=== PATIENT | female | born 1955 | race Caucasian/White ===

== ENCOUNTER 2024-04-17 12:47 | Inpatient (IN) | payer OTHER, SELFPAY ==
[2024-04-17] VITALS (59 sets, daily range): BP systolic 62–169; BP diastolic 29–151; PULSE 47–106; BMI 28.4
--- NOTE | 2024-04-17 08:57 | ED.GENMED ---
History of Present Illness
General
Chief Complaint: Heart Rate Problem
Source: patient
Exam Limitations: none
Time Seen by Provider: 04/17/24 08:56
History of Present Illness
History of Present Illness:
See MDM
Past History
Past History
ED Past Medical History: CVA and HTN
ED Past Surgical History: None
Social History
Tobacco: Non-smoker
Alcohol: None
Phy Exam
Physical Exam
Physical Exam:
See MDM
Course
Orders/Labs/Results
Orders:
Orders
04/17/24 08:52
EKG [Electrocardiogram (*1)] Urgent
Reason for Study: Bradycardia / Tachycardia
EKG- Treatment ONCE
04/17/24 09:09
Cardiovascular Evaluation Urgent
Comment: ADD ON
Complete Blood Count/With Diff Urgent
Comprehensive Metabolic Panel Urgent
Free T4 Urgent
Glycohemoglobin (HgbA1c) Urgent
PTT Urgent
Prothrombin Time Urgent
TSH Reflex To Free T4 Urgent
Comment: ADD ON
Troponin I Urgent
04/17/24 11:02
Add On- LAB Urgent
Tests Added?: TSH reflex to T4
04/17/24 11:22
Echo 2D MMode Color/Doppler Routine
Reason for Study: bradycardia
04/17/24 11:25
Troponin I Urgent
04/17/24 11:30
EKG [Electrocardiogram (*1)] Routine
Reason for Study: Bradycardia / Tachycardia
04/17/24 12:05
Consult Cardiology [CARDIOLOGY CONSULT] Routine
Consulting Provider: Hadley Dunlap
Was physician already notified: Yes
04/17/24 12:23
Admit/Transfer Patient As Directed
Co-Sign Provider:
Level of Care: Inpatient admission
Assign to:: Telemetry
Physician / Group: Matty Peterson
Diagnosis: Symptomatic Bradycardia
Patient Condition: Fair
Reason for Telemetry: Arrhythmia
Date to Stop Telemetry: 04/20/24
Time to Stop Telemetry: 11:00
Reason for Hospitalization: Symptoms of diaphoresis and shortness of breath at facility, heart rate found to
be in 30s to 40s per minute range. Hospitalization for cardiac workup,
telemetry, consideration of pacemaker.
Expected length of stay greater than two midnights?: Yes
ELOS- Estimated Length of Stay in days: 3
I certify the patient meets the requirements for IP care: Yes
PRN Pain Medication Management As Directed
May give lesser potent ordered pain med per pt: Yes
preference::
Protocol:: Medication orders for pain may be administered in a
manner that supports deferring to patient preference
when the pt is:
-Requesting an ordered lesser potent pain medication.
Least to most potent pain medications are defined as:
acetaminophen < NSAID < tramadol < opioids (morphine,
oxycodone, hydromorphone).
- Requesting a lesser dose of the same medication IF
ORDERED.
- Requesting a less intrusive route of administration
if both routes are prescribed by the provider (PO <
IV).
04/17/24 12:32
Code Status As Directed
Resuscitation Status: Full Code
Acetaminophen [Tylenol] 650 mg PO Q4HPRN PRN
Intake/ Output As Directed
Frequency: Per unit guidelines
Weight As Directed
Frequency: Daily
04/17/24 12:33
Activity As Directed
Activity Level: Out of Bed-Early Mobility
With Assistance
Vital Signs As Directed
Frequency: Per unit guidelines
DX Deep Vein Thrombosis Video Routine
04/17/24 12:38
Chest X-ray Portable [CR Chest Portable - 1 View] Routine
Comment:
Reason For Exam: crackles on exam
Reason Study Needs to be Portable: Other
04/17/24 14:12
Bisacodyl [Dulcolax] 10 mg RECTAL DAILYPRN PRN
Bismuth Subsalicylate [Wardell Bismuth] 524 mg PO Q4HPRN PRN
Magnesium Hydroxide [Milk of Magnesia] 30 ml PO DAILYPRN PRN
Phosphate Enema [Fleet Phosphate Enema-Adult] 118 ml RECTAL DAILYPRN PRN
04/17/24 14:12
DX Deep Vein Thrombosis Video Routine
04/17/24 14:44
Benzocaine/Menthol [Anesthetic Lozenge] 1 lozenge PO Q4HPRN PRN
04/17/24 Dinner
Regular
At Your Request: Full Participation
04/17/24 19:23
Troponin I Q6H
04/17/24 20:55
Troponin I Q6H
04/17/24 22:00
Melatonin 5 mg PO HS
04/18/24 04:29
Basic Metabolic Panel IN AM
Complete Blood Count/No Diff IN AM
Magnesium IN AM
04/18/24 08:00
Aspirin Chewable [Low Strength Aspirin] 81 mg PO DAILY
Clopidogrel Bisulfate [Plavix] 75 mg PO DAILY
Tramadol HCl [Ultram] 100 mg PO DAILY
Abnormal Lab Results
04/17/24 04/17/24
09:09 11:25
WBC 10.9 H 10^3/uL
(4.8-10.8)
RBC 3.68 L 10^6/uL
(4.20-5.40)
Hgb 10.9 L g/dL
(12.0-16.0)
Hct 32.5 L %
(37.0-47.0)
Abs Immat Gran (auto) 0.1 H 10^3/uL
(0-0.05)
Absolute Neuts (auto) 8.5 H 10^3/uL
(1.4-6.5)
Immature Gran % 0.6 H %
(0-0.5)
Neutrophils % 77.9 H %
(42.2-75.2)
Lymphocytes % 15.4 L %
(20.5-51.1)
APTT 23.2 L Sec
(23.4-35.0)
Chloride 108 H mmol/L
(98-107)
BUN 21 H mg/dl
(7-17)
Glucose 121 H mg/dl
(70-99)
Troponin I 0.484 H* D ng/ml
Triglycerides 189 H mg/dl
(10-149)
Total Cholesterol 218 H mg/dl
(50-199)
VLDL Cholesterol, Calc 37 H mg/dl
(0-30)
TSH (Reflex) 23.30 H uIU/ml
(0.47-4.68)
04/17/24 09:09
04/17/24 09:09
Vital Signs
Initial and Last Documented VS:
Initial Vital Signs
Temp Pulse Resp BP Pulse Ox
97.6 F 50 15 80/47 98
04/17/24 08:56 04/17/24 08:56 04/17/24 08:56 04/17/24 08:56 04/17/24 08:56
Last Documented Vital Signs
Temp Pulse Resp BP Pulse Ox
99.3 F 70 20 92/54 100
04/18/24 12:00 04/18/24 12:11 04/18/24 12:11 04/18/24 12:11 04/18/24 12:11
MDM/Problems Addressed
Differential Diagnosis Includes:
HPI and MDM Narrative:
68-year-old female presenting as a possible prearrival STEMI alert. Patient got out of the shower and felt weak and dizzy. EMS were called because she had a low heart rate. When they performed an EKG, there was concern for ST elevation with
reciprocal depressions. However, patient denying any sort of chest pain or shortness of breath. They gave 324 mg of aspirin. She is currently in rehab recovering from a recent stroke several weeks ago.
On arrival, patient denies chest pain or shortness of breath. She is very well-appearing and nontoxic. EKG was performed immediately showing no evidence of ST elevation or depression. STEMI alert was not called
Physical exam
General: Well appearing and non-toxic
HEENT: protecting airway
Neck: appears supple
CV: No evidence of cyanosis. Bradycardic
Resp: No accessory muscle use. Lungs clear
Abd: Non-distended
Extremities: No deformities
Neuro: alert
Psych: Normal affect
Skin: Intact
Problems Addressed including Acute and Chronic Conditions affecting care:
1. Bradycardia
Acuity: acute
Prognosis: stable
Details: Patient currently symptom-free in regards to shortness of breath. There is no ST elevation or depression to suggest STEMI. Regardless, will obtain troponin
Patient is not on beta-blockers but is on amlodipine. She did not take her medicine this morning
Updates
Blood work without significant abnormality. Given the intermittent episodes where the heart rate goes to the 30s and 40s, will admit for telemetry monitoring
12:10 PM repeat troponin elevated. At this point, both the hospitalist and the conveyor attendant at bedside and I updated both. Patient remained symptom-free
Differential Diagnosis (but not limited to): Symptomatic bradycardia, ACS
Testing considered: CT head but she denies headache
Drug therapy (if applicable): OTC meds, please see d/c instruction regarding Rx drugs
Amount and/or Complexity of Data Reviewed
Clinical info obtained from: Patient
External data reviewed: N/A
Labs I independently reviewed (but not limited to): Mild anemia
Radiology: N/A
Pulse Ox: not hypoxic
EKG independently reviewed: Sinus bradycardia, normal axis, no STEMI
Store Lead: Sinus rhythm
Critical Care: N/A
Risk of Complication:
Social Determinants of health: Good social support
Discussed with other providers: Hospitalist, cardiology
Escalation of Care includes Admit/Obs: Given the intermittent bradycardia, will admit for further evaluation
Occasional wrong word or 'sound a like' substitutions may have occurred due to the inherent limitations of voice recognition software. Read the chart carefully and recognize, using context, where substitutions have occurred.
*Critical Care Note
Total Time (30-74mins, 75-104mins- exclusive of procedures): Not Applicable
ED Attending Note
-
Portions of this chart may have been created with voice recognition software.� Occasional wrong word or��sound alike� substitutions may have occurred due to the inherent limitations of voice recognition software.
Discharge Plan
Departure
Patient Disposition: Admit
Date of Disposition: 04/17/24
Time of Disposition: 11:27
Admit to: Telemetry
Presentation/result/management discussed w/ accepting MD/DO: Hospitalist
Discharge Problem:
Symptomatic bradycardia
Interventions
Interventions:
*Risk Screen - Suicide Last Done: 04/17/24 08:56
*General Assessment Last Done: 04/17/24 08:56
*Neglect/Abuse Screening Last Done: 04/17/24 08:56
ED- Fall Risk Assessment Last Done: 04/17/24 13:37
*ED COVID-19 Vaccine History Last Done: 04/17/24 13:37
*Nursing Disposition Last Done: 04/17/24 13:37
ED- Cardiac Assessment Last Done: 04/17/24 09:06
ED- Pulmonary Assessment Last Done: 04/17/24 09:06
Discharge Date and Time
Discharge Date/Time: 04/17/24 13:37
[2024-04-17 09:17] LABS: % Basophils 0.6 % (0-2); % Eosinophils 1.4 % (0-6); % Immature Granulocytes 0.6 % (0-0.5); % Lymphocytes 15.4 % (20.5-51.1); % Monocytes 4.1 % (1.7-9.3); % Neutrophils 77.9 % (42.2-75.2); Absolute Basophils 0.1 10^3/uL (0-0.2); Absolute Eosinophils 0.2 10^3/uL (0-0.7); Absolute Immature Granulocytes 0.1 10^3/uL (0-0.05); Absolute Lymphocytes 1.7 10^3/uL (1.2-3.4); Absolute Monocytes 0.5 10^3/uL (0.1-0.6); Absolute Neutrophils 8.5 10^3/uL (1.4-6.5); Hematocrit 32.5 % (37.0-47.0); Hemoglobin 10.9 g/dL (12.0-16.0); Mean Corp Hgb Conc. 33.5 g/dL (33.0-37.0); Mean Corpuscular Hgb 29.6 pg (27.0-31.0); Mean Corpuscular Volume 88.3 fL (81.0-99.0); Mean Platelet Volume 9.7 fL (7.4-10.4); Nucleated Red Blood Cells % 0 %; Platelet Count 390 10^3/uL (130-400); Red Blood Cell Count 3.68 10^6/uL (4.20-5.40); Red Cell Dist. Width 14.2 % (11.5-14.5); White Blood Cell Count 10.9 10^3/uL (4.8-10.8)
[2024-04-17 09:28] LABS: ALT (SGPT) 15 U/L (0-35); AST (SGOT) 21 U/L (14-36); Albumin 4.1 g/dl (3.5-5.0); Alkaline Phosphatase 68 U/L (38-126); Blood Urea Nitrogen 21 mg/dl (7-17); Calcium 9.1 mg/dl (8.4-10.2); Carbon Dioxide 22 mmol/L (22-30); Chloride 108 mmol/L (98-107); Estimated Creatinine Clearance 47 ml/min; Glucose 121 mg/dl (70-99); Potassium 4.2 mmol/L (3.5-5.1); Sodium 139 mmol/L (135-145); Total Bilirubin 0.4 mg/dl (0.2-1.3); Total Protein 6.5 g/dl (6.3-8.2); eGFR > 60.00
[2024-04-17 09:33] LABS: INR 1.03; PT 13.5 Sec (11.4-14.6)
[2024-04-17 09:34] LABS: APTT 23.2 Sec (23.4-35.0)
[2024-04-17 09:40] LABS: Troponin I < 0.012 ng/ml
--- NOTE | 2024-04-17 10:54 | CON.CAR ---
Addendum entered and electronically signed by Hadley Dunlap MD 04/17/24 13:50:
I saw and examined the patient.
The ROASTER SUPERVISOR's note was reviewed and I agree with the note.
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 Patient reports that the night before last she had an episode of just sweating and
feeling short of breath episode lasted about 30 minutes. Today she had walked over to the dining room and after she was seated just felt diaphoretic and symptoms persisted. She was evaluated and was noted to be bradycardic heart rate in the 40s.
No hypotension reported. No chest pain or shortness of breath today. No prior history of coronary artery disease. EMS ECG raise question of ST elevation which was less on the initial ECG in the ER and when I evaluated her had resolved. Currently
without symptoms and has had no symptoms while in the emergency department. Initial troponin 0.012. Follow-up troponin 2 hours later is 0.4.
Presentation raises concern the diaphoresis may be anginal equivalent and transient inferior ST elevation may represent threatened CA. Based on the above cardiac catheterizations being recommended. Echocardiogram in the emergency department shows
normal left ventricular function. Heart rates currently in the 60s no evidence of additional bradycardia arrhythmias in the ER. No history of bleeding issues and no allergies to IV contrast. Patient is currently maintained on aspirin and Plavix
as an outpatient. Issues reviewed with patient's daughter by phone at the bedside while we had a discussion including the patient. Discussed findings above and discussed cardiac catheterization including procedure and risks. Both patient and
daughter have agreed and consent signed. Issues were reviewed with ER physician and hospitalist as well as interventional cardiology.
-Continue aspirin and Plavix
-No beta-ira due to recent bradycardia
-IV heparin 4000 unit bolus
-Statint
-Plan for cardiac catheterization additional recommendations based on results.
Critical care time 60 min
Original Note:
Consultation
Consultation Request
Date/Time Consultation Requested: 04/17/2024 1000
Date/Time Consultation Performed: 04/17/2024 10:50
Requesting Provider: Dr. Rosa
Performing Provider: MANPREET Colin for Dr. Dunlap
Reason for Consultation: Bradycardia
Medical History
-
History of Present Illness:
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 On 04/14/2024 the patient also had an episode of diaphoresis. She was sitting
watching television when she had the sudden onset of becoming profusely sweaty. She was given a fan. The episode lasted approximately 30 minutes and resolved. Then this morning after taking a shower she was walking down to breakfast when she
again was profusely diaphoretic. She endorsed some lightheadedness. She denies associated symptoms of chest pain, shortness of breath, and nausea. She was found to be bradycardic and was referred for evaluation.
Past Medical History
Past Medical History: CVA and HTN
Social History
Tobacco: Smoker
Alcohol: None
Drug: None
Personal: Single
Living: Shelter
Employment: Disabled
Family History
Family History: Reviewed & Not Pertinent
Allergies / Home Medications
Allergy/AdvReac Type Severity Reaction Status Date / Time
No Known Allergies Allergy Unverified 04/17/24 08:55
Review of Systems
-
History Source: Patient
All other systems: Negative unless noted
Constitutional: No Symptoms
EENT: No Symptoms
Respiratory: No Symptoms
Cardiac: No Symptoms
Abdomen/GI: No Symptoms
: No Symptoms
Musculoskeletal: No Symptoms
Skin: No Symptoms
Neurological: No Symptoms
Endocrine: No Symptoms
Hematologic/Lymphatic: No Symptoms
Physical Exam
Vital Signs
Temp Pulse Resp BP Pulse Ox
97.6 F 48 12 102/52 99
04/17/24 09:05 04/17/24 10:45 04/17/24 10:45 04/17/24 10:40 04/17/24 10:45
Lab Results
04/17/24 09:09
04/17/24 09:09
Troponin I < 0.012 ng/ml 04/17/24 09:09
Physical Exam
General: Well Developed, Well Nourished, No Apparent Distress and Comfortable
HEENT: Normocephalic, Anicteric and Moist Mucous Membranes
Respiratory: Clear and Non Labored Respirations
Cardiac: S1/S2, Regular Rhythm and Murmur (II/ systolic)
Breast: Deferred by me
GI: Soft, Non Tender, Non Distended and Normal Bowel Sounds
Rectal: Deferred by Provider
Genito-urinary: No Costovertebral Tender
Musculoskeletal: No Clubbing, No Cyanosis and No Edema
Skin: Warm and Dry
Neuro: AO x 3
Hematologic/Lymphatic: No Lymphadenopathy
Psych: Calm
Impression / Plan
-
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 She endorses diaphoresis episodes.
Diaphoresis
-1 episode at rest 1 episode with exertion
-Trend troponin and EKG, this could be anginal
-ASA given by EMS
Bradycardia
-TSH pending
-Not on any AV wiliam agents
Hypertension, hold amlodipine
Anemia likely chronic, per primary
Prior CVA, on DAPT
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
Current smoker, cessation recommended
Data Reviewed
-
EKG: Report Reviewed by me (Sinus bradycardia, rate 42)
Labs: Labs Reviewed by me
--- NOTE | 2024-04-17 11:54 | HPS.HSE ---
Family Physician
-
Family Physician: Chris Sigala
Chief Complaint
-
From inpatient rehab following stroke, heart rate in 30s to 40s at facility
History of Present Illness
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 She was in the rehab following a CVA 2 months ago. Was found to have low heart
rate with an ECG at that time showing potential ST elevations, patient without symptoms of chest pain or shortness of breath. She was emergently transferred to [facility] ED where repeat ECG did not show any acute ST deviation, T wave abnormality,
STEMI equivalents. Heart rate on ECG was 42/min with PACs and bigeminy pattern, however she was otherwise hemodynamically stable and on room air comfortably. Labs from the ED showed hemoglobin 10.9 with MCV 88.3, however the remainder of the BMP
and CBC were unremarkable. Initial troponin was negative. While in the ED was noted to have improved heart rate when ambulating. No indication for atropine in ED.
Upon speaking with the patient she states that this past Tuesday evening she had a similar event occur where she became diaphoretic and anxious. She says she is unclear if her heart rate was checked by the facility at that time. Symptoms started
when she was at rest. She mentions today she finished taking a shower and then walked to the kitchen when she developed recurrent symptoms. Was found to have low heart rate at that time when she was standing. She denies any history of coronary
artery disease or family history of CAD. She does smoke cigarettes, [id number] history. Denies alcohol and recreational drug use.
Medical History
Past Medical History
Past Medical History: Reports CVA (2 months ago) and HTN
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
Social History
Tobacco: Non-smoker
Alcohol: None
Drug: None
Family History
Family History: Not pertinent
Allergies / Home Medications
Allergies reflects when Allergies were last updated in [facility].
Home Medications with original date entered in [facility]
Allergy/Medication List:
NKDA
Review of Systems
-
History Source: Patient
A 12 point ROS was completed and negative except as noted: Yes
Constitutional: Reports No Symptoms
Respiratory: Reports No Symptoms
Cardiac: Reports No Symptoms
Abdomen/GI: Reports No Symptoms
Musculoskeletal: Reports No Symptoms
Skin: Reports No Symptoms
Neurological: Reports No Symptoms
Hematologic/Lymphatic: Reports No Symptoms
Physical Exam
Vital Signs
Vital Signs
Temp Pulse Resp BP Pulse Ox
97.6 F 59 16 110/93 99
04/17/24 09:05 04/17/24 11:00 04/17/24 11:00 04/17/24 11:00 04/17/24 10:45
Physical Exam
General: Well Nourished, No Apparent Distress and Comfortable
HEENT: NormoCephalic, Anicteric, Moist mucous membranes and Atraumatic
Respiratory: Crackles (bibasilar)
Cardiac: S1/S2 and Regular Rhythm; No Murmur, Rub, Gallop, Peripheral Edema or JVD
GI: Soft, Non Tender, Non Distended and Normal Bowel Sounds
Musculoskeletal: No Clubbing, No Cyanosis and No Edema
Neuro: Awake, Alert, Oriented and Nonfocal/grossly intact
Laboratory Results
-
04/17/24 09:09
04/17/24 09:09
Laboratory Results
PT 13.5 Sec (11.4-14.6) 04/17/24 09:09
INR 1.03 04/17/24 09:09
APTT 23.2 Sec (23.4-35.0) L 04/17/24 09:09
Total Bilirubin 0.4 mg/dl (0.2-1.3) 07/23/24 09:09
AST 21 U/L (14-36) 04/17/24 09:09
ALT 15 U/L (0-35) 04/17/24 09:09
Alkaline Phosphatase 68 U/L (38-126) 04/17/24 09:09
Troponin I < 0.012 ng/ml 04/17/24 09:09
Data Reviewed
-
Medical Tests (Nuc Med, Echo, EKG etc): Image Personally Visualized and interpreted and Report Reviewed by me
Lab Data: Labs Reviewed by me and Discussed with Physician
Old Records: Reviewed
Impression/Plan
-
# Symptomatic sinus bradycardia
-Differentials include vagal v. Sick sinus syndrome v. Ischemia
-Heart rate was in the range of 30 to 40/min prior to arrival, currently near 60/min
-She is on amlodipine though would not suspect DHP CCB to cause bradycardia
-Initial ECG at facility was concerning for ST elevation, repeat here with out ST deviation
-Initial troponin was <0.012, repeat 0.484; no active chest pain or anginal equivalents
-Cardiology consulted, echo ordered
Plan
-Hold amlodipine for now, low suspicion as etiology is low
-Order TSH to rule out thyroid disease
-Monitor BMP, electrolyte goal K>4, Mg>2
-Follow-up TTE
-Monitor on telemetry
# Elevated serum troponin
-Initial troponin negative, second troponin 0.484; no active chest pain, ECG with no ischemic findings
-She did have symptoms that could indicate underlying ischemia, possible ST elevation on facility ECG
-She does have a intermediate pretest probability due to age and risk factors
Plan
-Follow-up TTE to assess for WMA or reduced LVEF
-Trend serum troponin with serial ECG
-Continue DAPT for recent CVA
-Monitor on telemetry
# Bibasilar crackles
-Suspect that this is related to emphysema from smoking history, cannot rule out cardiac cause though
-Remains on room air currently, SpO2 in the high 90s no signs of respiratory distress
-Ordered chest x-ray to assess further
# Hypertension
-No known history of hypertensive systemic disease, meds include amlodipine 5 mg
-Held amlodipine as above, though again suspicion low for causing bradycardia
-BP well-controlled, will monitor while inpatient
# Normocytic anemia
-No previous records that would suspect this is chronic
-Hemoglobin near 11 on ED labs
-No obvious signs of bleeding
# H/O CVA
-Home medications include DAPT with aspirin and Plavix
-Unclear etiology, suspect cerebrovascular or related to [employer] SCIENCE TEACHER shunt
-No evidence of new focal deficits today
# Tobacco use
-Roughly half pack per day for close to 50 years
-Increased risk for underlying CAD, would not be surprised for emphysematous findings on lung
-Encourage cessation
DVT prophylaxis: Lovenox
Diet: House, moderate sodium restricted
CODE STATUS: Full code
Disposition: Telemetry, anticipate 24-48 hours of hospitalization
[2024-04-17 12:07] LABS: Troponin I 0.484 ng/ml
[2024-04-17 12:57] LABS: Free T4 1.08 ng/dl (0.78-2.19)
[2024-04-17] MEDS: HEPARIN 4000 UNITS IV (13:16)
[2024-04-17 14:17] LABS: ACT-LR - POC 250 Seconds (116-155)
[2024-04-17 14:29] LABS: ACT-LR - POC 329 Seconds (116-155)
--- NOTE | 2024-04-17 14:44 | ITS.CL.CATH ---
Photo Checker - Catheterization
Cardiac Catheterization
Procedure Report:
CARDIAC CATHETERIZATION REPORT
Date of Procedure: 04/17/2024
Referring: Hadley Dunlap MD
Indication: ACS/non-STEMI
HEMODYNAMIC DATA
AO:
LV:
LEFT VENTRICULOGRAPHY: Not performed
CORONARY ANGIOGRAPHY
Dominance: Right
Left Main: Mild distal tapering
LAD: Heavily calcified vessel with 50-60% mid stenosis
Circumflex: Dominant vessel with 90% mid circumflex stenosis immediately distal to the takeoff of a huge OM 2. OM1 is tiny. OM 2 is large with 60% ostial stenosis. OM 3 is small. The circumflex gives rise to several medium sized posterolateral
branches and a medium sized left PDA all of which have mild diffuse disease.
RCA: Nondominant vessel with 80% proximal stenosis
Angioplasty: We decided to proceed with intervention following the diagnostic study. Heparin total 6000 units was administered. Of note, the patient was quite restless and having difficulty cooperating with keeping her limbs on the cath table
during the diagnostic procedure. There was significant challenge from the right radial artery approach as we required a Glidewire to access the ascending aorta and a mother and daughter 125 cm diagnostic JR4 in 6 Filipino EBU 3.5 guide to get down to
the aortic root. Even with the guide catheter safely in the left coronary artery she had difficulty remaining still. BMW wire was advanced into the left circumflex and successfully passed into the distal circumflex. We attempted unsuccessfully to
pass another BMW wire into the large OM 2 to protect it. A 2.5 x 12 trek balloon was advanced across the lesion and inflated to 12 aliyah. We then passed a 4.0 x 18 Xience ANALI across the lesion and deployed at at 14 aliyah. Postdilatation was
accomplished with a 4.0 NC trek to 17 aliyah. The final angiographic result was outstanding. There remained PORTILLO grade III flow into the distal circumflex. There was some plaque shift into the already mildly stenosed ostium of the large OM 2 but
flow remained PORTILLO grade III. Because of the normal flow and because of the normal flow and her difficulty remaining still on the table, we opted to terminate the procedure at this point.
Closure Device: None-the procedure was performed via the right radial artery.
Radiation (mGy): 379
DAP (cm2.Gy): 25.6
Fluoroscopy time: 12.8 minutes
CONCLUSIONS
1: ACS/non-STEMI presentation
2: Systemic hypertension
3. Elevated LVEDP
4. Severe calcific multivessel CAD as described above
5. Successful stenting of culprit 90% mid circumflex (dominant vessel) stenosis with placement of 4.0 x 18 Xience ANALI
6. Remainder of CAD to be treated medically
7. Check echocardiogram for LV function
8. 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
Copy to: Chris Sigala DO, Hadley Dunlap MD
Noah Coto MD, [facility], [facility]
--- NOTE | 2024-04-17 16:28 | CM ---
Chart reviewed. I spoke with the patient's brother, Jose, who told me the patient lives at [facility] and has been living there for 2 years. The patient told me she ambulates with a rolling walker. I left a message with [facility].
Waiting on callback. CM to follow
[2024-04-17 16:57] LABS: Glucose - Point of Care 170 mg/dl (70-99)
--- NOTE | 2024-04-17 17:04 | W.PN.UPDATE ---
Update Note
Progress Note Update
Called to evaluate patient for bradycardia. Started ~16:45. Patient was immediately evaluated.
Heart rate in the 30s. She endorsed diaphoresis and stated 'I don't feel good.' She began vomiting. Oral suction by nursing. She became jett. She was visibly diaphoretic. No pulse was lost. She did not require CPR. Supplemental O2 given. QRS on
telemetry widened with ST changes. Dr. Coto notified. Heparin 5000 units IV given and she was transferred to the veterinary laboratory diagnostician urgently wearing R2 pads.
See code sheet for full medication administration.
--- NOTE | 2024-04-17 17:15 | PTCARENOTE ---
Pt restless post cath, She wanted to go to BR. Pt on bedrest, bedpan given. EKG done. HR 50-60's SB. 1635, Pt c/o SOB, HOB elevated. Pt felt a little better. Pt assisted to chair. Then Pt said she didn't feel well. HR now in 30's, Pt quickly
assisted back to bed, rapid response called. BP 82/45. Pt became briefly unresponsive, pale, vomited small amt douglas emesis. See rapid response record.
[2024-04-17 17:30] LABS: HDL Cholesterol 55 mg/dl; LDL Cholesterol, Calculated 126 mg/dl; Total Cholesterol 218 mg/dl (50-199); Triglyceride 189 mg/dl (10-149); Very Low Density Lipoprotein 37 mg/dl (0-30)
--- NOTE | 2024-04-17 18:52 | ITS.CL.CATH ---
Rating Specialist - Catheterization
Cardiac Catheterization
Procedure Report:
CARDIAC CATHETERIZATION REPORT
Date of Procedure: 04/17/2024
Referring: Noah Coto MD
Indication: Hypotension with severe bradycardia 1-2 hours post left circumflex stenting
HEMODYNAMIC DATA
AO: 108/77
LV: 108/25
ACCESS: On arrival in the Rating Specialist we obtained access via the right femoral artery and right femoral vein using a micropuncture technique. 6 [place] Citizen sheaths were placed in the RFA and RFV. By the time she was in the Rating Specialist her bradycardia had
resolved and she was actually tachycardic. Therefore no transvenous pacemaker was placed. We were unable to pass a J-wire through the right common iliac artery and angiography was then performed demonstrating total occlusion of the right common
iliac artery. We then attempted access via the left femoral artery. There were no palpable pulses on either side. We accessed the left femoral artery with a micropuncture technique and were able to place a 6 [place] Citizen sheath. We were unable to pass
a J-wire through the left common iliac artery and angiography was performed via the left femoral artery sheath and showed severe calcific stenosis of the left common iliac artery. There was severe stenosis/near occlusion of the distal aorta at the
level of the bifurcation. However there was a channel and we attempted to pass a Glidewire through a 5 [place] Citizen JR4 diagnostic catheter. We were unable to get the wire cleanly in the aorta and it was clear that there was dissection on a very gentle
puff. We then abandoned further attempts to access the aorta. The left radial artery was prepped and accessed with a micropuncture needle. We were able to perform the procedure via this approach.
CORONARY ANGIOGRAPHY
Left Main: Mild distal tapering
LAD: Severely calcified with angiographic description unchanged from prior study earlier today
Circumflex: Mild proximal circumflex disease. The stent placed in the mid circumflex is patent. However, the circumflex is severely stenosed 15-20 mm distal to the stent likely reflecting edge dissection propagating distally. There is PORTILLO grade
III flow into the posterolaterals and LPDA. The large second obtuse marginal branch is proximally occluded and this is new since the completion angiogram from the PCI done 2 hours earlier. Of note, we were unable to wire this vessel prior to
stenting the original circumflex lesion.
Angioplasty: Double bolus Integrilin was administered an additional heparin as needed to keep the ACT therapeutic. Using the EBU 3.5 guide catheter, a BMW wire was easily passed into the distal circumflex. Balloon angioplasty was accomplished with
a 3.0 x 15 trek balloon. We were unable to pass a 3.25 x 38 Xience ANALI. Further balloon angioplasty was performed and there appeared to be a tight lesion just distal to the edge of the original stent. A guide liner was used to enhance backup
support. Ultimately we were able to get the 3.25 x 38 stent to the target location where was deployed at 14 aliyah. The proximal portion of the stent was postdilated with a 3.5 x 15 NC trek to 18 aliyah. We made multiple unsuccessful attempts to wire
through the side struts of the stent into the occluded second obtuse marginal branch including use of a whisper wire and a Fielder XT. Ultimately we opted to cease attempts and she was transferred to the CVICU.
Closure Device: R band left radial artery. The indwelling sheath in the RFA and ACTUARY MANAGER were left in place. Of note systolic blood pressure transduced from the left femoral artery sheath at the procedure conclusion is 100 mmHg compared with right arm
cuff pressure of 130.
Radiation (mGy): 645
DAP (cm2.Gy): 57.44
Fluoroscopy time: 23.7 minutes
CONCLUSIONS
1: Emergent angiography demonstrating nonocclusive dissection distal to the originally placed stent which is patent. There is now total occlusion of the large OM 2 which originates from within the stented segment.
2: Successful angioplasty and stenting in a distal overlapping fashion using a 3.25 x 38 Xience ANALI postdilated proximally with a 3.5 mm noncompliant balloon.
3. Unsuccessful attempt to rescue the occluded OM 2 due to failure to get a coronary guidewire past the site of occlusion
4. Demonstration of chronically occluded right common iliac artery and severe calcific left iliac disease. The distal aorta is nearly occluded
5. Prognosis is guarded and she is critically ill
Copy to: Chris Sigala DO, Hadley Dunlap MD
Noah Coto MD, [facility], [facility]
[2024-04-17 19:28] LABS: ACT-LR - POC 236 Seconds (116-155)
[2024-04-17 19:29] LABS: Glucose - Point of Care 126 mg/dl (70-99)
[2024-04-17 19:33] LABS: HCO3 18.6 mmol/L (21-28); Ionized Calcium 1.15 mMOL/L (1.15-1.33); O2 Saturation % 99.4 % (94-98); PCO2 33 mmHg (32-35); PO2 151 mmHg (83-108); pH 7.36 (7.35-7.45)
[2024-04-17 19:34] LABS: Hematocrit 29.7 % (37.0-47.0); Hemoglobin 10.4 g/dL (12.0-16.0); Mean Corpuscular Hgb 30.1 pg (27.0-31.0); Mean Corpuscular Volume 85.8 fL (81.0-99.0); Platelet Count 404 10^3/uL (130-400); Red Blood Cell Count 3.46 10^6/uL (4.20-5.40); Red Cell Dist. Width 14.3 % (11.5-14.5); White Blood Cell Count 21.9 10^3/uL (4.8-10.8)
[2024-04-17] MEDS: SODIUM BICARBONATE 25 MEQ IV (19:44)
[2024-04-17 19:45] LABS: INR 1.23; PT 15.6 Sec (11.4-14.6)
[2024-04-17] MEDS: DOPamine 400 MG 250 IV (19:47)
[2024-04-17] MEDS: PRECEDEX 100 IV (19:48)
--- NOTE | 2024-04-17 19:53 | W.PN.UPDATE ---
Update Note
Progress Note Update
At the conclusion of the study we were not able to obtain Doppler signals in either foot. She was transferred to the CVICU and the feet were warmed with blankets. There is still no Doppler signal and I am concerned that the LFA sheath in
particular may be occlusive due to left LIEUTENANT SHIFT SUPERVISOR disease. ACT in the CVICU was 236. We will recheck in 30 minutes and plan to pull the femoral artery sheaths as soon as possible. I discussed the situation with Dr. Garcia who is insurance consultant for vascular
surgery. I told her I would update her following sheath removal.
I have updated the patient's daughter on the entire series of events.
[2024-04-17] MEDS: CALCIUM GLUCONATE 130 MG IV (19:55)
[2024-04-17 20:07] LABS: ACT-LR - POC 219 Seconds (116-155)
[2024-04-17] MEDS: LOVENOX SC (20:12)
[2024-04-17] MEDS: OFIRMEV 100 IV (20:13)
[2024-04-17 20:14] LABS: APTT > 200 Sec (23.4-35.0)
[2024-04-17 20:28] LABS: ALT (SGPT) 17 U/L (0-35); AST (SGOT) 44 U/L (14-36); Albumin 3.9 g/dl (3.5-5.0); Alkaline Phosphatase 79 U/L (38-126); Blood Urea Nitrogen 17 mg/dl (7-17); Calcium 8.6 mg/dl (8.4-10.2); Carbon Dioxide 18 mmol/L (22-30); Chloride 110 mmol/L (98-107); Estimated Creatinine Clearance 59 ml/min; Glucose 118 mg/dl (70-99); Magnesium 1.9 mg/dl (1.6-2.3); Potassium 3.9 mmol/L (3.5-5.1); Sodium 136 mmol/L (135-145); Total Bilirubin 0.3 mg/dl (0.2-1.3); Total Protein 6.4 g/dl (6.3-8.2); eGFR > 60.00
[2024-04-17 20:34] LABS: B.E. -4.2 mmol/L; O2 Saturation % 99.5 % (94-98); PCO2 38 mmHg (32-35); PO2 126 mmHg (83-108); pH 7.35 (7.35-7.45)
[2024-04-17] MEDS: NSS 250 IV (20:50)
[2024-04-17] MEDS: CALCIUM CHLORIDE 10% SYRINGE 500 MG IV (20:50)
[2024-04-17] MEDS: ATROPINE 0.1 MG/ML SYRINGE 1 MG IV (20:50)
[2024-04-17] MEDS: MAGNESIUM SULFATE 102 GRAMS IV (20:58)
--- NOTE | 2024-04-17 21:01 | W.PN.UPDATE ---
Update Note
Progress Note Update
BP trended down over past hour and she is now on dopa and levo.
LFA sheath removed. Manual compression x 25 min by me. Groin is soft without hematoma. Good doppler signal LFA. Very weak doppler signal L PT and it goes away when SBP <85.
We have given IVF, Ca++, Mg++ and pressor trying to keep BP acceptable.
Will need to remove RFA sheath as this is likely occulsive.
I have reviewed angiograms of both procedures with pt brother and sister and explained that her situation is increasingly dire.
[2024-04-17] MEDS: KCL 50 IV (21:02)
[2024-04-17] MEDS: SODIUM BICARBONATE 50 MEQ IV (21:03)
[2024-04-17 21:04] LABS: Hematocrit 26.7 % (37.0-47.0); Hemoglobin 9.2 g/dL (12.0-16.0)
[2024-04-17] MEDS: ATROPINE 0.1 MG/ML SYRINGE 0.5 MG IV (21:05)
[2024-04-17] MEDS: LEVOPHED 250 IV (21:10)
[2024-04-17] MEDS: MELATONIN PO (21:11)
[2024-04-17 21:30] LABS: B.E. -3.8 mmol/L; HCO3 20.4 mmol/L (21-28); O2 Saturation % 96.8 % (94-98); PCO2 33 mmHg (32-35); PO2 72 mmHg (83-108); Potassium 4.2 mMOL/L (3.5-5.1)
[2024-04-17 21:32] LABS: Ionized Calcium 1.55 mMOL/L (1.15-1.33)
--- NOTE | 2024-04-17 22:00 | PTCARENOTE ---
Received report from entry level lab technician nurse. Pt out to CVICU ~1915 and admitted to room 2265. Pt restless and agitated. SOLIMAN. No c/o pain. Pt was SR w/ a suspected heart block on the tele monitor w/ HR 80s. EKG obtained. BP 123/92. Upon arrival to CVIVU,
bilateral radial pulses present via Doppler and bilateral DP/PT pulses absent via doppler. Bilateral feet cool to touch and pale. CTPA and Dr. Coto aware. Pt on 100% nonrebreather mask at 8 L. POX 91%. Abdomen soft/nontender. Pt anuric. Right
radial cath site TR band intact. 3 mL air removed. Left radial cath site TR band intact. Right femoral venous sheath and right femoral arterial line site soft/intact. Left femoral arterial line soft/intact. Both arterial lines transduced to the
monitor, zeroed, and flushed. Labs drawn and sent. ACT obtained. Pt required several nurses to help remain flat on bed and keep limbs straight. Pt began bradying down w/ HR in the 40s/50s. Dopamine initiated as ordered. Pt remained restless -
Precedex initiated as ordered. Dr. Coto pulled left femoral arterial line @2014 and held manual pressure for >30 mins. Pt progressively became more unstable. SBP sustained in the 60-70s. Pt having episodes of bradycardia in the 30s and going into
complete heart block. On/off dopamine. Levo initiated. Calcium chloride, atropine, bicarb, and electrolyte replacements given as ordered - see MAR. Per Dr. Coto, pt to go back to entry level lab technician for a temp pacing wire.
--- NOTE | 2024-04-17 22:05 | PTCARENOTE ---
Pt transported to track repair laborer for temporary pacing wires @2590.
--- NOTE | 2024-04-17 22:16 | ITS.CL.PN ---
Top Coater - Procedure Note
Procedure
Procedure Note:
TRANSVENOUS PACEMAKER REPORT
Date of Procedure: 04/17/2024
Referring: Noah Coto MD
PROCEDURE SUMMARY:
Successful placement of 6 [place] transvenous pacemaker via left femoral vein
DESCRIPTION OF PROCEDURE: Access was obtained using a micropuncture technique in the left femoral vein. A 6 [place] sheath was placed. A 6 [place] transvenous pacemaker was advanced to the right ventricle. In a septal position she developed rapid
ventricular flutter which required a 300 J shock. This restored sinus rhythm. Pacemaker was then reoriented to a more apical position. There was a second episode of ventricular flutter requiring a shock. She then remained electrically quiet
albeit in atrial fibrillation. Adequate thresholds (2.5 mA) were obtained. We then secured the pacemaker in position with suture and Tegaderm as well as tape.
Radiation (mGy): 11.9
DAP (cm2.Gy): 2.0
Fluoroscopy time: 1.6 minutes
CONCLUSIONS: Successful placement of 6 [place] transvenous pacemaker via left femoral vein.
Copy to: Hadley Dunlap MD
Noah Coto MD, [facility], [facility]
--- NOTE | 2024-04-17 22:21 | W.PN.UPDATE ---
Update Note
Progress Note Update
I spoke with Dr. Cornell again after the LFA sheath was removed. We did have a weak left PT signal. Whenever her blood pressure fell the Doppler signal would not be audible. There is no option to improve lower extremity flow by either endovascular
or open surgical treatment given how critically ill she is at this time. I spoke with vascular surgery who feels same.
She had several episodes of high-grade AV block with ventricular rate in the 30s. This was accompanied by hypotension. Atropine successfully treated the bradycardia. A decision was made to place a temporary pacemaker and I obtained phone consent
from her daughter Darvin. I explained to her brother and sister that her condition continues to deteriorate and we will need to discuss whether she would want to be intubated once her daughter Davrin arrives.
Rhythm on transfer to CVICU AF 100-120 with BP 100-110/60.
[2024-04-17] MEDS: CORDARONE 103 MG IV (23:06)
[2024-04-17] MEDS: CORDARONE 518 MG IV (23:23)
[2024-04-17 23:27] LABS: Glucose - Point of Care 221 mg/dl (70-99)
[2024-04-17 23:42] LABS: ACT-LR - POC 136 Seconds (116-155)
[2024-04-17 23:46] LABS: B.E. -4.8 mmol/L; Ionized Calcium 1.35 mMOL/L (1.15-1.33); O2 Saturation % 97.5 % (94-98); PCO2 30 mmHg (32-35); PO2 76 mmHg (83-108); Potassium 3.8 mMOL/L (3.5-5.1); pH 7.41 (7.35-7.45)
[2024-04-18] VITALS (186 sets, daily range): BP systolic 46–142; BP diastolic 10–98; PULSE 70; BMI 28.0
[2024-04-18 00:01] LABS: Lactic Acid 3.3 mmol/L (0.7-2.0)
[2024-04-18] MEDS: KCL 50 IV (00:13)
--- NOTE | 2024-04-18 00:15 | PTCARENOTE ---
Pt returned to CVICU from pathology laboratory aide ~2235. Temporary pacing wire placed via left femoral vein. Upon arrival to CVICU, pt a-fib on the tele monitor w/ HR 100s. SBP 90s-100s. Levo/Precedex infusing. Bilateral radial pulses present via Doppler. Left PT
pulse present via Doppler, right LE pulse absent via Doppler. Bilateral feet remain cool to touch and pale. Pt on 100% non-rebreather mask at 15 L. POX 90s. Slight wheezing heard. Pt remained anuric - Escobar catheter placed as ordered and pt voiding
clear/yellow urine. Bilateral radial cath sites w/ TR bands intact. Air removed from bilateral TR bands when appropriate. Right femoral venous sheath and arterial line site soft/intact. Right fem arterial line transduced to the monitor, zeroed, and
flushed. Restraints placed on pt as ordered. All ordered labs drawn and sent. Amiodarone drip and bolus administered as ordered. Family updated and in to see pt.
[2024-04-18 00:50] LABS: B.E. -9.6 mmol/L; O2 Saturation % 99.6 % (94-98); PCO2 23 mmHg (32-35); PO2 146 mmHg (83-108); pH 7.39 (7.35-7.45)
[2024-04-18 00:51] LABS: HCO3 13.9 mmol/L (21-28)
[2024-04-18] MEDS: SODIUM BICARBONATE 50 MEQ IV ×2 (00:58→02:07)
[2024-04-18] MEDS: LASIX 40 MG IV (01:11)
[2024-04-18] MEDS: VERSED 0.5 MG IV ×6 (01:46→10:24)
--- NOTE | 2024-04-18 01:48 | W.PN.ANESINT ---
Anesthesia Intubation Note
- Intubation Note
Intubation Note:
Diagnosis: Respiratory Distress
Blade: Mac4
Tube Size: 8.0
Depth: 23cm@lip
Side Taped: right
Drugs Used: propofol-50mg, succs-100mg
Grade View: 1
EtCO2 Present: yes
Atraumatic: yes
Attempts: 1
Insertion Start and Stop Time:
SaO2 Pre: 90
SaO2 Post: 99
Glidescope Used: yes
Other Airway Adjustments: suctioned
Pre-Oxygenated: yes
Portable Chest X-Ray: yes
RSI: no
Suctioned: yes
Bilateral Breath Sounds Confirmed: yes
Vent Settings:
Settings per ___Attending Physician
[2024-04-18 01:50] LABS: B.E. -8.1 mmol/L; HCO3 16.9 mmol/L (21-28); Ionized Calcium 1.26 mMOL/L (1.15-1.33); O2 Saturation % 99.8 % (94-98); PCO2 32 mmHg (32-35); PO2 183 mmHg (83-108); Potassium 4.4 mMOL/L (3.5-5.1); pH 7.33 (7.35-7.45)
--- NOTE | 2024-04-18 02:00 | PTCARENOTE ---
Pt becoming increasing tachypneic and pale w/ respiratory rate in the 30s. HR 50s. SBP dropping to 70-80s. ABG drawn and sent. Chest xray obtained. Respiratory and CTPA at the bedside. Albuterol treatment administered and IV lasix administered - see
NOV. CTPA on phone w/ Dr. Coto - order to intubate. Anesthesia at the bedside. Pt intubated w/ #8 ETT, 21 cm at the right lip @0105. See worklist for full vent settings. ETT placement confirmed w/ chest xray. Pt POX 98-100%. Lung sounds audible
throughout. Mouth care completed. Pt turned, washed w/ CHG wipes, and repositioned.
[2024-04-18] MEDS: LEVOPHED 250 IV ×5 (02:16→20:36)
[2024-04-18 02:34] LABS: B.E. -3.1 mmol/L; HCO3 20.8 mmol/L (21-28); O2 Saturation % 99.8 % (94-98); PCO2 32 mmHg (32-35); PO2 182 mmHg (83-108); pH 7.42 (7.35-7.45)
--- NOTE | 2024-04-18 03:28 | W.PN.CARD.SR ---
Sheath/IABP Sheath Removal
Sheath Removal
Right Arterial Femoral:
Site appearance prior to sheath removal: Intact
Size of hematoma in cm: 0
Sheath removed by:: Physician construction assistant
Name of associate removing sheath: Mouna Braden
Time of sheath removal: 02:50
Time hemostasis achieved: 03:15
Site appearance post sheath removal: Intact
Size of hematoma in cm: 0
Method of Hemostasis Post Sheath Removal: Manual Pressure
Dressing dry and intact?: Yes
Comments: CFV sheath remains in place. R PT is now dopplerable. No hematoma
[2024-04-18] MEDS: PRECEDEX 100 IV ×2 (03:59→08:20)
[2024-04-18 04:38] LABS: Venous Blood Gas B.E. -2.3 mmol/L (-4 to +4); Venous Blood Gas HCO3 24.5 mmol/L (22-27); Venous Blood Gas pCO2 51 mmHg (35-48); Venous Blood Gas pH 7.29 (7.32-7.43); Venous Blood Gas pO2 46 mmHg (30-50)
--- NOTE | 2024-04-18 04:40 | PTCARENOTE ---
Right femoral arterial line pulled by CTPA @0250. Manual pressure held by CPTA until hemostasis achieved, Right femoral venous sheath remains in place. Right fem site intact/soft. Bilateral PT pulses present via doppler. All ordered labs drawn and
sent. Pt remains restless and attempting to sit up in bed - versed administered as ordered, see NOV. VSS. Levo, dobutamine, amiodarone, and Precedex infusing per protocol/as ordered.
[2024-04-18 04:46] LABS: Hematocrit 26.8 % (37.0-47.0); Hemoglobin 9.1 g/dL (12.0-16.0); Mean Corpuscular Hgb 29.7 pg (27.0-31.0); Mean Corpuscular Volume 87.6 fL (81.0-99.0); Mean Platelet Volume 10.4 fL (7.4-10.4); Platelet Count 362 10^3/uL (130-400); Red Blood Cell Count 3.06 10^6/uL (4.20-5.40); Red Cell Dist. Width 14.3 % (11.5-14.5); White Blood Cell Count 34.6 10^3/uL (4.8-10.8)
[2024-04-18 05:11] LABS: Blood Urea Nitrogen 18 mg/dl (7-17); Calcium 9.4 mg/dl (8.4-10.2); Carbon Dioxide 25 mmol/L (22-30); Chloride 104 mmol/L (98-107); Estimated Creatinine Clearance 47 ml/min; Glucose 234 mg/dl (70-99); Magnesium 1.9 mg/dl (1.6-2.3); Sodium 140 mmol/L (135-145); eGFR > 60.00
--- NOTE | 2024-04-18 05:13 | PTCARENOTE ---
[facility] PRU urgent cancelled by lab. Per lab - unable to collect specimen due to interfering medications that the pt has received in the past 48 hours.
--- NOTE | 2024-04-18 07:35 | W.PN.CD ---
Today's Communication / Plan
-
ECHO
Check lactate
NaHCO3 if needed
BC x 2
Vascular consult called
Impression / Plan
-
BACKGROUND: 68F with hypertension, current smoker, prior CVA, and 'brain shunt' (WELL PULLER?) Who presents from [facility] with bradycardia. She endorses diaphoresis episodes.
CAD:
- Taken urgently following admission to laborer driver with NonSTEMI
-Complex CAD with severe bifurcation stenosis in midportion of dominant cx involving large OM2 origin
- Able to stent 90% mid cx across origin of OM2 (but unable to wire OM2 before stenting cx) with good final result
- 90 min post cath she developed hypotension/bradycardia/heart block. Taken back emergently and angio showed stent patent but near occlusion of circumflex downstream of stent undoubtedly due to distal dissection not visible on completion angiogram
from first procedure. Also the large OM2 now occluded at ostium. Distally overlapping stent placed in cx.
- Pt remained critically ill with evolving inferolateral [place] requiring dopa/levophed
-Developed intermittent heart block and taken back to laborer driver for TPM
- Around 1 AM intubated for impending respiratory failure
- Metabolic acidosis treated with increased respiratory rate and NaHCO3
- Has improved on ventilator over past 6 hours with lower pressor requirements (Dopa 5/Levo8)
-Received lasix 40 IV and has excellent UO with Cr 1.0
- Trop up to 195 and not yet peaked
- ECHO precath normal LV without valve disease. Will repeat ECHO in setting of [place]
Hypothyroid
-TSH 23
- Would be helpful if synthroid could start- will discuss with IM
Vascular
- Had no doppler signals post case until sheaths removed. Spoke with vascular last night and this am
-Now with doppler signals bilaterally
- No role for urgent vascular intervention
-Horrible PAD with occluded R CI and near occlusion of terminal aorta
WELL PULLER shunt
-WBC 34k . Need to check blood cxs in case there is some infection here
Metabolic acidosis
- Etiology multifactorial : [place], LE ischemia
- Need to rule out infection
Prior CVA
- On DAPT
Will update family. Remains critically ill
CCT 65 min
Physical Exam
Vital Signs/Labs
Vital Signs
Temp Pulse Resp BP Pulse Ox
99.6 F 62 21 110/66 100
04/18/24 07:00 04/18/24 07:20 04/18/24 07:20 04/18/24 07:20 04/18/24 07:20
04/17/24 04/18/24 04/19/24
06:59 06:59 06:59
Actual Weight 143 lb 4.807 oz
04/18/24 04:29
04/18/24 04:29
PT 15.6 Sec (11.4-14.6) H 04/17/24 19:23
INR 1.23 04/17/24 19:23
APTT > 200 Sec (23.4-35.0) H* 04/17/24 19:23
Magnesium 1.9 mg/dl (1.6-2.3) 04/18/24 04:29
Triglycerides 189 mg/dl (10-149) H 04/17/24 09:09
LDL Cholesterol, Calc 126 mg/dl 04/17/24 09:09
VLDL Cholesterol, Calc 37 mg/dl (0-30) H 04/17/24 09:09
HDL Cholesterol 55 mg/dl 04/17/24 09:09
Free T4 1.08 ng/dl (0.78-2.19) 04/17/24 09:09
LAB Results
04/17/24 04/17/24 04/17/24
09:09 11:25 19:23
Troponin I < 0.012 0.484 H* D 4.310 H* D
04/17/24 04/18/24
20:55 04:29
Troponin I 4.840 H* 195.000 H* D
Physical Exam
Cardiovascular: Rhythm & rate is regular, S1S2 is normal and Murmur/rub/gallop absent
Respiratory: Rhonchi Present
GI: Soft
Neuro/Psych: Other (Intubated and sedated)
Data Reviewed
-
Date of Service: April 18, 2024
--- NOTE | 2024-04-18 07:38 | W.PN.ANS.POP ---
Anesthesia Post Operative
- Anesthesia Post Op Note
Vital Signs Stable-See Nursing Note: Yes
Airway Patent: Yes
Adequate Pain Control: Yes
Change in Mental Status: No
Current Postoperative Nausea & Vomiting: No
Anesthesia Complications: No
General Anesthetic Recall: No
Unplanned Admission: No
Post Op Hydration Adequate: Yes
[2024-04-18] MEDS: ULTRAM PO (08:00)
--- NOTE | 2024-04-18 08:24 | CON.VAS ---
Consultation
Consultation Request
Date/Time Consultation Performed: 04/18/24 0800
Requesting Provider: Noah Coto MD
Performing Provider: Amina Gupta NP-C for Lowell Arce MD
Reason for Consultation: Diminished bilateral lower extremity pulse exam following cardiac cath
Medical History
-
Chief Complaint: NSTEMI
History of Present Illness:
This is a 68-year-old female with significant past medical history for recent stroke (2 months ago) and hypertension who presented on 04/17/2024 from her rehab center with diaphoresis, bradycardia, and shortness of breath; concern for NSTEMI brought
to the cardiac catheterization lab which demonstrated severe multivessel CAD and underwent PCI to mid circumflex via right radial access. Later evening on 04/17/2024 patient noted to bradycardic again and was brought back to cardiac catheterization
lab emergently which demonstrated distal dissection to earlier placed mid circumflex stent, she underwent successful angioplasty and stenting to dissected area via left radial access. During cardiac catheterization both right and left femoral
artery were attempted for access, however angiography demonstrated chronically occluded right common iliac artery and severe calcified disease at left iliac artery thus attempt at procedure via common femoral artery access was aborted. Additionally,
per report patient did not have Doppler signals in the right foot even prior to the initial catheterization via the right radial approach. Therefore suspected chronic disease. Vascular surgery is consulted because initially with arterial sheaths in
place at bilateral femoral artery patient had diminished/absent distal pulses. However, following removal of arterial sheaths patient regained Doppler signals at bilateral feet and feet remained warm. HPI is contributed by chart review and
discussion with cardiology team, as patient is currently intubated and sedated.
Past Medical History
Past Medical History: CVA, HTN and Other (Anemia)
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
Social History
Tobacco: Smoker (Per chart review)
Allergies / Home Medications
Allergy/AdvReac Type Severity Reaction Status Date / Time
No Known Allergies Allergy Unverified 04/17/24 08:55
�Medication �Instructions �Recorded �Confirmed �Type
amlodipine 5 mg tablet 5 mg PO DAILY Blood Pressure 04/17/24 04/17/24 History
aspirin 81 mg chewable tablet 81 mg PO DAILY Blood Clot 04/17/24 04/17/24 History
Prevention/Tx
bisacodyl 10 mg rectal suppository 10 mg MA DAILYPRN PRN 04/17/24 04/17/24 History
(Dulcolax (bisacodyl)) constipation, mom ineffective
bismuth subsalicylate 262 mg/15 mL 524 mg PO Q4HPRN PRN indigestion 04/17/24 04/17/24 History
oral suspension (Pepto-Bismol)
clopidogrel 75 mg tablet (Plavix) 75 mg PO DAILY Blood Clot 04/17/24 04/17/24 History
Prevention/Tx
eucalyptus-menthol oral mucosal 1 milana mucous membrane Q4HPRN PRN 04/17/24 04/17/24 History
lozenge dry cough
ibuprofen 600 mg tablet 600 mg PO DAILY Pain 04/17/24 04/17/24 History
ibuprofen 600 mg tablet 600 mg PO Q8HPRN PRN mild pain 04/17/24 04/17/24 History
magnesium hydroxide 400 mg/5 mL 30 ml PO DAILYPRN PRN constipation 04/17/24 04/17/24 History
oral suspension (Milk of Magnesia)
melatonin 5 mg tablet 5 mg PO HS Sleep 04/17/24 04/17/24 History
sodium phosphates 19 gram-7 118 ml MA DAILYPRN PRN 04/17/24 04/17/24 History
gram/118 mL enema (Fleet Enema) constipaiton, if dulcolax
ineffective
tramadol 50 mg tablet 100 mg PO DAILY Pain 04/17/24 04/17/24 History
Review of Systems
-
Unable to obtain full review of systems at this time due to: Patient Intubation
Physical Exam
Vital Signs
Temp Pulse Resp BP Pulse Ox
99.1 F 62 22 110/66 100
04/18/24 08:00 04/18/24 07:20 04/18/24 08:00 04/18/24 07:20 04/18/24 08:00
Lab Results
04/18/24 04:29
04/18/24 04:29
Troponin I 195.000 ng/ml H* D 04/18/24 04:29
Physical Exam
General: No Apparent Distress and Intubated
HEENT: Normocephalic, Anicteric and Atraumatic
Respiratory: Other (Tolerating ventilator)
Cardiac: Negative JVD
GI: Soft, Non Tender and Non Distended
Musculoskeletal: No Edema
Skin: Warm, Dry and Other ( She appears to be moving all extremities well. Feet are pink currently. Relatively warm, minimally cool.)
Neuro: Sedated
Pulses: Left Dorsalis Pedis: Doppler (eft side she has got reasonable dopplerable DP and PT signals), Left Posterior Tibial: Doppler and Right Posterior Tibial: Doppler (right side monophasic PT Doppler signal noted.)
Assessment / Plan
-
Assessment: 68-year-old female status post cardiac catheterization for NSTEMI, with chronic peripheral arterial disease likely exacerbated by somewhat occlusive sheath placement due to inflow disease but now improved.
Plan:
No acute need for intervention from a vascular perspective. No acute limb ischemia. Likely all chronic disease.
Will obtain baseline DAYDAY/TBI's
Will follow closely even in the outpatient setting assuming no intervention is needed on the admission currently
I performed this shared service with the attending. I evaluated the patient tuvi-de-peey and have entered clinical documentation as shown in the encounter note. I performed the following component(s): history and physical exam. Note that medical
decision making is not final until attested by vascular attending.
--- NOTE | 2024-04-18 08:27 | W.PN.UPDATE ---
Update Note
Progress Note Update
Seen and examined with LANDY Gupta. Full consultation to follow. 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 Presented with
bradycardia/lightheadedness. Underwent coronary catheterization via right radial approach ([place]). Successful left circumflex stenting. Right radial sheath withdrawn and radial band applied. Subsequently had hypotension with severe
bradycardia. Repeat angiography performed via initial right femoral approach, but unable to advance wire due to occlusion of the common iliac. Subsequent attempt at left femoral access and sheath placement, however due to bulky distal aortic
bifurcation plaque/stenosis, unable to advance wires/catheters. Therefore left radial approach undertaken underwent successful distal angioplasty/stenting. Following this taken to ICU. Noted to have cool feet with absence of Doppler signals. Per
report did not have Doppler signals in the right foot even prior to the initial catheterization via the right radial approach. Therefore suspected chronic disease. However, post procedurally not noted Dopplers in bilateral feet. Sheath withdrawn
and manual pressure applied. Noted improvement in coloration and Doppler signals. Asked to evaluate. I reviewed all cath films with Dr. Coto myself.
On exam/she is intubated/sedated. She appears to be moving all extremities well. Feet are pink currently. Relatively warm, minimally cool. On the left side she has got reasonable dopplerable DP and PT signals. On the right side monophasic PT
Doppler signal noted.
Plan/ No acute need for intervention from a vascular perspective. No acute limb ischemia. Likely all chronic disease, and exacerbated by somewhat occlusive sheath placement due to inflow disease. Improved now. Will obtain baseline DAYDAY/TBI's.
Will follow closely even in the outpatient setting assuming no intervention is needed on the admission currently.
--- NOTE | 2024-04-18 08:30 | PTCARENOTE ---
pt received from previous RN, sedated on Precedex gtt, RASS 0 to -2. pupils equal and reactive, SOLIMAN. versed given as ordered for agitation. SR/junctional w/ NSVT on the monitor, HR 50-70s. Amiodarone gtt running as ordered. Dopamine gtt running as
ordered. LFV Transvenous wire in place, VVI 30/. Doppler pedal pulses as documented, weakly palpable radial pulses. SBP 100-120s. Levophed gtt running as ordered. pt mechanically ventilated, ETT #8.0, 21cm@lip. AC 16, TV 400, PEEP 5, FIO2 40%. POX
100%. lungs clear anteriorly. suctioned for blood tinged sputum. pt abdomen s/n, hypoactive BS. NPO. Escobar in place, clear yellow urine. L radial puncture c/d/i. R radial puncture c/d/i. LFV sheath in place w/ TV wire., old drainage. RFV sheath in
place. PIV x2. VBG drawn, Dr. Coto aware of results. ECHO completed. see worklist for VS, I&O, and assessment.
[2024-04-18 08:54] LABS: Venous Blood Gas B.E. -1.6 mmol/L (-4 to +4); Venous Blood Gas HCO3 22.9 mmol/L (22-27); Venous Blood Gas O2 Sat % 99.5 %; Venous Blood Gas pCO2 37 mmHg (35-48); Venous Blood Gas pO2 129 mmHg (30-50)
[2024-04-18 10:19] LABS: Lactic Acid 6.3 mmol/L (0.7-2.0)
--- NOTE | 2024-04-18 10:35 | CON.INTV ---
Consultation
Consultation Request
Date/Time Consultation Requested: 04/18/2024-11:30 AM
Date/Time Consultation Performed: 04/18/2024-11:30 AM
Requesting Provider: Hospitalist
Performing Provider: Dr. Alvarado
Reason for Consultation: Ventilator/critical care management
Medical History
-
Chief Complaint: Repetitive cardiac arrest/respiratory failure
History of Present Illness:
68-year-old female with a history of CVA, DIGITAL MARKETING PROGRAM MANAGER shunt, hypertension admitted with symptomatic bradycardia was hospitalized and had recurrent in-hospital cardiac arrhythmias and arrests with multiple transfers to cardiac catheterization lab on 3
separate occasions-with successful stenting of culprit 90% mid circumflex lesion, subsequent successful angioplasty and stenting of distal overlapping fashion occlusion of the large OM 2, and subsequent successful placement of transvenous pacer via
left femoral vein-microsoft exchange architect consulted for ventilator/critical care management 04/18/2024. The patient was seen in CVICU sedated on a ventilator and review of systems was unobtainable. She does not have significant secretions she is oxygenating
well, ventilating well.
Past Medical History
Past Medical History: None (CVA. 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 Hypertension. Current smoker.)
Social History
Tobacco: Smoker
Alcohol: None
Drug: None
Personal: Single
Living: [facility]
Employment: Disabled
Occupational Exposures: Unknown tuberculosis exposure
Environmental Exposures: Unknown asbestos exposure
Family History
Family History: Reviewed & Not Pertinent
Allergies / Home Medications
Allergies
Allergy/AdvReac Type Severity Reaction Status Date / Time
No Known Allergies Allergy Unverified 04/17/24 08:55
Home Medications
�Medication �Instructions �Recorded �Confirmed �Last Taken �Type
amlodipine 5 mg tablet 5 mg PO DAILY Blood Pressure 04/17/24 04/17/24 Unknown History
aspirin 81 mg chewable tablet 81 mg PO DAILY Blood Clot 04/17/24 04/17/24 Unknown History
Prevention/Tx
bisacodyl 10 mg rectal suppository 10 mg NM DAILYPRN PRN 04/17/24 04/17/24 Unknown History
(Dulcolax (bisacodyl)) constipation, mom ineffective
bismuth subsalicylate 262 mg/15 mL 524 mg PO Q4HPRN PRN indigestion 04/17/24 04/17/24 Unknown History
oral suspension (Pepto-Bismol)
clopidogrel 75 mg tablet (Plavix) 75 mg PO DAILY Blood Clot 04/17/24 04/17/24 Unknown History
Prevention/Tx
eucalyptus-menthol oral mucosal 1 milana mucous membrane Q4HPRN PRN 04/17/24 04/17/24 Unknown History
lozenge dry cough
ibuprofen 600 mg tablet 600 mg PO DAILY Pain 04/17/24 04/17/24 Unknown History
ibuprofen 600 mg tablet 600 mg PO Q8HPRN PRN mild pain 04/17/24 04/17/24 Unknown History
magnesium hydroxide 400 mg/5 mL 30 ml PO DAILYPRN PRN constipation 04/17/24 04/17/24 Unknown History
oral suspension (Milk of Magnesia)
melatonin 5 mg tablet 5 mg PO HS Sleep 04/17/24 04/17/24 Unknown History
sodium phosphates 19 gram-7 118 ml NM DAILYPRN PRN 04/17/24 04/17/24 Unknown History
gram/118 mL enema (Fleet Enema) constipaiton, if dulcolax
ineffective
tramadol 50 mg tablet 100 mg PO DAILY Pain 04/17/24 04/17/24 Unknown History
Review of Systems
-
Unable to Obtain full review of systems at this time due to: Other (Per HPI)
Vitals / Labs / Diagnostic Testing
Vital Signs
Temp Pulse Resp BP Pulse Ox
98 F 62 24 111/80 100
04/18/24 10:00 04/18/24 10:30 04/18/24 10:30 04/18/24 10:25 04/18/24 10:30
Lab Data
04/18/24 04:29
04/18/24 04:29
Laboratory Results
04/17/24 04/17/24 04/17/24
19:23 20:30 21:23
PT 15.6 H
INR 1.23
APTT > 200 H*
pH 7.36 7.35 7.40
pCO2 33 38 H 33
pO2 151 H 126 H 72 L
HCO3 18.6 L 21.0 20.4 L
O2 Delivery Level
04/17/24 04/18/24 04/18/24
23:38 00:44 01:44
PT
INR
APTT
pH 7.41 7.39 7.33 L
pCO2 30 L 23 L 32
pO2 76 L 146 H 183 H
HCO3 19.0 L 13.9 L* 16.9 L
O2 Delivery Level
04/18/24
02:30
PT
INR
APTT
pH 7.42
pCO2 32
pO2 182 H
HCO3 20.8 L
O2 Delivery Level
Diagnostic Testing:
Physical Exam
-
Exam:
Well-nourished and well-developed in no apparent distress
HEENT-atraumatic, normocephalic, oral tracheal intubation
Neck-supple, no JVD, no bruit
Heart-regular rate and rhythm-no murmurs, rubs or gallops
Chest-clear to auscultation, no wheezes, crackles
Back-no tenderness
Abdomen-soft, nontender, nondistended, no hepatosplenomegaly
Extremities-no cyanosis, clubbing, edema and good peripheral pulses
Integument-intact, no rashes, lesions or ecchymosis
Neurologically not alert, not oriented not moving extremities sedated on the ventilator
Assessment
-
68-year-old female with a history of CVA, DIGITAL MARKETING PROGRAM MANAGER shunt, hypertension admitted with symptomatic bradycardia was hospitalized and had recurrent in-hospital cardiac arrhythmias and arrests with multiple transfers to cardiac catheterization lab on 3
separate occasions-with successful stenting of culprit 90% mid circumflex lesion, subsequent successful angioplasty and stenting of distal overlapping fashion occlusion of the large OM 2, and subsequent successful placement of transvenous pacer via
left femoral vein-[employer] exchange architect consulted for ventilator/critical care management 04/18/2024.
Ventilator dependent respiratory failure
Intubated 04/17/2024
Extubated
Symptomatic bradycardia
CAD/non-STEMI
Status postcardiac catheterization 04/17/2024--successful stenting 90% mid circumflex lesion
Recurrent multiple and hospital cardiac arrhythmias/codes
Status postcardiac catheterization 04/17/2024-successful angioplasty and stenting of distal overlapping fashion of large OM 2 lesion
Subsequent recurrent severe symptomatic bradycardia-status post third catheterization 04/17/2024-successful placement via left femoral vein transvenous pacer
Leukocytosis-WBC 34.6
Ndsctn-yfsvguqpbf-gvnnsepgsm 9.1
Metabolic acidosis
Lactic acidosis
Hyperglycemia
Conditions present prior to admission:
CVA-01/2024
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
Hypertension.
Anemia
Current smoker.
PAD
Plan
Patient admitted to cardiovascular intensive care unit
Ventilator settings reviewed
Pulmonary pressures and other parameters reviewed
Wean FiO2
VBG noted-adequate oxygenation and ventilation with pH normalized
Sedated for an additional 24 hours
Consider spontaneous breathing trial 04/19/2024 with cardiology approval
Nebulizers if needed-currently not bronchospastic
Aspiration precautions
VAP prevention protocol
Cardiology following-correspondence reviewed
Echocardiogram reviewed and summarized below
Cardiac catheterization x 3 reviewed and summarized
Anticoagulation and antiplatelet therapy per cardiology
Antiarrhythmics including amiodarone per cardiology
Gentle diuresis
Transvenous pacer per cardiology
Pressors as needed-currently on dopamine and norepinephrine
Monitor leukocytosis, temperature curve
Follow chest x-ray
Antibiotics if infection suspected
Monitor lactic acidosis-suspect due to hypotension and tissue hypoperfusion
Follow hemoglobin
Transfuse if needed
Vascular surgery evaluation-right femoral approach unable to advance wire due to occlusion of common iliac, subsequent attempt at left femoral access and sheath placement due to bulky distal aortic bifurcation plaque/stenosis unable to advance wires
and catheters therefore left radial approach was undertaken-no acute need for intervention, no acute limb ischemia, eventual DAYDAY/TBI's and outpatient vascular follow-up
Smoking cessation counseling
DVT prophylaxis-on Lovenox
GI prophylaxis-on pantoprazole-latest Society of critical care medicine does not support PPI while on ventilator, however, when shock present, coagulopathy present, etc. then PPI/or H2 ira is indicated
Early nutrition
Early mobilization
Eventual outpatient rehab and then would recommend outpatient pulmonary evaluation-smoking cessation, PFTs, yearly low-dose lung cancer screening CT, etc.
Critical care statement: A total of 55 minutes of critical care time was provided for this patient today. This includes management of unstable vital signs, evaluation of the patient at bedside, reviewing the patient's pertinent medical records
including radiographs, ventilator management, pressor management, microbiology, laboratory evaluations, and discussion with primary team, consultants, pharmacy, nutrition, physical therapy, case management, charge nurse, critical care nursing, and
respiratory therapy.
Diagnostic data:
Chest x-ray 04/17/2024-NAD
Chest x-ray 04/18/2024-endotracheal tube tip terminates at the bj-should be retracted
Chest x-ray 04/18/2024-satisfactory position of endotracheal tube, interval decrease in bilateral airspace disease representing improved pulmonary edema
Chest x-ray 04/18/2024-right PICC terminates at the expected location, stable mild pulmonary edema
Echocardiogram 04/14/2024-moderately reduced LV function-EF 40%, normal right ventricular size with RV hypokinesis and distal RV hypokinesis, mild mitral regurgitation
Data Reviewed
-
EKG: Report reviewed by me
Radiology: Image personally visualized and interpreted and Report reviewed by me
CT Scan: Report reviewed by me
Medical Tests (Nuc Med, Echo etc): Report reviewed by me
Labs: Labs reviewed by me
Old Records: Reviewed
Critical Care Time (in minutes): 55
[2024-04-18] MEDS: PLAVIX 75 MG PO (11:08)
[2024-04-18] MEDS: LOW STRENGTH ASPIRIN 81 MG PO (11:08)
[2024-04-18] MEDS: NSS (PRESERVATIVE FREE) 10 ML IV ×2 (11:15→20:17)
[2024-04-18] MEDS: PROTONIX IV 40 MG IV ×2 (11:15→20:17)
[2024-04-18] MEDS: SUBLIMAZE 50 MCG IV (11:27)
[2024-04-18] MEDS: SUBLIMAZE 100 IV (11:34)
[2024-04-18] MEDS: DIPRIVAN 100 IV (11:34)
--- NOTE | 2024-04-18 11:56 | ECGCV ---
<Dr. Dunlap> notified of ECG critical value identified by electronic interpretation on ECG completed on <04/18/24>, at <1156>.
[2024-04-18 11:58] LABS: Glycohemoglobin (HgbA1c) 5.3 % (4.0-5.6)
[2024-04-18 12:12] LABS: Glucose - Point of Care 150 mg/dl (70-99)
--- NOTE | 2024-04-18 12:15 | PTCARENOTE ---
phlebotomy called for labs, Dr Peterson aware of lactic acid result. Dr Dunlap aware of troponin result. US LE completed. R Nare NGT placed, confirmed by XR and audible air injection. Dr. Dunlap aware of SR/Junctional rhythm, EKG completed,
Germán aware of result. VAT at bedside to place RUE PICC as ordered. XR completed. Precedex gtt dc'd, pt started on Propofol and Fentanyl gtts as ordered.
[2024-04-18] MEDS: NOVOLOG FLEXPEN-LOW RESISTANCE SC ×2 (12:40→18:16)
--- NOTE | 2024-04-18 13:53 | VATNOTE ---
Post PICC repositioning CXR shows PICC in the CAJ. PCN notified PICC OK to use.
[2024-04-18] MEDS: DOPamine 400 MG 250 IV (14:25)
[2024-04-18 14:42] LABS: Triglycerides 115 mg/dl (10-149)
--- NOTE | 2024-04-18 14:43 | PTCARENOTE ---
per VAT RN, RUE PICC okay to use after repositioning. Dr. Dunlap aware of UO throughout day and current gtt status, per physician hold Lasix dose.
--- NOTE | 2024-04-18 15:08 | CM ---
Chart reviewed. 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 Radha to gather prior level of function from the charge nurse at [facility] and keep us updated. Plan is for the patient to return to [facility] when
medically stable
[2024-04-18 15:16] LABS: ACT-LR - POC 302 Seconds (116-155)
--- NOTE | 2024-04-18 15:33 | W.PN.UPDATE ---
Update Note
Progress Note Update
Radial arterial line placement
Consent obtained from patient's daughter, Darvin.
A time-out was completed verifying correct patient, procedure, site, patient positioning, and special equipment. Patient was monitored with continuous bedside EKG, blood pressure, pulse ox readings.
Chico's test was performed to ensure adequate perfusion. The patient's left wrist was prepped and draped in sterile fashion.
The radial artery was palpated and the catheter was threaded over the guide wire and the needle was removed with appropriate pulsatile blood return. The catheter was then secured in place to the skin and a biopatch and sterile dressing applied.
Perfusion to the extremity distal to the point of catheter insertion was checked and found to be unchanged.
Estimated Blood Loss: 0 mL
The patient tolerated the procedure well and there were no complications.
Remains in critical condition.
CPT code 75248
Sherin CASE
Cardiac Surgery
--- NOTE | 2024-04-18 15:47 | W.PN.HOSP.TC ---
Today's Communication/Plan
-
Attempt to wean pressors
SAT/SBT in the morning
Continue transvenous pacing
Amiodarone drip for NSVT
Assessment / Plan
Assessment / Plan
Assessment/Plan:
68-year-old female with hypertension, s/p OVERLOCK SEWING MACHINE OPERATOR shunt, H/O CVA 2 months ago that presented to the hospital yesterday with symptomatic bradycardia. Possible ST elevations at facility, troponin bumped to 0.4 while here. Was taken to [facility] where LCx
PCI was performed. Subsequently developed recurrent bradycardia, repeat catheterization showed nonocclusive dissection distal to ANALI and newly occluded OM 2 branch. Was started on transvenous pacing, developed respiratory compromise that
necessitated intubation. Became dependent on vasopressor and inotropic support.
1. Ventilator dependent respiratory failure
2. Circulatory shock
3. Symptomatic bradycardia/heart block
4. NSTEMI
5. NSVT
6. Lactic acidosis/metabolic acidosis
7. Leukocytosis
8. Hyperglycemia
9. Chronic HTN
10. S/P OVERLOCK SEWING MACHINE OPERATOR shunt
11. H/O CVA
Neurologic: Currently sedated with propofol and fentanyl. Current RASS -3, adequate level of sedation. Low suspicion for active processes. Does have history of OVERLOCK SEWING MACHINE OPERATOR shunt for presumed hydrocephalus. No signs or symptoms of any acute neurological
processes. Remains on home DAPT regimen for recent stroke
Cardiovascular: HD adequate with dopamine and Levophed. Remains on DAPT which is also beneficial due to degree of coronary artery disease. Not currently on statin or beta-ira, heart rate in low 60s today. Also began to develop NSVT overnight
for which an amiodarone drip was ordered. Repeat TTE was ordered for today. Started on transvenous pacing for symptomatic bradycardia/heart block. Does seem to have signs of normal perfusion per exam today. Seems euvolemic.
-Start high intensity statin, C/W DAPT, trend troponin with serial ECG for coronary artery disease
-No indication for beta-ira now due to circulatory shock and bradycardia requiring TVP
-Hold home BP meds, continue vasopressor and inotropic support with MAP goal 65 to 90 mmHg
-Continue with amiodarone drip for NSVT
-DAYDAY per vascular team for workup of peripheral arterial disease
-Monitor labs with K goal >4, mag >2, telemetry
Respiratory: Currently on mechanical vent with settings VC AC/C 16/400/40/5 with peak peak 28 mmHg. Low suspicion for any active pulmonary processes. Most recent blood gas did not show any abnormalities, pH was normal, no evidence of CO2
retention. Not on any inhalers or standing respiratory meds.
-Daily SAT/SBT
-Daily chest x-ray
Renal/urinary: No acute issues, creatinine is stable and within normal range. I/O's from last 24 hours show net +949 mL. Has put out 280 mL of urine today per Escobar monitoring. Has received Lasix as needed with good response initially. Receiving
potassium supplementation with diuretics. Remainder of electrolytes WNL. Metabolic acidosis in the context of lactate and systemic perfusion, unlikely renal component
-Monitor strict I's/O's
-Lasix IV as needed, with potassium supplements
-Trend daily BMP and correct electrolytes as needed
-Trend lactic acid levels, maintain hemodynamics
Gastroenterological: No active processes. LFTs here are all within normal range. Small hemoglobin drop likely dilutional, low suspicion for ongoing GI bleeding. Was started on IV PPI for stress ulcer prophylaxis. Currently n.p.o. status though
hope for short period of intubation. Will hold off on starting tube feeds for now
-Continue IV PPI twice daily for stress ulcer prophylaxis
-Plan for tube feeding if still intubated tomorrow
-Monitor for signs of GI bleeding
Infectious: Low suspicion for active infection. Does have an uptrending WBC count though I suspect this is a reactive process related to instrumentation, as well as immune response to her NSTEMI/coronary dissection. She does not have any fevers
nor has spiked any recent fevers. Blood cultures were drawn, not currently receiving any antibiotics.
-Trend daily CBC
-Follow-up blood cultures
-No indication for antibiotics now
Endocrinology: No chronic issues, is not a diabetic. Glucose has been elevated here, suspect that this is a stress response to to the events of this hospitalization. Labs on admission did show TSH near 23. T4 level was within normal range however
this degree of TSH elevation does necessitate treatment. Low suspicion for any active adrenal issues, BP and electrolytes stable
-Start levothyroxine via NGT, will need repeat TSH in 6 to 8 weeks after thyroid ultrasound
-ISS with Accu-Cheks every 6 hours with glucose goal 180-220
Hematology: Presented with normocytic anemia, hemoglobin near 10.9. Hemoglobin has down trended to 9.1 on most recent labs though suspected a delusional component to this. No obvious signs or symptoms of active bleeding though may have had minor
blood loss through cardiovascular procedures. No known underlying coagulopathies. Platelet count is stable and within normal range.
-Trend daily CBC
-Consider iron studies/B12/folate levels, Hemoccult if worsening anemia
DVT prophylaxis: Lovenox
GI prophylaxis: IV PPI twice daily
Diet: N.p.o.
CODE STATUS: Full code
Anticipated Discharge: > 48 hours
Subjective/Interval History
-
Date of Service: April 18, 2024
Seen and examined in CCU. Following her LCx PCI yesterday she developed worsening bradycardia and intermittent heart block. Was taken back to [facility] which showed full OM 2 occlusion as well as nonocclusive dissection distal to ANALI placed in the
LCx. Transvenous pacing was performed.
Upon my evaluation in the CCU she was hemodynamically adequate on dopamine and Levophed with MAP in 70s. Was placed on mechanical ventilation VC A/C 16/400/40/5 with P peak 48.
Currently sedated on propofol and fentanyl. Neurologically adequate for sedation
Objective Data
-
Labs:
Laboratory Results
04/18/24
04:29
WBC 34.6 H
Hgb 9.1 L
Hct 26.8 L
Plt Count 362
Sodium 140
Potassium 4.0
Chloride 104
Carbon Dioxide 25
BUN 18 H
Creatinine 1.0
Glucose 234 H
Calcium 9.4
Vital Signs:
Vital Signs
Temp Pulse Resp BP Pulse Ox
98.6 F 67 18 116/68 100
04/18/24 15:00 04/18/24 15:10 04/18/24 15:10 04/18/24 15:10 04/18/24 15:10
I&O
04/17/24 04/18/24 04/19/24
06:59 06:59 06:59
Intake Total 1246.5 / 1363.7 932.8 / 932.8
Output Total 950 / 1025 280 / 280
Balance 296.5 / 338.7 652.8 / 652.8
Review of Systems
-
Unable to obtain full review of systems at this time due to: Patient Intubation
Physical Exam
-
General: No Apparent Distress and Intubated
HEENT: Normocephalic, Atraumatic, Moist Mucous Membranes and Anicteric
Respiratory: Clear to Auscultation and Other (Mechanical breath sounds)
Cardiac: Regular Rhythm and S1/S2; Negative Murmur, Rub, JVD or Gallop
GI: Soft, Nontender, Nondistended and Normal Bowel Sounds
Musculoskeletal: No Clubbing, No Cyanosis and No Edema
Skin: Warm and Dry; Negative Rash
Neuro: Sedated and Other (Responsive to pain, PERRL)
Data Reviewed
-
Diagnostic Radiology: Image personally visualized and interpreted
Labs: Labs Reviewed by me
[2024-04-18 16:18] LABS: B.E. -1.5 mmol/L; HCO3 22.7 mmol/L (21-28); Ionized Calcium 1.18 mMOL/L (1.15-1.33); O2 Saturation % 98.8 % (94-98); PCO2 35 mmHg (32-35); PO2 99 mmHg (83-108); Potassium 3.6 mMOL/L (3.5-5.1); Sodium 137 mMOL/L (136-145); pH 7.42 (7.35-7.45)
--- NOTE | 2024-04-18 16:25 | PTCARENOTE ---
pt washed w/ CHG wipes, gown changed, face washed. oral hygiene performed. Phuong Marquez placed by LANDY Meier, transduced and zeroed. lab work drawn as ordered. daughter Darvin at bedside and updated.
[2024-04-18 16:31] LABS: Lactic Acid 3.3 mmol/L (0.7-2.0)
[2024-04-18] MEDS: SYNTHROID 50 MCG TUBE (17:06)
[2024-04-18] MEDS: KCL 100 IV (17:06)
[2024-04-18] MEDS: LIPITOR 40 MG TUBE (17:06)
[2024-04-18] MEDS: LOVENOX 40 MG SC (17:07)
[2024-04-18 17:35] LABS: % Basophils 0.3 % (0-2); % Immature Granulocytes 0.5 % (0-0.5); % Monocytes 8.2 % (1.7-9.3); Absolute Basophils 0.1 10^3/uL (0-0.2); Absolute Immature Granulocytes 0.1 10^3/uL (0-0.05); Absolute Lymphocytes 2.8 10^3/uL (1.2-3.4); Absolute Monocytes 1.6 10^3/uL (0.1-0.6); Absolute Neutrophils 15.2 10^3/uL (1.4-6.5); Hematocrit 24.9 % (37.0-47.0); Hemoglobin 8.7 g/dL (12.0-16.0); Mean Corp Hgb Conc. 34.9 g/dL (33.0-37.0); Mean Corpuscular Hgb 29.7 pg (27.0-31.0); Mean Platelet Volume 10.3 fL (7.4-10.4); Nucleated Red Blood Cells % 0 %; Platelet Count 282 10^3/uL (130-400); Red Blood Cell Count 2.93 10^6/uL (4.20-5.40); Red Cell Dist. Width 14.3 % (11.5-14.5); White Blood Cell Count 19.7 10^3/uL (4.8-10.8)
[2024-04-18 18:04] LABS: Albumin 3.1 g/dl (3.5-5.0); Blood Urea Nitrogen 22 mg/dl (7-17); Calcium 8.6 mg/dl (8.4-10.2); Carbon Dioxide 22 mmol/L (22-30); Chloride 104 mmol/L (98-107); Estimated Creatinine Clearance 42 ml/min; Glucose 141 mg/dl (70-99); Potassium 3.7 mmol/L (3.5-5.1); Sodium 135 mmol/L (135-145); eGFR 55.42
[2024-04-18 18:14] LABS: Phosphorus 4.6 mg/dl (2.5-4.5)
[2024-04-18 18:17] LABS: Glucose - Point of Care 133 mg/dl (70-99)
--- NOTE | 2024-04-18 19:00 | PTCARENOTE ---
report received from previous RN, walking rounds done. pt in bed, intubated via ETT and sedated. propofol gtt infusing @ 15mcg, fentanyl gtt infusing @ 25mcg. pt wakes to tactile stimuli, SOLIMAN, does not follow commands. pupils equal and reactive.
SR/SB on monitor, HR 50's-60's. B/L radial pulses weakly palpable. B/L distal pulses faint w doppler. SBP 100's via LT radial art line. Levo gtt infusing @ 16mcg. Amio gtt infusing @ 0.5mg. Dopamine infusing @ 5mcg. TVP intact via LFV w KVO
infusing, pacer set to back up VVI 30, mA 13. no pacing spikes noted. heart tones clear. B/L breath sounds present. vent set to A/C 16/400/5/40%. POX 100%. etCO2 ~27. RR ~20. hernandes catheter intact, draining CYU. hypoactive bowel sounds present. NGT
intact via RT nare. DL RUE PICC intact and patent. RFV sheath intact and patent. B/L UE and B/L LE restraints in place. turning pt Q2H and as needed. see worklist for full assessment, VS, and interventions. see worklist for full assessment, VS, and
interventions.
[2024-04-18 22:31] LABS: Lactic Acid 2.3 mmol/L (0.7-2.0)
--- NOTE | 2024-04-18 23:00 | PTCARENOTE ---
no acute changes. 2200 labs drawn and sent. neuro unchanged, fentanyl gtt and propofol gtt maintained. SR/SB. Dopamine gtt maintained. SBP 110's. weaning Levo gtt as tolerated. Amio gtt maintained. vent settings unchanged, POX 100%. pt resting
between care.
[2024-04-18] MEDS: MELATONIN PO (23:06)
[2024-04-19] VITALS (16 sets, daily range): BP systolic 87–112; BP diastolic 52–66; PULSE 79–95; BMI 28.7
[2024-04-19] MEDS: DIPRIVAN 100 IV ×2 (00:05→11:56)
[2024-04-19 00:18] LABS: Glucose - Point of Care 144 mg/dl (70-99)
[2024-04-19] MEDS: NOVOLOG FLEXPEN-LOW RESISTANCE SC ×5 (00:18→23:54)
[2024-04-19] MEDS: CORDARONE 518 MG IV (00:42)
[2024-04-19] MEDS: LEVOPHED 250 IV ×2 (01:22→08:25)
--- NOTE | 2024-04-19 03:00 | PTCARENOTE ---
no changes in assessment. propofol, fentanyl, dopamine, and amio gtts maintained. weaning levo as tolerated--currently infusing @ 12mcg. SR/SB 50's-60's. SBP 110's-120's. POX 98-100%. vent settings unchanged. pt sleeping between care.
[2024-04-19] MEDS: VERSED 0.5 MG IV (04:20)
[2024-04-19] MEDS: SUBLIMAZE 50 MCG IV (04:25)
[2024-04-19 06:19] LABS: Glucose - Point of Care 129 mg/dl (70-99)
[2024-04-19] MEDS: SYNTHROID 50 MCG TUBE (06:21)
[2024-04-19 06:38] LABS: % Basophils 0.1 % (0-2); % Immature Granulocytes 0.8 % (0-0.5); % Monocytes 7.6 % (1.7-9.3); % Neutrophils 84.5 % (42.2-75.2); Absolute Immature Granulocytes 0.2 10^3/uL (0-0.05); Absolute Lymphocytes 1.4 10^3/uL (1.2-3.4); Absolute Monocytes 1.6 10^3/uL (0.1-0.6); Absolute Neutrophils 17.4 10^3/uL (1.4-6.5); Hematocrit 23.4 % (37.0-47.0); Hemoglobin 8.3 g/dL (12.0-16.0); Mean Corp Hgb Conc. 35.5 g/dL (33.0-37.0); Mean Corpuscular Hgb 30.2 pg (27.0-31.0); Mean Corpuscular Volume 85.1 fL (81.0-99.0); Nucleated Red Blood Cells % 0 %; Platelet Count 232 10^3/uL (130-400); Red Blood Cell Count 2.75 10^6/uL (4.20-5.40); Red Cell Dist. Width 14.5 % (11.5-14.5); White Blood Cell Count 20.5 10^3/uL (4.8-10.8)
[2024-04-19 06:45] LABS: Lactic Acid 1.9 mmol/L (0.7-2.0)
[2024-04-19 06:52] LABS: Blood Urea Nitrogen 22 mg/dl (7-17); Calcium 8.2 mg/dl (8.4-10.2); Carbon Dioxide 25 mmol/L (22-30); Chloride 104 mmol/L (98-107); Estimated Creatinine Clearance 43 ml/min; Glucose 122 mg/dl (70-99); Magnesium 1.7 mg/dl (1.6-2.3); Potassium 4.4 mmol/L (3.5-5.1); Sodium 132 mmol/L (135-145); eGFR 55.42
--- NOTE | 2024-04-19 07:18 | W.PN.VS ---
Addendum entered and electronically signed by Lowell Arce MD 04/19/24 07:38:
Discussed with Dr. Coto. Based on stability of her peripheral arterial exam, and rising creatinine, significant concern for worsening renal function, would favor holding off on CTA for today. I agree with this assessment. Therefore unless
there is clinical deterioration in terms of her peripheral exam, we will hold off and potentially CTA tomorrow. She remains guarded/critical.
Addendum entered and electronically signed by Lowell Arce MD 04/19/24 07:33:
Note while feet appear stable on exam, I rereviewed ultrasounds. Bilateral common femoral arteries not well-visualized. Would favor CT angiogram imaging when patient is stable (CTA aorta runoff) to better assess to make sure no thrombotic issues.
Addendum entered and electronically signed by Lowell Arce MD 04/19/24 07:31:
Seen and examined with LANDY Gupta. Agree with findings as noted below. No further acute events noted. Remains intubated/sedated. Per nursing neurologically moving all extremities including feet bilaterally. Feet are pink with reasonable cap refill
in the toes. Doppler signals unchanged, weak right PT signal, moderate/weak left DP and PT. Plan/as discussed and noted below. No acute intervention required. Duplex reviewed. No acute thrombotic issues. Likely all chronic disease. Will
follow-up in the office.
Original Note:
Today's Communication / Plan
-
patient seen and examined at bedside with Dr. Lowell Arce, below plan reviewed with attending.
Assessment/Plan
-
Assessment: 68-year-old female status post cardiac catheterization for NSTEMI, with chronic peripheral arterial disease likely exacerbated by somewhat occlusive sheath placement due to inflow disease but now improved
Plan:
No acute need for intervention from a vascular perspective. No acute limb ischemia. Likely all chronic disease.
Outpatient follow up placed in discharge instructions
Subjective Data
-
Date of Service: April 19, 2024
Patient seen and examined at bedside, remains intubated and sedated.
Objective Data
-
Vital Signs
Temp Pulse Resp BP Pulse Ox
98.7 F 67 8 102/59 97
04/19/24 03:00 04/19/24 06:00 04/19/24 06:00 04/19/24 04:01 04/19/24 06:00
Intake and Output
04/18/24 04/19/24 04/20/24
06:59 06:59 06:59
Intake Total 1246.5 / 1363.7 2582.3 / 2582.3
Output Total 950 / 1025 615 / 615
Balance 296.5 / 338.7 1967.3 / 1967.3
Intake:
IV fluids (Total) 996.5 / 1113.7 2557.3 / 2557.3
Amiodarone 216.5 / 233.2 384.1 / 384.1
Dopamine 93.0 / 105.4 285.2 / 285.2
Fentanyl 46.0 / 46.0
KVO 100 / 110 230 / 230
Levo 375.0 / 420.0 1158.5 / 1158.5
Pacing wire KVO 80 / 90 230 / 230
Precedex 132.0 / 155.1 115.5 / 115.5
Propofol 108.0 / 108.0
IV piggybacks 250 / 250
Output:
Urine, Escobar 950 / 1025 615 / 615
Lab Results
04/19/24 06:05
04/19/24 06:05
Calcium 8.2 mg/dl (8.4-10.2) L 04/19/24 06:05
Phosphorus 4.6 mg/dl (2.5-4.5) H 04/18/24 17:20
Magnesium 1.7 mg/dl (1.6-2.3) 04/19/24 06:05
Total Bilirubin 0.3 mg/dl (0.2-1.3) 04/17/24 19:23
AST 44 U/L (14-36) H 04/17/24 19:23
ALT 17 U/L (0-35) 04/17/24 19:23
Alkaline Phosphatase 79 U/L (38-126) 04/17/24 19:23
Total Protein 6.4 g/dl (6.3-8.2) 04/17/24 19:
Albumin 3.1 g/dl (3.5-5.0) L 04/18/24 17:20
Physical Exam
-
Intubated and sedated
Tolerating ventilator
ABD rotund and non-distended
BL LE without edema
Right PT by doppler, left DP and PT by doppler, feet warm
--- NOTE | 2024-04-19 07:20 | PTCARENOTE ---
Received pt from cook night RN; Pt Sedated and intubated; Awakes to tactile stimulation but does not follow commands; Pupils round, reactive, equal; Transvenous pacer wires in L femoral vein set at VVI 30/13/0.8 no pacing noted; NSR on monitor and
VSS; Ventilator settings A/C 16/400/5/40%; ETT size 8 secured 22 at lip; Lungs diminished; Right femoral venous sheath CDI; DP and PT pulses faintly heard by Doppler; Generalized trace anasarca; Escobar catheter draining yellow urine; Hypoactive BS;
NGT secured in right nare - flushing appropriately; Left radial A-Line level and zeroed; Right double lumen PICC patent; Right femoral venous sheath in place with KVO infusing; Propofol, Fentanyl, Amiodarone, Dopamine, and Norepinephrine infusing
see flowsheets for further details; B/L wrist and ankle restraints in place - neurovascular checks WNL; See nursing documentation for further details
--- NOTE | 2024-04-19 07:38 | PTCARENOTE ---
CVPA at bedside and Temporary Pacing Wire removed. NSR on monitor and VSS.
--- NOTE | 2024-04-19 07:40 | W.PN.INTV ---
Today's Communication / Plan
Recommendations
Begin to
Continue pressors-attempt to wean
Ventilator settings reviewed
Spontaneous breathing trial
deline probably convert to Precedex from propofol/fentanyl for comfort
Monitor leukocytosis, temperature and signs for potential infection
Observe off antibiotics
Assessment
-
68-year-old female with a history of CVA, NEURO UROLOGIST shunt, hypertension admitted with symptomatic bradycardia was hospitalized and had recurrent in-hospital cardiac arrhythmias and arrests with multiple transfers to cardiac catheterization lab on 3
separate occasions-with successful stenting of culprit 90% mid circumflex lesion, subsequent successful angioplasty and stenting of distal overlapping fashion occlusion of the large OM 2, and subsequent successful placement of transvenous pacer via
left femoral vein-sales correspondence clerk consulted for ventilator/critical care management 04/18/2024.
Ventilator dependent respiratory failure
Intubated 04/17/2024
Extubated
Symptomatic bradycardia
CAD/non-STEMI
Status postcardiac catheterization 04/17/2024--successful stenting 90% mid circumflex lesion
Recurrent multiple and hospital cardiac arrhythmias/codes
Status postcardiac catheterization 04/17/2024-successful angioplasty and stenting of distal overlapping fashion of large OM 2 lesion
Subsequent recurrent severe symptomatic bradycardia-status post third catheterization 04/17/2024-successful placement via left femoral vein transvenous pacer
Leukocytosis-WBC 34.6
Cnphdv-kmerkvtuxg-vzvsfwbvrp 9.1
Metabolic acidosis
Lactic acidosis
Hyperglycemia
Conditions present prior to admission:
CVA-01/2024
NEURO UROLOGIST shunt.
Hypertension.
Anemia
Current smoker.
PAD
Plan
Remains critically ill on pressors
Ventilator settings reviewed-FiO2 weaned to 0.4
Pulmonary pressures and other parameters reviewed
ABGs reviewed-adequate oxygenation and ventilation
ABG 04/18/2024--35/99/7 0.42
Spontaneous breathing trial 04/19/2024 once cardiology approves
Might change propofol/fentanyl drips to Precedex in anticipation of discharge and anxiety associated with weaning and previous history of significant agitation and anxiety contributing likely to arrhythmias
Nebulizers if needed-currently not bronchospastic
Aspiration precautions
VAP prevention protocol
Chest x-ray 04/19/2024-improved pulmonary edema stable lines and tubes
Cardiology following-correspondence reviewed
Troponin trended-peak 340
Echocardiogram reviewed and summarized below
Cardiac catheterization x 3 reviewed and summarized
Anticoagulation and antiplatelet therapy per cardiology
Antiarrhythmics including amiodarone per cardiology
Gentle diuresis
Transvenous pacer will be removed 04/19/2024
Pressors as needed-currently on dopamine and norepinephrine-wean as tolerated
Monitor leukocytosis, temperature curve-WBC is currently 20.5
Follow chest x-ray-if no signs of pneumonia-aspiration risk
Antibiotics if infection suspected-currently afebrile
Monitor lactic acidosis-suspect due to hypotension and tissue hypoperfusion
Follow hemoglobin
Transfuse if needed
Vascular surgery evaluation ongoing-right femoral approach unable to advance wire due to occlusion of common iliac, subsequent attempt at left femoral access and sheath placement due to bulky distal aortic bifurcation plaque/stenosis unable to
advance wires and catheters therefore left radial approach was undertaken-no acute need for intervention, no acute limb ischemia, eventual DAYDAY/TBI's and outpatient vascular follow-up
Smoking cessation counseling once extubated
DVT prophylaxis-on Lovenox
GI prophylaxis-on pantoprazole-latest Society of critical care medicine does not support PPI while on ventilator, however, when shock present, coagulopathy present, etc. then PPI/or H2 ira is indicated
Early nutrition
Early mobilization
Eventual outpatient rehab and then would recommend outpatient pulmonary evaluation-smoking cessation, PFTs, yearly low-dose lung cancer screening CT, etc.
Critical care statement: A total of 40 minutes of critical care time was provided for this patient today. This includes management of unstable vital signs, evaluation of the patient at bedside, reviewing the patient's pertinent medical records
including radiographs, ventilator management, pressor management, microbiology, laboratory evaluations, and discussion with primary team, consultants, pharmacy, nutrition, physical therapy, case management, charge nurse, critical care nursing, and
respiratory therapy.
Diagnostic data:
Chest x-ray 04/17/2024-NAD
Chest x-ray 04/18/2024-endotracheal tube tip terminates at the bj-should be retracted
Chest x-ray 04/18/2024-satisfactory position of endotracheal tube, interval decrease in bilateral airspace disease representing improved pulmonary edema
Chest x-ray 04/18/2024-right PICC terminates at the expected location, stable mild pulmonary edema
Echocardiogram 04/18/2024-moderately reduced LV function-EF 40%, normal right ventricular size with RV hypokinesis and distal RV hypokinesis, mild mitral regurgitation
Subjective Dataa
Subjective Data
Date of Service:
Date of Service: April 19, 2024
Chief Complaint: Probe Operator Follow Up and Vent Management Follow Up
Subjective:
Stable overnight, still on 2 pressors, transvenous pacer removed, sedated on the ventilator and unable to perform review of systems
Review of Systems
General: Unobtainable - Sedation
Objective Data
Data Reviewed
Vital Signs / I&O / Oxygen:
Vital Signs
Temp Pulse Resp BP Pulse Ox
100 F 65 0 102/59 97
04/19/24 07:00 04/19/24 07:15 04/19/24 07:15 04/19/24 04:01 04/19/24 07:15
Intake and Output
04/18/24 04/19/24 04/20/24
06:59 06:59 06:59
Intake Total 1246.5 / 1363.7 2582.3 / 2664.7 82.4 / 82.4
Output Total 950 / 1025 615 / 665 50 / 50
Balance 296.5 / 338.7 1967.3 / 1999.7 32.4 / 32.4
SaO2 [A/C] 98
SaO2 97
Nasal Cannula flow liters per 6
minute
Physical Exam
General: Respiratory Distress (n) and Comfortable
HEENT: Normocephalic and Moist Mucous Membranes
Respiratory: Wheeze (n), Crackles, Rhonchi (n), Non-Labored Respirations, Accessory Resp Muscle Use (n) and Stridor
GI: Soft, Non Distended and Non Tender
Neurology: Lethargic (Sedated on a ventilator)
Skin: Warm, Good Color, Cyanosis (n) and Jaundice (n)
Labs/Micro/Reports
Lab Data
04/19/24 06:05
04/19/24 06:05
Laboratory Results
04/18/24 04/18/24
15:51 16:09
pH Cancelled 7.42
pCO2 Cancelled 35
pO2 Cancelled 99
HCO3 Cancelled 22.7
O2 Delivery Level Cancelled
--- NOTE | 2024-04-19 07:43 | W.PN.UPDATE ---
Update Note
Progress Note Update
Temporary left groin pacing wire removed at bedside without issues at 0740
Left groin sheath left in place at the request of Dr. Chica MD.
[2024-04-19] MEDS: LOW STRENGTH ASPIRIN 81 MG PO (07:48)
[2024-04-19] MEDS: NSS (PRESERVATIVE FREE) 10 ML IV ×2 (07:48→20:30)
[2024-04-19] MEDS: PLAVIX 75 MG PO (07:48)
[2024-04-19] MEDS: PROTONIX IV 40 MG IV ×2 (07:49→19:34)
[2024-04-19] MEDS: ULTRAM PO (07:49)
[2024-04-19 08:38] LABS: ACT-LR - POC 287 Seconds (116-155)
[2024-04-19 08:38] LABS: ACT-LR - POC 239 Seconds (116-155)
[2024-04-19 08:38] LABS: ACT-LR - POC 331 Seconds (116-155)
--- NOTE | 2024-04-19 08:48 | PN.CDI ---
CDI
- -
CDI:
Physician Documentation Request
Admit Date: 04/17/24 12:47
Dear Doctor Nicholas,
Patient admitted for NSTEMI.
Laboratory Tests
04/17/24 04/18/24
19 17:20
Creatinine 0.8 1.1 H
Clarify which of the following accurately represents the patient's renal status:
ANUEL
Rise in creatinine
Other
Criteria for ANUEL*
1 Increase in serum creatinine by > or = to 0.3 mg/dL (> or = to 26.5 micromol/L) within 48 hours, OR
2 Increase in serum creatinine to > or = to 1.5 times baseline, which is known or presumed to have occurred within 7 days, OR
3 Urine volume < 0.5 nL/kg/hour for six hours
Use of terms such as suspected, likely, concern for, or probable (associated with a specific diagnosis that is being evaluated, monitored, or treated as if it exists) are acceptable and can be coded in the inpatient setting, when documented at the
time of discharge.
Thank you,
Dagmar Bruno RN, BSN
CDI Specialist
Available via [employer] text
Please use your independent medical judgment in providing your response.
*Source: Kidney Disease: Improving Global Outcomes (KDIGO) 2012
[2024-04-19] MEDS: MIRALAX TUBE (09:25)
[2024-04-19] MEDS: DOPamine 400 MG 250 IV (09:52)
--- NOTE | 2024-04-19 10:10 | W.PN.CD ---
Today's Communication / Plan
-
Lasix 40 x 1
Nephrology consult
Check CBC later and transfuse if Hb falls further
Type and screen
Remove TPM (done)
Remove bilat venous lines
Hoping to extubate today
Impression / Plan
-
BACKGROUND: 68F with hypertension, current smoker, prior CVA, and 'brain shunt' (PLAY READER?) Who presents from [facility] with bradycardia. She endorses diaphoresis episodes.
CAD:
- large UT with peak trop 340 now falling
-cardiogenic shock state improving. Pressor requirement has fallen- now Levo 2 and DOPA 5
- ECHO yesterday with multiple WMA and moderately depressed LV function with estimated EF 40%
- ECHO precath normal LV without valve disease.
-BP will not allow GDMT until off pressors
Hypothyroid
-TSH 23
- Medicine has started synthroid
Vascular
- No role for urgent vascular intervention. Vascular would like to do CTA but I am VERY concerned about falling uring output and possible incipient ATN. Cr only 1.1 but may increase significantly
-Horrible PAD with occluded R CI and near occlusion of terminal aorta
PLAY READER shunt
-WBC 20.5k . Need to check blood cxs in case there is some infection here
Metabolic acidosis
- Resolved
Anemia
- Follow HCT. May need PRBC if does not improve
-Check CBC later today. Get Type and screen with it
Heart block
-Resolved
-We will remove TPM and venous sheaths today
VDRF
- We will wean off vent if able today once lines are out
Renal
-Will give lasix 40mg IV x 1
-Will ask nephrology to get involved as ATN very possible
Prior CVA
- On DAPT
Remains critically ill
CCT 60 min
Physical Exam
Vital Signs/Labs
Vital Signs
Temp Pulse Resp BP Pulse Ox
98.8 F 80 24 95/61 98
04/19/24 09:00 04/19/24 10:00 04/19/24 10:00 04/19/24 09:43 04/19/24 10:00
04/18/24 04/19/24 04/20/24
06:59 06:59 06:59
Actual Weight 143 lb 4.807 oz 147 lb 0.773 oz
04/19/24 06:05
04/19/24 06:05
PT 15.6 Sec (11.4-14.6) H 04/17/24 19:23
INR 1.23 04/17/24 19:23
APTT > 200 Sec (23.4-35.0) H* 04/17/24 19:23
Magnesium 1.7 mg/dl (1.6-2.3) 04/19/24 06:05
Triglycerides Cancelled 04/18/24 10:46
LDL Cholesterol, Calc 126 mg/dl 04/17/24 09:09
VLDL Cholesterol, Calc 37 mg/dl (0-30) H 04/17/24 09:09
HDL Cholesterol 55 mg/dl 04/17/24 09:09
Free T4 1.08 ng/dl (0.78-2.19) 04/17/24 09:09
LAB Results
04/17/24 04/17/24 04/17/24
09:09 11:25 19:23
Troponin I < 0.012 0.484 H* D 4.310 H* D
04/17/24 04/18/24 04/18/24
20:55 04:29 09:40
Troponin I 4.840 H* 195.000 H* D 230.000 H*
04/18/24 04/18/24
16:09 22:07
Troponin I 340.000 H* D 258.000 H*
Physical Exam
Constitutional: No acute distress (intubated and sedated)
Cardiovascular: Rhythm & rate is regular and S1S2 is normal
Respiratory: Wheeze Present and Rhonchi Present
GI: Soft and Normal bowel sounds
Neuro/Psych: Other (unable to assess)
Other: Cath Site (groins are without hematoma)
Data Reviewed
-
Date of Service: April 19, 2024
--- NOTE | 2024-04-19 10:12 | W.PN.CARD.SR ---
Sheath/IABP Sheath Removal
Sheath Removal
Left Venous Femoral:
Site appearance prior to sheath removal: Intact
Sheath removed by:: Physician foundation assistant
Name of associate removing sheath: seun felix
Time of sheath removal: 09:50
Time hemostasis achieved: 10:10
Site appearance post sheath removal: Intact
Method of Hemostasis Post Sheath Removal: Manual Pressure
Dressing dry and intact?: Yes
--- NOTE | 2024-04-19 10:16 | CM ---
Reviewed chart. Received telephone call from [facility] SNF liaison regarding discharge plans. Mrs. Rivera has a fifteen day medical assistance bed hold. Prior to admission she was able to transfer with supervision, ambulates with a walker with
moderate assistance and was independent with adl's with set-up. Medical work-up in progress. Will need to see her current functional level to see if she will have any skilled care needs. She will need pre-cert with her insurance for SNF/Rehab. The
discharge plan is to return to [facility] if off vent when medically stable.
--- NOTE | 2024-04-19 10:45 | PTCARENOTE ---
B/L femoral venous sheaths removed bby CV PA P. Murt; Left DP present on Doppler and right DP weak on Doppler; NSR; VSS; assessment unchanged.
--- NOTE | 2024-04-19 10:55 | W.PN.CARD.SR ---
Sheath/IABP Sheath Removal
Sheath Removal
Right Venous Femoral:
Site appearance prior to sheath removal: Intact
Sheath removed by:: Physician assistant loan processor
Name of associate removing sheath: seun goldman
Time of sheath removal: 10:35
Time hemostasis achieved: 10:55
Site appearance post sheath removal: Intact
Method of Hemostasis Post Sheath Removal: Manual Pressure
Dressing dry and intact?: Yes
--- NOTE | 2024-04-19 11:02 | W.PN.HOSP.TC ---
Addendum entered and electronically signed by Matty Peterson DO 04/19/24 17:13:
Hyperkalemia - 2/2 nutrition and diuretic. Will monitor BMP and repleter PRN
Original Note:
Today's Communication/Plan
-
Will vasopressors and inotropes
Discontinue TVP and a
SAT/SBT
Start diet
Assessment / Plan
Assessment / Plan
Assessment/Plan:
68-year-old female with hypertension, s/p SUPPLY PERSON shunt, H/O CVA 2 months ago that presented to the hospital yesterday with symptomatic bradycardia. Possible ST elevations at facility, troponin bumped to 0.4 while here. Was taken to [facility] where LCx
PCI was performed. Subsequently developed recurrent bradycardia, repeat catheterization showed nonocclusive dissection distal to ANALI and newly occluded OM 2 branch. Was started on transvenous pacing, developed respiratory compromise that
necessitated intubation. Became dependent on vasopressor and inotropic support.
1. Ventilator dependent respiratory failure
2. Circulatory shock
3. Symptomatic bradycardia/heart block
4. NSTEMI
5. NSVT
6. Lactic acidosis/metabolic acidosis
7. Leukocytosis
8. Hyperglycemia
9. Chronic HTN
10. S/P SUPPLY PERSON shunt
11. H/O CVA
Neurologic: Currently sedated with propofol and fentanyl. Current RASS -3, adequate level of sedation. Low suspicion for active processes. Does have history of SUPPLY PERSON shunt for presumed hydrocephalus. No signs or symptoms of any acute neurological
processes. Remains on home DAPT regimen for recent stroke
Cardiovascular: HD adequate with dopamine and Levophed. Has been titrated down on Levophed with adequate hemodynamic response. Dopamine still running per cardiology recommendations. Remains on DAPT which is also beneficial due to degree of
coronary artery disease. Transvenous pacing was discontinued, heart rate has improved and was in range of 85/min regular per threat monitoring analyst in the room. Amiodarone was also discontinued. Vascular surgery recommending outpatient follow-up for
peripheral arterial disease. Does seem to have signs of normal perfusion per exam today. Seems euvolemic.
-C/W DAPT, high intensity statin trend troponin with serial ECG for coronary artery disease
-Plan to initiate low-dose beta-ira when not requiring vasopressor/inotropic support
-Hold home BP meds, continue vasopressor and inotropic support with MAP goal 65 to 90 mmHg
-Monitor labs with K goal >4, mag >2, telemetry
Respiratory: Currently on mechanical vent with settings VC AC/C 16/400/40/5 with peak peak 25 mmHg. Low suspicion for any active pulmonary processes. Most recent blood gas did not show any abnormalities, pH was normal, no evidence of CO2
retention. Not on any inhalers or standing respiratory meds. She is awakening appropriately today and we will plan for SAT/SBT in the afternoon
-Daily SAT/SBT
-Daily chest x-ray
Renal/urinary: No acute issues, creatinine is stable and within normal range. I/O's from last 24 hours show net +1904 mL. Has put out 690 mL of urine today per [facility] monitoring. Has received Lasix as needed with good response initially. Receiving
potassium supplementation with diuretics. Remainder of electrolytes WNL or stable. Acid-base status has normalized
-Monitor strict I's/O's
-Lasix IV as needed, with potassium supplements
-Trend daily BMP and correct electrolytes as needed
-Will avoid excess IVF today
Gastroenterological: No active processes. LFTs here are all within normal range. Small hemoglobin drop likely dilutional, low suspicion for ongoing GI bleeding. Was started on IV PPI for stress ulcer prophylaxis. Currently n.p.o. status though
hope for short period of intubation. Will hold off on starting tube feeds for now
-Continue IV PPI twice daily for stress ulcer prophylaxis
-Consider starting tube feeding if failed extubation today
-Monitor for signs of GI bleeding
Infectious: Low suspicion for active infection. Does have leukocytosis nancy I suspect this is a reactive process related to instrumentation, as well as immune response to her NSTEMI/coronary dissection. She does not have any fevers nor has spiked
any recent fevers. Blood cultures were drawn, not currently receiving any antibiotics.
-Trend daily CBC
-Follow-up blood cultures
-No indication for antibiotics now
Endocrinology: No chronic issues, is not a diabetic. Glucose has been elevated here, suspect that this is a stress response to to the events of this hospitalization. Labs on admission did show TSH near 23. T4 level was within normal range however
this degree of TSH elevation does necessitate treatment. Low suspicion for any active adrenal issues, BP and electrolytes stable
-Start levothyroxine via NGT, will need repeat TSH in 6 to 8 weeks after thyroid ultrasound
-ISS with Accu-Cheks every 6 hours with glucose goal 180-220
Hematology: Presented with normocytic anemia, hemoglobin near 10.9. Hemoglobin has down trended to 9.1 on most recent labs though suspected a delusional component to this. No obvious signs or symptoms of active bleeding though may have had minor
blood loss through cardiovascular procedures. No known underlying coagulopathies. Platelet count is stable and within normal range.
-Trend daily CBC
-Consider iron studies/B12/folate levels, Hemoccult if worsening anemia
DVT prophylaxis: Lovenox
GI prophylaxis: IV PPI twice daily
Diet: N.p.o.; plan for tube feeding if SAT/SBT fails today
CODE STATUS: Full code
Anticipated Discharge: > 48 hours
Subjective/Interval History
-
Date of Service: April 19, 2024
No acute events overnight. Has been down titrated on pressors, remains on levo at 2 mics per minute, dopamine drip. Neurologically she does awaken to stimuli, has become agitated when awakened. Vent setting stable from yesterday, day 2 of
mechanical ventilation.
Objective Data
-
Labs:
Laboratory Results
04/19/24 04/19/24
06:05 16:25
WBC 20.5 H Pending
Hgb 8.3 L Pending
Hct 23.4 L Pending
Plt Count 232 Pending
Sodium 132 L
Potassium 4.4
Chloride 104
Carbon Dioxide 25
BUN 22 H
Creatinine 1.1 H
Glucose 122 H
Calcium 8.2 L
Vital Signs:
Vital Signs
Temp Pulse Resp BP Pulse Ox
99.1 F 84 13 95/61 98
04/19/24 11:00 04/19/24 11:00 04/19/24 11:00 04/19/24 09:43 04/19/24 11:00
I&O
04/18/24 04/19/24 04/20/24
06:59 06:59 06:59
Intake Total 1246.5 / 1363.7 2582.3 / 2664.7 416.15 / 416.15
Output Total 950 / 1025 615 / 665 225 / 225
Balance 296.5 / 338.7 1967.3 / 1999.7 191.15 / 191.15
Review of Systems
-
Unable to obtain full review of systems at this time due to: Patient Intubation
Physical Exam
-
General: Well Nourished, No Apparent Distress and Intubated
HEENT: Normocephalic, Atraumatic, Moist Mucous Membranes, Anicteric and PERRLA
Respiratory: Clear to Auscultation, Non Labored Respirations and Chest Tubes (Mechanical breath sounds)
Cardiac: Regular Rhythm and S1/S2; Negative Murmur, Rub, JVD or Gallop
GI: Soft, Nontender, Nondistended and Normal Bowel Sounds
Musculoskeletal: No Clubbing, No Cyanosis and No Edema
Skin: Warm and Dry; Negative Rash
Neuro: Nonfocal/Grossly Intact, Central Nerve's Intact and Other (Withdraws to pain, spontaneous movements. Awakens when prompted, agitated when so.)
Data Reviewed
-
Labs: Labs Reviewed by me
[2024-04-19] MEDS: LASIX 40 MG IV (11:08)
[2024-04-19] MEDS: SUBLIMAZE 100 IV (11:57)
[2024-04-19 12:35] LABS: Glucose - Point of Care 95 mg/dl (70-99)
--- NOTE | 2024-04-19 12:40 | PTCARENOTE ---
NSR on monitor and VSS; assessment unchanged; Propofol off and Fentanyl at 25mcg/hr; Starting ventilator wean process now.
--- NOTE | 2024-04-19 13:50 | PTCARENOTE ---
RT at bedside, pt following commands; Pt placed on CPAP at this time.
[2024-04-19 14:29] LABS: B.E. -0.2 mmol/L; HCO3 22.9 mmol/L (21-28); O2 Saturation % 97.5 % (94-98); PCO2 30 mmHg (32-35); PO2 77 mmHg (83-108); Potassium 3.4 mMOL/L (3.5-5.1); Sodium 133 mMOL/L (136-145); pH 7.49 (7.35-7.45)
--- NOTE | 2024-04-19 14:53 | W.PN.UPDATE ---
Update Note
Progress Note Update
Reevaluated the patient at the bedside
Propofol and fentanyl weaned off
Tolerated spontaneous breathing trial for over 2 hours
ABG adequate
Work of breathing not significant
Minimal secretions
Alert and following all commands
Extubate to nasal cannula, high flow oxygen if needed, BiPAP if needed-reviewed with GOLF COACH
Precedex if anxiety and agitation playing a detrimental role
--- NOTE | 2024-04-19 15:00 | W.CON.NEPH ---
Consultation
-
Date/Time Consultation Requested: 04/19/2024 10:35AM
Date/Time Consultation Performed: 04/19/2024 3:00PM
Requesting Provider: Noah Coto
Performing Provider: Sandhya Yip
Reason for Consultation: oliguria
Medical History
-
Chief Complaint: oliguria
History of Present Illness:
Ms. Rivera is a 68YOF with PMH of HTN, h/p CVA s/p BOOKING POLICE OFFICER shunt who presented from rehab with bradycardia. She was in the rehab following a CVA 2 months ago. Was found to have low heart rate with an ECG at that time showing potential ST elevations,
patient without symptoms of chest pain or shortness of breath. She was emergently transferred to [facility] where repeat ECG did not show any acute ST deviation, T wave abnormality, STEMI equivalents. The patient did endorse prior diaphoretic
episodes as well. She ended up having an NSTEMI and was taken emergently for cardiac cath. 90 monutes post cath she developed hypotension, bradycardia and heart block. She was taken back emergently and second angio showed stent patent but near
occlusion of circumflex downtreeam due to distal dissection. She developed intermittent heart block, almost had cardiac arrest and was taken back again for TPM. She was intubated on 04/18 for impending respiratory failure. Pressor requirements are
coming down now. Extubated today at 15:00
She is now noted to have worsening oliguria, although Cr remains 1.1. [facility]. Patient was given IV lasix with good response
Past Medical History
CVA
HTN
CAD
BOOKING POLICE OFFICER shunt
Past Medical History: Other
Past Surgical History: Other (BOOKING POLICE OFFICER shunt)
Social History
Tobacco: Non-Smoker
Alcohol: None
Drug: None
Family History
Family History: Not Pertinent
Allergies / Home Medications
Allergy/AdvReac Type Severity Reaction Status Date / Time
No Known Allergies Allergy Unverified 04/17/24 08:55
�Medication �Instructions �Recorded �Confirmed �Type
amlodipine 5 mg tablet 5 mg PO DAILY Blood Pressure 04/17/24 04/17/24 History
aspirin 81 mg chewable tablet 81 mg PO DAILY Blood Clot 04/17/24 04/17/24 History
Prevention/Tx
bisacodyl 10 mg rectal suppository 10 mg NH DAILYPRN PRN 04/17/24 04/17/24 History
(Dulcolax (bisacodyl)) constipation, mom ineffective
bismuth subsalicylate 262 mg/15 mL 524 mg PO Q4HPRN PRN indigestion 04/17/24 04/17/24 History
oral suspension (Pepto-Bismol)
clopidogrel 75 mg tablet (Plavix) 75 mg PO DAILY Blood Clot 04/17/24 04/17/24 History
Prevention/Tx
eucalyptus-menthol oral mucosal 1 milana mucous membrane Q4HPRN PRN 04/17/24 04/17/24 History
lozenge dry cough
ibuprofen 600 mg tablet 600 mg PO DAILY Pain 04/17/24 04/17/24 History
ibuprofen 600 mg tablet 600 mg PO Q8HPRN PRN mild pain 04/17/24 04/17/24 History
magnesium hydroxide 400 mg/5 mL 30 ml PO DAILYPRN PRN constipation 04/17/24 04/17/24 History
oral suspension (Milk of Magnesia)
melatonin 5 mg tablet 5 mg PO HS Sleep 04/17/24 04/17/24 History
sodium phosphates 19 gram-7 118 ml NH DAILYPRN PRN 04/17/24 04/17/24 History
gram/118 mL enema (Fleet Enema) constipaiton, if dulcolax
ineffective
tramadol 50 mg tablet 100 mg PO DAILY Pain 04/17/24 04/17/24 History
Review of Systems
-
Unable to obtain full review of systems at this time due to: Dementia and Other (s/p CVA)
History Source: Patient
All other systems: Negative unless noted
EENT: Sore Throat
Physical Exam
Vital Signs
Vital Signs
Temp Pulse Resp BP Pulse Ox
99.1 F 83 30 104/65 94
04/19/24 11:00 04/19/24 14:30 04/19/24 14:30 04/19/24 12:00 04/19/24 14:30
Lab Results
Sodium 132 mmol/L (135-145) L 04/19/24 06:05
Potassium 4.4 mmol/L (3.5-5.1) 04/19/24 06:05
Chloride 104 mmol/L (98-107) 04/19/24 06:05
Carbon Dioxide 25 mmol/L (22-30) 04/19/24 06:05
BUN 22 mg/dl (7-17) H 04/19/24 06:05
Creatinine 1.1 mg/dL (0.6-1.0) H 04/19/24 06:05
eGFR 55.42 04/19/24 06:05
Glucose 122 mg/dl (70-99) H 04/19/24 06:05
Calcium 8.2 mg/dl (8.4-10.2) L 04/19/24 06:05
Phosphorus 4.6 mg/dl (2.5-4.5) H 04/18/24 17:20
Albumin 3.1 g/dl (3.5-5.0) L 04/18/24 17:20
Physical Exam
General: Awake, Alert, No Distress, Nontoxic and Other (orientedx1)
HEENT: PERRL, EOMI, Anicteric, Conjunctivae Clear, Ear/Nose Intact, Hearing Normal, Oropharynx Clear/Moist, Dentition Intact, Facial Symmetry, Neck Supple, Trachea Midline, No JVD and No Thyromegaly
Respiratory: Crackels, Normal Excursion, Nonlabored Respirations and Other (on 8L o2)
Cardiac: S1/S2, Regular Rate/Rhythm and No Edema
Breast: Deferred by me
Abdomen: Soft, Nontender, Nondistended, Normal Bowel Sounds and No Hepatosplenomegaly
Rectal: Deferred by Provider
Genito-urinary: Clear Urine
Musculoskeletal: No Clubbing, No Cyanosis and No Edema
Skin: No Rash, Warm, Dry, No Clubbing, No Cyanosis, Normal Turgor and No Bruising
Neuro: Other (s/p CVA, no gross dysfunction)
Hematologic/Lymphatic: No Cervical Lymphadenopathy
Psych: Mood/afflect pleasant and Appropriate
Data Reviewed
-
Radiology: Image Personally Visualized and interpreted (resolving pulm edema)
Labs: Labs Reviewed by me, Discussed with Physician and Discussed with Nurse
Old Records: Reviewed
Assessment/Plan
-
Assessment:
Oliguria
c/f ANUEL
respiraotry failure
shock requiring pressor support
NSTEMI
lactic acidosis
Plan:
- Cr thus far has remained stable around 1-1.1 since yesterday
- acidosis has now resolved, lactate has normalized
- although reportedly oliguric, the patient seems to have made 1.5L of urine after lasix adminsitrtion
- okay to give lasix 40mg IV as need to assist in volume status
- continues on pressor support
- now extubated on supplemental O2 and oxygenating well
- obtain UA, UPCR and UACR --> might help indicate that she could have some ATN
- continue to trend Cr
- monitor I/Os
- avoid nephrotoxins as best as we can
- noted that vasc wanted CTA, would avoid due to concern of developing ANUEL. If Cr and UOP remain stable, could consider in the next 24-48h
This patient is critically ill and on pressor support. 31 minutes of critical care time was spent on this patient
--- NOTE | 2024-04-19 15:08 | RESPNOTE ---
Respiratory: patient extubated per Dr. Alvarado at 1505. No stridor no wheezes. SpO2 91% on 6 LPM nasal cannula. Patient was weaned on
PSV 5/5cmH2O RSBI was in the 80's during wean and SpO2 95-96%.
--- NOTE | 2024-04-19 15:08 | PTCARENOTE ---
G reviewed w/ MD Alvarado. Pt extubated w/ RT at bedside at 1505. Pt placed on 6L O2 NC.
[2024-04-19 16:25] LABS: Hematocrit 21.9 % (37.0-47.0); Hemoglobin 7.7 g/dL (12.0-16.0); Mean Corp Hgb Conc. 35.2 g/dL (33.0-37.0); Mean Corpuscular Hgb 29.4 pg (27.0-31.0); Mean Corpuscular Volume 83.6 fL (81.0-99.0); Mean Platelet Volume 11.1 fL (7.4-10.4); Platelet Count 212 10^3/uL (130-400); Red Blood Cell Count 2.62 10^6/uL (4.20-5.40); Red Cell Dist. Width 14.5 % (11.5-14.5); White Blood Cell Count 25.1 10^3/uL (4.8-10.8)
[2024-04-19 16:43] LABS: Blood Urea Nitrogen 22 mg/dl (7-17); Calcium 8.1 mg/dl (8.4-10.2); Carbon Dioxide 27 mmol/L (22-30); Chloride 101 mmol/L (98-107); Estimated Creatinine Clearance 47 ml/min; Glucose 123 mg/dl (70-99); Potassium 3.5 mmol/L (3.5-5.1); Sodium 132 mmol/L (135-145); eGFR > 60.00
[2024-04-19] MEDS: LOVENOX 40 MG SC (17:10)
[2024-04-19] MEDS: LIPITOR 40 MG TUBE (17:10)
--- NOTE | 2024-04-19 17:20 | PTCARENOTE ---
Dr Philippe at bedside to get blood consent; Daughter Darvin called via phone spoke with MD; RN confirmed with daughter regarding blood products to be given and no further questions per daughter and consent obtained.
[2024-04-19] MEDS: KCL 100 IV (17:27)
[2024-04-19 17:28] LABS: Urine Albumin Negative (Neg - Trace); Urine Bilirubin Negative (Negative); Urine Character Clear (Clear); Urine Color Yellow; Urine Glucose Negative (Negative); Urine Ketone Negative (Negative); Urine Leukocyte Negative (Negative); Urine Nitrite Negative (Negative); Urine Occult Blood 2+ (Negative); Urine Specific Gravity 1.015 (<1.030); Urine Urobilinogen Negative (Neg - 1+)
[2024-04-19 17:41] LABS: Glucose - Point of Care 139 mg/dl (70-99)
[2024-04-19 17:45] LABS: Urine Bacteria Moderate (Negative)
[2024-04-19 17:49] LABS: Protein/creatinine Ratio 0.3; Urine Protein 15 mg/dl
[2024-04-19 17:54] LABS: Microalbumin/creatinine Ratio 39.4 mg/g
--- NOTE | 2024-04-19 18:45 | PTCARENOTE ---
Pt ordered 1 unit of PRBC's for H&H 7.7/21.9. Blood transfusion started at 1830 through PICC line. RN at bedside with pt - no transfusion reactions noted in first fifteen minutes. VSS.
[2024-04-19 19:19] LABS: Iron 69 ug/dl (37-170)
[2024-04-19 19:28] LABS: Percent Saturation 18 % (20-50); Total Iron Binding Capacity 365 ug/dl (265-497)
--- NOTE | 2024-04-19 20:00 | PTCARENOTE ---
Assumed care of patient at 1900. Patient found lying in bed a time of assessment with four point soft limb restraints in place. Patient is alert and oriented to self only in addition appears to have expressive aphasia as residual from previous CVA.
Lung sounds are coarse throughout and crackles are present in the bases, patient has nonproductive frequent moist cough, patient is on 6L via NC with saO2 ranging from 93-95%. Heart sounds have a regular rate and rhythm, patient is NSR with
prolonged QT on the monitor. Patient has weak but palpable radials, dorsalis pedis and posterior tibial pulses are present with doppler L>R. Patient has +1 generalized anasarca present. Patient has round obese abdomen with +BS in all four quadrants.
There is a salem sump NGT in place that is clamped present for med administration. Patient has +flatus dayshift RN reported smear BM in report. Patient has R radial 4x4 gauze that CDI, a R femoral 4x4 gauze dressing with ecchymosis around site and
some old drainage on gauze has not increased in size since previous assessment. A L femoral gauze dressing with ecchymosis around site is CDI. Patient also has generalized bruising particularly concentrated around bilateral upper extremities.
Patient has R PICC with double lumen and L radial Spring. Patient is currently receiving Levo@5, PRBC transfusing, and KCL infusing for repletion. VSS.
[2024-04-19 20:29] LABS: Folate > 20.0 ng/ml (2.76-20); Vitamin B12 284 pg/ml (239-931)
[2024-04-19] MEDS: TYLENOL 650 MG PO (20:31)
[2024-04-19 21:47] LABS: B.E. -3.6 mmol/L; HCO3 18.7 mmol/L (21-28); Ionized Calcium 1.04 mMOL/L (1.15-1.33); O2 Saturation % 96.1 % (94-98); PCO2 24 mmHg (32-35); PO2 66 mmHg (83-108); Potassium 3.9 mMOL/L (3.5-5.1)
[2024-04-19] MEDS: CALCIUM CHLORIDE 10% SYRINGE 60 MG IV (22:33)
[2024-04-19] MEDS: KCL 50 IV (22:37)
[2024-04-19] MEDS: MELATONIN 5 MG PO (22:37)
[2024-04-19] MEDS: ROBITUSSIN 100 MG TUBE (23:17)
--- NOTE | 2024-04-19 23:28 | PTCARENOTE ---
Patient with poor ABG results at [address] showing [address] PA at bedside to assess patient. Patient appears tachypneic although etiology unclear this RN reported that patient appears somewhat restless at baseline. K and iCa to
be repleted. Robitussin ordered for patient's cough and congestion. F/u ABG in AM. RT assessed patient placed on 8L via midflow. Patient did not report any complaint related to work of breathing/SOB.
[2024-04-19 23:36] LABS: Glucose - Point of Care 113 mg/dl (70-99)
[2024-04-20] VITALS (28 sets, daily range): BP systolic 84–160; BP diastolic 32–134; PULSE 2–146; BMI 27.5
--- NOTE | 2024-04-20 00:30 | PTCARENOTE ---
Patient reassessed. VSS. Following 1 u PRBC and lyte repletion BP has increased Levo tapered off per protocol. Remains on 8L via midflow. Patient remains in SR on the monitor.
--- NOTE | 2024-04-20 01:40 | PTCARENOTE ---
Patient with incontinence episode resulting in moderate stool that was brown, hard and formed. Viktoria RN reported that there was some suspicion for GI bleed given low hgb. Hemetest performed on stool sampled showed negative result. Hygiene care
provided to patient. Stable at this time.
[2024-04-20 02:37] LABS: B.E. -3.7 mmol/L; HCO3 19.9 mmol/L (21-28); Ionized Calcium 1.27 mMOL/L (1.15-1.33); O2 Saturation % 98.6 % (94-98); PCO2 30 mmHg (32-35); PO2 92 mmHg (83-108); Potassium 4.3 mMOL/L (3.5-5.1); pH 7.43 (7.35-7.45)
[2024-04-20] MEDS: LASIX 40 MG IV ×2 (02:39→16:51)
[2024-04-20] MEDS: DUONEB 3 ML INH ×2 (02:42→16:31)
--- NOTE | 2024-04-20 03:00 | PTCARENOTE ---
Patient began yelling 'help' at 0210 this RN entered room patient unable to verbalize source of discomfort. When prompted about breathing patient agreed they were having some difficulty. Patient sounds significantly more wheezy comparable to
beginning of shift. Work of breathing increased and tachycardic in the 110s. RT contacted. CT PA contacted. Patient started on aerosol mask with FiO2 at 50%. RT advised initiation of Bipap. ABG acquired by this RN and [address]
PA. BiPap started at 15/5. saO2 at 97% on 7L. Patient reports increased ease of breathing. F/u ABG ordered for 0315. Will continue to monitor.
--- NOTE | 2024-04-20 03:06 | W.PN.UPDATE ---
Update Note
Progress Note Update
-came in urgently at 2:15am to evaluate pt for acute SOB. Pt appeared in moderate distress, diaphoretic, wheezy with coarse breath sounds throughout. She complained of difficulty breathing, no CP, pOx was 92% on 8L midflow. Bipap 15/5 was placed
with Duoneb treatment and 40 iv Lasix given. pOx improved to 98% and pt looked and felt better. She responded to iv Lasix almost immediately and put out 135cc of very dilute urine in less than hour. CXR appeared with volume overload. ECG without
acute change. ABG on bipap 7.47/29/83/21.1/-1.9/98.3. BP 116/710, nsr 93 bpm. Pt is off Levo and Dopa, no drips.
-discussed with Dr. Duncan
-will continue to monitor closely.
[2024-04-20 03:21] LABS: B.E. -1.9 mmol/L; HCO3 21.1 mmol/L (21-28); O2 Saturation % 98.3 % (94-98); PCO2 29 mmHg (32-35); PO2 83 mmHg (83-108); pH 7.47 (7.35-7.45)
[2024-04-20 03:38] LABS: Hematocrit 26.5 % (37.0-47.0); Hemoglobin 9.5 g/dL (12.0-16.0); Mean Corp Hgb Conc. 35.8 g/dL (33.0-37.0); Mean Corpuscular Hgb 30.7 pg (27.0-31.0); Mean Corpuscular Volume 85.8 fL (81.0-99.0); Mean Platelet Volume 11.7 fL (7.4-10.4); Platelet Count 164 10^3/uL (130-400); Red Blood Cell Count 3.09 10^6/uL (4.20-5.40); Red Cell Dist. Width 14.1 % (11.5-14.5); White Blood Cell Count 24.2 10^3/uL (4.8-10.8)
[2024-04-20 03:49] LABS: Blood Urea Nitrogen 23 mg/dl (7-17); Calcium 9.5 mg/dl (8.4-10.2); Carbon Dioxide 24 mmol/L (22-30); Chloride 107 mmol/L (98-107); Estimated Creatinine Clearance 47 ml/min; Glucose 108 mg/dl (70-99); Magnesium 1.7 mg/dl (1.6-2.3); Potassium 4.2 mmol/L (3.5-5.1); Sodium 135 mmol/L (135-145); eGFR > 60.00
--- NOTE | 2024-04-20 04:00 | PTCARENOTE ---
Patient reassessed. Remains on Bipap at this time saO2 98-100%. Respiratory difficulty appears to have resolved patient successfully sleeping at this time. Remains SR on the monitor. High UOP with clear yellow urine noted in hours following 40
lasix.
[2024-04-20] MEDS: SYNTHROID 50 MCG TUBE (06:42)
[2024-04-20] MEDS: NOVOLOG FLEXPEN-LOW RESISTANCE SC ×3 (06:46→20:51)
[2024-04-20 06:47] LABS: Glucose - Point of Care 97 mg/dl (70-99)
--- NOTE | 2024-04-20 07:00 | PTCARENOTE ---
Bedside walking rounds report received. Patient seen on rounds resting in bed on bipap mask 7L o2/min and I:E 15:5. Restless. Short term forgetfulness with directions. Patient does know her name and and current year: she thinks that she is in
[facility] in [place]. Reoriented that she is in [facility]. Patient does have baseline confusion. Followed simple direction and moved all extremities. Patient does try to reach up and pull NGT with am care: bilateral soft wrist
restraints remain in place per order. Dr. Sharma here on rounds: ok to do a trial on nasal canula oxygen and will reapply bipap for resp distress. Speech and swallow eval this am: may have sipps of H20 but maintain NGT for now to start jevity tube
feeds. Reevaluate swallow function at bedside on Tuesday. See flowrecord for remaining assessments. NSR on monitor with BBB and prolonged QT.
--- NOTE | 2024-04-20 07:23 | W.PN.INTV ---
Today's Communication / Plan
Recommendations
Wean pressors
BiPAP-attempt to liberate
Diuresis
Observe off antibiotics
Follow chest x-ray
Assessment
-
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
separate occasions-with successful stenting of culprit 90% mid circumflex lesion, subsequent successful angioplasty and stenting of distal overlapping fashion occlusion of the large OM 2, and subsequent successful placement of transvenous pacer via
left femoral vein-development technical lead consulted for ventilator/critical care management 04/18/2024.
Ventilator dependent respiratory failure
Intubated 04/17/2024
Extubated
Symptomatic bradycardia
CAD/non-STEMI
Status postcardiac catheterization 04/17/2024--successful stenting 90% mid circumflex lesion
Recurrent multiple and hospital cardiac arrhythmias/codes
Status postcardiac catheterization 04/17/2024-successful angioplasty and stenting of distal overlapping fashion of large OM 2 lesion
Subsequent recurrent severe symptomatic bradycardia-status post third catheterization 04/17/2024-successful placement via left femoral vein transvenous pacer
Leukocytosis-WBC 34.6
Dliebp-ihdxdnpvay-qzvojncdmh 9.1
Metabolic acidosis
Lactic acidosis
Hyperglycemia
Conditions present prior to admission:
CVA-01/2024
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
Hypertension.
Anemia
Current smoker.
PAD
Plan
Remains critically ill BiPAP dependent after extubation
Overall tolerated extubation
BiPAP-15/5 cm-attempt to wean/liberate
ABG 04/20/2024--30/7.43
Nebulizers if needed-currently not bronchospastic
Aspiration precautions
Chest x-ray 04/19/2024-improved pulmonary edema stable lines and tubes
Chest x-ray 04/20/2024-increased CHF
Cardiology following-correspondence reviewed
Troponin trended-peak 340
Echocardiogram reviewed and summarized below
Cardiac catheterization x 3 reviewed and summarized
Anticoagulation and antiplatelet therapy per cardiology
Antiarrhythmics including amiodarone per cardiology
Diuresis as tolerated
Monitor renal function, electrolytes, intake/output, lower extremity edema and weight
Replace electrolytes as needed
Transvenous pacer removed 04/19/2024
Pressors as needed-patient was on dopamine and norepinephrine-wean as tolerated
Monitor leukocytosis, temperature curve-WBC is currently 24.2
Follow chest x-ray- no signs of pneumonia-aspiration risk
Antibiotics if infection suspected-currently afebrile no obvious signs of infection
Lactic acidosis was from tissue hypoperfusion
Follow hemoglobin-currently 9.5
Transfuse if needed
Vascular surgery evaluation ongoing-right femoral approach unable to advance wire due to occlusion of common iliac, subsequent attempt at left femoral access and sheath placement due to bulky distal aortic bifurcation plaque/stenosis unable to
advance wires and catheters therefore left radial approach was undertaken-no acute need for intervention, no acute limb ischemia, eventual DAYDAY/TBI's and outpatient vascular follow-up
Smoking cessation counseling ongoing
DVT prophylaxis-on Lovenox
GI prophylaxis-on pantoprazole-latest Society of critical care medicine does not support PPI while on ventilator, however, when shock present, coagulopathy present, etc. then PPI/or H2 ira is indicated
Begin nutrition
Early mobilization/PT/OT
Eventual outpatient rehab and then would recommend outpatient pulmonary evaluation-smoking cessation, PFTs, yearly low-dose lung cancer screening CT, etc.
Critical care statement: A total of 38 minutes of critical care time was provided for this patient today. This includes management of unstable vital signs, evaluation of the patient at bedside, reviewing the patient's pertinent medical records
including radiographs, noninvasive ventilator management, pressor management, microbiology, laboratory evaluations, and discussion with primary team, consultants, pharmacy, nutrition, physical therapy, case management, charge nurse, critical care
nursing, and respiratory therapy.
Diagnostic data:
Chest x-ray 04/17/2024-NAD
Chest x-ray 04/18/2024-endotracheal tube tip terminates at the bj-should be retracted
Chest x-ray 04/18/2024-satisfactory position of endotracheal tube, interval decrease in bilateral airspace disease representing improved pulmonary edema
Chest x-ray 04/18/2024-right PICC terminates at the expected location, stable mild pulmonary edema
Echocardiogram 04/18/2024-moderately reduced LV function-EF 40%, normal right ventricular size with RV hypokinesis and distal RV hypokinesis, mild mitral regurgitation
Subjective Dataa
Subjective Data
Date of Service:
Date of Service: April 20, 2024
Chief Complaint: [place] Operator Follow Up and Vent Management Follow Up
Subjective:
Tolerated extubation, alert, complaints of shortness of breath, on BiPAP, no abdominal pain
Review of Systems
General: Other (Per HPI)
Objective Data
Data Reviewed
Vital Signs / I&O / Oxygen:
Vital Signs
Temp Pulse Resp BP Pulse Ox
98.8 F 78 22 100/75 98
04/20/24 06:00 04/20/24 06:30 04/20/24 06:30 04/20/24 06:00 04/20/24 06:30
Intake and Output
04/19/24 04/20/24 04/21/24
06:59 06:59 06:59
Intake Total 2582.3 / 2664.7 1414.20 / 1414.20
Output Total 615 / 665 3150 / 3150
Balance 1967.3 / 1998.7 -1735.80 / -1735.80
SaO2 [CPAP] 96
SaO2 [A/C] 98
SaO2 98
Nasal Cannula flow liters per 7
minute
Physical Exam
General: Respiratory Distress (n) and Comfortable
HEENT: Normocephalic and Moist Mucous Membranes
Cardiovascular: Regular Rhythm, Murmur and Peripheral Edema
Respiratory: Wheeze (n), Crackles, Rhonchi (n), Non-Labored Respirations, Accessory Resp Muscle Use (n) and Stridor
GI: Soft, Non Distended and Non Tender
Neurology: Lethargic (Sedated on a ventilator)
Skin: Warm, Good Color, Cyanosis (n) and Jaundice (n)
Labs/Micro/Reports
Lab Data
04/20/24 03:15
04/20/24 03:15
Laboratory Results
04/19/24 04/19/24 04/20/24
14:15 21:38 02:25
pH 7.49 H 7.50 H 7.43
pCO2 30 L 24 L 30 L
pO2 77 L 66 L 92
HCO3 22.9 18.7 L 19.9 L
O2 Delivery Level
04/20/24
03:15
pH 7.47 H
pCO2 29 L
pO2 83
HCO3 21.1
O2 Delivery Level
Microbiology
04/18/24 16:09 Blood/Venous Blood Culture - Preliminary
No Growth in 24 hours- Final report to follow
04/18/24 09:40 Blood/Venous Blood Culture - Preliminary
No Growth in 24 hours- Final report to follow
04/17/24 19:23 Nose MRSA Screen - Final
No Methicillin Resistant Staphylococcus aureus isolated.
--- NOTE | 2024-04-20 08:08 | W.PN.CD ---
Today's Communication / Plan
-
Patient currently awake extubated and on BiPAP.
Blood pressures have improved and patient now off pressors. Blood pressure still relatively low.
Continue DAPT post PCI.
Will continue to assess GDMT post ND with ischemic cardiomyopathy as BP will allow
Impression / Plan
-
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 She endorses diaphoresis episodes.
CAD:
- large ND with peak trop 340 now falling
-cardiogenic shock improving. Off pressor.
GDMT as blood pressure will allow
- ECHO -performed while patient was on pressors. Multiple wall motion abnormalities. Moderately depressed LV function with estimated EF 40%
- ECHO precath normal LV without valve disease.
.
VDRF -extubated 04/19/2024. Appears stable on BiPAP. Pulmonary following
Hypothyroid
-TSH 23
- Medicine has started synthroid
Vascular
- No role for urgent vascular intervention. Patient has been assessed by vascular surgery.
-As previously noted by Dr. Llanes horrible PAD with occluded R CI and near occlusion of terminal aorta
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
-WBC 20.5k . Need to check blood cxs in case there is some infection here
Metabolic acidosis
- Resolved
Anemia improved.
-Monitor closely. Patient post PRBCs
Heart block
-Resolved
-Pacer removed.
.
PAF. Brief episode that occurred night patient went back to [facility] and was in shock and on pressors. No recurrence. Patient had received amiodarone which is since been discontinued monitor for recurrence
Renal. Nephrology consulted
Prior CVA
- On DAPT
Remains critically ill
CCT 45 min
Physical Exam
Vital Signs/Labs
Vital Signs
Temp Pulse Resp BP Pulse Ox
98.8 F 85 25 100/75 98
04/20/24 06:00 04/20/24 07:15 04/20/24 07:15 04/20/24 06:00 04/20/24 06:30
04/19/24 04/20/24 04/21/24
06:59 06:59 06:59
Actual Weight 66.7 kg 63.8 kg
04/20/24 03:15
04/20/24 03:15
PT 15.6 Sec (11.4-14.6) H 04/17/24 19:23
INR 1.23 04/17/24 19:23
APTT > 200 Sec (23.4-35.0) H* 04/17/24 19:23
Magnesium 1.7 mg/dl (1.6-2.3) 04/20/24 03:15
Triglycerides Cancelled 04/18/24 10:46
LDL Cholesterol, Calc 126 mg/dl 04/17/24 09:09
VLDL Cholesterol, Calc 37 mg/dl (0-30) H 04/17/24 09:09
HDL Cholesterol 55 mg/dl 04/17/24 09:09
Free T4 1.08 ng/dl (0.78-2.19) 04/17/24 09:09
LAB Results
04/17/24 04/17/24 04/17/24
09:09 11:25 19:23
Troponin I < 0.012 0.484 H* D 4.310 H* D
04/17/24 04/18/24 04/18/24
20:55 04:29 09:40
Troponin I 4.840 H* 195.000 H* D 230.000 H*
04/18/24 04/18/24
16:09 22:07
Troponin I 340.000 H* D 258.000 H*
Physical Exam
Constitutional: No acute distress
Cardiovascular: Rhythm & rate is regular
Respiratory: Wheeze Absent
GI: Soft and Non tender
Neuro/Psych: Alert and Oriented
Data Reviewed
-
Date of Service: April 20, 2024
Medical Decision Making: Reviewed Test Results
Echo: Report Reviewed by me
X-Ray/CT/US/MRI/NUC/PET: Report Reviewed by me
Medical Tests (PFT, Pathology etc): Report Reviewed by me
Critical Care Time (in minutes): 45
[2024-04-20] MEDS: PROTONIX IV 40 MG IV ×2 (08:34→19:49)
[2024-04-20] MEDS: NSS (PRESERVATIVE FREE) 10 ML IV ×2 (08:34→19:52)
[2024-04-20] MEDS: LOW STRENGTH ASPIRIN 81 MG PO (08:35)
[2024-04-20] MEDS: PLAVIX 75 MG PO (08:35)
[2024-04-20] MEDS: ROBITUSSIN 100 MG TUBE ×2 (08:35→15:17)
[2024-04-20] MEDS: MIRALAX TUBE (08:39)
[2024-04-20] MEDS: ULTRAM PO (08:39)
--- NOTE | 2024-04-20 11:07 | CM ---
Reviewed chart. Met with Mrs. Rivera and her daughter Darvni to review discharge plans. Daughter states he would like to explore to moving her mother closer to her SNF/Rehab. and LTC. She will need physical and occupational therapy evaluations so she
can pre-cert with her insurance. 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 She has a fifteen day bed hold. Medical work-up in progress. The discharge plan is to go to SNF/Rehab. in [place] versus
returning to [facility] when medically stable and approved by insurance.
--- NOTE | 2024-04-20 11:16 | W.PN.HOSP.TC ---
Today's Communication/Plan
-
Wean supplemental oxygen
Begin tube feeds with Jevity 1.5 via NGT
Trend hemodynamics, plan for low-dose beta-ira and morning if hemodynamics allow
Assessment / Plan
Assessment / Plan
Assessment/Plan:
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 Possible ST elevations at facility, troponin bumped to 0.4 while here. Was taken to [facility] where LCx
PCI was performed. Subsequently developed recurrent bradycardia, repeat catheterization showed nonocclusive dissection distal to ANALI and newly occluded OM 2 branch. Was started on transvenous pacing, developed respiratory compromise that
necessitated intubation. Became dependent on vasopressor and inotropic support.
1. Acute hypoxemic respiratory failure
2. Acute HFrEF�ischemic cardiomyopathy
3. Hypokalemia
4. NSTEMI
5. NSVT
6. Leukocytosis
7. Hyperglycemia
8. Chronic HTN
9. S/P FLOWER MACHINE OPERATOR shunt
10. H/O CVA
11. Cardiogenic shock�resolved
12. VDRF�resolved
13. Symptomatic bradycardia s/p TVP�resolved
14. Lactic acidosis/metabolic acidosis�resolved
Neurologic: AAOx4, off of sedation. Low suspicion for active processes. Does have history of FLOWER MACHINE OPERATOR shunt for presumed hydrocephalus. No signs or symptoms of any acute neurological processes. Remains on home DAPT regimen for recent stroke
Cardiovascular: Hemodynamics have improved, currently adequate without any vasopressor or inotropic support which was weaned yesterday. Remains on DAPT and now high intensity statin for coronary artery disease. Heart rate 85/min and regular today.
Blood pressure with MAP >65 though most recently with SBP in the high 80s. Not on any GDMT for new HFrEF, EF 40% on echo with presumed etiology of ischemic cardiomyopathy. Appears euvolemic on exam, well-perfused as well.
-C/W DAPT, high intensity statin
-Start low-dose metoprolol succinate tomorrow, hold for SBP <100 mmHg
-Continue to titrate GDMT as hemodynamics permit
-Outpatient CTA for peripheral arterial disease
-Electrolyte goals K >4, mag >2
Respiratory: Currently on BiPAP, which was started overnight as patient became dyspneic. Was also given a dose of Lasix. Seems to be more comfortable this morning and ready to be titrated to lower level of oxygen. VBG today did show slight
alkalosis prior to being started on BiPAP. No known history of intrinsic lung disease nor standing respiratory medications
-Wean oxygen as possible, SpO2 goal >90%
-Lasix as needed for signs of pulmonary congestion
Renal/urinary: No acute issues, creatinine is stable and within normal range. I/O's from last 24 hours show net -2669.5 mL. Has received Lasix as needed with good response. Receiving potassium supplementation with diuretics. Remainder of
electrolytes WNL or stable. Acid-base status has normalized. Some concern about oliguria yesterday, this rapidly improved and there is no evidence of any acute renal injury.
-Monitor strict I's/O's
-Lasix IV as needed, with potassium supplements
-Trend daily BMP and correct electrolytes as needed
Gastroenterological: No active processes. LFTs here are all within normal range. Small hemoglobin drop likely dilutional, low suspicion for ongoing GI bleeding. Was started on IV PPI for stress ulcer prophylaxis. Currently n.p.o. status though
hope for short period of intubation. Will hold off on starting tube feeds for now
-Discontinue IV PPI twice daily she was extubated
-Speech and swallow saw her today, recommended continued n.p.o. with NGT nutrition, Jevity 1.5 ordered with nutritional consult placed
-Monitor for signs of GI bleeding
Infectious: Low suspicion for active infection. Does have leukocytosis nancy I suspect this is a reactive process related to instrumentation, as well as immune response to her NSTEMI/coronary dissection. She does not have any fevers nor has spiked
any recent fevers. Blood cultures were drawn, not currently receiving any antibiotics.
Endocrinology: No chronic issues, is not a diabetic. Glucose has been elevated here, suspect that this is a stress response to to the events of this hospitalization. Labs on admission did show TSH near 23. T4 level was within normal range however
this degree of TSH elevation does necessitate treatment. Low suspicion for any active adrenal issues, BP and electrolytes stable
-Continue with levothyroxine via NGT, will need repeat TSH in 6 to 8 weeks after thyroid ultrasound
-ISS with Accu-Cheks every 6 hours with glucose goal 180-220
Hematology: Presented with normocytic anemia, hemoglobin near 10.9. Hemoglobin trended down to 7.7, suspect dilutional with fluid given on admission. No obvious signs or symptoms of active bleeding or signs of GI sources. No known underlying
coagulopathies. Platelet count is stable and within normal range. Status post 1 unit PRBC with repeat hemoglobin near 9.5.
-Trend daily CBC
-Hemoglobin goal >8 s/p cardiogenic shock and NSTEMI
DVT prophylaxis: Lovenox
GI prophylaxis: IV PPI twice daily
Diet: Start Jevity 1.5 via NGT
CODE STATUS: Full code
Anticipated Discharge: > 48 hours
Subjective/Interval History
-
Date of Service: April 20, 2024
Was extubated yesterday afternoon, became dyspneic overnight and was given a dose of Lasix and put on to BiPAP with improvement. Plan to transition down to nasal cannula continue oxygen. She denies any chest pain or shortness of breath at this
time. Denies fevers or chills, nausea or vomiting.
Objective Data
-
Labs:
Laboratory Results
04/20/24 04/20/24
02:25 03:15
WBC 24.2 H
Hgb 9.5 L D
Hct 26.5 L
Plt Count 164 D
HCO3 19.9 L 21.1
Sodium 135
Potassium 4.2
Chloride 107
Carbon Dioxide 24
BUN 23 H
Creatinine 1.0
Glucose 108 H
Calcium 9.5
Vital Signs:
Vital Signs
Temp Pulse Resp BP Pulse Ox
98.1 F 81 25 88/62 96
04/20/24 08:00 04/20/24 10:00 04/20/24 10:00 04/20/24 08:02 04/20/24 11:00
I&O
04/19/24 04/20/24 04/21/24
06:59 06:59 06:59
Intake Total 2582.3 / 2664.7 1414.20 / 1424.20 60 / 60
Output Total 615 / 665 3150 / 3275 400 / 400
Balance 1967.3 / 1998.7 -1735.80 / -1850.80 -340 / -340
Review of Systems
-
History Source: Patient
All other systems: Reviewed and negative
Physical Exam
-
General: No Apparent Distress, Comfortable, Obese and Other (On BiPAP, able to converse)
HEENT: Normocephalic, Atraumatic, Moist Mucous Membranes and Anicteric
Respiratory: Clear to Auscultation; Negative Wheezes, Rales or Rhonchi
Cardiac: Regular Rhythm and S1/S2; Negative Murmur, Rub, JVD or Gallop
GI: Soft, Nontender, Nondistended and Normal Bowel Sounds
Musculoskeletal: No Clubbing, No Cyanosis and No Edema
Skin: Warm and Dry; Negative Rash
Neuro: AO x 3, Nonfocal/Grossly Intact and Central Nerve's Intact
Data Reviewed
-
Labs: Labs Reviewed by me
--- NOTE | 2024-04-20 11:45 | PTOTSP ---
SPEECH THERAPY SWALLOW EVALUATION:
Patient exhibits clinical signs of oropharyngeal dysphagia, likely acutely related to recent extubation following respiratory failure/NSTEMI, with a possible chronic component related to recent CVA 2 months ago. Patient currently with concerning
CXR, elevated WBC. Patient remains at high risk for aspiration and related complications given tenuous respiratory/pulmonary status and confusion. Recommend continue NPO at this time, continue NGT currently in place for all nutrition/medication.
Occasional small single sips of water via ARHP (sparingly) with RN supervision, with aspiration precautions in place. Speech therapy to follow, re-assess patient in 24 hours, determine readiness for additional p.o. trials, determine
readiness/indication for instrumental assessment of swallowing if appropriate, and provide continued diagnostic swallow therapy as appropriate. Discussed with RN, patient, and Dr. Peterson.
RECOMMEND:
1) continue NPO at this time, continue NGT currently in place for all nutrition/medication
2) Occasional small single sips of water via ARHP (sparingly) with RN supervision, with aspiration precautions in place
3) Speech therapy to follow, re-assess patient in 24 hours
--- NOTE | 2024-04-20 12:00 | PTCARENOTE ---
No acute changes. Restless and forgetful. No acute changes. Swallow eval by speech therapy: recommendations to nurse and dietary. Will initiate tube feeds jevity 1.5 at 15ml per hour when availabe: 25ml/hr gree h20 water flush.
--- NOTE | 2024-04-20 12:53 | W.PN.NEPH.PH ---
Today's Communication / Plan
-
observe labs
cr sable at 1
Assessment/Plan
-
Assessment:
Oliguria
c/f ANUEL
respiraotry failure
shock requiring pressor support
NSTEMI
lactic acidosis
Plan:
- Cr thus far has remained stable around 1
UA bacteria, microhematuria with hernandes ,
BP soft off pressors
responded well to lasix
meds adjustment per primary and cards
will s/o, call with ?s
-
-
Date of Service: April 20, 2024
CC / HPI / ROS
-
Chief Complaint:
oliguria
History of Present Illness:
cr stable at 1, UOP better with lasix
BP soft off pressors
wt decreasing, NC 5lit
Review of Systems:
offers no cp, or sob at rest
Labs
-
Labs:
WBC 24.2 10^3/uL (4.8-10.8) H 04/20/24 03:15
RBC 3.09 10^6/uL (4.20-5.40) L 04/20/24 03:15
Hgb 9.5 g/dL (12.0-16.0) L D 04/20/24 03:15
Hct 26.5 % (37.0-47.0) L 04/20/24 03:15
Plt Count 164 10^3/uL (130-400) D 04/20/24 03:15
Sodium 135 mmol/L (135-145) 04/20/24 03:15
Potassium 4.2 mmol/L (3.5-5.1) 04/20/24 03:15
Chloride 107 mmol/L (98-107) 04/20/24 03:15
Carbon Dioxide 24 mmol/L (22-30) 04/20/24 03:15
BUN 23 mg/dl (7-17) H 04/20/24 03:15
Creatinine 1.0 mg/dL (0.6-1.0) 04/20/24 03:15
eGFR > 60.00 04/20/24 03:15
Glucose 108 mg/dl (70-99) H 04/20/24 03:15
Calcium 9.5 mg/dl (8.4-10.2) 04/20/24 03:15
Phosphorus 4.6 mg/dl (2.5-4.5) H 04/18/24 17:20
Albumin 3.1 g/dl (3.5-5.0) L 04/18/24 17:20
Physical Exam
-
Vital Signs:
Vital Signs
Temp Pulse Resp BP Pulse Ox
98.1 F 76 31 88/62 98
04/20/24 08:00 04/20/24 11:30 04/20/24 11:30 04/20/24 08:02 04/20/24 11:15
Cardiovascular:: Regular rate and rhythm
Respiratory:: Bilateral: CTA (decreased)
Lung Excursion:: Normal
Abdomen:: Nontender and Soft
Extremity Edema:: None: Bilateral:
Hernandes Catheter: Yes
[2024-04-20 14:43] LABS: Glucose - Point of Care 100 mg/dl (70-99)
--- NOTE | 2024-04-20 15:57 | PTCARENOTE ---
No acute changes. Jevity tube feeds running at 15ml/hr with 25ml/hr free water flush. Patient tolerating well. Viytals stable.
--- NOTE | 2024-04-20 16:15 | PTCARENOTE ---
Patient is having increased agitation and work of breathing/tachypnea/use of accessory muscles and difficult to het a pulse ox sat: Dr. Peterson and Dr. Sharma aware: new orders: ativan 0.25mg IV and stat abg obtained and patient placed back on bipap
mask:15/5 8l o2. HOB elevated to max.
[2024-04-20] MEDS: ATIVAN 0.25 MG IV (16:45)
[2024-04-20] MEDS: NSS (PRESERVATIVE FREE) 0.125 ML IV (16:46)
[2024-04-20] MEDS: LOPRESSOR 5 MG IV (16:46)
[2024-04-20 16:55] LABS: B.E. -8.1 mmol/L; HCO3 16.9 mmol/L (21-28); O2 Saturation % 96.1 % (94-98); PCO2 32 mmHg (32-35); PO2 80 mmHg (83-108); pH 7.33 (7.35-7.45)
[2024-04-20 17:39] LABS: B.E. -11.6 mmol/L; O2 Saturation % 81.5 % (94-98); PCO2 36 mmHg (32-35); pH 7.23 (7.35-7.45)
[2024-04-20 17:41] LABS: HCO3 15.1 mmol/L (21-28); PO2 57 mmHg (83-108)
--- NOTE | 2024-04-20 17:43 | SUR.OPER ---
ABG's worsening acidosis: Dr. Alvarado aware: GABBI Trujillo here and aware: stat bicarb given and anesthesia paged to bedside with JAZZ MUSICIAN stat to intubate and sedate patient. Cross covering hospitalist made awre (Dr. Guevara) of the above events: stat cxr
post intubation and levohed intiated at 2 and titrated to [address] Coto also at bedside and call family members [facility] of an acute change
--- NOTE | 2024-04-20 17:51 | W.PN.UPDATE ---
Addendum entered and electronically signed by Noah Coto MD 04/20/24 18:02:
I left message on dtr Darvin's voicemail with change in condition
I then called and spoke with Ronaldo's brother Jose.
Family aware she has been intubated again.
Original Note:
Update Note
Progress Note Update
Responded to overhead call to CVICU for anesthesia.
Pt tachypniec with respiratory acidosis and impending resp failure . Started to decompensate within past hour. CXR looks volume overloaded. Had been given lasix 40mg IV with minimal response.
Currently SBP 109/50, HR 130 (ST), RR 36
Anesthesia here and intubating pt.
Will give additional lasix 80 mg
Sedate with propofol
Continue current Rx. Will need NGT for oral antiplt meds
Will notify family
CCT 35 min
[2024-04-20 17:59] LABS: Glucose - Point of Care 249 mg/dl (70-99)
--- NOTE | 2024-04-20 18:07 | W.PN.ANESINT ---
Anesthesia Intubation Note
- Intubation Note
Intubation Note:
Diagnosis: Respiratory Distress
Blade: Glidescope MAC 4
Tube Size: 7.5
Depth: 22 cm @ lips
Side Taped: L side
Drugs Used: 2mg Versed IV and 100mg Succinylcholine
Grade View: I
EtCO2 Present: Yes
Atraumatic: Yes
Attempts: 1
Insertion Start and Stop Time: 3464-0457
SaO2 Pre: 90
SaO2 Post: 98
Glidescope Used: Yes
Other Airway Adjustments: None
Pre-Oxygenated: Yes
Portable Chest X-Ray: Pending
RSI: Yes
Suctioned: No
Bilateral Breath Sounds Confirmed: Yes
Vent Settings:
Settings per _ICU_Attending Physician
Airway edema present.
--- NOTE | 2024-04-20 18:07 | W.PN.UPDATE ---
Update Note
Progress Note Update
Called urgently to bedside by RN for evaluation of patient with increased lethargy and shallow rapid breaths on BiPAP (extubated 04/19) with AGB w/hypoxia (7.23/36/57/15.1/-11.6/81.7%). Anesthesia and cardiology notified. Patient intubated and
administered 1 amp sodium bicarb. Fentanyl/Propofol infusions ordered for pain/sedation. Additional Lasix 80mg IV now as d/w Dr. Jackson. Dr. Coto updated family. Covering hospitalist update dby RN to this event.
[2024-04-20] MEDS: LIPITOR TUBE (18:26)
[2024-04-20] MEDS: SODIUM BICARBONATE 50 MEQ IV (18:33)
[2024-04-20] MEDS: DIPRIVAN 100 IV (18:34)
--- NOTE | 2024-04-20 18:48 | RESPNOTE ---
ETT withdrawn post CXR to 21cm at the lips.
[2024-04-20] MEDS: SUBLIMAZE 100 IV (18:59)
[2024-04-20] MEDS: LOVENOX 40 MG SC (19:02)
[2024-04-20 19:11] LABS: Albumin 3.3 g/dl (3.5-5.0); Alkaline Phosphatase 119 U/L (38-126); Blood Urea Nitrogen 29 mg/dl (7-17); Calcium 8.2 mg/dl (8.4-10.2); Carbon Dioxide 23 mmol/L (22-30); Chloride 105 mmol/L (98-107); Estimated Creatinine Clearance 35 ml/min; Glucose 156 mg/dl (70-99); Potassium 3.7 mmol/L (3.5-5.1); Sodium 138 mmol/L (135-145); Total Bilirubin 1.6 mg/dl (0.2-1.3); Total Protein 5.4 g/dl (6.3-8.2); Triglycerides 94 mg/dl (10-149); eGFR 45.35
[2024-04-20] MEDS: LASIX 80 MG IV (19:21)
[2024-04-20 19:24] LABS: B.E. -4.7 mmol/L; HCO3 21.1 mmol/L (21-28); O2 Saturation % 84.3 % (94-98); PCO2 41 mmHg (32-35); PO2 60 mmHg (83-108); pH 7.32 (7.35-7.45)
[2024-04-20 19:25] LABS: Ionized Calcium 1.12 mMOL/L (1.15-1.33); Potassium 4.3 mMOL/L (3.5-5.1)
--- NOTE | 2024-04-20 19:30 | PTCARENOTE ---
ABG results showing mild acidosis. Low iCa. CT PA notified. Received orders to 1000mg Ca and 20 mEq K for presumptive loss from diuresis. This RN will administer promptly.
[2024-04-20 19:38] LABS: ALT (SGPT) 2408 U/L (0-35); AST (SGOT) 1739 U/L (14-36)
[2024-04-20] MEDS: CALCIUM CHLORIDE 10% SYRINGE 60 MG IV (19:52)
[2024-04-20] MEDS: KCL 50 IV (19:52)
[2024-04-20] MEDS: ROBITUSSIN TUBE (19:57)
--- NOTE | 2024-04-20 20:00 | PTCARENOTE ---
Assumed care of patient at 1900. Patient found in bed was intubated at 1830 d/t increasing levels of respiratory distress prior to change of shift. Upon assuming care of patient they had just been started on propofol gtt. Additional orders received
to start fentanyl gtt that was promptly initiated. Patient noticeably tachypneic during this time however at this time RR has stabilized following adequate sedation/pain control. 80 lasix administered for presumptive fluid overload. On assessment
patient arouses to verbal and tactile stimulus for short intervals, intubated. Lung sounds are diminished in the bases, patient has 8.0 ETT sitting 21 on the lip with AC vent settings see worklist item for more details. EtCO2 monitoring is in place
currently with a value of 23. Heart sounds have a regular rate and rhythm, patient was ST at start of shift has returned to NSR at this time, patient has weak but palpable radial pulses. Both dorsalis pedis and posterior tibial pulses are present
with doppler. Trace anasarca is present. Patient has soft round abdomen with +BS there is an NGT in place in the R nare that is clamped utilized for med administration. Tube feedings were initiated prior to respiratory distress, but per CT PA will
remain NPO for now. There is a hernandes in place draining clear yellow urine. Patient has R radial 4x4 gauze dressing that is CDI, a L femoral puncture with 4x4 dressing that has some old drainage and is ecchymotic around site, a R femoral puncture
with 4x4 gauze dressing that is CDI with ecchymosis around site. Patient also has generalized bruising particularly concentrated around BUE. Patient has R PICC with double lumen and L radial [place]. Patient has the following gtts: Levo@15, Prop@10,
Fentanyl@50, PICC KVO. Vital signs as follows: T-98 P-79 BP-94/58 RR-22
[2024-04-20 20:48] LABS: B.E. -0.2 mmol/L; HCO3 23.9 mmol/L (21-28); O2 Saturation % 98.9 % (94-98); PCO2 36 mmHg (32-35); PO2 97 mmHg (83-108); pH 7.43 (7.35-7.45)
[2024-04-20 20:50] LABS: Glucose - Point of Care 144 mg/dl (70-99)
[2024-04-20 21:01] LABS: Lactic Acid 2.2 mmol/L (0.7-2.0)
[2024-04-20] MEDS: VANCOCIN 200 IV (22:47)
--- NOTE | 2024-04-20 23:00 | PTCARENOTE ---
Orders received for IV antibiotics d/t patient's second intubation. Blood and sputum cultures also acquired at this time.
--- NOTE | 2024-04-20 23:28 | W.PN.UPDATE ---
Update Note
Progress Note Update
-per Dr. Dunlap, sent blood and respiratory culture, started Zosyn, gave 1 dose Vanco
-follow temps (afebrile so far) and wbc
[2024-04-21] VITALS (22 sets, daily range): BP systolic 79–106; BP diastolic 55–81; BMI 27.4
--- NOTE | 2024-04-21 | PTCARENOTE ---
Patient reassessed. Low BP noted titrating Levo per protocol. All other VSS. Frequent ventilator alarms for high PIP working with RT currently. Remains SR on the monitor.
[2024-04-21 00:19] LABS: B.E. 1.1 mmol/L; Ionized Calcium 1.23 mMOL/L (1.15-1.33); O2 Saturation % 99.8 % (94-98); PCO2 36 mmHg (32-35); PO2 169 mmHg (83-108); Potassium 3.3 mMOL/L (3.5-5.1); pH 7.45 (7.35-7.45)
[2024-04-21] MEDS: LEVOPHED 250 IV ×4 (00:29→17:45)
[2024-04-21] MEDS: ZOSYN 50 IV ×4 (00:36→17:00)
[2024-04-21] MEDS: ROBITUSSIN TUBE ×4 (00:43→16:59)
[2024-04-21] MEDS: MELATONIN PO ×2 (00:43→22:25)
[2024-04-21 00:47] LABS: Glucose - Point of Care 133 mg/dl (70-99)
[2024-04-21] MEDS: NOVOLOG FLEXPEN-LOW RESISTANCE SC ×4 (00:47→17:27)
--- NOTE | 2024-04-21 00:58 | PTCARENOTE ---
Patient ventilator frequently alarming for high PIP. RT notified. Patient appears to be taking two consecutive inspirations before exhalation complete. saO2 and RR stable during this time. CT PA notified. ABG obtained. Attempted to increase sedation
but no improvement in respiratory status and blood pressure did not tolerate. Patient repositioned and suction provided without noticeable improvement. ABG normal. RT in again to assess patient with CT PA. Adjusted to SIMV ventilator setting 8 PEEP
8 PSV 450 TV 16 RR. Patient remains stable at this time.
[2024-04-21] MEDS: FLEXBUMIN 50 IV (01:11)
[2024-04-21] MEDS: KCL 100 IV (01:11)
[2024-04-21 01:45] LABS: B.E. 1.7 mmol/L; HCO3 25.7 mmol/L (21-28); PCO2 37 mmHg (32-35); PO2 136 mmHg (83-108); pH 7.45 (7.35-7.45)
[2024-04-21 02:00] LABS: Lactic Acid 1.4 mmol/L (0.7-2.0)
[2024-04-21 03:22] LABS: Hematocrit 23.3 % (37.0-47.0); Hemoglobin 8.4 g/dL (12.0-16.0); Mean Corp Hgb Conc. 36.1 g/dL (33.0-37.0); Mean Corpuscular Hgb 30.1 pg (27.0-31.0); Mean Corpuscular Volume 83.5 fL (81.0-99.0); Mean Platelet Volume 11.8 fL (7.4-10.4); Platelet Count 154 10^3/uL (130-400); Red Blood Cell Count 2.79 10^6/uL (4.20-5.40); Red Cell Dist. Width 14.4 % (11.5-14.5); White Blood Cell Count 23.1 10^3/uL (4.8-10.8)
[2024-04-21 03:30] LABS: Blood Urea Nitrogen 35 mg/dl (7-17); Calcium 8.9 mg/dl (8.4-10.2); Carbon Dioxide 27 mmol/L (22-30); Chloride 104 mmol/L (98-107); Estimated Creatinine Clearance 35 ml/min; Glucose 118 mg/dl (70-99); Magnesium 1.8 mg/dl (1.6-2.3); Potassium 4.5 mmol/L (3.5-5.1); Sodium 138 mmol/L (135-145); Triglycerides 101 mg/dl (10-149); eGFR 45.35
[2024-04-21 04:25] LABS: Albumin 3.3 g/dl (3.5-5.0); Alkaline Phosphatase 105 U/L (38-126); Direct Bilirubin 0.6 mg/dl (0.0-0.4); Total Bilirubin 1.2 mg/dl (0.2-1.3); Total Protein 5.4 g/dl (6.3-8.2)
[2024-04-21 04:39] LABS: ALT (SGPT) 2158 U/L (0-35); AST (SGOT) 1378 U/L (14-36)
[2024-04-21] MEDS: SYNTHROID 50 MCG TUBE (05:09)
[2024-04-21 06:20] LABS: Glucose - Point of Care 89 mg/dl (70-99)
--- NOTE | 2024-04-21 06:56 | W.PN.VS ---
Addendum entered and electronically signed by Pedro Escobar III, MD 04/22/24 06:25:
This patient was seen and examined with MANPREET Barron. I agree with the history and physical exam as well as the assessment and plan. I have the following additions:
Doppler signals present bilaterally
Patient currently intubated/sedated
Will follow-up on additional imaging when obtained (as clinical status dictates)
Signed:
Pedro Escobar III, MD
[facility] Surgery
[phone] ([phone])
Original Note:
Today's Communication / Plan
-
Patient seen and examined at bedside with Dr. Pedro Escobar III, below plan reviewed with attending.
Assessment/Plan
-
Assessment: 68-year-old female status post cardiac catheterization for NSTEMI, with chronic peripheral arterial disease likely exacerbated by somewhat occlusive sheath placement due to inflow disease but now improved, initially extubated but
reintubated due to acuity
Plan:
Additional imaging depending on clinical trajectory and recovery of renal status
Please call for changes in lower extremity pulse exam
Continue neurovascular checks
Subjective Data
-
Date of Service: April 21, 2024
Patient seen and examined at bedside, intubated and sedated.
Objective Data
-
Vital Signs
Temp Pulse Resp BP Pulse Ox
98.3 F 81 20 86/64 98
04/21/24 03:00 04/21/24 06:00 04/21/24 06:00 04/21/24 06:00 04/21/24 06:00
Intake and Output
04/19/24 04/20/24 04/21/24
06:59 06:59 06:59
Intake Total 2582.3 / 2664.7 1414.20 / 1424.20 1182.1 / 1182.1
Output Total 615 / 665 3150 / 3275 1635 / 1635
Balance 1967.3 / 1999.7 -1735.80 / -1850.80 -452.9 / -452.9
Intake:
Oral fluids 50 / 50
IV fluids (Total) 2557.3 / 2639.7 894.20 / 904.20 762.1 / 762.1
Amiodarone 384.1 / 400.8 75.15 / 75.15
Dopamine 285.2 / 297.6 128.9 / 128.9
Fentanyl 46.0 / 49.0 20.5 / 20.5 55 / 55
KVO 230 / 240 220 / 230 230 / 230
Levo 1158.5 / 1181.0 225.35 / 225.35 427.6 / 427.6
Pacing wire KVO 230 / 240 40 / 40
Precedex 115.5 / 115.5
Propofol 108.0 / 115.8 46.8 / 46.8 49.5 / 49.5
potassium 137.5 / 137.5
IV piggybacks 25 / 25 60 / 60 220 / 220
Amount instilled into GI Tube ( 210 / 210 150 / 150
Total)
Crockett Sump 210 / 210 150 / 150
Blood Products 250 / 250
Packed red blood cells 250 / 250
Output:
Urine, Escobar 615 / 665 201 / 5 163 / 1635
Other:
Number of unmeasured liquid
stools
Rectum 1
Lab Results
04/21/24 03:03
04/21/24 03:03
Calcium 8.9 mg/dl (8.4-10.2) 04/21/24 03:03
Phosphorus 4.6 mg/dl (2.5-4.5) H 04/18/24 17:20
Magnesium 1.8 mg/dl (1.6-2.3) 04/21/24 03:03
Total Bilirubin 1.2 mg/dl (0.2-1.3) 04/21/24 03:03
Direct Bilirubin 0.6 mg/dl (0.0-0.4) H 04/21/24 03:03
AST 1378 U/L (14-36) H* 04/21/24 03:03
ALT 2158 U/L (0-35) H* 04/21/24 03:03
Alkaline Phosphatase 105 U/L (38-126) 04/21/24 03:03
Total Protein 5.4 g/dl (6.3-8.2) L 04/21/24 03:03
Albumin 3.3 g/dl (3.5-5.0) L 04/21/24 03:03
Physical Exam
-
Intubated and sedated
Tolerating ventilator
ABD rotund and non-distended
BL LE without edema
Right PT by doppler, left PT by doppler, feet warm
[2024-04-21] MEDS: DIPRIVAN 100 IV ×2 (07:20→17:00)
[2024-04-21] MEDS: MIRALAX TUBE (07:29)
--- NOTE | 2024-04-21 07:32 | W.PN.INTV ---
Today's Communication / Plan
Recommendations
Wean pressors
Adjust ventilator
Diuresis
Gentle sedation
Assessment
-
68-year-old female with a history of CVA, [employer] WORK[employer] shunt, hypertension admitted with symptomatic bradycardia was hospitalized and had recurrent in-hospital cardiac arrhythmias and arrests with multiple transfers to cardiac catheterization lab on 3
separate occasions-with successful stenting of culprit 90% mid circumflex lesion, subsequent successful angioplasty and stenting of distal overlapping fashion occlusion of the large OM 2, and subsequent successful placement of transvenous pacer via
left femoral vein-veneer sawyer consulted for ventilator/critical care management 04/18/2024.
Ventilator dependent respiratory failure
Intubated 04/17/2024
Extubated 04/19/2024
Reintubated 04/20/2024 for CHF
Symptomatic bradycardia
CHF with reduced EF-40%
CAD/non-STEMI
Status postcardiac catheterization 04/17/2024--successful stenting 90% mid circumflex lesion
Recurrent multiple and hospital cardiac arrhythmias/codes
Status postcardiac catheterization 04/17/2024-successful angioplasty and stenting of distal overlapping fashion of large OM 2 lesion
Subsequent recurrent severe symptomatic bradycardia-status post third catheterization 04/17/2024-successful placement via left femoral vein transvenous pacer
Leukocytosis-WBC 34.6
Phbtbx-mzsyjprfrv-yfmempeamn 9.1
Metabolic acidosis
Lactic acidosis
Hyperglycemia
Conditions present prior to admission:
CVA-01/2024
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
Hypertension.
Anemia
Current smoker.
PAD
Plan
Critically ill-reintubated on pressors
Ventilator settings reviewed-initially on assist-control, elevated peak inspiratory pressures-changed to IMV/pressure support-more comfortable
Wean FiO2
Follow ABG
ABG 04/21/2024- 0.46
Decrease minute ventilation
Nebulizers if needed-currently not bronchospastic
Aspiration precautions
Chest x-ray 04/21/2024-slightly improved to moderate CHF
Follow-up chest x-ray
Cardiology following-correspondence reviewed hold metoprolol, wean norepinephrine, consider transfusion, continue diuresis
Troponin trended-peak 340
Echocardiogram reviewed and summarized below
Cardiac catheterization x 3 reviewed and summarized
Anticoagulation and antiplatelet therapy per cardiology
Antiarrhythmics including amiodarone per cardiology
Norepinephrine-wean
Diuresis continues as tolerated-on Lasix 40 mg IV twice daily
Monitor renal function, electrolytes, intake/output, lower extremity edema and weight
Replace electrolytes as needed
Transvenous pacer removed 04/19/2024
Monitor leukocytosis, temperature curve-WBC is currently 23.1
Follow chest x-ray- no signs of pneumonia-aspiration risk
Zosyn empirically initiated with persistent hypotension and leukocytosis
Lactic acidosis was from tissue hypoperfusion
Follow hemoglobin-currently 8.4
Transfuse if needed
Vascular surgery evaluation ongoing-right femoral approach unable to advance wire due to occlusion of common iliac, subsequent attempt at left femoral access and sheath placement due to bulky distal aortic bifurcation plaque/stenosis unable to
advance wires and catheters therefore left radial approach was undertaken-no acute need for intervention, no acute limb ischemia, eventual DAYDAY/TBI's and outpatient vascular follow-up
Smoking cessation counseling continues
DVT prophylaxis-on Lovenox
GI prophylaxis-on pantoprazole-latest Society of critical care medicine does not support PPI while on ventilator, however, when shock present, coagulopathy present, etc. then PPI/or H2 ira is indicated
Begin nutrition
Early mobilization/PT/OT
Eventual outpatient rehab and then would recommend outpatient pulmonary evaluation-smoking cessation, PFTs, yearly low-dose lung cancer screening CT, etc.
Critical care statement: A total of 45 minutes of critical care time was provided for this patient today. This includes management of unstable vital signs, evaluation of the patient at bedside, reviewing the patient's pertinent medical records
including radiographs, ventilator management, pressor management, microbiology, laboratory evaluations, and discussion with primary team, consultants, pharmacy, nutrition, physical therapy, case management, charge nurse, critical care nursing, and
respiratory therapy.
Diagnostic data:
Chest x-ray 04/17/2024-NAD
Chest x-ray 04/18/2024-endotracheal tube tip terminates at the bj-should be retracted
Chest x-ray 04/18/2024-satisfactory position of endotracheal tube, interval decrease in bilateral airspace disease representing improved pulmonary edema
Chest x-ray 04/18/2024-right PICC terminates at the expected location, stable mild pulmonary edema
Chest x-ray 04/19/2024-improved pulmonary edema stable lines and tubes
Chest x-ray 04/20/2024-increased CHF
Echocardiogram 04/18/2024-moderately reduced LV function-EF 40%, normal right ventricular size with RV hypokinesis and distal RV hypokinesis, mild mitral regurgitation
Subjective Dataa
Subjective Data
Date of Service:
Date of Service: April 21, 2024
Chief Complaint: [employer] Control Officer Follow Up, Pulmonary Follow Up and Vent Management Follow Up
Subjective:
Events noted,/pulmonary edema, reintubated, sedated on ventilator, review of systems unobtainable
Review of Systems
General: Unobtainable - Sedation
Objective Data
Data Reviewed
Vital Signs / I&O / Oxygen:
Vital Signs
Temp Pulse Resp BP Pulse Ox
98.3 F 76 21 93/65 99
04/21/24 03:00 04/21/24 07:15 04/21/24 07:15 04/21/24 07:00 04/21/24 07:15
Intake and Output
04/20/24 04/21/24 04/22/24
06:59 06:59 06:59
Intake Total 1414.20 / 1424.20 1182.1 / 1230.9 48.8 / 48.8
Output Total 3150 / 3275 1635 / 1735 100 / 100
Balance -1735.80 / -1850.80 -452.9 / -504.1 -51.2 / -51.2
SaO2 [SIMV] 94
SaO2 [CPAP] 96
SaO2 [A/C] 100
SaO2 99
Nasal Cannula flow liters per 5
minute
Physical Exam
General: Respiratory Distress (n) and Comfortable
HEENT: Normocephalic and Moist Mucous Membranes
Cardiovascular: Regular Rhythm, Murmur and Peripheral Edema
Respiratory: Wheeze (n), Crackles, Rhonchi (n), Non-Labored Respirations, Accessory Resp Muscle Use (n) and Stridor
GI: Soft, Non Distended and Non Tender
Neurology: Lethargic (Sedated on a ventilator)
Skin: Warm, Good Color, Cyanosis (n) and Jaundice (n)
Labs/Micro/Reports
Lab Data
04/21/24 03:03
04/21/24 03:03
Laboratory Results
04/20/24 04/20/24 04/20/24
16:43 17:29 18:46
pH 7.33 L 7.23 L Cancelled
pCO2 32 36 H
pO2 80 L 57 L*
HCO3 16.9 L 15.1 L*
O2 Delivery Level
04/20/24 04/20/24 04/20/24
18:46 18:46 18:46
pH 7.32 L
pCO2 Cancelled 41 H
pO2 Cancelled 60 L
HCO3 Cancelled
O2 Delivery Level
04/20/24 04/20/24 04/20/24
18:46 18:46 20:43
pH 7.43
pCO2 36 H
pO2 97
HCO3 21.1 23.9
O2 Delivery Level Cancelled
04/21/24 04/21/24
00:12 01:39
pH 7.45 7.45
pCO2 36 H 37 H
pO2 169 H 136 H
HCO3 25.0 25.7
O2 Delivery Level
Microbiology
04/18/24 16:09 Blood/Venous Blood Culture - Preliminary
No Growth in 48 hours- Final report to follow
04/18/24 09:40 Blood/Venous Blood Culture - Preliminary
No Growth in 48 hours- Final report to follow
04/17/24 19:23 Nose MRSA Screen - Final
No Methicillin Resistant Staphylococcus aureus isolated.
--- NOTE | 2024-04-21 07:52 | PTCARENOTE ---
Received pt from previous RN; pt intubated and sedated; Pupils equal and reactive; pt wakes to tactile stimuli; NSR on monitor and VSS; Levo, Propofol and Fentanyl infusing see flow sheet for details; Right double lumen PICC patent and Left A-line
leveled and zeroed; Lungs diminished throughout; ETT 8 and 21 @ lip; SIMV 8/8/450/16/60%; hypoactive bowel sounds; NG tube in Right nare, Flushed Q4H NSS; Escobar catheter draining yellow urine; weak B/L radials and Present Doppler pedal pulses; trace
generalized edema; B/L groin dressing C/D/I and multiple ecchymotic areas throughout body; see nursing documentation for further details.
--- NOTE | 2024-04-21 08:02 | PTCARENOTE ---
Respiratory in room and FiO2 decreased to 50%.
[2024-04-21] MEDS: TOPROL XL PO (08:06)
[2024-04-21] MEDS: ULTRAM PO (08:07)
[2024-04-21] MEDS: SUBLIMAZE 50 MCG IV ×2 (08:11→09:15)
[2024-04-21] MEDS: PROTONIX IV 40 MG IV ×2 (08:11→22:25)
[2024-04-21] MEDS: NSS (PRESERVATIVE FREE) 10 ML IV ×2 (08:11→22:25)
[2024-04-21] MEDS: PLAVIX 75 MG PO (08:15)
[2024-04-21] MEDS: LOW STRENGTH ASPIRIN 81 MG PO (08:15)
--- NOTE | 2024-04-21 08:30 | W.PN.CD ---
Today's Communication / Plan
-
Hold metoprolol due to hypotension
Wean Levophed as tolerated
Sedation impacts blood pressure. Minimize sedation
Treatment of VDRF as directed by pulmonary/critical care
With extent of coronary vascular disease would target higher hemoglobin. Consider administration of additional PRBCs with additional IV Lasix.
Impression / Plan
-
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 She endorses diaphoresis episodes.
CAD:
- large NC with peak trop 340 now falling
-cardiogenic shock improving. Off pressor.
GDMT as blood pressure will allow
- ECHO -performed while patient was on pressors. Multiple wall motion abnormalities. Moderately depressed LV function with estimated EF 40%
- ECHO precath normal LV without valve disease.
.
VDRF -extubated 04/19/2024. Patient appeared well and morning on 04/20/2024 but in the evening had decompensation with progressive acidosis and had to be reintubated 04/21/2024.
-Continue treatment of heart failure.
-ABX to cover pneumonia
-Optimization as directed by pulmonary
.
Hypotension. Patient with hypotension requiring pressor support after intubation also impacted by sedation required for intubation. Levophed as high as 15 yesterday now weaned down to 8.
-With white count and decompensation. Patient covered with antibiotics and blood cultures drawn.
-Optimize treatment of anemia
-Limit sedation as tolerated
-Hold metoprolol
-Wean Levophed as possible
Hypothyroid
-TSH 23
- Medicine has started synthroid
Vascular
- No role for urgent vascular intervention. Patient has been assessed by vascular surgery.
-As previously noted by Dr. Mario Alberto thomas PAD with occluded R CI and near occlusion of terminal aorta
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
-WBC 20.5k . Need to check blood cxs in case there is some infection here
Anemia improved. Severe consider additional PRBCs considering the extent of patient's vascular disease.
-Give additional Lasix with PRBCs.
-With extent of coronary and vascular disease would favor higher target hemoglobin
Heart block
-Resolved
-Pacer removed.
.
PAF. Brief episode that occurred night patient went back to [employer] and was in shock and on pressors. No recurrence. Patient had received amiodarone which is since been discontinued monitor for recurrence
Renal. Nephrology consulted
Prior CVA
- On DAPT
Remains critically ill
CCT 40 min
Physical Exam
Vital Signs/Labs
Vital Signs
Temp Pulse Resp BP Pulse Ox
98.4 F 73 18 91/63 99
04/21/24 08:00 04/21/24 08:00 04/21/24 08:00 04/21/24 08:00 04/21/24 08:00
04/20/24 04/21/24 04/22/24
06:59 06:59 06:59
Actual Weight 63.8 kg 63.6 kg
04/21/24 03:03
04/21/24 03:03
PT 15.6 Sec (11.4-14.6) H 04/17/24 19:23
INR 1.23 04/17/24 19:23
APTT > 200 Sec (23.4-35.0) H* 04/17/24 19:23
Magnesium 1.8 mg/dl (1.6-2.3) 04/21/24 03:03
Triglycerides 101 mg/dl (10-149) 04/21/24 03:03
LDL Cholesterol, Calc 126 mg/dl 04/17/24 09:09
VLDL Cholesterol, Calc 37 mg/dl (0-30) H 04/17/24 09:09
HDL Cholesterol 55 mg/dl 04/17/24 09:09
Free T4 1.08 ng/dl (0.78-2.19) 04/17/24 09:09
LAB Results
04/18/24 04/18/24 04/18/24
09:40 16:09 22:07
Troponin I 230.000 H* 340.000 H* D 258.000 H*
Physical Exam
Constitutional: No acute distress and Other (vented)
Cardiovascular: Rhythm & rate is regular
Respiratory: Wheeze Absent, Rhonchi Absent and Other (vented bs)
GI: Soft
Neuro/Psych: Other (sedated)
Data Reviewed
-
Date of Service: April 21, 2024
Medical Decision Making: Reviewed Test Results
X-Ray/CT/US/MRI/NUC/PET: Report Reviewed by me
Medical Tests (PFT, Pathology etc): Report Reviewed by me
Labs: Labs Reviewed by me
[2024-04-21] MEDS: LASIX 40 MG IV ×2 (09:15→16:14)
[2024-04-21 09:16] LABS: B.E. 0.5 mmol/L; HCO3 24.2 mmol/L (21-28); O2 Saturation % 98.4 % (94-98); PCO2 34 mmHg (32-35); PO2 81 mmHg (83-108); Potassium 3.8 mMOL/L (3.5-5.1); Sodium 139 mMOL/L (136-145); pH 7.46 (7.35-7.45)
[2024-04-21] MEDS: SUBLIMAZE 100 IV ×2 (09:33→20:25)
[2024-04-21 11:33] LABS: Glucose - Point of Care 122 mg/dl (70-99)
--- NOTE | 2024-04-21 11:33 | W.PN.HOSP.TC ---
Today's Communication/Plan
-
Wean vasopressors as possible
Consider further IV Lasix doses
Follow cultures and continue empiric IV antibiotics
Order 1 unit PRBC for hemoglobin goal >9
SAT/SBT in morning
Assessment / Plan
Assessment / Plan
Assessment/Plan:
68-year-old female with hypertension, s/p MODERN DANCER shunt, H/O CVA 2 months ago that presented to the hospital yesterday with symptomatic bradycardia. Possible ST elevations at facility, troponin bumped to 0.4 while here. Was taken to [facility] where LCx
PCI was performed. Subsequently developed recurrent bradycardia, repeat catheterization showed nonocclusive dissection distal to ANALI and newly occluded OM 2 branch. Was started on transvenous pacing, developed respiratory compromise that
necessitated intubation. Became dependent on vasopressor and inotropic support which were weaned at the time. Was successfully extubated on 04/20/2024 however developed worsening respiratory distress with acidemia and was intubated once again on
04/20 in the afternoon.
1. Acute hypoxemic respiratory failure/VDRF
2. Cardiogenic shock/circulatory shock
3. Acute HFrEF�ischemic cardiomyopathy
4. Hypokalemia
5. NSTEMI
6. NSVT
7. Leukocytosis
8. Hyperglycemia
9. Chronic HTN
10. S/P MODERN DANCER shunt
11. H/O CVA
12. PAD
13. Symptomatic bradycardia s/p TVP�resolved
14. Lactic acidosis/metabolic acidosis�resolved
Neurologic: Resumed on propofol and fentanyl after requiring second intubation. Does have previous MODERN DANCER shunt as well as history of CVA for which she is still on DAPT. However do not think there is any active neurological process. RASS -2 to -3,
responds appropriately to stimuli
-Continue with propofol and fentanyl drips
Cardiovascular: Was weaned from inotropes and vasopressors reinitiated Levophed drip 10 mcg following reintubation. Remains on DAPT and high intensity statin for CAD, was planning to start beta-ira at low-dose however will hold off on this now
that she is back on pressors. Not currently receiving GDMT for HFrEF (40%) due to hemodynamic state. Has benefited from IV Lasix when evidence of pulmonary congestion
-C/W DAPT, high intensity statin
-Outpatient CTA for peripheral arterial disease
-Electrolyte goals K >4, mag >2
Respiratory: Intubation x 2, day 2 of second intubation. Currently on VC AC/C 16/450/50/8 with P peak 30 mmHg. Suspect that hypoxemia is driven by pulmonary congestion and cardiogenic shock. Has responded to Lasix as needed when she seems
congested. No history of chronic lung disease, not on any inhalers. ICU team planning for a day of rest prior to next trial for extubation
-IV Lasix 40 mg x 1 today, consider further doses from volume assessment
-Attempt SAT/SBT tomorrow
Renal/urinary: Creatinine has taken a bump and is now up to 1.3 on labs from 1.1. Suspect she may be on hypovolemic side after aggressive diuretics. I gave her an additional dose of Lasix this morning as her chest x-ray did show some signs of
residual pulmonary congestion. I's/O's show 175 mL of urine outputs last 2 hours. Remainder of electrolytes WNL. No significant acid-base disturbance today.
-Strict I's and O's, trend BMP
-Consider further IV Lasix doses today off of volume assessment
Gastroenterological: Developed transaminitis in the , highly suspicious for shock liver in the context of her compromised hemodynamics. This had occasionally downtrending hemoglobin with 2 units PRBC given as of this morning, cannot rule out
GI bleed though still believe this is dilutional. Was started on IV PPI for stress ulcer prophylaxis. Currently n.p.o. status though hope for short period of intubation. Will hold off on starting tube feeds for now
-Continue PPI twice daily
-NGT nutrition, Jevity 1.5 ordered
-Monitor for signs of GI bleeding
-Trend daily LFTs
Infectious: Low suspicion for active infection, but she does have a persistently high WBC count. Following her second intubation she was started on IV Zosyn after broad-spectrum cultures were taken. No culture data back as of yet. No fevers
noted. Agree with a short course of broad-spectrum antibiotics while more information is obtained
-Follow-up blood cultures
-Continue empiric IV Zosyn
Endocrinology: Glucose has been elevated here, suspect that this is a stress response to to the events of this hospitalization. Labs on admission did show TSH near 23. T4 level was within normal range however this degree of TSH elevation does
necessitate treatment. Low suspicion for any active adrenal issues, BP and electrolytes stable
-Continue with levothyroxine via NGT, will need repeat TSH in 6 to 8 weeks after thyroid ultrasound
-ISS with Accu-Cheks every 6 hours with glucose goal 180-220
Hematology: Presented with normocytic anemia, hemoglobin near 10.9. Hemoglobin initially trended down to 7.7, received 1 unit with repeat hemoglobin 9.5. As of this morning hemoglobin was back down to 8.4. Spoke with cardiology at the bedside,
due to her severe cardiogenic state and recent large AR we will pursue more aggressive hemoglobin goal of near 9.0.
-Ordered 1 unit PRBC now, s/p 2 units in total
-Trend CBC
-Hemoglobin goal >8 s/p cardiogenic shock and NSTEMI
DVT prophylaxis: Lovenox
GI prophylaxis: IV PPI twice daily
Diet: Start Jevity 1.5 via NGT
CODE STATUS: Full code
Anticipated Discharge: > 48 hours
Subjective/Interval History
-
Date of Service: April 21, 2024
Yesterday evening the patient developed worsening respiratory distress and acidemia which necessitated reintubation. She was then started on Levophed again for circulatory shock. As of this morning she is on CATEGORY SPECIALIST/C 16/450/50/8 with P peak near 30
mmHg, requiring levo at 10 mcg/min for vasopressor support. Afebrile, heart rate WNL and appears sinus.
Due to critical condition, residual WBC counts, and her respiratory distress she was started on IV Zosyn after blood cultures were taken.
Objective Data
-
Labs:
Laboratory Results
04/21/24 04/21/24 04/21/24
00:12 01:39 03:03
WBC 23.1 H
Hgb 8.4 L
Hct 23.3 L
Plt Count 154
HCO3 25.0 25.7
Sodium 138
Potassium 4.5
Chloride 104
Carbon Dioxide 27
BUN 35 H
Creatinine 1.3 H
Glucose 118 H
Calcium 8.9
Total Bilirubin 1.2
AST 1378 H*
ALT 2158 H*
Alkaline Phosphatase 105
04/21/24
09:05
WBC
Hgb
Hct
Plt Count
HCO3 24.2
Sodium
Potassium
Chloride
Carbon Dioxide
BUN
Creatinine
Glucose
Calcium
Total Bilirubin
AST
ALT
Alkaline Phosphatase
Vital Signs:
Vital Signs
Temp Pulse Resp BP Pulse Ox
98.2 F 66 23 87/63 100
04/21/24 11:05 04/21/24 11:00 04/21/24 11:05 04/21/24 11:00 04/21/24 11:05
I&O
04/20/24 04/21/24 04/22/24
06:59 06:59 06:59
Intake Total 1414.20 / 1424.20 1182.1 / 1230.9 399.6 / 399.6
Output Total 3150 / 3275 1635 / 1735 350 / 350
Balance -1735.80 / -1850.80 -452.9 / -504.1 49.6 / 49.6
Review of Systems
-
Unable to obtain full review of systems at this time due to: Patient Intubation
Physical Exam
-
General: No Apparent Distress and Intubated
HEENT: Normocephalic, Atraumatic, Moist Mucous Membranes and Anicteric
Respiratory: Clear to Auscultation, Non Labored Respirations and Other (Mechanical breath sounds); Negative Wheezes, Rales or Rhonchi
Cardiac: Regular Rhythm and S1/S2; Negative Murmur, Rub, JVD or Gallop
GI: Soft, Nontender, Nondistended and Normal Bowel Sounds
Musculoskeletal: No Clubbing, No Cyanosis, No Edema and Other (No gross deformities)
Skin: Warm, Dry and Normal Turgor; Negative Rash
Neuro: Other (Intubated and sedated. Responds to stimuli, no obvious neurological deficits)
Data Reviewed
-
Diagnostic Radiology: Image personally visualized and interpreted
Labs: Labs Reviewed by me
[2024-04-21 11:45] LABS: Lactic Acid 1.3 mmol/L (0.7-2.0)
--- NOTE | 2024-04-21 12:11 | PTCARENOTE ---
NSR on monitor and VSS; Levo, Propofol and Fentanyl infusing see flow sheet for details; assessment unchanged; blood card sent and awaiting tube feeds.
--- NOTE | 2024-04-21 12:36 | PTCARENOTE ---
1 unit of PRBC infusing per order. NSR on monitor and VSS.
--- NOTE | 2024-04-21 12:48 | PTCARENOTE ---
Tube Feedings started per order; Jevity 1.5 at 15 mls/hr and H2O flush at 25mls/hr; NG Tube flushed.
[2024-04-21 13:25] LABS: B.E. -6.3 mmol/L; HCO3 17.3 mmol/L (21-28); PCO2 26 mmHg (32-35); PO2 144 mmHg (83-108); Sodium 142 mMOL/L (136-145); pH 7.43 (7.35-7.45)
[2024-04-21 13:43] LABS: O2 Therapy 40%
[2024-04-21 13:44] LABS: Potassium 2.5 mMOL/L (3.5-5.1)
[2024-04-21] MEDS: KCL 270 MEQ IV ×2 (15:14→22:24)
[2024-04-21 16:07] LABS: Carbon Dioxide 28 mmol/L (22-30); Chloride 99 mmol/L (98-107); Potassium 3.4 mmol/L (3.5-5.1); Sodium 133 mmol/L (135-145)
--- NOTE | 2024-04-21 16:28 | PTCARENOTE ---
NSR on monitor and VSS; assessment unchanged; Blood transfused without difficulties; pt wash and repositioned.
[2024-04-21] MEDS: LOVENOX 40 MG SC (17:00)
[2024-04-21 17:09] LABS: Glucose - Point of Care 120 mg/dl (70-99)
--- NOTE | 2024-04-21 18:06 | PTCARENOTE ---
Report given to OXYGRAPH OPERATOR; pt transported to [id number] with 2 RNs and Respiratory; belongings sent with pt and family updated on new room.
--- NOTE | 2024-04-21 18:23 | PTCARENOTE ---
Assumed care of pt at 1750 upon arrival to ICU Rm 3369 following transfer from CV[facility]. Pt received intubated w/ bagged ventilations being provided by Resp Therapy. Pt placed on vent by RT: SIMV rate 16, TV 450, 50% FiO2, Peep 8. POx 92-95%. RR 16,
PIP 12. Bilateral breath sounds equal w/ scattered fine crackles noted bilateral bases. Following gtts infusing at time of arrival: Fentanyl @100mcg/min, Propofol @ 50mcg/kg/min, Levophed at 8 mcg/min. Bilateral soft wrist restraints in place. Rt
nare NGT patent w/ Jevity 1.5 infusing at 15ml/hr w/ 25ml auto q1h water flush. Placement confirmed w/ auscultation of air bolus. Escobar patent and draining clear yellow urine. Bilateral DP/PT pulses by doppler. Bottom of bilateral feet slightly
dusky in color and skin cool to touch. Pt turned for assessment and care, repositioned for comfort. Pt's RASS = to -4 No distress noted. Propofol gtt titrated to 10mcg/kg/min per protocol. Safe environment maintained
--- NOTE | 2024-04-21 19:39 | PTCARENOTE ---
Assumed care of pt. approx 190.
Remains Intubated/sedated.
Sedation gtt as follows
-Propofol
-Fentanyl
See assessment flowsheet for details.
RASS -4, will cont. wean down sedation to RASS goals.
BP supported with Norepi gtt, will wean down as pt. tolerates.
Will cont. to wean down Fi02 needs as pt tolerates.
[2024-04-21] MEDS: ROBITUSSIN 100 MG TUBE (22:25)
[2024-04-22] MEDS: LEVOPHED 250 IV ×6 (00:11→22:17)
[2024-04-22] MEDS: ZOSYN 50 IV ×4 (00:12→17:55)
[2024-04-22 00:28] LABS: Glucose - Point of Care 83 mg/dl (70-99)
--- NOTE | 2024-04-22 00:45 | PTCARENOTE ---
pt having greater vasopressor needs, Norepi gtt up to 16 mcg.
Unable to wean sedation due to vent asynchrony.
Vent settings changed from CV order SIMV, to AC.
[2024-04-22] MEDS: NOVOLOG FLEXPEN-LOW RESISTANCE SC ×3 (01:02→11:58)
[2024-04-22] MEDS: DIPRIVAN 100 IV ×2 (02:14→15:51)
[2024-04-22 04:10] LABS: B.E. 0.1 mmol/L; HCO3 23.5 mmol/L (21-28); O2 Saturation % 98.9 % (94-98); PCO2 33 mmHg (32-35); PO2 104 mmHg (83-108); pH 7.46 (7.35-7.45)
[2024-04-22 04:17] LABS: % Basophils 0.2 % (0-2); % Eosinophils 0.7 % (0-6); % Immature Granulocytes 0.9 % (0-0.5); % Lymphocytes 11.5 % (20.5-51.1); % Monocytes 7.3 % (1.7-9.3); % Neutrophils 79.4 % (42.2-75.2); Absolute Eosinophils 0.1 10^3/uL (0-0.7); Absolute Immature Granulocytes 0.2 10^3/uL (0-0.05); Absolute Lymphocytes 2.1 10^3/uL (1.2-3.4); Absolute Monocytes 1.3 10^3/uL (0.1-0.6); Absolute Neutrophils 14.3 10^3/uL (1.4-6.5); Mean Corp Hgb Conc. 35.7 g/dL (33.0-37.0); Mean Corpuscular Hgb 29.9 pg (27.0-31.0); Mean Corpuscular Volume 83.8 fL (81.0-99.0); Mean Platelet Volume 12.7 fL (7.4-10.4); Nucleated Red Blood Cells % 3.2 %; Platelet Count 180 10^3/uL (130-400); Red Blood Cell Count 3.34 10^6/uL (4.20-5.40); Red Cell Dist. Width 14.6 % (11.5-14.5)
--- NOTE | 2024-04-22 04:30 | PTCARENOTE ---
pt. having increased vasopressor needs, Norepi titrated up to 18 mcg, despite walking down sedation.
Sedation gtt: Fentanyl 50 mcg
Prop 15 mcg.
Tolerating vent settings, MAPS soft.
Assessment is unchanged from prior.
[2024-04-22 04:42] LABS: AST (SGOT) 425 U/L (14-36); Albumin 3.1 g/dl (3.5-5.0); Alkaline Phosphatase 174 U/L (38-126); Blood Urea Nitrogen 35 mg/dl (7-17); Calcium 7.9 mg/dl (8.4-10.2); Carbon Dioxide 23 mmol/L (22-30); Chloride 102 mmol/L (98-107); Estimated Creatinine Clearance 35 ml/min; Glucose 135 mg/dl (70-99); Magnesium 1.8 mg/dl (1.6-2.3); Potassium 3.9 mmol/L (3.5-5.1); Sodium 134 mmol/L (135-145); Total Bilirubin 1.8 mg/dl (0.2-1.3); Total Protein 5.4 g/dl (6.3-8.2); eGFR 45.35
[2024-04-22 04:52] LABS: ALT (SGPT) 1418 U/L (0-35)
[2024-04-22] MEDS: SYNTHROID 50 MCG TUBE (05:40)
[2024-04-22 05:49] VITALS: BMI 28.0
[2024-04-22 05:58] LABS: Glucose - Point of Care 88 mg/dl (70-99)
--- NOTE | 2024-04-22 06:38 | W.PN.CD ---
Today's Communication / Plan
-
HB improved after PRBC
follow up echo 04/23/24
GDMT limited by BP
weean levo as tolerated.
1 BC possitive 04/20 - gram pos cocci. Monitor other cultures. Currently on Zosyn
Hypotension. Patient had been on pressors with cardiogenic shock earlier this admission eventually was weaned on but then had decompensation on 04/20/2024 requiring intubation and since that intubation has been on Levophed. Weaned to down to 8 on
04/21/2024 but now back up to 18. Not entirely clear clear why patient is requiring additional pressor requirement. She has been sensitive to sedation previously. Of note 1 blood culture from 726 is positive.
-Minimize sedatives
-Echocardiogram
-Venous ultrasound lower extremities
-Consider additional antibiotic coverage including use of vancomycin to cover gram-positive's while awaiting final cultures
Impression / Plan
-
BACKGROUND: 68F with hypertension, current smoker, prior CVA, and 'brain shunt' (CORRECTION OFFICER HEAD?) Who presents from [facility] with bradycardia. She endorses diaphoresis episodes.
CAD:
- large OR with peak trop 340 now falling
- patietn intially with LCX stenting then acute stent closure Complex procedure with limited access issues. Patietn ahd with stenting of lcx. residual occlusion of which OM2 could not be opened
-cardiogenic shock improving. Off pressor.
- ECHO -performed while patient was on pressors. Multiple wall motion abnormalities. Moderately depressed LV function with estimated EF 40%
- ECHO precath normal LV without valve disease.
- follow up echo 04/23/24
- GDMT limited by BP
.
VDRF -extubated 04/19/2024. Patient appeared well and morning on 04/20/2024 but in the evening had decompensation with progressive acidosis and had to be reintubated 04/21/2024.
-Continue treatment of heart failure.
-ABX to cover pneumonia
-Optimization as directed by pulmonary
Hypotension. Patient had been on pressors with cardiogenic shock earlier this admission eventually was weaned on but then had decompensation on 04/20/2024 requiring intubation and since that intubation has been on Levophed. Weaned to down to 8 on
04/21/2024 but now back up to 18. Not entirely clear clear why patient is requiring additional pressor requirement. She has been sensitive to sedation previously. Of note 1 blood culture from 726 is positive.
-Minimize sedatives
-Echocardiogram
-Venous ultrasound lower extremities
-Consider additional antibiotic coverage including use of vancomycin to cover gram-positive's while awaiting final cultures
ID- afebrile. on Zosyn
- monitor BC
- 04/20/24 one BC positive with gram pos cocci
.
Hypotension. Patient with hypotension requiring pressor support after intubation also impacted by sedation required for intubation. Levophed as high as 15 yesterday now weaned down to 8.
-With white count and decompensation. Patient covered with antibiotics and blood cultures drawn.
-Optimize treatment of anemia
-Limit sedation as tolerated
-Hold metoprolol
-Wean Levophed as possible
Hypothyroid
-TSH 23
- Medicine has started synthroid
Vascular
- No role for urgent vascular intervention. Patient has been assessed by vascular surgery.
-As previously noted by Dr. Llanes horrible PAD with occluded R CI and near occlusion of terminal aorta
CORRECTION OFFICER HEAD shunt
-WBC 20.5k . Need to check blood cxs in case there is some infection here
Anemia improved. Severe consider additional PRBCs considering the extent of patient's vascular disease.
-PRBC given last 04/21/24 with improvementof hb to 10
-With extent of coronary and vascular disease would favor higher target hemoglobin
Heart block
-Resolved
-Pacer removed.
.
PAF. Brief episode that occurred night patient went back to Press Tender and was in shock and on pressors. No recurrence. Patient had received amiodarone which is since been discontinued monitor for recurrence
Renal. Nephrology consulted
Prior CVA
- On DAPT
Remains critically ill
CCT 35 min
Physical Exam
Vital Signs/Labs
Vital Signs
Temp Pulse Resp BP Pulse Ox
98.0 F 65 16 106/81 98
04/22/24 03:34 04/22/24 05:01 04/22/24 05:01 04/21/24 18:04 04/22/24 04:00
04/20/24 04/21/24 04/22/24
06:59 06:59 06:59
Actual Weight 63.8 kg 63.6 kg 65 kg
04/22/24 03:59
04/22/24 03:59
PT 15.6 Sec (11.4-14.6) H 04/17/24 19:23
INR 1.23 04/17/24 19:23
APTT > 200 Sec (23.4-35.0) H* 04/17/24 19:23
Magnesium 1.8 mg/dl (1.6-2.3) 04/22/24 03:59
Triglycerides 101 mg/dl (10-149) 04/21/24 03:03
LDL Cholesterol, Calc 126 mg/dl 04/17/24 09:09
VLDL Cholesterol, Calc 37 mg/dl (0-30) H 04/17/24 09:09
HDL Cholesterol 55 mg/dl 04/17/24 09:09
Free T4 1.08 ng/dl (0.78-2.19) 04/17/24 09:09
Physical Exam
Constitutional: Other (vented and sedated)
Cardiovascular: Rhythm & rate is regular
Respiratory: Wheeze Absent and Other (coasre vented bs)
GI: Soft
Neuro/Psych: Alert
Data Reviewed
-
Date of Service: April 22, 2024
Medical Decision Making: Reviewed Test Results
Medical Tests (PFT, Pathology etc): Report Reviewed by me
Labs: Labs Reviewed by me
[2024-04-22] MEDS: PROTONIX IV 40 MG IV ×2 (07:34→20:07)
[2024-04-22] MEDS: NSS (PRESERVATIVE FREE) 10 ML IV ×2 (07:34→20:06)
[2024-04-22] MEDS: LASIX 40 MG IV ×2 (07:34→17:02)
[2024-04-22] MEDS: MIRALAX 17 GRAMS TUBE (07:35)
[2024-04-22] MEDS: ROBITUSSIN 100 MG TUBE ×4 (07:35→20:05)
[2024-04-22] MEDS: ULTRAM 100 MG PO (07:35)
[2024-04-22] MEDS: PLAVIX 75 MG PO (07:36)
[2024-04-22] MEDS: LOW STRENGTH ASPIRIN 81 MG PO (07:36)
[2024-04-22] MEDS: TOPROL XL 12.5 MG PO (07:36)
[2024-04-22] MEDS: KCL 270 MEQ IV (08:19)
--- NOTE | 2024-04-22 08:20 | PTCARENOTE ---
Patient in bed, intubated, sedated.RT DL PICC line : Propofol at 10mcg/13.8ml+Levophed 18mcg/67.5; +Fentanyl 50/5ml; Vent :ETT 7.5/22 cm center lip; Vent (S)CMW 15/450/40%/+8 Suction via ETT /oral small clear white secretion; Pupils equal b/l +3.
Open eyes spontaneously . Spontaneous Movement to UE and LE; RT nare NJ tube : placement auscultated 25 cc residual ; Jevity 1.5 15/25H2O flush; soft restraints to b/l UE; Indwelling Escobar draining clear yellow urine 50-75/hr . ECG completed, Oral
care done Escobar care done HOB elevated . Will titrate Levophed per protocol for MAP 65
--- NOTE | 2024-04-22 09:24 | W.PN.INTV ---
Today's Communication / Plan
Recommendations
Diuresis as tolerated
Wean pressors
Rest on ventilator
Consider spontaneous breathing trial 04/23/2024
Repeat chest x-ray
Check cultures
Empiric antibiotics
Assessment
-
68-year-old female with a history of CVA, SENIOR PROGRAM ANALYST shunt, hypertension admitted with symptomatic bradycardia was hospitalized and had recurrent in-hospital cardiac arrhythmias and arrests with multiple transfers to cardiac catheterization lab on 3
separate occasions-with successful stenting of culprit 90% mid circumflex lesion, subsequent successful angioplasty and stenting of distal overlapping fashion occlusion of the large OM 2, and subsequent successful placement of transvenous pacer via
left femoral vein-cnc milling machinist consulted for ventilator/critical care management 04/18/2024.
Ventilator dependent respiratory failure
Intubated 04/17/2024
Extubated 04/19/2024
Reintubated 04/20/2024 for CHF
Symptomatic bradycardia
CHF with reduced EF-40%
CAD/non-STEMI
Status postcardiac catheterization 04/17/2024--successful stenting 90% mid circumflex lesion
Recurrent multiple and hospital cardiac arrhythmias/codes
Status postcardiac catheterization 04/17/2024-successful angioplasty and stenting of distal overlapping fashion of large OM 2 lesion
Subsequent recurrent severe symptomatic bradycardia-status post third catheterization 04/17/2024-successful placement via left femoral vein transvenous pacer
Leukocytosis-WBC 34.6
Prciux-xbqvyxcqxd-dilshsiuqy 9.1
Metabolic acidosis
Lactic acidosis
Hyperglycemia
Conditions present prior to admission:
CVA-01/2024
SENIOR PROGRAM ANALYST shunt.
Hypertension.
Anemia
Current smoker.
PAD
Plan
Remains critically ill intubated on pressors
Ventilator settings reviewed-initially on assist-control, elevated peak inspiratory pressures-changed to IMV/pressure support-more comfortable
Wean FiO2-now at 0.4
Follow ABG
ABG 04/21/2024-/7 0.46
ABG 04/22/2024--33/104/7.46
Will continuously adjust ventilator
Pulmonary airway pressures reviewed-adequate
Nebulizers if needed-currently not bronchospastic
Aspiration precautions
Chest x-ray 04/21/2024-slightly improved to moderate CHF
Follow-up chest x-ray 04/23/2024
Cardiology following-correspondence reviewed hold metoprolol, wean norepinephrine, consider transfusion, continue diuresis
Troponin trended-peak 340
Echocardiogram reviewed and summarized below
Cardiac catheterization x 3 reviewed and summarized
Anticoagulation and antiplatelet therapy per cardiology
Antiarrhythmics including amiodarone per cardiology
Norepinephrine-wean
Diuresis continues as tolerated-on Lasix 40 mg IV twice daily
Monitor renal function, electrolytes, intake/output, lower extremity edema and weight
Replace electrolytes as needed
Transvenous pacer removed 04/19/2024
Cultures reviewed
Sputum culture 04/20/2024-many WBCs, few mixed bacterial morphology
Blood culture 04/20/2024-09/27 [id number] cocci in clusters-suspect staph and probably contaminant pending
Monitor leukocytosis, temperature curve-WBC is currently 23.1
Follow chest x-ray- no signs of pneumonia-aspiration risk
Zosyn empirically initiated with persistent hypotension and leukocytosis
Follow leukocytosis and temperature curve
MRSA screen negative
Follow hemoglobin-currently 10.0 after transfusion
Transfuse if needed
Note: Vascular surgery evaluation ongoing-right femoral approach unable to advance wire due to occlusion of common iliac, subsequent attempt at left femoral access and sheath placement due to bulky distal aortic bifurcation plaque/stenosis unable to
advance wires and catheters therefore left radial approach was undertaken-no acute need for intervention, no acute limb ischemia, eventual DAYDAY/TBI's and outpatient vascular follow-up
Smoking cessation counseling will continue after extubation
DVT prophylaxis-on Lovenox
GI prophylaxis-on pantoprazole-latest Society of critical care medicine does not support PPI while on ventilator, however, when shock present, coagulopathy present, etc. then PPI/or H2 ira is indicated
Begin nutrition via nasogastric tube
Early mobilization/PT/OT
Eventual outpatient rehab and then would recommend outpatient pulmonary evaluation-smoking cessation, PFTs, yearly low-dose lung cancer screening CT, etc.
Critical care statement: A total of 43 minutes of critical care time was provided for this patient today. This includes management of unstable vital signs, evaluation of the patient at bedside, reviewing the patient's pertinent medical records
including radiographs, ventilator management, pressor management, microbiology, laboratory evaluations, and discussion with primary team, consultants, pharmacy, nutrition, physical therapy, case management, charge nurse, critical care nursing, and
respiratory therapy.
Diagnostic data:
Chest x-ray 04/17/2024-NAD
Chest x-ray 04/18/2024-endotracheal tube tip terminates at the bj-should be retracted
Chest x-ray 04/18/2024-satisfactory position of endotracheal tube, interval decrease in bilateral airspace disease representing improved pulmonary edema
Chest x-ray 04/18/2024-right PICC terminates at the expected location, stable mild pulmonary edema
Chest x-ray 04/19/2024-improved pulmonary edema stable lines and tubes
Chest x-ray 04/20/2024-increased CHF
Echocardiogram 04/18/2024-moderately reduced LV function-EF 40%, normal right ventricular size with RV hypokinesis and distal RV hypokinesis, mild mitral regurgitation
Subjective Dataa
Subjective Data
Date of Service:
Date of Service: April 22, 2024
Chief Complaint: Labor Training Manager Follow Up, Pulmonary Follow Up and Vent Management Follow Up
Subjective:
Sedated on a ventilator, no increased secretions, still hypotensive, review of systems unobtainable
Review of Systems
General: Unobtainable - Sedation
Objective Data
Data Reviewed
Vital Signs / I&O / Oxygen:
Vital Signs
Temp Pulse Resp BP Pulse Ox
98.8 F 66 18 129/68 97
04/22/24 07:00 04/22/24 07:36 04/22/24 07:15 04/22/24 07:36 04/22/24 08:17
Intake and Output
04/21/24 04/22/24 04/23/24
06:59 06:59 06:59
Intake Total 1182.1 / 1230.9 3098.4 / 3234.7 265.1 / 265.1
Output Total 1635 / 1735 2190 / 2240 125 / 125
Balance -452.9 / -504.1 908.4 / 994.7 140.1 / 140.1
SaO2 [SIMV] 98
SaO2 [CPAP] 96
SaO2 [A/C] 98
SaO2 97
Nasal Cannula flow liters per 5
minute
Physical Exam
General: Respiratory Distress (n) and Comfortable
HEENT: Normocephalic and Moist Mucous Membranes
Cardiovascular: Regular Rhythm, Murmur and Peripheral Edema
Respiratory: Wheeze (n), Crackles, Rhonchi (n), Non-Labored Respirations, Accessory Resp Muscle Use (n), Stridor and ET Tube
GI: Soft, Non Distended and Non Tender
Neurology: Lethargic (Sedated on a ventilator)
Skin: Warm, Good Color, Cyanosis (n) and Jaundice (n)
Labs/Micro/Reports
Lab Data
04/22/24 03:59
04/22/24 03:59
Laboratory Results
04/21/24 04/22/24
13:12 03:59
pH 7.43 7.46 H
pCO2 26 L 33
pO2 144 H 104
HCO3 17.3 L 23.5
O2 Delivery Level 40%
Microbiology
04/20/24 22:37 Blood/Venous Blood Culture - Preliminary
Positive culture in progress
04/20/24 22:37 Blood/Venous Gram Stain - Preliminary
04/18/24 16:09 Blood/Venous Blood Culture - Preliminary
No Growth in 72 hours- Final report to follow
04/20/24 22:55 Endotracheal Gram Stain - Preliminary
04/18/24 09:40 Blood/Venous Blood Culture - Preliminary
No Growth in 72 hours- Final report to follow
04/17/24 19:23 Nose MRSA Screen - Final
No Methicillin Resistant Staphylococcus aureus isolated.
[2024-04-22 11:00] VITALS: BP 78/57
--- NOTE | 2024-04-22 11:28 | W.PN.HOSP.TC ---
Today's Communication/Plan
-
ID consult
Wean pressors
SAT/SBT in the morning
IV Lasix for pulmonary congestion
Assessment / Plan
Assessment / Plan
Assessment/Plan:
68-year-old female with hypertension, s/p [employer]IN [employer] shunt, H/O CVA 2 months ago that presented to the hospital yesterday with symptomatic bradycardia. Possible ST elevations at facility, troponin bumped to 0.4 while here. Was taken to [facility] where LCx
PCI was performed. Subsequently developed recurrent bradycardia, repeat catheterization showed nonocclusive dissection distal to ANALI and newly occluded OM 2 branch. Was started on transvenous pacing, developed respiratory compromise that
necessitated intubation. Became dependent on vasopressor and inotropic support which were weaned at the time. Was successfully extubated on 04/20/2024 however developed worsening respiratory distress with acidemia and was intubated once again on
04/20 in the afternoon.
1. Acute hypoxemic respiratory failure/VDRF
2. Cardiogenic shock/circulatory shock
3. Acute HFrEF�ischemic cardiomyopathy
4. Gram positive sepsis vs blood Cx contaminant
5. Hypokalemia
6. NSTEMI
7. NSVT
8. Leukocytosis
9. Hyperglycemia
10. Chronic HTN
11. S/P CHIN STRAP CUTTER shunt
12. H/O CVA
13. PAD
14. Symptomatic bradycardia s/p TVP�resolved
15. Lactic acidosis/metabolic acidosis�resolved
Neurologic: Resumed on propofol and fentanyl after requiring second intubation. Does have previous CHIN STRAP CUTTER shunt as well as history of CVA for which she is still on DAPT. However do not think there is any active neurological process. RASS -2 to -3,
responds appropriately to stimuli
-Continue with propofol and fentanyl drips
Cardiovascular: Was weaned from inotropes and vasopressors reinitiated Levophed drip 10 mcg following reintubation. Remains on DAPT and high intensity statin for CAD, was planning to start beta-ira at low-dose however will hold off on this now
that she is back on pressors. Not currently receiving GDMT for HFrEF (40%) due to hemodynamic state. Has benefited from IV Lasix when evidence of pulmonary congestion
-C/W DAPT, high intensity statin
-Outpatient CTA for peripheral arterial disease
-Electrolyte goals K >4, mag >2
Respiratory: Intubation x 2, day 3 of second intubation. Currently on VC AC/C 16/450/50/8 with P peak 27 mmHg. Suspect that hypoxemia is driven by pulmonary congestion and cardiogenic shock. Has responded to Lasix as needed when she seems
congested. No history of chronic lung disease, not on any inhalers. ICU team planning for an additional day of rest with SAT/SBT trial in the morning of 04/23
-IV Lasix 40 mg today, consider further doses from volume assessment
-Attempt SAT/SBT tomorrow
Renal/urinary: Creatinine has taken a bump and is now up to 1.3 on labs from 1.1. On repeat labs creatinine has stayed at 1.3 and BUN is stable as well. Volume status is difficult to ascertain. Her chest x-rays have demonstrated consistent
pulmonary congestion, suspect that she is still hypervolemic. Was in net negative I/O balance for multiple days, does not seem to be accurately tracked over the last 24 hours with transfer between units. Remainder of electrolytes WNL. No
significant acid-base disturbance today.
-Strict I's and O's, trend BMP
-Consider further IV Lasix doses today off of volume assessment
Gastroenterological: Developed transaminitis in the , highly suspicious for shock liver in the context of her compromised hemodynamics, has improved with HD stability. This had occasionally downtrending hemoglobin with 2 units PRBC given as
of this morning, cannot rule out GI bleed though still believe this is dilutional. Was started on IV PPI for stress ulcer prophylaxis. Currently n.p.o. status though hope for short period of intubation. Will hold off on starting tube feeds for now
-Continue PPI twice daily
-NGT nutrition, Jevity 1.5 ordered
-Monitor for signs of GI bleeding
-Trend daily LFTs to normal
Infectious: Low suspicion for active infection, but she does have a persistently high WBC count. Following her second intubation she was started on IV Zosyn after broad-spectrum cultures were taken. MRSA on admission was negative. No culture data
back as of yet. No fevers noted. Did have increased pressor requirements, cannot rule out sepsis even though suspect this was contaminant.
-Follow-up blood cultures
-Continue empiric IV Zosyn
-ID consult
Endocrinology: Glucose has been elevated here, suspect that this is a stress response to to the events of this hospitalization. Labs on admission did show TSH near 23. T4 level was within normal range however this degree of TSH elevation does
necessitate treatment. Low suspicion for any active adrenal issues, BP and electrolytes stable
-Continue with levothyroxine via NGT, will need repeat TSH in 6 to 8 weeks after thyroid ultrasound
-ISS with Accu-Cheks every 6 hours with glucose goal 180-220
Hematology: Presented with normocytic anemia, hemoglobin near 10.9. Hemoglobin initially trended down to 7.7, received 1 unit with repeat hemoglobin 9.5. As of this morning hemoglobin was back down to 8.4. Spoke with cardiology at the bedside,
due to her severe cardiogenic state and recent large [place] we will pursue more aggressive hemoglobin goal of near 9.0. S/p 2 unit PRBC.
-Trend CBC
-Hemoglobin goal >9 s/p cardiogenic shock and NSTEMI
DVT prophylaxis: Lovenox
GI prophylaxis: IV PPI twice daily
Diet: Start Jevity 1.5 via NGT
CODE STATUS: Full code
Anticipated Discharge: > 48 hours
Subjective/Interval History
-
Date of Service: April 22, 2024
Transferred from CVICU to ICU overnight
As of this morning her vasopressor requirements increased. Remains on mechanical ventilation at same rates. Appropriately responsive when weaned from sedation.
Objective Data
-
Labs:
Laboratory Results
04/22/24
03:59
WBC 18.0 H
Hgb 10.0 L
Hct 28.0 L
Plt Count 180
HCO3 23.5
Sodium 134 L
Potassium 3.9
Chloride 102
Carbon Dioxide 23
BUN 35 H
Creatinine 1.3 H
Glucose 135 H
Calcium 7.9 L
Total Bilirubin 1.8 H
AST 425 H
ALT 1418 H*
Alkaline Phosphatase 174 H
Vital Signs:
Vital Signs
Temp Pulse Resp BP Pulse Ox
100.0 F 66 18 129/68 97
04/22/24 10:56 04/22/24 07:36 04/22/24 07:15 04/22/24 07:36 04/22/24 08:17
I&O
04/21/24 04/22/24 04/23/24
06:59 06:59 06:59
Intake Total 1182.1 / 1230.9 3098.4 / 3234.7 507.7 / 507.7
Output Total 1635 / 1735 2190 / 2240 475 / 475
Balance -452.9 / -504.1 908.4 / 994.7 32.7 / 32.7
Review of Systems
-
Unable to obtain full review of systems at this time due to: Patient Intubation
Physical Exam
-
General: No Apparent Distress, Comfortable and Intubated
HEENT: Normocephalic, Atraumatic, Moist Mucous Membranes and Anicteric
Respiratory: Clear to Auscultation, Non Labored Respirations and Other (No breath stacking; mechanical sounds); Negative Wheezes, Rales or Rhonchi
Cardiac: Regular Rhythm and S1/S2; Negative Murmur, Rub, JVD or Gallop
GI: Soft, Nontender, Nondistended and Normal Bowel Sounds
Musculoskeletal: No Clubbing, No Cyanosis and No Edema
Skin: Warm and Dry; Negative Rash or Jaundice
Neuro: AO x 3, Nonfocal/Grossly Intact and Central Nerve's Intact
Data Reviewed
-
CT Scan: Image personally visualized and interpreted and Report Reviewed by me
Labs: Labs Reviewed by me
[2024-04-22 11:59] LABS: Glucose - Point of Care 130 mg/dl (70-99)
--- NOTE | 2024-04-22 12:09 | CON.ID ---
Addendum entered and electronically signed by Maryana Zamorano MD 04/22/24 12:52:
in addition: right wrist cath site evaluated - bruising, no definite erythema or cords, no fluctuance, will be dressed with a bandaide
Original Note:
Consultation
-
Date/Time Consultation Requested: 04/22/24 11:36
Date/Time Consultation Performed: 04/22/24 12:10
Requesting Provider: Dr Peterson
Performing Provider: Dr Zamorano
Reason for Consultation: GPC bacteremia
Chief Complaint / Past History
Chief Complaint
From inpatient rehab following stroke, heart rate in 30s to 40s at facility
History of Present Illness
Ms Rivera is a 68 year old female with a history of CVA, shunt/STAFF [employer] who presented herewith diaphoresis and bradycardia on 04/17. At that time reporting that two nights ago had swating and shortness of breath x30 min, again with diaphoresis sweating the
next day. Then noted to be bradycardic heart rate in the 40s, no hypotension. No chest pain or shortness of breath. No prior history of coronary artery disease. EMS called and ECG raised question of ST elevation which resolved prior to cardiology
assessment. Tropes elevated to 4, taken to the seed analysis laboratory assistant, Successful stenting of culprit 90% mid circumflex (dominant vessel) stenosis with placement of ANALI, severe calcific MV disease elsewhere also noted, tropes peaked at 340 the next day now
downtrending. Later that night developed recurrent bradycardia, taken for repeat catheterization same day which showed nonocclusive dissection which was distal to ANALI felt to be new dissection and newly occluded OM 2 branch, distal overlapping
stent placed in Cx. Then developed intermittent heart block and taken back to seed analysis laboratory assistant for TPM. Started an transvenous pacing and intubated for resp compromise. 04/18 blood cultures x2 are no growth to date. Initially dependent on vasopressors
and inotropes that were successfully weaned. Extubated successfully 04/20 but then with worsening resp distress, acidemia and reintubated 04/20. Course complicated by ANUEL with cr to 1.3 now 1.1 and shock liver now improving. transvenous pacer
removed 04/19. After repeat intubation on 04/20 and since tmax is 100.0 rectally, bp currently unstable requiring norepi donw from peak of 20 mcg/min now at 10 mcg/min, dopamine off as of 04/20, wbc on arrival 04/17, peaked 04/19 at 25 and now
downtrending to 18, hgb 10, plt 180, L shift has persistsed when checked intermittently including today, cr currently 1.3, na 134, K 3.9, t bili 1.8, ast now 425, alt 1418, alk phos 174, 04/21 CXR: mod CHF, 04/19 UA 6-10 wbc/hpf and moderate
bacteria, single blood culture with gpcs in clusters, mrsa screen on arrival was negative, patient is currently on zosyn
Past History
Additional Past Medical History:
CVA (2 months ago) and HTN
Additional Past Surgical History:
STA[employer] shunt, left sided
Allergy History:
No Known Allergies Allergy (Unverified 04/17/24 08:55)
Medications Reviewed: Yes
Social History
Tobacco: Non-Smoker
Alcohol: None
Drug: None
Family History
Family History: Not Pertinent
Review of Systems
Review of Systems
General: Negative Fever or Chills
unable to obtain full ros due to condition of the patient
Vital Signs
Temp Pulse Resp BP Pulse Ox
100.0 F 66 18 129/68 97
04/22/24 10:56 04/22/24 07:36 04/22/24 07:15 04/22/24 07:36 04/22/24 08:17
Physical Exam
Physical Exam
Constitutional: Acutely Ill and Chronically Ill
Cardiovascular: Regular Rate and S1/S2; Negative Murmur or Rub
Pulmonary: Clear, Symmetric and Other (coughing, mildly productive); Negative Wheezes, Rales or Rhonchi
Gastrointestinal: Soft, Non Tender, Non Distended and Normal Bowel Sounds
Skin: Warm, Dry and Other (diffuse brusing of the extremitis); Negative Jaundice
Wound: Other (cath sites in the groin/wrist evaluated no erythema, warmth, tenderness, fluctuance or drainage)
Neurological: Other (supple neck flexion)
Lines: PIV (L foot: no erythema, warmth, tenderness, fluctuance or drainage), PICC (RUE: no erythema, warmth, tenderness, fluctuance or drainage) and Other (STA[employer] shunt - Right skull/neck: no erythema, warmth, tenderness, fluctuance or drainage)
minimal whitish fluid from ETT in canister
Lab / Diagnostic Study Results
04/22/24 03:59
04/22/24 03:59
Abs Immat Gran (auto) 0.2 10^3/uL (0-0.05) H 04/22/24 03:59
Absolute Neuts (auto) 14.3 10^3/uL (1.4-6.5) H 04/22/24 03:59
Absolute Lymphs (auto) 2.1 10^3/uL (1.2-3.4) 04/22/24 03:59
Absolute Monos (auto) 1.3 10^3/uL (0.1-0.6) H 04/22/24 03:59
Absolute Basos (auto) 0.0 10^3/uL (0-0.2) 04/22/24 03:59
Immature Gran % 0.9 % (0-0.5) H 04/22/24 03:59
Neutrophils % 79.4 % (42.2-75.2) H 04/22/24 03:59
Lymphocytes % 11.5 % (20.5-51.1) L 04/22/24 03:59
Monocytes % 7.3 % (1.7-9.3) 04/22/24 03:59
Eosinophils % 0.7 % (0-6) 04/22/24 03:59
Basophils % 0.2 % (0-2) 04/22/24 03:59
PT 15.6 Sec (11.4-14.6) H 04/17/24 19:23
INR 1.23 04/17/24 19:23
Lactic Acid 1.3 mmol/L (0.7-2.0) 04/21/24 11:17
Urine WBC 6-10 /HPF (0-5) A 04/19/24 17:00
Ur Squamous Epith Cells 6-10 /LPF (Few) 04/19/24 17:00
Microbiology Results
Micro:
04/20/24 22:37 Blood Culture - Preliminary
Blood/Venous Positive culture in progress
Gram Stain - Preliminary
04/20/24 22:55 Respiratory Culture - Preliminary
Endotracheal Gram Stain - Preliminary
04/18/24 09:40 Blood Culture - Preliminary
Blood/Venous No Growth in 4 days- Final report to follow
04/18/24 16:09 Blood Culture - Preliminary
Blood/Venous No Growth in 72 hours- Final report to follow
04/17/24 19:23 MRSA Screen - Final
Nose No Methicillin Resistant Staphylococcus aureus isolated.
Assessment / Plan
Pseudobacteremia (contamination) vs Gram Positive Bacteremia
Shock - ongoing, cardiogenic +/- septic; suspect majority cardiogenic
Leukocytosis - possibly reactive
[employer] -shunt - right side on exam
- repeat blood cultures x2 today; note negative blood cultures from 04/18
- note negative MRSA screen 04/17, however may have true CONS bacteremia which is typically methicillin resistant - will add vancomycin
- reviewed 04/18 echo (prior to blood cultures) notable for reduced EF to 40%, no vegetations
- note [employer] shunt on right - no erythema, warmth, swelling or tenderness along its course
- rec remove line in the L foot - no evidence of infection; R arm picc and L wrist a line also without evidence of infection; wrist/groin cath sites without signs of infection
- resp culture from 04/20: gram stain few mixed bacterial morphotypes - suspect will be usual resp anayeli
- cxr most consistent with chf
- add vancomycin
- can continue zosyn pending sputum culture results - if normal anayeli would stop
- patient is critically ill
[2024-04-22] MEDS: SUBLIMAZE 50 MCG IV ×3 (12:47→19:59)
--- NOTE | 2024-04-22 13:16 | PHA.VAN.IN ---
Assessment
- Assessment
Renal Function: Appears elevated from baseline (1.3 mg/dL)
Concomitant Antimicrobials: piperacillin/tazo
AUC Dosing Plan
- Empiric Dosing
Initial / Loading Dose: 1000 mg x 1 dose - to start after blood cx x 2 are taken
Plan
- Plan
Maintenance Regimen: dose by random level due to elevated SCr
Monitoring: random level AM 04/23/24
Pharmacokinetics Vancomycin I
- -
Patient Age: 68
Patient Sex: Female
Vancomycin Day #: 1
Indication: Bacteremia
Height / Weight:
Height 5 ft
Actual Weight 65 kg
Pertinent Past Medical History: CVA; had one dose of 1000 mg vanc on 04/20
- Vital Signs / Lab Results
Temp Pulse Resp BP Pulse Ox
100.0 F 66 18 129/68 100
04/22/24 10:56 04/22/24 07:36 04/22/24 07:15 04/22/24 07:36 04/22/24 11:57
Lab Results - Hematology
04/19/24 04/20/24 04/21/24
16:14 03:15 03:03
WBC 25.1 H 24.2 H 23.1 H
04/22/24
03:59
WBC 18.0 H
Lab Results - Chemistry
04/19/24 04/20/24 04/20/24
16:14 03:15 18:46
BUN 22 H 23 H Cancelled
Creatinine 1.0 1.0
Estimated Creat Clear 47 47
Albumin
04/20/24 04/20/24 04/20/24
18:46 18:46 18:46
BUN 29 H
Creatinine Cancelled 1.3 H
Estimated Creat Clear Cancelled 35
Albumin 3.3 L
04/21/24 04/22/24
03:03 03:59
BUN 35 H 35 H
Creatinine 1.3 H 1.3 H
Estimated Creat Clear 35 35
Albumin 3.3 L 3.1 L
04/20/24 04/21/24 04/21/24
20:43 01:39 08:30
Lactic Acid 2.2 H 1.4 Cancelled
04/21/24
11:17
Lactic Acid 1.3
Lab Results - Urine
04/19/24
17:00
Urine Nitrite Negative
Ur Leukocyte Esterase Negative
Urine WBC 6-10 A
Ur Squamous Epith Cells 6-10
Urine Bacteria Moderate A
Microbiology Results
04/20/24 22:37 Blood Culture - Preliminary
Blood/Venous Coagulase neg. staphylococcus
Additional testing on request
Gram Stain - Preliminary
04/20/24 22:55 Respiratory Culture - Preliminary
Endotracheal Gram Stain - Preliminary
04/18/24 09:40 Blood Culture - Preliminary
Blood/Venous No Growth in 4 days- Final report to follow
04/18/24 16:09 Blood Culture - Preliminary
Blood/Venous No Growth in 72 hours- Final report to follow
[2024-04-22] MEDS: MAGNESIUM SULFATE 100 IV (15:37)
--- NOTE | 2024-04-22 16:14 | PTCARENOTE ---
patient intubated, sedated. ETT 7.5/22 cm to RT lip. Vent 16/450/+8/40% Peak 34; VT 401/ RR 16 ZIT175% No secretion via ETT; oral Small amount clear thin. Strong gag reflex. patient responds to pain stimuli . SB 59 . No edema . Pulses checked via
doppler. B/L UE restraints . Left radial A/line Zero per hospital's protocol ; BP 108/69 MAP 89. RT PICC line DL dressing changed on 04/18 ; Levophed at 10mcg+Propofol 10mcg; Fentanyl at 50mcg; RT NJ tube Jevity 1.5 at 15ml /25 auto flush. BC x 2
send earlier results pending. Mg 1gm +Vancomycin started per new order. HOB elevated family ( daughter and pt's sister update given
[2024-04-22] MEDS: VANCOCIN 200 IV (17:02)
[2024-04-22] MEDS: LOVENOX 40 MG SC (17:14)
[2024-04-22 17:34] LABS: Glucose - Point of Care 178 mg/dl (70-99)
[2024-04-22] MEDS: NOVOLOG FLEXPEN-LOW RESISTANCE 1 UNITS SC (17:53)
--- NOTE | 2024-04-22 20:00 | PTCARENOTE ---
rec`d pt at 1900. pt intubated and sedated. SR to SB on the monitor. ETT 7.5...22 cm to Left lip. Vent 16/450/40%/ 8 of peep. small, douglas amount of secretions. No edema . Pulses via doppler. restraints . Left radial A/line. RT PICC line DL. levo,
prop and fent running. hernandes- clear, yellow urine. jevity TF at 15 w/ 25 flush running in rt nare NGT. safe environment maintained.
--- NOTE | 2024-04-22 20:00 | PTCARENOTE ---
rec`d pt at 1900. pt intubated and sedated. SR to SB on the monitor. ETT 7.5...22 cm to Left lip. Vent 16/450/40%/ 8 of peep. small, douglas amount of secretions. No edema . Pulses via doppler. restraints . Left radial A/line. RT PICC line DL. levo,
prop and fent running. BC x 2 send earlier results pending. Mg 1gm +Vancomycin started per new order. HOB elevated family ( daughter and pt's sister update given
[2024-04-22] MEDS: MELATONIN 5 MG PO (20:08)
[2024-04-22 23:17] LABS: Glucose - Point of Care 156 mg/dl (70-99)
[2024-04-23] MEDS: NOVOLOG FLEXPEN-LOW RESISTANCE 1 UNITS SC
--- NOTE | 2024-04-23 | PTCARENOTE ---
pt reassessed. no changes in pt assessment. prns given.
[2024-04-23] MEDS: LEVOPHED 250 IV ×3 (03:10→23:41)
[2024-04-23] MEDS: SUBLIMAZE 100 IV ×2 (03:13→23:41)
[2024-04-23 04:03] LABS: HCO3 25.3 mmol/L (21-28); O2 Saturation % 99.5 % (94-98); PCO2 34 mmHg (32-35); PO2 145 mmHg (83-108); pH 7.48 (7.35-7.45)
[2024-04-23 04:08] LABS: Hematocrit 27.6 % (37.0-47.0); Hemoglobin 9.8 g/dL (12.0-16.0); Mean Corp Hgb Conc. 35.5 g/dL (33.0-37.0); Mean Corpuscular Hgb 29.8 pg (27.0-31.0); Mean Corpuscular Volume 83.9 fL (81.0-99.0); Mean Platelet Volume 12.4 fL (7.4-10.4); Platelet Count 191 10^3/uL (130-400); Red Blood Cell Count 3.29 10^6/uL (4.20-5.40); Red Cell Dist. Width 14.4 % (11.5-14.5); White Blood Cell Count 14.3 10^3/uL (4.8-10.8)
[2024-04-23 04:32] LABS: Blood Urea Nitrogen 28 mg/dl (7-17); Calcium 7.6 mg/dl (8.4-10.2); Carbon Dioxide 26 mmol/L (22-30); Chloride 97 mmol/L (98-107); Estimated Creatinine Clearance 47 ml/min; Glucose 140 mg/dl (70-99); Magnesium 1.9 mg/dl (1.6-2.3); Potassium 3.1 mmol/L (3.5-5.1); Sodium 130 mmol/L (135-145); Triglycerides 133 mg/dl (10-149); eGFR > 60.00
[2024-04-23] MEDS: SUBLIMAZE 50 MCG IV (04:44)
[2024-04-23] MEDS: KCL 270 MEQ IV (05:07)
[2024-04-23] MEDS: NOVOLOG FLEXPEN-LOW RESISTANCE SC ×3 (05:13→17:41)
[2024-04-23] MEDS: ZOSYN 50 IV ×5 (05:14→23:40)
[2024-04-23] MEDS: SYNTHROID 50 MCG TUBE (05:22)
[2024-04-23 05:23] LABS: Glucose - Point of Care 111 mg/dl (70-99)
[2024-04-23 05:38] VITALS: BMI 28.4
--- NOTE | 2024-04-23 07:20 | PTCARENOTE ---
Received patient from rn night. Patient is intubated and sedated. Number 7.5 ETT positioned on right side, AC 16/450/40%/8. Patient has large amount of oral secretions. mouth care completed, small thin clear secretions from ETT. Oxygen
saturation is 100%. Volumes met. Patient has left radial arterial line, zero'ed to atmospheric pressure and leveled at phlebostatic axis. Doppler pulses in lower extremities. Left pulse is weaker than right. Right radial cath site oozing
slightly with erythema, bilateral groin cath sites ecchymotic. Patient is NPO, has right nare [place] sump, Jevity 1.5 running. Tube feed is running at 15ml/hr, verified method consultant's recommendation in [employer] and did electronic edit to move towards
goal of 45ml/hr. Adjusted feed to 25ml/hr. Patient has foleycatheter with clear yellow urine. Skin is ecchymotic throughout. Levophed, propofol, fentanyl infusing into right double lumen picc. Handoff documentation as documented in NOV.
--- NOTE | 2024-04-23 07:33 | W.PN.CD ---
Today's Communication / Plan
-
Diurese
Will add BNP to am labs tomorrow
Wean levo as tolerated
Repeat ECHO planned for today
Impression / Plan
-
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 She endorses diaphoresis episodes.
CAD:
- large FL with peak trop 340
- Original presentation ACS- had L cx stent (dominant) then 2 hrs later return to bobcat driver/labor after near code and had distal cx dissection (propagated from distal edge of stent) treated with long distally overlapping stent. Large OM2 originating from
stented segment occluded on return and not treatable. The stent itself was patent.
-cardiogenic shock improved initially
- ECHO -performed while patient was on pressors. Multiple wall motion abnormalities. Moderately depressed LV function with estimated EF 40%
- ECHO precath normal LV without valve disease.
- follow up echo 04/23/24
- GDMT limited by BP
.
VDRF -extubated 04/19/2024. Patient appeared well and morning on 04/20/2024 but in the evening had decompensation with progressive acidosis and had to be reintubated 04/21/2024.
-Continue treatment of heart failure.
-ABX to cover pneumonia. 1 of 2 blood cxs drawn prior to ABX showed coag neg staph. ID consulted and added vanco. zosyn stopped
-Optimization as directed by pulmonary. Currently on 40% FIO2 with O2 sat 100%
Hypotension. Patient had been on pressors with cardiogenic shock earlier this admission eventually was weaned on but then had decompensation on 04/20/2024 requiring intubation and since that intubation has been on Levophed. Now on levo 10. ID
treating for possible sepsis.
-Minimize sedatives and wean levo as tolerated
-Echocardiogram
-Venous ultrasound lower extremities
-Consider additional antibiotic coverage including use of vancomycin to cover gram-positive's while awaiting final cultures
ID- afebrile. on VANCO alone
- monitor BC
- 04/20/24 one BC positive with gram pos cocci
.
Hypothyroid
-TSH 23
- Medicine has started synthroid
Vascular
- No role for urgent vascular intervention. Patient has been assessed by vascular surgery.
-As previously noted by Dr. 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
-WBC 20.5k . Need to check blood cxs in case there is some infection here
Anemia stable
-PRBC given last 04/21/24 with improvementof hb to 10
-With extent of coronary and vascular disease would favor higher target hemoglobin
Heart block
-Resolved after return to bobcat driver/labor
-Pacer removed.
.
PAF. Brief episode that occurred night patient went back to [employer] and was in shock and on pressors. No recurrence. Patient had received amiodarone which is since been discontinued monitor for recurrence
Renal. Nephrology involved
Prior CVA
- On DAPT
Remains critically ill - would diurese today and get wt down closer to 140 (now 145)
CCT 32 min
Physical Exam
Vital Signs/Labs
Vital Signs
Temp Pulse Resp BP Pulse Ox
99.9 F 57 17 99/54 100
04/23/24 07:15 04/23/24 05:45 04/23/24 05:45 04/22/24 17:02 04/23/24 04:41
04/22/24 04/23/24 04/24/24
06:59 06:59 06:59
Actual Weight 143 lb 4.807 oz 145 lb 4.554 oz
04/23/24 03:52
04/23/24 03:52
PT 15.6 Sec (11.4-14.6) H 04/17/24 19:23
INR 1.23 04/17/24 19:23
APTT > 200 Sec (23.4-35.0) H* 04/17/24 19:23
Magnesium 1.9 mg/dl (1.6-2.3) 04/23/24 03:52
Triglycerides 133 mg/dl (10-149) 04/23/24 03:52
LDL Cholesterol, Calc 126 mg/dl 04/17/24 09:09
VLDL Cholesterol, Calc 37 mg/dl (0-30) H 04/17/24 09:09
HDL Cholesterol 55 mg/dl 04/17/24 09:09
Free T4 1.08 ng/dl (0.78-2.19) 04/17/24 09:09
Physical Exam
Constitutional: Comfortable
Cardiovascular: Rhythm & rate is regular and Murmur/rub/gallop absent
Respiratory: Respiratory effort normal, Wheeze Absent, Crackles Absent and Rhonchi Present (scattered)
GI: Soft
Neuro/Psych: Other (Intubated and sedated with propofol)
Data Reviewed
-
Date of Service: April 23, 2024
[2024-04-23] MEDS: PROTONIX IV 40 MG IV ×2 (07:34→20:26)
[2024-04-23] MEDS: NSS (PRESERVATIVE FREE) 10 ML IV ×2 (07:34→20:26)
[2024-04-23] MEDS: LASIX 40 MG IV ×2 (07:34→16:23)
[2024-04-23] MEDS: TOPROL XL PO (07:35)
[2024-04-23] MEDS: ULTRAM 100 MG PO (07:35)
[2024-04-23] MEDS: PLAVIX 75 MG PO (07:36)
[2024-04-23] MEDS: LOW STRENGTH ASPIRIN 81 MG PO (07:36)
[2024-04-23] MEDS: ROBITUSSIN 100 MG TUBE ×4 (07:36→22:00)
[2024-04-23] MEDS: MIRALAX 17 GRAMS TUBE (07:36)
--- NOTE | 2024-04-23 08:43 | W.PN.ID1 ---
Date of Service
Date of Service: April 23, 2024
Today's Communication
- core Tmax 100.6 not a tamela fever, fever is over 101.0 via core route
- erythema of the right wrist cath site, suspect early cellulitis, no cords; began after the episode of possible bacteremia vs contamination - continue vanc
- can continue zosyn pending sputum culture results - if normal anayeli as expected would stop
Assessment / Plan
Mild R wrist surgical site infection
Pseudobacteremia (contamination) vs Gram Positive Bacteremia
Shock - ongoing, cardiogenic +/- septic; suspect majority cardiogenic
Leukocytosis - possibly reactive
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
- core Tmax 100.6 not a tamela fever, fever is over 101.0 via core route
- erythema of the right wrist cath site, suspect early cellulitis, no cords; began after the episode of possible bacteremia vs contamination - continue vanc
- single blood culture done 04/20 with reintubation with CONS - possible contaminant vs true pathogen
- lab will get sensitivities
- had a dose of vanc 04/20 prior to the repeat blood cultures
- repeat blood cultures x2 from 04/22 are no growth to date
- reviewed 04/18 echo (prior to blood cultures) notable for reduced EF to 40%, no vegetations
- note GENERATOR REBUILDER shunt on right - no erythema, warmth, swelling or tenderness along its course
- resp culture from 04/20: gram stain few mixed bacterial morphotypes - suspect will be usual resp anayeli
- cxr most consistent with chf
- repeat echo is planned for today
- continue vancomycin
- can continue zosyn pending sputum culture results - if normal anayeli would stop
- patient is critically ill
Chief Complaint
-: Bacteremia and Other (shock)
Subjective / Review of Systems
core Tmax 100.6 not a tamela fever, fever is over 101.0 via core route
remains on norepi down to 8 mcg/min from max of 20 yesterday
wbc now 14
hgb 9.8
k 3.1
na130
cr now 1.0
CXR today: fully bilateral perihilar infiltrates on my read - improved; improved edema
Vital Signs / Physical Exam
Vital Signs
Vital Signs
Temp Pulse Resp BP Pulse Ox
99.9 F 55 16 99/54 100
04/23/24 07:15 04/23/24 08:15 04/23/24 08:15 04/22/24 17:02 04/23/24 07:49
Physical Exam
Constitutional: No Acute Distress and Chronically Ill
Head: Other (GENERATOR REBUILDER shunt - no erythema, warmth, tenderness or fluctuance)
Cardiovascular: Regular Rate and S1/S2; Negative Murmur or Rub
Pulmonary: Clear and Symmetric; Negative Wheezes or Rales
Gastrointestinal: Soft, Non Tender, Non Distended and Normal Bowel Sounds
Skin: Warm and Dry; Negative Rash or Jaundice
Wound: Other (R wrist cath site red, no swelling/fluctuance or cords; bilateral groin sites bruised no erythema/warmth/swelling/drainage)
Objective Data
Lab Data
Lab Results
04/23/24 03:52
04/23/24 03:52
PT 15.6 Sec (11.4-14.6) H 04/17/24 19:23
INR 1.23 04/17/24 19:23
APTT > 200 Sec (23.4-35.0) H* 04/17/24 19:23
Estimated Creat Clear 47 ml/min 04/23/24 03:52
Lactic Acid 1.3 mmol/L (0.7-2.0) 04/21/24 11:17
Total Bilirubin 1.8 mg/dl (0.2-1.3) H 04/22/24 03:59
AST 425 U/L (14-36) H 04/22/24 03:59
ALT 1418 U/L (0-35) H* 04/22/24 03:59
Alkaline Phosphatase 174 U/L (38-126) H 04/22/24 03:59
Most recent labs reviewed.
Micro Results:
04/18/24 16:09 Blood Culture - Preliminary
Blood/Venous No Growth in 4 days- Final report to follow
04/20/24 22:37 Blood Culture - Preliminary
Blood/Venous Coagulase neg. staphylococcus
Additional testing on request
Gram Stain - Preliminary
04/22/24 13:15 Blood Culture - Pending
Blood/Venous
04/22/24 13:17 Blood Culture - Pending
Blood/Venous
04/20/24 22:55 Respiratory Culture - Preliminary
Endotracheal Gram Stain - Preliminary
04/18/24 09:40 Blood Culture - Preliminary
Blood/Venous No Growth in 4 days- Final report to follow
04/17/24 19:23 MRSA Screen - Final
Nose No Methicillin Resistant Staphylococcus aureus isolated.
Care Review
Plan reviewed with: Nurse (no wounds on backside)
--- NOTE | 2024-04-23 08:50 | W.PN.INTV ---
Today's Communication / Plan
Recommendations
Diuresis as tolerated
Wean pressors
Daily weaning trials with SBT + SAT
Repeat chest x-ray tomorrow
Follow up GNR species seen on ETT Cx from 04/20/2024
Empiric antibiotics
Assessment
-
68-year-old female with a history of CVA, RECEIVING COORDINATOR shunt, hypertension admitted with symptomatic bradycardia was hospitalized and had recurrent in-hospital cardiac arrhythmias and arrests with multiple transfers to cardiac catheterization lab on 3
separate occasions-with successful stenting of culprit 90% mid circumflex lesion, subsequent successful angioplasty and stenting of distal overlapping fashion occlusion of the large OM 2, and subsequent successful placement of transvenous pacer via
left femoral vein-kick boxer consulted for ventilator/critical care management 04/18/2024.
Impression:
Ventilator dependent respiratory failure
Intubated 04/17/2024
Extubated 04/19/2024
Reintubated 04/20/2024 for CHF
Symptomatic bradycardia
CHF with reduced EF-30-35%
CAD/non-STEMI
s/p cardiac catheterization 04/17/2024--successful stenting 90% mid circumflex lesion
Recurrent multiple and hospital cardiac arrhythmias/codes
Status postcardiac catheterization 04/17/2024-successful angioplasty and stenting of distal overlapping fashion of large OM 2 lesion
Subsequent recurrent severe symptomatic bradycardia-status post third catheterization 04/17/2024-successful placement via left femoral vein transvenous pacer
Leukocytosis-WBC 34.6
Lhiwae-lfegxawcbm-ymprrovloy 9.1
Metabolic acidosis
Lactic acidosis
Hyperglycemia
Conditions present prior to admission:
CVA-01/2024
RECEIVING COORDINATOR shunt.
Hypertension.
Anemia
Current smoker.
PAD
Plan
Remains critically ill intubated on levophed
Ventilator settings reviewed - lower PEEP to 5 today
Wean FiO2-now at 0.4
Follow ABG
Will continuously adjust ventilator as needed
Pulmonary airway pressures goal is <30
Nebulizers as needed-currently not bronchospastic
Aspiration precautions
Chest x-ray 04/23/2024- continued improvemnt of pulmonary edema
Cardiology following-correspondence reviewed hold metoprolol, wean norepinephrine, consider transfusion, continue diuresis
Troponin trended-peak 340 on 04/18/2024
Echocardiogram reviewed and summarized below
Cardiac catheterization x 3 reviewed and summarized
Anticoagulation and antiplatelet therapy per cardiology
Antiarrhythmics including amiodarone per cardiology --> now DC'd
Norepinephrine-wean to maintain MAP>65
Diuresis continues as tolerated-on Lasix 40 mg IV twice daily --> replete K>4, Mg>2
Monitor renal function, electrolytes, intake/output, lower extremity edema and weight
Replace electrolytes as needed
Transvenous pacer removed 04/19/2024
Hold metoprolol for now as she is bradycardic in 50s --> resume when clinically able to
Cultures reviewed
Respiratory culture collected on 04/20 is now growing GNR + Staph aureus --> continue IV vanco (started 04/20) + zosyn (started 04/21)
Blood culture 04/20/2024-1/2 positive with coagulase-negative Staphylococcus, likely contaminant
Monitor leukocytosis, temperature curve
Zosyn was empirically initiated with persistent hypotension and leukocytosis
MRSA screen negative
Follow hemoglobin with goal >8g/dL, plt>20k
Transfuse if needed
Note: Vascular surgery evaluation ongoing-right femoral approach unable to advance wire due to occlusion of common iliac, subsequent attempt at left femoral access and sheath placement due to bulky distal aortic bifurcation plaque/stenosis unable to
advance wires and catheters therefore left radial approach was undertaken-no acute need for intervention, no acute limb ischemia, eventual DAYDAY/TBI's and outpatient vascular follow-up
Smoking cessation counseling will continue after extubation
DVT prophylaxis-on Lovenox
GI prophylaxis-on pantoprazole-latest Society of critical care medicine does not support PPI while on ventilator, however, when shock present, coagulopathy present, etc. then PPI/or H2 ira is indicated
Begin nutrition via nasogastric tube
Early mobilization/PT/OT
Eventual outpatient rehab and then would recommend outpatient pulmonary evaluation-smoking cessation, PFTs, yearly low-dose lung cancer screening CT, etc.
Critical care statement: A total of 41 minutes of critical care time was provided for this patient today. This includes management of unstable vital signs, evaluation of the patient at bedside, reviewing the patient's pertinent medical records
including radiographs, ventilator management, pressor management, microbiology, laboratory evaluations, and discussion with primary team, consultants, pharmacy, nutrition, physical therapy, case management, charge nurse, critical care nursing, and
respiratory therapy.
Diagnostic data:
Chest x-ray 04/17/2024-NAD
Chest x-ray 04/18/2024-endotracheal tube tip terminates at the bj-should be retracted
Chest x-ray 04/18/2024-satisfactory position of endotracheal tube, interval decrease in bilateral airspace disease representing improved pulmonary edema
Chest x-ray 04/18/2024-right PICC terminates at the expected location, stable mild pulmonary edema
Chest x-ray 04/19/2024-improved pulmonary edema stable lines and tubes
Chest x-ray 04/20/2024-increased CHF
Echocardiogram 04/18/2024-moderately reduced LV function-EF 40%, normal right ventricular size with RV hypokinesis and distal RV hypokinesis, mild mitral regurgitation
Subjective Dataa
Subjective Data
Date of Service:
Date of Service: April 23, 2024
Chief Complaint: Sports Intern Follow Up, Pulmonary Follow Up and Vent Management Follow Up
Subjective:
Patient seen and evaluated today at the bedside. Currently on Levophed at 8mcg/min. She is on propofol at 10 mcg/kg/min and fentanyl at 50mcg/hr. Intubated on VC/AC at 450/16/40%/5, with SpO2 @ 100%. Patient is sedated but she does follow
commands when sedation lowered.
Review of Systems
General: Unobtainable - Pat Unresp
Objective Data
Data Reviewed
Vital Signs / I&O / Oxygen:
Vital Signs
Temp Pulse Resp BP Pulse Ox
99.9 F 57 16 99/54 100
04/23/24 07:15 04/23/24 09:15 04/23/24 09:15 04/22/24 17:02 04/23/24 09:19
Intake and Output
04/22/24 04/23/24 04/24/24
06:59 06:59 06:59
Intake Total 3098.4 / 3234.7 3072.0 / 3225.8 456.4 / 456.4
Output Total 2190 / 2240 3115 / 3265 740 / 740
Balance 908.4 / 994.7 -43.0 / -39.2 -283.6 / -283.6
SaO2 [SIMV] 100
SaO2 [CPAP] 96
SaO2 [A/C] 100
SaO2 100
Nasal Cannula flow liters per 5
minute
Physical Exam
General: Respiratory Distress (n) and Comfortable
HEENT: Normocephalic, Anicteric and Other (ETT in place)
Cardiovascular: S1-S2, Regular Rhythm and Peripheral Edema (Negative)
Respiratory: Wheeze (n), Crackles (Negative), Rhonchi (n), Non-Labored Respirations, Accessory Resp Muscle Use (n), Stridor (Negative), ET Tube and Other (Mechanical breath sounds heard bilaterally)
GI: Soft, Non Distended and Non Tender
Neurology: Lethargic (Sedated on a ventilator, arousable to tactile simulation and following simple commands)
Skin: Warm, Dry, Cyanosis (n) and Jaundice (n)
Labs/Micro/Reports
Lab Data
04/23/24 03:52
04/23/24 03:52
Laboratory Results
04/23/24
03:52
pH 7.48 H
pCO2 34
pO2 145 H
HCO3 25.3
O2 Delivery Level
Microbiology
04/20/24 22:37 Blood/Venous Blood Culture - Preliminary
Coagulase neg. staphylococcus
Additional testing on request
04/20/24 22:37 Blood/Venous Gram Stain - Preliminary
04/18/24 16:09 Blood/Venous Blood Culture - Preliminary
No Growth in 4 days- Final report to follow
04/20/24 22:55 Endotracheal Respiratory Culture - Preliminary
04/20/24 22:55 Endotracheal Gram Stain - Preliminary
04/18/24 09:40 Blood/Venous Blood Culture - Preliminary
No Growth in 4 days- Final report to follow
--- NOTE | 2024-04-23 08:50 | PHA.VAN.FU ---
Vancomycin Assessment / Plan
- Assessment
Renal Function: SCR Decreasing
WBC's are: Trending Down
Concomitant Antimicrobials: piperacillin/tazobactam
- Assessment - Therapeutic Drug Monitoring
Random Level: 12 - drawn ~11H after previous dose of 1g
- Dosing Plan
Dosing by Level: Re-dose today (Vanc 1000mg)
Vanc 1000mg Q24H predicts AUC 509, peak 33, trough 12.3
Will hold off on scheduling dosing as patient had higher than expected level following single dose of 1g
- Monitoring Plan
Random Level: 04/24 06
- Follow Up
Pharmacy will continue to follow.
Vancomycin Follow UP
- -
Patient Age: 68
Patient Sex: Female
Vancomycin Day #: 2
Indication: Bacteremia
Requesting Provider: Dr. Zamorano
Pertinent Antimicrobial Allergies:
NKDA
Height / Weight:
Height 5 ft
Actual Weight 65.9 kg
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
- Vital Signs / Lab Results
Temp Pulse Resp BP Pulse Ox
99.9 F 55 16 99/54 100
04/23/24 07:15 04/23/24 08:15 04/23/24 08:15 04/22/24 17:02 04/23/24 07:49
Lab Results - Hematology
04/21/24 04/22/24 04/23/24
03:03 03:59 03:52
WBC 23.1 H 18.0 H 14.3 H
Lab Results - Chemistry
04/20/24 04/20/24 04/20/24
18:46 18:46 18:46
BUN Cancelled 29 H
Creatinine Cancelled 1.3 H
Estimated Creat Clear Cancelled
Albumin
04/20/24 04/21/24 04/22/24
18:46 03:03 03:59
BUN 35 H 35 H
Creatinine 1.3 H 1.3 H
Estimated Creat Clear 35 35 35
Albumin 3.3 L 3.3 L 3.1 L
04/23/24
03:52
BUN 28 H
Creatinine 1.0
Estimated Creat Clear 47
Albumin
04/20/24 04/21/24 04/21/24
20:43 01:39 08:30
Lactic Acid 2.2 H 1.4 Cancelled
04/21/24
11:17
Lactic Acid 1.3
Microbiology Results
04/18/24 16:09 Blood Culture - Preliminary
Blood/Venous No Growth in 4 days- Final report to follow
04/20/24 22:37 Blood Culture - Preliminary
Blood/Venous Coagulase neg. staphylococcus
Additional testing on request
Gram Stain - Preliminary
04/20/24 22:55 Respiratory Culture - Preliminary
Endotracheal Gram Stain - Preliminary
04/18/24 09:40 Blood Culture - Preliminary
Blood/Venous No Growth in 4 days- Final report to follow
Therapeutic Drug Monitoring
Random Vancomycin 12.0 ug/ml 04/23/24 03:52
[2024-04-23] MEDS: VANCOCIN 200 IV (10:10)
[2024-04-23] MEDS: KCL ELIXIR 40 MEQ TUBE (12:06)
[2024-04-23] MEDS: MAGNESIUM OXIDE 500 MG TUBE (12:06)
--- NOTE | 2024-04-23 13:02 | CM ---
CM following re: discharge planning.
Reviewed pt's chart, met with pt. per Rounds meeting, pt admitted with Ventilator dependent respiratory failure. Intubated 04/17/2024. Extubated 04/19/2024. Reintubated 04/20/2024 for CHF, remains intubated, short term weaning trial today, continue
supportive care.
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
D/C plan: return back to [facility] for a keno terminal operator care. Pt might need a short term rehabilitation upon the discharge and at that point pt will need an auth for skilled services if indicated.
CM will follow with discharge plan updates as hospitalization progresses
--- NOTE | 2024-04-23 13:05 | PTCARENOTE ---
Patient has been weaned down to 4mcg of levophed. Continues to tolerate vent settings, Peep now at 5. continue supportive care, no plan to extubated today. changed out tube feed tubing and repleted electrolytes.
[2024-04-23 13:08] LABS: Glucose - Point of Care 127 mg/dl (70-99)
[2024-04-23 14:09] VITALS: BP 108/78
--- NOTE | 2024-04-23 15:56 | W.PN.HOSP.TC ---
Today's Communication/Plan
-
Ventilatory support
Continue sedation
Vasopressor
Attempt of IV diuresis.
Empiric antibiotics
Aspiration precautions
Tube feeding
Total Critical Care Time_55____ minutes. I was immediately available to the patient and staff. I personally examined, reviewed labs, diagnostic images/reports, interpretations, treatment plans, discussed patient care with other providers and
family or caregivers (if patient is unable to make decisions), entered orders as appropriate and documented the medical record.
Assessment / Plan
Assessment / Plan
Impression:
CAD/acute coronary syndrome/non-STEMI
Symptomatic bradycardia
Ventilatory dependent respiratory failure in the settings of hemodynamic instability secondary to large CO and cardiogenic shock.
� Extubated 04/19.
� Reintubated on 04/21 in the event of progressive hemodynamic instability and acidosis
Cardiogenic shock
Acute CHF reduced EF
Ischemic cardiomyopathy.
Acute kidney injury
Metabolic/lactic acidosis.
Acute on chronic anemia secondary to dilution
Gram-positive bacteremia versus contamination
Conditions prior to admission:*
CVA 02/16
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
Essential hypertension
Anemia
PAD.
Tobacco use disorder/current smoker
Plan:
VDRF.
Remains on continuous sedation.
Chest x-ray 04/21 with pulmonary edema
Less likely aspiration pneumonia.
Continue IV diuresis to facilitate BMP
Wean off sedation as possible.
Acute coronary syndrome. Large CO
Original presentation with ACS with urgent catheterization and left circumflex stent, and to return to [facility] after 2 hours with neuro: Situation after distal circumflex dissection propagated from distal age of the stent treated with long distally
overlapping stent. Large OM 2 originated from stented segment occluded on the return and not treatable.
Ischemic cardiomyopathy
Acute CHF reduced EF
Cardiogenic shock
Follow-up echocardiogram 04/22 with LVEF of 30 to 35%
Continue Plavix via tube.
Continue Lipitor.
Has been on beta-ira given hemodynamic instability.
Continue IV Lasix with attempt to wean off IV pressor/Levophed.
Shock likely cardiogenic less likely septic
Has been off IV fluids.
Gentle diuresis secondary to above with vasopressor support.
Blood culture with coag negative Staphylococcus.
1 out of 2 and likely contaminant.
Respiratory culture with gram-negative bacilli and staph auris.
Chest x-ray not consistent with focal infiltrates and improving with diuresis which leaning towards pulmonary edema rather than pneumonia.
Empiric antibiotics vancomycin/Zosyn monitoring temperature curve and hemodynamics.
Infectious disease input appreciated.
Acute kidney injury with creatinine trending down from 1.3-1.0
Metabolic acidosis improved.
Continue monitoring with diuresis.
The above tube in place.
Tube feeding ongoing.
Continue PPI
Hypothyroidism
Noted elevated TSH on admission
Continue Levothyroid supplementation via feeding tube and later p.o.
Acute on chronic anemia.
Noted trending down hemoglobin and likely secondary to dilution.
Given unstable hemodynamics/continued shock, monitor and transfuse to keep hemoglobin above 8.
DVT prophylaxis: Lovenox
GI prophylaxis: IV PPI twice daily
Diet: Start Jevity 1.5 via NGT
CODE STATUS: Full code
Anticipated Discharge: > 48 hours
Subjective/Interval History
-
Date of Service: April 23, 2024
Objective Data
-
Labs:
Laboratory Results
04/23/24
03:52
WBC 14.3 H
Hgb 9.8 L
Hct 27.6 L
Plt Count 191
HCO3 25.3
Sodium 130 L
Potassium 3.1 L
Chloride 97 L
Carbon Dioxide 26
BUN 28 H
Creatinine 1.0
Glucose 140 H
Calcium 7.6 L
Vital Signs:
Vital Signs
Temp Pulse Resp BP Pulse Ox
99.3 F 55 16 108/78 100
04/23/24 15:00 04/23/24 15:45 04/23/24 15:45 04/23/24 14:09 04/23/24 15:16
I&O
04/22/24 04/23/24 04/24/24
06:59 06:59 06:59
Intake Total 3098.4 / 3234.7 3072.0 / 3225.8 969.2 / 969.2
Output Total 2190 / 2240 3115 / 3265 1830 / 1830
Balance 908.4 / 994.7 -43.0 / -39.2 -860.8 / -860.8
Physical Exam
-
General: No Apparent Distress, Comfortable and Intubated
HEENT: Normocephalic, Atraumatic, Moist Mucous Membranes, Anicteric and Other (ET tube with clear secretions)
Respiratory: Clear to Auscultation, Non Labored Respirations and Other (No breath stacking; mechanical sounds); Negative Wheezes, Rales or Rhonchi
Cardiac: Regular Rhythm and S1/S2; Negative Murmur, Rub, JVD or Gallop
GI: Soft, Nontender, Nondistended and Normal Bowel Sounds
Musculoskeletal: No Clubbing, No Cyanosis and No Edema
Skin: Warm and Dry; Negative Rash or Jaundice
Neuro: Sedated
[2024-04-23] MEDS: LOVENOX 40 MG SC (17:05)
[2024-04-23 17:27] LABS: Glucose - Point of Care 132 mg/dl (70-99)
[2024-04-23] MEDS: DIPRIVAN 100 IV (17:33)
[2024-04-23] MEDS: MELATONIN PO (22:07)
[2024-04-23 22:15] LABS: Blood Urea Nitrogen 25 mg/dl (7-17); Calcium 7.8 mg/dl (8.4-10.2); Carbon Dioxide 28 mmol/L (22-30); Chloride 97 mmol/L (98-107); Estimated Creatinine Clearance 52 ml/min; Glucose 117 mg/dl (70-99); Potassium 3.3 mmol/L (3.5-5.1); Sodium 133 mmol/L (135-145); eGFR > 60.00
[2024-04-24] VITALS (35 sets, daily range): BP systolic 72–134; BP diastolic 53–103; PULSE 56; BMI 28.4
[2024-04-24] MEDS: NOVOLOG FLEXPEN-LOW RESISTANCE SC ×3 (00:08→17:32)
[2024-04-24 00:16] LABS: Glucose - Point of Care 120 mg/dl (70-99)
--- NOTE | 2024-04-24 00:42 | PTCARENOTE ---
systems reviewed, vitals stable, urine yellow and clear, pt RASS -2 with a CPOT of 3-4, BMP drawn and K was 3.3, PERFORMING ARTIST notified and an order to replete K put in, PT had two loose BM's and rectal trumpet applied, otherwise see flowchart.
[2024-04-24] MEDS: KCL 270 MEQ IV ×2 (01:10→21:44)
[2024-04-24 05:05] LABS: Hematocrit 26.7 % (37.0-47.0); Hemoglobin 9.2 g/dL (12.0-16.0); Mean Corp Hgb Conc. 34.5 g/dL (33.0-37.0); Mean Corpuscular Hgb 30.1 pg (27.0-31.0); Mean Corpuscular Volume 87.3 fL (81.0-99.0); Mean Platelet Volume 12.9 fL (7.4-10.4); Platelet Count 221 10^3/uL (130-400); Red Blood Cell Count 3.06 10^6/uL (4.20-5.40); Red Cell Dist. Width 14.4 % (11.5-14.5); White Blood Cell Count 14.5 10^3/uL (4.8-10.8)
[2024-04-24 05:07] LABS: B.E. 2.7 mmol/L; HCO3 25.9 mmol/L (21-28); O2 Saturation % 98.1 % (94-98); O2 Therapy 40; PCO2 34 mmHg (32-35); PO2 86 mmHg (83-108); pH 7.49 (7.35-7.45)
[2024-04-24] MEDS: SYNTHROID 50 MCG TUBE (05:15)
[2024-04-24] MEDS: SUBLIMAZE 50 MCG IV ×6 (05:16→17:54)
[2024-04-24] MEDS: ZOSYN 50 IV ×3 (05:16→17:26)
[2024-04-24 05:21] LABS: Vancomycin Random 11.3 ug/ml
[2024-04-24 05:27] LABS: NT-proBNP 4780 pg/ml
[2024-04-24] MEDS: DIPRIVAN 100 IV ×2 (05:32→21:32)
[2024-04-24 05:45] LABS: ALT (SGPT) 531 U/L (0-35); AST (SGOT) 85 U/L (14-36); Albumin 2.7 g/dl (3.5-5.0); Alkaline Phosphatase 321 U/L (38-126); Blood Urea Nitrogen 24 mg/dl (7-17); Calcium 7.8 mg/dl (8.4-10.2); Carbon Dioxide 29 mmol/L (22-30); Chloride 100 mmol/L (98-107); Estimated Creatinine Clearance 52 ml/min; Glucose 155 mg/dl (70-99); Phosphorus 2.9 mg/dl (2.5-4.5); Sodium 133 mmol/L (135-145); Total Bilirubin 1.7 mg/dl (0.2-1.3); eGFR > 60.00
--- NOTE | 2024-04-24 05:45 | PTCARENOTE ---
L radial a-line positional, redressed x2, leaking at insertion site. Correlates with L radial cuff pressure. Discussed with FITTING ROOM INSPECTOR, a-line removed, pressure applied. Pressure dressing applied.
[2024-04-24 06:09] LABS: Glucose - Point of Care 119 mg/dl (70-99)
--- NOTE | 2024-04-24 08:08 | PTCARENOTE ---
07 patient seen in bed, intubated, sedated. Open eyes to pain stimuli, Moves B/L UE and LE; pedal pulses checked via doppler. RT PICC Line DL dressing changed 04/18 ; Levophed at 4mcg/15ml +Fentanyl at 50mcg/5ml + Prpopofol 10mcg /3.8ml . 2nd
lumen KVO with ABT; SR 74 BP via left FA 122/58; MAP 88; ETT 7.5 /22cm center lip; (S)CMW 16/450/+5/40% Peak 35; VT 446; RR 16; White oral secretion oral moderate amount; Oral care done; Escobar draining clear danis urine . Escobar care done. pt HOB
elevated . Reposition Q 2 hrs
[2024-04-24] MEDS: MIRALAX TUBE (08:13)
--- NOTE | 2024-04-24 08:13 | PHA.VAN.FU ---
Vancomycin Assessment / Plan
- Assessment
Renal Function: Stable
WBC's are: Stable
Concomitant Antimicrobials: piperacillin/tazobactam
- Assessment - Therapeutic Drug Monitoring
Random Level: 11.3 - drawn ~19H after previous dose of 1000mg
- Dosing Plan
Adjust Regimen to: Vanc 1000mg Q24H - first dose 1000 then 0600
New Regimen Predicts: AUC (509), Peak (33), Trough (12.3)
- Monitoring Plan
No level(s) ordered at this time: consider levels in next few days
- Follow Up
Pharmacy will continue to follow.
Vancomycin Follow UP
- -
Patient Age: 68
Patient Sex: Female
Vancomycin Day #: 3
Indication: Bacteremia
Requesting Provider: Dr. Zamorano
Pertinent Antimicrobial Allergies:
NKDA
Height / Weight:
Height 5 ft
Actual Weight 66 kg
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
- Vital Signs / Lab Results
Temp Pulse Resp BP Pulse Ox
99.9 F 70 16 89/64 92
04/24/24 08:07 04/24/24 05:45 04/24/24 05:45 04/24/24 05:45 04/24/24 08:00
Lab Results - Hematology
04/22/24 04/23/24 04/24/24
03:59 03:52 04:55
WBC 18.0 H 14.3 H 14.5 H
Lab Results - Chemistry
04/22/24 04/23/24 04/23/24
03:59 03:52 21:20
BUN 35 H 28 H 25 H
Creatinine 1.3 H 1.0 0.9
Estimated Creat Clear 35 47 52
Albumin 3.1 L
04/24/24
04:55
BUN 24 H
Creatinine 0.9
Estimated Creat Clear 52
Albumin 2.7 L
04/21/24
11:17
Lactic Acid 1.3
Microbiology Results
04/20/24 22:55 Respiratory Culture - Preliminary
Endotracheal Gram negative bacilli
Staphylococcus aureus
Gram Stain - Preliminary
04/18/24 16:09 Blood Culture - Final
Blood/Venous No Growth - Final Report
04/22/24 13:15 Blood Culture - Preliminary
Blood/Venous No Growth in 24 hours- Final report to follow
04/22/24 13:17 Blood Culture - Preliminary
Blood/Venous No Growth in 24 hours- Final report to follow
04/20/24 22:37 Blood Culture - Preliminary
Blood/Venous Coagulase neg. staphylococcus
Gram Stain - Preliminary
04/18/24 09:40 Blood Culture - Final
Blood/Venous No Growth - Final Report
Therapeutic Drug Monitoring
Random Vancomycin 11.3 ug/ml 04/24/24 04:55
[2024-04-24] MEDS: ROBITUSSIN 100 MG TUBE ×4 (08:23→21:07)
[2024-04-24] MEDS: PROTONIX IV 40 MG IV ×2 (08:23→21:06)
[2024-04-24] MEDS: LASIX 40 MG IV ×2 (08:23→16:57)
[2024-04-24] MEDS: ULTRAM 100 MG PO (08:24)
[2024-04-24] MEDS: NSS (PRESERVATIVE FREE) 10 ML IV ×2 (08:24→21:06)
[2024-04-24] MEDS: LOW STRENGTH ASPIRIN 81 MG PO (08:25)
--- NOTE | 2024-04-24 08:38 | W.PN.INTV ---
Today's Communication / Plan
Recommendations
Diuresis as tolerated
Daily weaning trials with SBT + SAT
Empiric antibiotics x 10-14 days
If patient continues to fail weaning trials on PEEP of 0 then we will consult CT surgery for evaluation of MitraClip
Assessment
-
68-year-old female with a history of CVA, ROADSIDE MECHANIC shunt, hypertension admitted with symptomatic bradycardia was hospitalized and had recurrent in-hospital cardiac arrhythmias and arrests with multiple transfers to cardiac catheterization lab on 3
separate occasions-with successful stenting of culprit 90% mid circumflex lesion, subsequent successful angioplasty and stenting of distal overlapping fashion occlusion of the large OM 2, and subsequent successful placement of transvenous pacer via
left femoral vein-statement processor consulted for ventilator/critical care management 04/18/2024.
Impression:
Ventilator dependent respiratory failure
Intubated 04/17/2024
Extubated 04/19/2024
Reintubated 04/20/2024 for CHF
Symptomatic bradycardia, worsens with Precedex
CHF with reduced EF-30-35%
CAD/non-STEMI
s/p cardiac catheterization 04/17/2024--successful stenting 90% mid circumflex lesion
Recurrent multiple and hospital cardiac arrhythmias/codes
Status postcardiac catheterization 04/17/2024-successful angioplasty and stenting of distal overlapping fashion of large OM 2 lesion
Subsequent recurrent severe symptomatic bradycardia-status post third catheterization 04/17/2024-successful placement via left femoral vein transvenous pacer
Aspiration pneumonia with MDR Serratia marcescens + MSSA seen on respiratory culture from 04/20/2024
Leukocytosis-improving
Anemia
Metabolic acidosis -resolved
Lactic acidosis � resolved as of 04/21/2024
Hyperglycemia -resolved
Conditions present prior to admission:
CVA-01/2024
ROADSIDE MECHANIC shunt.
Hypertension.
Anemia
Current smoker.
PAD
Plan
Remains critically ill intubated; vasopressors have been weaned off as of this morning however she failed SBT this morning on PSV 5, PEEP of 0 (?recurrent flash edema)
Ventilator settings reviewed - lowered PEEP to 5 on 04/23 from 8
Adjust FiO2 + PEEP to maintain SpO2 >90 this 94%
Follow ABG
Will continuously adjust ventilator as needed
Maintain plateau pressure <30
Nebulizers as needed-currently not bronchospastic
Aspiration precautions
Chest x-ray 04/24/2024- continued improvement of pulmonary edema
Cardiology following-correspondence reviewed hold metoprolol, wean norepinephrine, consider transfusion, continue diuresis
Troponin trended-peak of 340 on 04/18/2024
Echocardiogram reviewed and summarized below
Cardiac catheterization x 3 reviewed and summarized
Anticoagulation and antiplatelet therapy per cardiology
Antiarrhythmics including amiodarone per cardiology --> now DC'd
Maintain MAP>65
Diuresis continues as tolerated-on Lasix 40 mg IV twice daily --> replete K>4, Mg>2
Monitor renal function, electrolytes, intake/output, lower extremity edema and weight
Replace electrolytes as needed
Transvenous pacer removed 04/19/2024
Hold metoprolol for now as she is bradycardic in 50s --> resume when clinically able to
Cultures reviewed
Respiratory culture collected on 04/20 grew MDR Serratia marcescens + MSSA--> DC IV vanco (started 04/20) + continue zosyn (started 04/21)
Would treat for 10-14 days given her circulatory shock state with pneumonia
Blood culture 04/20/2024-09/27 positive with coagulase-negative Staphylococcus, likely contaminant
Monitor leukocytosis, temperature curve
Zosyn was empirically initiated with persistent hypotension and leukocytosis
MRSA screen negative
Follow hemoglobin with goal >8g/dL, plt>20k
Transfuse if needed
Note: Vascular surgery evaluation ongoing-right femoral approach unable to advance wire due to occlusion of common iliac, subsequent attempt at left femoral access and sheath placement due to bulky distal aortic bifurcation plaque/stenosis unable to
advance wires and catheters therefore left radial approach was undertaken-no acute need for intervention, no acute limb ischemia, eventual DAYDAY/TBI's and outpatient vascular follow-up
Smoking cessation counseling will continue after extubation
DVT prophylaxis-on Lovenox
GI prophylaxis-on pantoprazole-latest Society of critical care medicine does not support PPI while on ventilator, however, when shock present, coagulopathy present, etc. then PPI/or H2 ira is indicated
Nutrition via nasogastric tube
Early mobilization/PT/OT
Eventual outpatient rehab and then would recommend outpatient pulmonary evaluation-smoking cessation, PFTs, yearly low-dose lung cancer screening CT, etc.
Critical care statement: A total of 38 minutes of critical care time was provided for this patient today. This includes management of unstable vital signs, evaluation of the patient at bedside, reviewing the patient's pertinent medical records
including radiographs, ventilator management, pressor management, microbiology, laboratory evaluations, and discussion with primary team, consultants, pharmacy, nutrition, physical therapy, case management, charge nurse, critical care nursing, and
respiratory therapy.
Diagnostic data:
Chest x-ray 04/17/2024-NAD
Chest x-ray 04/18/2024-endotracheal tube tip terminates at the bj-should be retracted
Chest x-ray 04/18/2024-satisfactory position of endotracheal tube, interval decrease in bilateral airspace disease representing improved pulmonary edema
Chest x-ray 04/18/2024-right PICC terminates at the expected location, stable mild pulmonary edema
Chest x-ray 04/19/2024-improved pulmonary edema stable lines and tubes
Chest x-ray 04/20/2024-increased CHF
Chest x-ray 04/24/2024- The endotracheal tube is in satisfactory position; mild pulmonary edema, improved but incompletely resolved compared with the prior study
Echocardiogram 04/18/2024-moderately reduced LV function-EF 40%, normal right ventricular size with RV hypokinesis and distal RV hypokinesis, mild mitral regurgitation
Subjective Dataa
Subjective Data
Date of Service:
Date of Service: April 24, 2024
Chief Complaint: Charrer Follow Up, Pulmonary Follow Up and Vent Management Follow Up
Subjective:
Patient seen and evaluate this AM. Currently intubated on AC/VC 450/16/50%/5. Failed SBT this AM on PS 5, PEEP of 0. CXR showing continued improvement. Thick white secretions from ETT. Opens eyes when sedation off but not following commands.
After failed SBT, sedation restarted with fentanyl at 50mcg/hr and prop at 10mcg/kg/min. She is net (-) 840cc last 24 hrs. Levophed turned off this AM at around 10AM - BP currently 125/88, HR 118, SpO2 91%.
Review of Systems
General: Unobtainable - Pat Unresp (Intubated)
Objective Data
Data Reviewed
Vital Signs / I&O / Oxygen:
Vital Signs
Temp Pulse Resp BP Pulse Ox
99.9 F 74 16 122/88 96
04/24/24 08:07 04/24/24 08:23 04/24/24 05:45 04/24/24 08:23 04/24/24 08:23
Intake and Output
04/23/24 04/24/24 04/25/24
06:59 06:59 06:59
Intake Total 3072.0 / 3225.8 2821.2 / 2925.0 207.6 / 207.6
Output Total 3115 / 3265 3665 / 3715 100 / 100
Balance -43.0 / -39.2 -843.8 / -790.0 107.6 / 107.6
SaO2 [SIMV] 92
SaO2 [CPAP] 96
SaO2 [A/C] 100
SaO2 96
Nasal Cannula flow liters per 5
minute
Physical Exam
General: Respiratory Distress (n) and Comfortable
HEENT: Normocephalic, Anicteric and Other (ETT in place)
Cardiovascular: S1-S2 and Peripheral Edema (Negative)
Respiratory: Wheeze (n), Crackles (Negative), Rhonchi (n), Non-Labored Respirations, Accessory Resp Muscle Use (n), Stridor (Negative), ET Tube and Other (Mechanical breath sounds heard bilaterally)
GI: Soft, Non Distended and Non Tender
Neurology: Lethargic (Sedated on a ventilator, arousable to tactile simulation)
Skin: Warm, Dry, Cyanosis (n) and Jaundice (n)
Labs/Micro/Reports
Lab Data
04/24/24 04:55
04/24/24 04:55
Laboratory Results
04/24/24
04:51
pH 7.49 H
pCO2 34
pO2 86
HCO3 25.9
O2 Delivery Level 40
Microbiology
04/20/24 22:37 Blood/Venous Blood Culture - Preliminary
Coagulase neg. staphylococcus
04/20/24 22:37 Blood/Venous Gram Stain - Preliminary
04/20/24 22:55 Endotracheal Respiratory Culture - Preliminary
Gram negative bacilli
Staphylococcus aureus
04/20/24 22:55 Endotracheal Gram Stain - Preliminary
04/18/24 16:09 Blood/Venous Blood Culture - Final
No Growth - Final Report
04/22/24 13:15 Blood/Venous Blood Culture - Preliminary
No Growth in 24 hours- Final report to follow
04/22/24 13:17 Blood/Venous Blood Culture - Preliminary
No Growth in 24 hours- Final report to follow
04/18/24 09:40 Blood/Venous Blood Culture - Final
No Growth - Final Report
[2024-04-24] MEDS: PLAVIX 75 MG PO (08:40)
--- NOTE | 2024-04-24 09:21 | W.PN.ID1 ---
Date of Service
Date of Service: April 24, 2024
Today's Communication
- continue vancomycin day 3
- continue zosyn day 5
Assessment / Plan
Mild R wrist surgical site infection
Pseudobacteremia (contamination) vs Gram Positive Bacteremia
Probable Tracheitis
Shock - ongoing, cardiogenic +/- septic; suspect majority cardiogenic
Leukocytosis - possibly reactive
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
- fever is defined as over 101.0 via core route - not having tamela fevers
- erythema of the right wrist cath site, suspect early cellulitis, no cords; began after the episode of possible bacteremia vs contamination - continue vanc
- single blood culture done 04/20 with reintubation with CONS - possible contaminant vs true pathogen
- lab will get sensitivities
- had a dose of vanc 04/20 prior to the repeat blood cultures
- repeat blood cultures x2 from 04/22 are no growth to date
- ETT aspirate: S aureus and GNR on 04/20
- CXR - improving CHF
- repeat echo with wall motion abnormalities and fruther decline in the EF to 30-35%
- continue vancomycin day 3
- continue zosyn day 5
- patient is critically ill
Chief Complaint
-: Bacteremia and Other (shock)
Subjective / Review of Systems
afebrile
down to 2 mcg/min norepi on propafol
overall improved leukocytosis
cr stable
CXR: further improved pulm edema on my read
04/20 ETT culture: GNR and s aureus
Vital Signs / Physical Exam
Vital Signs
Vital Signs
Temp Pulse Resp BP Pulse Ox
99.9 F 74 16 122/88 96
04/24/24 08:07 04/24/24 08:23 04/24/24 05:45 04/24/24 08:23 04/24/24 08:23
Physical Exam
Constitutional: No Acute Distress and Chronically Ill
Head: Other (PLACEMENT SECRETARY shunt - no erythema, warmth, tenderness or fluctuance)
Cardiovascular: Regular Rate and S1/S2; Negative Murmur or Rub
Pulmonary: Clear and Symmetric; Negative Wheezes or Rales
Gastrointestinal: Soft, Non Tender, Non Distended and Normal Bowel Sounds
Skin: Warm and Dry; Negative Rash or Jaundice
Wound: Other (R wrist cath site erythematous, no swelling/fluctuance or cords; bilateral groin sites bruised no erythema/warmth/swelling/drainage)
Lines: Other (sputum in ETT canister thin, white, small amount)
Objective Data
Lab Data
Lab Results
04/24/24 04:55
04/24/24 04:55
PT 15.6 Sec (11.4-14.6) H 04/17/24 19:23
INR 1.23 04/17/24 19:23
APTT > 200 Sec (23.4-35.0) H* 04/17/24 19:23
Estimated Creat Clear 52 ml/min 04/24/24 04:55
Lactic Acid 1.3 mmol/L (0.7-2.0) 04/21/24 11:17
Total Bilirubin 1.7 mg/dl (0.2-1.3) H 04/24/24 04:55
AST 85 U/L (14-36) H 04/24/24 04:55
ALT 531 U/L (0-35) H* 04/24/24 04:55
Alkaline Phosphatase 321 U/L (38-126) H 04/24/24 04:55
Most recent labs reviewed.
Micro Results:
04/20/24 22:37 Blood Culture - Preliminary
Blood/Venous Coagulase neg. staphylococcus
Gram Stain - Preliminary
04/20/24 22:55 Respiratory Culture - Preliminary
Endotracheal Gram negative bacilli
Staphylococcus aureus
Gram Stain - Preliminary
04/18/24 16:09 Blood Culture - Final
Blood/Venous No Growth - Final Report
04/22/24 13:15 Blood Culture - Preliminary
Blood/Venous No Growth in 24 hours- Final report to follow
04/22/24 13:17 Blood Culture - Preliminary
Blood/Venous No Growth in 24 hours- Final report to follow
04/18/24 09:40 Blood Culture - Final
Blood/Venous No Growth - Final Report
04/17/24 19:23 MRSA Screen - Final
Nose No Methicillin Resistant Staphylococcus aureus isolated.
--- NOTE | 2024-04-24 10:13 | SUR.OPER ---
Spontaneous Trial
Propofol turned off at 09:30 RASS 0; Levophed turned off at 10:00 for MAP 101; 100 Spontaneous trial 5/5/40% RASS 0; SR 93 BP 122/90 MAP 101
[2024-04-24] MEDS: VANCOCIN 200 IV (10:24)
--- NOTE | 2024-04-24 10:28 | W.PN.HOSP.TC ---
Today's Communication/Plan
-
Spontaneous breathing trial with attempt to wean off sedation
IV diuresis
Antiplatelets.
Empiric antibiotics pending cultures and monitoring temperature curve.
Attempt to wean off pressor
Total Critical Care Time__55___ minutes. I was immediately available to the patient and staff. I personally examined, reviewed labs, diagnostic images/reports, interpretations, treatment plans, discussed patient care with other providers and
family or caregivers (if patient is unable to make decisions), entered orders as appropriate and documented the medical record.
Assessment / Plan
Assessment / Plan
Impression:
CAD/acute coronary syndrome/non-STEMI
Symptomatic bradycardia
Ventilatory dependent respiratory failure in the settings of hemodynamic instability secondary to large SD and cardiogenic shock.
� Extubated 04/19.
� Reintubated on 04/21 in the event of progressive hemodynamic instability and acidosis
Cardiogenic shock
Acute CHF reduced EF
Ischemic cardiomyopathy.
Acute kidney injury
Metabolic/lactic acidosis.
Acute on chronic anemia secondary to dilution
Gram-positive bacteremia versus contamination
Elevated LFTs, mixed picture suspected secondary to shock liver
Conditions prior to admission:*
CVA 02/16
Status post BACKEND DEVELOPER shunt
Essential hypertension
Anemia
PAD.
Tobacco use disorder/current smoker
Plan:
VDRF.
Spontaneous breathing trial on 04/24
Remains on continuous sedation.
Chest x-ray 04/21 with pulmonary edema
Less likely aspiration pneumonia.
Continue IV diuresis to facilitate BMP
Wean off sedation as possible.
Acute coronary syndrome. Large SD
Original presentation with ACS with urgent catheterization and left circumflex stent, and to return to [facility] [employer] after 2 hours with neuro: Situation after distal circumflex dissection propagated from distal age of the stent treated with long distally
overlapping stent. Large OM 2 originated from stented segment occluded on the return and not treatable.
Ischemic cardiomyopathy
Acute CHF reduced EF
Cardiogenic shock
Follow-up echocardiogram 04/22 with LVEF of 30 to 35%
Continue Plavix via tube.
Continue Lipitor.
Has been on beta-ira given hemodynamic instability.
Continue IV Lasix with attempt to wean off IV pressor/Levophed.
Shock likely cardiogenic less likely septic
Has been off IV fluids.
Gentle diuresis secondary to above with vasopressor support.
Blood culture with coag negative Staphylococcus, 1 out of 2 and likely contaminant.
Respiratory culture with gram-negative bacilli and staph auris.
Chest x-ray not consistent with focal infiltrates and improving with diuresis which leaning towards pulmonary edema rather than pneumonia.
Empiric antibiotics vancomycin/Zosyn monitoring temperature curve and hemodynamics.
Infectious disease input appreciated.
Acute kidney injury with creatinine trending down from 1.3-1.0
Metabolic acidosis improved.
Continue monitoring with diuresis.
Elevated LFTs, mixed picture suspected secondary to shock liver.
Trending down.
The above tube in place.
Tube feeding ongoing.
Continue PPI
Hypothyroidism
Noted elevated TSH on admission
Continue Levothyroid supplementation via feeding tube and later p.o.
Acute on chronic anemia.
Noted trending down hemoglobin and likely secondary to dilution.
Given unstable hemodynamics/continued shock, monitor and transfuse to keep hemoglobin above 8.
DVT prophylaxis: Lovenox
GI prophylaxis: IV PPI twice daily
Diet: Start Jevity 1.5 via NGT
CODE STATUS: Full code
Anticipated Discharge: > 48 hours
Subjective/Interval History
-
Date of Service: April 24, 2024
Objective Data
-
Labs:
Laboratory Results
04/24/24 04/24/24
04:51 04:55
WBC 14.5 H
Hgb 9.2 L
Hct 26.7 L
Plt Count 221
HCO3 25.9
Sodium 133 L
Potassium 4.0
Chloride 100
Carbon Dioxide 29
BUN 24 H
Creatinine 0.9
Glucose 155 H
Calcium 7.8 L
Total Bilirubin 1.7 H
AST 85 H
ALT 531 H*
Alkaline Phosphatase 321 H
Vital Signs:
Vital Signs
Temp Pulse Resp BP Pulse Ox
99.9 F 74 16 122/88 96
04/24/24 08:07 04/24/24 08:23 04/24/24 05:45 04/24/24 08:23 04/24/24 08:23
I&O
04/23/24 04/24/24 04/25/24
06:59 06:59 06:59
Intake Total 3072.0 / 3225.8 2821.2 / 2925.0 252.6 / 252.6
Output Total 3115 / 3265 3665 / 3715 500 / 500
Balance -43.0 / -39.2 -843.8 / -790.0 -247.4 / -247.4
Physical Exam
-
General: No Apparent Distress, Comfortable and Intubated
HEENT: Normocephalic, Atraumatic, Moist Mucous Membranes, Anicteric and Other (ET tube with clear secretions)
Respiratory: Clear to Auscultation, Non Labored Respirations and Other (No breath stacking; mechanical sounds); Negative Wheezes, Rales or Rhonchi
Cardiac: Regular Rhythm and S1/S2; Negative Murmur, Rub, JVD or Gallop
GI: Soft, Nontender, Nondistended and Normal Bowel Sounds
Musculoskeletal: No Clubbing, No Cyanosis and No Edema
Skin: Warm and Dry; Negative Rash or Jaundice
Neuro: Sedated
--- NOTE | 2024-04-24 10:53 | PTCARENOTE ---
Spontaneous Trial
currently at 5/0 Peep /40% tolerating without difficulties. Awake , Laying with her eyes open .Does not follow commends
--- NOTE | 2024-04-24 11:56 | PTCARENOTE ---
11:23 Stop Spontaneous Trial
While on spontaneous Trial 5/0 peep /40% . Propofol and Fentanyl off . pt restless; Tachypnea RR 40 ; ST 122; POX 80's . Face appears swollen; Increase secretion via ETT and oral thick, white-Frosty ;
Patient switch to (S)CMV 16/450/+8/80% ST 112; BP 111/89 MAP 97; POX 95% Peak 31; VT 453; RR 19; Propofol at 15mcg +Fentanyl 50mcg; Fentanyl Push 50mcg adm HOB elevated
[2024-04-24 12:03] LABS: Glucose - Point of Care 164 mg/dl (70-99)
[2024-04-24] MEDS: NOVOLOG FLEXPEN-LOW RESISTANCE 1 UNITS SC (13:00)
[2024-04-24] MEDS: PRECEDEX 100 IV (13:11)
[2024-04-24 13:26] LABS: Procalcitonin 1.33 ng/ml (0.0-0.25)
--- NOTE | 2024-04-24 13:43 | W.PN.CD ---
Today's Communication / Plan
-
- Follow up echo when patient extubated.
- Continue Aspirin/Plavix.
- Continue Lasix 40 mg IV BID.
Impression / Plan
-
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 She endorses diaphoresis episodes.
CAD/acute HFrEF/ICM (EF EF 30-35%):
- large [place] with peak trop 340; cardiogenic shock.
- Original presentation ACS- had L cx stent (dominant) then 2 hrs later return to [facility] after near code and had distal cx dissection (propagated from distal edge of stent) treated with long distally overlapping stent. Large OM2 originating from
stented segment occluded on return and not treatable. The stent itself was patent.
-cardiogenic shock improved initially
- ECHO -performed while patient was on pressors. Multiple wall motion abnormalities.
- ECHO precath normal LV without valve disease.
- Follow up echo when patient extubated.
- GDMT currently limited by BP.
- Continue Aspirin/Plavix.
- Continue Lasix 40 mg IV BID.
.
VDRF/PNA -extubated 04/19/2024. Patient appeared well and morning on 04/20/2024 but in the evening had decompensation with progressive acidosis and had to be reintubated 04/21/2024.
-Remains intubated.
-ABX to cover pneumonia. 1 of 2 blood cxs drawn prior to ABX showed coag neg staph. ID consulted and added vanco. zosyn stopped
-Optimization as directed by Pulmonary.
-04/20/24 one BC positive with gram pos cocci.
Moderate to severe MR:
-Repeat echocardiogram after extubated.
Hypothyroid
-TSH 23
- Medicine has started synthroid
Vascular
- No role for urgent vascular intervention. Patient has been assessed by vascular surgery.
-As previously noted by Dr. Chica thomas PAD with occluded R CI and near occlusion of terminal aorta
LIME FILTER OPERATOR shunt
-WBC 20.5k .
Anemia stable
-PRBC given last 04/21/24 with improvementof hb to 10
-With extent of coronary and vascular disease would favor higher target hemoglobin
Heart block
-Resolved after return to [facility]
-Pacer removed.
.
PAF. Brief episode that occurred night patient went back to [facility] and was in shock and on pressors. No recurrence. Patient had received amiodarone which is since been discontinued monitor for recurrence
CLAUDIO. Nephrology following.
Prior CVA
- On DAPT
Remains critically ill.
CCT 38 min
Physical Exam
Vital Signs/Labs
Vital Signs
Temp Pulse Resp BP Pulse Ox
99.7 F 83 18 122/88 98
04/24/24 12:38 04/24/24 10:01 04/24/24 10:01 04/24/24 08:23 04/24/24 12:00
04/23/24 04/24/24 04/25/24
06:59 06:59 06:59
Actual Weight 65.9 kg 66 kg
04/24/24 04:55
PT 15.6 Sec (11.4-14.6) H 04/17/24 19:23
INR 1.23 04/17/24 19:23
APTT > 200 Sec (23.4-35.0) H* 04/17/24 19:23
Magnesium 2.0 mg/dl (1.6-2.3) 04/24/24 04:55
Triglycerides 133 mg/dl (10-149) 04/23/24 03:52
LDL Cholesterol, Calc 126 mg/dl 04/17/24 09:09
VLDL Cholesterol, Calc 37 mg/dl (0-30) H 04/17/24 09:09
HDL Cholesterol 55 mg/dl 04/17/24 09:09
Free T4 1.08 ng/dl (0.78-2.19) 04/17/24 09:09
04/24/24
04:55
[id number] Pept 4780
Physical Exam
Constitutional: Other (Intubated)
EENT: Anicteric
Cardiovascular: Rhythm & rate is regular, Pedal edema is absent, Systolic murmur present (/) and S1S2 is normal
Respiratory: Other (Coarse bilateral breath sounds; on vent)
GI: Soft
Neuro/Psych: Other (Intubated, sedated)
Other: Skin (Warm, dry)
Data Reviewed
-
Date of Service: April 24, 2024
EKG: Tracing Personally Visualized and interpreted (Telemetry: Sinus tachycardia)
Labs: Labs Reviewed by me
Critical Care Time (in minutes): 37
--- NOTE | 2024-04-24 14:13 | PTCARENOTE ---
Adjusting Sedation
RR 23 Peak 47 Vent Dyssynchrony BP 98/73 MAP 83 Precedex increased from 0.4 to 0.6 per protocol ; Fentanyl increased from 50 to 75
--- NOTE | 2024-04-24 15:32 | PTCARENOTE ---
patient sedated and intubated . RT PICC line : levophed at 4/15ml +Fentanyl 75/7.5++Propofol 10/3.8 ml. Precedex turned off HR 54-56 ; BP via left FA 83/62 MAP 69; vent (S) CMV 16/450/+8/50% . Peak 33; RR 16; VT 448;
[2024-04-24 15:50] LABS: Glucose - Point of Care 120 mg/dl (70-99)
[2024-04-24] MEDS: LOVENOX 40 MG SC ×2 (16:57→16:58)
[2024-04-24 17:44] LABS: Glucose - Point of Care 126 mg/dl (70-99)
[2024-04-24 18:47] LABS: Blood Urea Nitrogen 28 mg/dl (7-17); Calcium 7.9 mg/dl (8.4-10.2); Carbon Dioxide 33 mmol/L (22-30); Chloride 95 mmol/L (98-107); Estimated Creatinine Clearance 52 ml/min; Glucose 148 mg/dl (70-99); Phosphorus 3.3 mg/dl (2.5-4.5); Potassium 3.4 mmol/L (3.5-5.1); Sodium 133 mmol/L (135-145); eGFR > 60.00
[2024-04-24] MEDS: SUBLIMAZE 100 IV (19:11)
[2024-04-24] MEDS: MELATONIN 5 MG PO (21:07)
[2024-04-24] MEDS: LEVOPHED 250 IV (21:44)
[2024-04-25] VITALS (76 sets, daily range): BP systolic 66–124; BP diastolic 42–77; BMI 28.9
--- NOTE | 2024-04-25 | PTCARENOTE ---
systems reviewed, pt remains intubated and sedated, lungs sound diminished and pt not producing as many oral secretions as prior assessments, RASS -2, TF at goal and pt tolerating, K was repleted.
[2024-04-25 00:05] LABS: Glucose - Point of Care 134 mg/dl (70-99)
[2024-04-25] MEDS: ZOSYN 50 IV ×4 (00:08→17:07)
[2024-04-25] MEDS: NOVOLOG FLEXPEN-LOW RESISTANCE SC ×3 (00:32→18:33)
[2024-04-25] MEDS: TYLENOL 650 MG PO (02:54)
--- NOTE | 2024-04-25 03:22 | PTCARENOTE ---
titrated levo to 6 pt SBP in the 80's, core temp 100.6 - Tylenol given, blood cultures, lactic, UA and sputum samples obtained. Pt was able to respond she can hear me by nodding, was able to follow commands, wiggled her toes and squeezed my hands.
[2024-04-25 03:36] LABS: % Basophils 0.4 % (0-2); % Eosinophils 1.1 % (0-6); % Immature Granulocytes 1.6 % (0-0.5); % Lymphocytes 7.9 % (20.5-51.1); % Monocytes 6.5 % (1.7-9.3); % Neutrophils 82.5 % (42.2-75.2); Absolute Basophils 0.1 10^3/uL (0-0.2); Absolute Eosinophils 0.2 10^3/uL (0-0.7); Absolute Immature Granulocytes 0.3 10^3/uL (0-0.05); Absolute Lymphocytes 1.3 10^3/uL (1.2-3.4); Absolute Monocytes 1.1 10^3/uL (0.1-0.6); Absolute Neutrophils 13.6 10^3/uL (1.4-6.5); Hematocrit 29.8 % (37.0-47.0); Lactic Acid 1.8 mmol/L (0.7-2.0); Mean Corp Hgb Conc. 33.6 g/dL (33.0-37.0); Mean Corpuscular Hgb 29.6 pg (27.0-31.0); Mean Corpuscular Volume 88.2 fL (81.0-99.0); Mean Platelet Volume 12.6 fL (7.4-10.4); Nucleated Red Blood Cells % 1.3 %; Platelet Count 282 10^3/uL (130-400); Red Blood Cell Count 3.38 10^6/uL (4.20-5.40); Red Cell Dist. Width 14.6 % (11.5-14.5); White Blood Cell Count 16.5 10^3/uL (4.8-10.8)
[2024-04-25 03:37] LABS: ALT (SGPT) 358 U/L (0-35); AST (SGOT) 61 U/L (14-36); Albumin 2.8 g/dl (3.5-5.0); Alkaline Phosphatase 290 U/L (38-126); Blood Urea Nitrogen 28 mg/dl (7-17); Calcium 7.8 mg/dl (8.4-10.2); Carbon Dioxide 31 mmol/L (22-30); Chloride 99 mmol/L (98-107); Estimated Creatinine Clearance 47 ml/min; Glucose 164 mg/dl (70-99); Potassium 4.1 mmol/L (3.5-5.1); Sodium 134 mmol/L (135-145); Total Bilirubin 1.4 mg/dl (0.2-1.3); Total Protein 5.2 g/dl (6.3-8.2); eGFR > 60.00
[2024-04-25 05:30] LABS: Urine Albumin Trace (Neg - Trace); Urine Bilirubin Negative (Negative); Urine Character Clear (Clear); Urine Color Yellow; Urine Glucose Negative (Negative); Urine Ketone Trace (Negative); Urine Leukocyte 2+ (Negative); Urine Nitrite Negative (Negative); Urine Occult Blood 2+ (Negative); Urine Urobilinogen 3+ (Neg - 1+)
[2024-04-25] MEDS: SYNTHROID 50 MCG TUBE (05:35)
[2024-04-25 05:41] LABS: Urine Bacteria Few (Negative)
[2024-04-25 05:43] LABS: Glucose - Point of Care 123 mg/dl (70-99)
[2024-04-25] MEDS: PLAVIX 75 MG PO (07:39)
[2024-04-25] MEDS: LASIX 40 MG IV (07:39)
[2024-04-25] MEDS: PROTONIX IV 40 MG IV (07:39)
[2024-04-25] MEDS: LOW STRENGTH ASPIRIN 81 MG PO (07:39)
[2024-04-25] MEDS: NSS (PRESERVATIVE FREE) 10 ML IV (07:39)
[2024-04-25] MEDS: ROBITUSSIN 100 MG TUBE ×4 (07:39→21:59)
[2024-04-25] MEDS: ULTRAM 100 MG PO (07:39)
[2024-04-25] MEDS: MIRALAX TUBE (07:40)
[2024-04-25] MEDS: LEVOPHED 250 IV ×2 (07:49→15:08)
--- NOTE | 2024-04-25 07:54 | PTCARENOTE ---
Received Patient from shift production supervisor. patient is awake, Rass =1. intubated, sedated lightly with propofol at 10mcg. Patient has number 7.5 ETT , 22 at lip, vent settings AC 16/450/40%5 with oxygen saturation at 100%. [id number] to have large
amounts of oral secretions. Patient is sinus rhythm on monitor. levophed at 10 with map of 69. Patient has generalized anasarca, dopper pulses, with hands pitting at +2. patient has [place] sump on right nare, tube feeds are at goal of 45ml/hr
(Jevity 1.5). Patient has loose stools. hernandes is draining clear yellow urine, will administer lasix this morning. assessment as documented in worklist. all orders reviewed, safe environment maintained.
--- NOTE | 2024-04-25 08:39 | W.PN.INTV ---
Today's Communication / Plan
Recommendations
Right heart catheterization with Temple-Luis Felipe insertion
CT surgery consult for evaluation of MitraClip
Follow-up RHC numbers and adjust diuresis accordingly
Replete electrolytes with K >4, mag >2
Antibiotics as per ID -IV vancomycin/Zosyn/micafungin
Trend BNP + Pro-Lionel
Trend creatinine
Daily weaning trials with SBT + SAT
Daughter +patient's brother, Jose, were updated today at bedside
Assessment
-
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
separate occasions-with successful stenting of culprit 90% mid circumflex lesion, subsequent successful angioplasty and stenting of distal overlapping fashion occlusion of the large OM 2, and subsequent successful placement of transvenous pacer via
left femoral vein-international relations professor consulted for ventilator/critical care management 04/18/2024.
Impression:
Ventilator dependent respiratory failure
Intubated 04/17/2024
Extubated 04/19/2024
Reintubated 04/20/2024 for CHF
Circulatory shock � suspect cardiogenic shock in the setting of sepsis (sepsis is controlled with downtrending procal)
Symptomatic bradycardia, worsened with Precedex
Acute HFrEF with LVEF EF-30-35% and moderate-severe MR on TTE from 04/22/2024
CAD/non-STEMI
s/p cardiac catheterization 04/17/2024--successful stenting 90% mid circumflex lesion c/b nonocclusive dissection distal to stent causing total occlusion of large OM2
Recurrent multiple and hospital cardiac arrhythmias/codes
Status post cardiac catheterization 04/17/2024-successful angioplasty and stenting of distal overlapping fashion of large OM 2 lesion
Subsequent recurrent severe symptomatic bradycardia-status post third catheterization 04/17/2024-successful placement via left femoral vein transvenous pacer
Aspiration pneumonia with MDR Serratia marcescens + MSSA seen on respiratory culture from 04/20/2024
Leukocytosis
Anemia
Metabolic acidosis -resolved
Lactic acidosis � resolved as of 04/21/2024
Hyperglycemia -resolved
Conditions present prior to admission:
CVA-01/2024
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
Hypertension.
Anemia
Current smoker.
PAD
Plan
Remains critically ill + intubated on vasopressors
Ventilator settings reviewed - lowered PEEP to 5 on 04/23 from 8
- On 04/24 she did well on PST 01/28, but failed SBT on PS of 5, PEEP of 0 (?recurrent flash edema)
- Daily SAT/SBT with goal PEEP of 0 to be more sensitive of continued pulmonary edema and to reduce risk of re-intubation
Adjust FiO2 + PEEP to maintain SpO2 >90 - 94%
Follow ABG
Will continuously adjust ventilator as needed
Maintain plateau pressure <30
Nebulizers as needed-currently not bronchospastic
Aspiration precautions
Chest x-ray 04/25/2024-prominent central vasculature now with worsening pulmonary edema compared to yesterday's CXR
Cardiology following-correspondence reviewed
I discussed case this AM with cardiology, Dr. Quiros, and given her worsening CXR with concern for persistent cardiogenic shock, patient will now undergo right heart catheterization with Temple-Luis Felipe insertion
- Follow up RHC #'s and adjust diuresis accordingly
Pt currently on Lasix 40 mg IV twice daily --> replete K>4, Mg>2
Troponin trended-peak of 340 on 04/18/2024
Echocardiogram reviewed and summarized below
Cardiac catheterization x 3 reviewed and summarized
Anticoagulation and antiplatelet therapy per cardiology
Antiarrhythmics including amiodarone per cardiology --> now DC'd
Maintain MAP>65
Cardiothoracic surgery consult to eval for surgical intervention of moderate-severe mitral valve regurgitation
Monitor renal function, electrolytes, intake/output, lower extremity edema and weight
Replace electrolytes as needed
Transvenous pacer removed 04/19/2024
Hold metoprolol for now as she was bradycardic in 50s --> resume when clinically able to
Cultures reviewed
Respiratory culture collected on 04/20 grew MDR Serratia marcescens + MSSA--> ID on board, currently on IV vanco (started 04/20) + zosyn (started 04/21) + micafungin started today
Would treat for 10-14 days given her circulatory shock state with pneumonia
Blood culture 04/20/2024-09/27 positive with coagulase-negative Staphylococcus, likely contaminant
Monitor leukocytosis, temperature curve
Zosyn was initially started empirically due to persistent hypotension and leukocytosis
MRSA screen negative
Follow hemoglobin with goal >8g/dL, plt>20k
Transfuse if needed
Note: Vascular surgery evaluation ongoing-right femoral approach unable to advance wire due to occlusion of common iliac, subsequent attempt at left femoral access and sheath placement due to bulky distal aortic bifurcation plaque/stenosis unable to
advance wires and catheters therefore left radial approach was undertaken-no acute need for intervention, no acute limb ischemia, eventual DAYDAY/TBI's and outpatient vascular follow-up
Smoking cessation counseling will continue after extubation
DVT prophylaxis-on Lovenox
GI prophylaxis-on pantoprazole-latest Society of critical care medicine does not support PPI while on ventilator, however, when shock present, coagulopathy present, etc. then PPI/or H2 ira is indicated
Nutrition via nasogastric tube --> change Peel sump to DHT
Early mobilization/PT/OT
If patient survives hospitalization, recommend eventual outpatient rehab and then would recommend outpatient pulmonary evaluation-smoking cessation, PFTs, yearly low-dose lung cancer screening CT, etc.
Critical care statement: A total of 41 minutes of critical care time was provided for this patient today. This includes management of unstable vital signs, evaluation of the patient at bedside, reviewing the patient's pertinent medical records
including radiographs, ventilator management, pressor management, microbiology, laboratory evaluations, and discussion with primary team, consultants, pharmacy, nutrition, physical therapy, case management, charge nurse, critical care nursing, and
respiratory therapy.
Diagnostic data:
Chest x-ray 04/17/2024-NAD
Chest x-ray 04/18/2024-endotracheal tube tip terminates at the bj-should be retracted
Chest x-ray 04/18/2024-satisfactory position of endotracheal tube, interval decrease in bilateral airspace disease representing improved pulmonary edema
Chest x-ray 04/18/2024-right PICC terminates at the expected location, stable mild pulmonary edema
Chest x-ray 04/19/2024-improved pulmonary edema stable lines and tubes
Chest x-ray 04/20/2024-increased CHF
Chest x-ray 04/24/2024- The endotracheal tube is in satisfactory position; mild pulmonary edema, improved but incompletely resolved compared with the prior study
Chest x-ray 04/25/2024- Progressed findings suggesting moderate pulmonary edema; mild cardiomegaly
Echocardiogram 04/18/2024-moderately reduced LV function-EF 40%, normal right ventricular size with RV hypokinesis and distal RV hypokinesis, mild mitral regurgitation
Subjective Dataa
Subjective Data
Date of Service:
Date of Service: April 25, 2024
Chief Complaint: Excel Expert Follow Up, Pulmonary Follow Up and Vent Management Follow Up
Subjective:
Seen and evaluated this AM. Febrile overnight to 100.6 �F. She is net +1.36 L the last 24 hours. White oral secretions seen, scant ETT secretions. Restarted on levophed yesterday afternoon - currently at 8mcg/min. Sedated on propofol at
10mcg/kg/min and fentanyl at 50mcg/hr.. Pt remains intubated on VC @ 450/16/40%/5, now on PST 5. Occasionally following simple commands. She was placed on 2 PS 5, PEEP of 0 for at least 20-25 minutes and she was tolerating this with VTe of
420�475 and breathing between 16-20 breaths minute. She shortly thereafter started coughing more and also became more tachypneic, switch back to assist control.
Review of Systems
General: Other (Unable to obtain as patient is intubated/sedated)
Objective Data
Data Reviewed
Vital Signs / I&O / Oxygen:
Vital Signs
Temp Pulse Resp BP Pulse Ox
99.2 F 71 13 97/66 100
04/25/24 07:38 04/25/24 11:00 04/25/24 11:00 04/25/24 11:00 04/25/24 11:01
Intake and Output
04/24/24 04/25/24 04/26/24
06:59 06:59 06:59
Intake Total 2821.2 / 2925.0 3039.5 / 3158.3 794.0 / 794.0
Output Total 3665 / 3715 1680 / 1710 780 / 780
Balance -843.8 / -790.0 1359.5 / 1448.3 14.0 / 14.0
SaO2 [SIMV] 100
SaO2 [CPAP] 96
SaO2 [A/C] 100
SaO2 100
Nasal Cannula flow liters per 5
minute
Physical Exam
General: Respiratory Distress (n), Comfortable and Chills (negative)
HEENT: Normocephalic, Anicteric and Other (ETT in place)
Cardiovascular: S1-S2 and Peripheral Edema (Negative)
Respiratory: Wheeze (n), Crackles (basilar), Rhonchi (n), Non-Labored Respirations, Accessory Resp Muscle Use (n), Stridor (Negative), ET Tube and Other (Mechanical breath sounds heard bilaterally; coarse BS heard bilaterally)
GI: Soft, Non Distended and Non Tender
Neurology: Tremors (negative) and Lethargic (Sedated on a ventilator, arousable to tactile simulation, occasionally following simple commands)
Skin: Warm, Dry, Cyanosis (n) and Jaundice (n)
Labs/Micro/Reports
Lab Data
04/25/24 03:08
04/25/24 03:08
Microbiology
04/22/24 13:15 Blood/Venous Blood Culture - Preliminary
No Growth in 48 hours- Final report to follow
04/22/24 13:17 Blood/Venous Blood Culture - Preliminary
No Growth in 48 hours- Final report to follow
04/20/24 22:37 Blood/Venous Blood Culture - Final
Staphylococcus epidermidis
04/20/24 22:37 Blood/Venous Gram Stain - Final
04/20/24 22:55 Endotracheal Respiratory Culture - Final
Serratia marcescens
S aureus-Methicillin Sensitive
04/20/24 22:55 Endotracheal Gram Stain - Final
04/18/24 16:09 Blood/Venous Blood Culture - Final
No Growth - Final Report
04/18/24 09:40 Blood/Venous Blood Culture - Final
No Growth - Final Report
--- NOTE | 2024-04-25 08:56 | W.PN.ID1 ---
Date of Service
Date of Service: April 25, 2024
Today's Communication
- unclear if progressive shock more driven by cardiogenic factors or a new, secondary infection, workup as below. Might be useful to consider invasive monitoring, defer to policy advisor/cardiology.
- when in shock recommend blood cultures x2 send second set
- covid ag
- will follow up urine culture, ua essentially normal
- recent sputum culture with serratia - zosyn does not typically induce ampC in serratia, also mssa
- not meningismic, no signs of shunt infection
- if liquid stool check for c diff, currently with normal stool
- restart vancomycin, patient with cellulitis and IRON MINER BLASTING shunt
- continue zosyn
- add micafungin for now
Assessment / Plan
Shock Progressive
Mild R wrist surgical site infection
Pseudobacteremia (contamination) vs Gram Positive Bacteremia
Hospital Acquired Pneumonia
Shock - ongoing, cardiogenic +/- septic; suspect majority cardiogenic
Leukocytosis - possibly reactive
IRON MINER BLASTING -shunt
- note increasing pressor requirements, fever is defined as over 101.0 via core route - not having tamela fevers yet
- unclear if progressive shock more driven by cardiogenic factors or a new, secondary infection, workup as below. Might be useful to consider invasive monitoring, defer to policy advisor/cardiology.
- progressive shock: send blood cultures x2
- ua: 6-10 wbc/hpf, minimal squamous cells, few bacteria; urine culture pending
- 04/24 CXR: mild pulm edema still present on my read - nearly resolved per radiology
- 04/24 repeat resp culture has been sent, gram stain pending
- 04/20 resp culture: moderate MSSA, moderate Serratia - sensitive to zosyn; zosyn does not typically induce ampC in serratia
- if tamela diarrhea check for c diff, stool currently formed
- progressive improvement in transaminitis
- procalcitonin does not add to my assessment, patient with known infection and no plan of stopping antibiotics at this time - advise against sending in this context
- covid ag
- TTE: note progressive decline in EF with multiple wall motion abnormalities
- no evidence of IRON MINER BLASTING shunt infection on exam - neck supple no erythema, warmth, swelling or tenderness along the course
- erythema of the right wrist cath site persists, cellulitis, no cords; began after the episode of possible bacteremia vs contamination - continue vanc
- restart vancomycin day 4; dosing is q24 hours functionally patient was not off of it
- continue zosyn day 6
- add micafungin for now
- patient is critically ill with progression overnight
Chief Complaint
-: Bacteremia and Other (shock)
Subjective / Review of Systems
core Tmax 100.6
increasing norepi overnight now up to 10 mcg/min
pulse 70-80
RR teens to 20s
stools loose, not liquid
Vital Signs / Physical Exam
Vital Signs
Vital Signs
Temp Pulse Resp BP Pulse Ox
99.2 F 71 21 96/64 100
04/25/24 07:38 04/25/24 07:30 04/25/24 07:30 04/25/24 07:30 04/25/24 07:59
Physical Exam
Constitutional: No Acute Distress
Head: Other (IRON MINER BLASTING shunt - no erythema, warmth, tenderness or fluctuance; neck is supple)
Cardiovascular: Regular Rate and S1/S2; Negative Murmur or Rub
Pulmonary: Clear and Symmetric; Negative Wheezes or Rales
Gastrointestinal: Soft, Non Tender, Non Distended and Normal Bowel Sounds
Skin: Warm and Dry; Negative Rash or Jaundice
Wound: Other (R wrist cath site erythematous, no swelling/fluctuance or cords; bilateral groin sites bruised no erythema/warmth/swelling/drainage)
Neurological: Other (neck supple); Negative Meningeal Signs
Objective Data
Lab Data
Lab Results
04/25/24 03:08
04/25/24 03:08
PT 15.6 Sec (11.4-14.6) H 04/17/24 19:23
INR 1.23 04/17/24 19:23
APTT > 200 Sec (23.4-35.0) H* 04/17/24 19:23
Estimated Creat Clear 47 ml/min 04/25/24 03:08
Lactic Acid 1.8 mmol/L (0.7-2.0) 04/25/24 03:08
Total Bilirubin 1.4 mg/dl (0.2-1.3) H 04/25/24 03:08
AST 61 U/L (14-36) H 04/25/24 03:08
ALT 358 U/L (0-35) H 04/25/24 03:08
Alkaline Phosphatase 290 U/L (38-126) H 04/25/24 03:08
Most recent labs reviewed notable in that
wbc midlly increased
plt improved
L shift increased 82%
cr 1.0
lfts continue to trend down
Micro Results:
04/25/24 03:21 Urine Culture - Pending
Urine
04/25/24 03:21 Respiratory Culture - Pending
Tracheal Aspirate Gram Stain - Pending
04/25/24 03:08 Blood Culture - Pending
Blood/Venous
04/22/24 13:15 Blood Culture - Preliminary
Blood/Venous No Growth in 48 hours- Final report to follow
04/22/24 13:17 Blood Culture - Preliminary
Blood/Venous No Growth in 48 hours- Final report to follow
04/20/24 22:37 Blood Culture - Final
Blood/Venous Staphylococcus epidermidis
Gram Stain - Final
04/20/24 22:55 Respiratory Culture - Final
Endotracheal Serratia marcescens
S aureus-Methicillin Sensitive
Gram Stain - Final
04/18/24 16:09 Blood Culture - Final
Blood/Venous No Growth - Final Report
04/18/24 09:40 Blood Culture - Final
Blood/Venous No Growth - Final Report
04/17/24 19:23 MRSA Screen - Final
Nose No Methicillin Resistant Staphylococcus aureus isolated.
Care Review
Plan reviewed with: Nurse (exam)
--- NOTE | 2024-04-25 09:08 | PHA.VAN.FU ---
Vancomycin Assessment / Plan
- Assessment
Renal Function: Stable
WBC's are: Trending Up
Concomitant Antimicrobials: piperacillin/tazobactam
- Dosing Plan
Continue: Vancomycin 1000mg Q24H
Vancomycin discontinued yesterday evening and resumed this morning
Patient has not missed any doses - received last dose yesterday at 10:24
Will give dose now and then schedule from 0600 standard time
- Monitoring Plan
No level(s) ordered at this time: consider levels in next few days
- Follow Up
Pharmacy will continue to follow.
Vancomycin Follow UP
- -
Patient Age: 68
Patient Sex: Female
Vancomycin Day #: 4
Indication: Bacteremia
Requesting Provider: Dr. Zamorano
Pertinent Antimicrobial Allergies:
NKDA
Height / Weight:
Height 5 ft
Actual Weight 67.1 kg
Pertinent Past Medical History: PAD, COLLAR TRIMMER Shunt
- Vital Signs / Lab Results
Temp Pulse Resp BP Pulse Ox
99.2 F 71 21 96/64 100
04/25/24 07:38 04/25/24 07:30 04/25/24 07:30 04/25/24 07:30 04/25/24 07:59
Lab Results - Hematology
04/23/24 04/24/24 04/25/24
03:52 04:55 03:08
WBC 14.3 H 14.5 H 16.5 H
Lab Results - Chemistry
04/23/24 04/23/24 04/24/24
03:52 21:20 04:55
BUN 28 H 25 H 24 H
Creatinine 1.0 0.9 0.9
Estimated Creat Clear 47 52 52
Albumin 2.7 L
04/24/24 04/25/24
18:22 03:08
BUN 28 H 28 H
Creatinine 0.9 1.0
Estimated Creat Clear 52 47
Albumin 2.8 L
04/25/24
03:08
Lactic Acid 1.8
Lab Results - Urine
04/25/24
03:21
Urine Nitrite (Reflex) Negative
Leukocyte Esterase Rfl 2+ A
Ur Squamous Epith Cells 3-5
Microbiology Results
04/22/24 13:15 Blood Culture - Preliminary
Blood/Venous No Growth in 48 hours- Final report to follow
04/22/24 13:17 Blood Culture - Preliminary
Blood/Venous No Growth in 48 hours- Final report to follow
04/20/24 22:37 Blood Culture - Final
Blood/Venous Staphylococcus epidermidis
Gram Stain - Final
04/20/24 22:55 Respiratory Culture - Final
Endotracheal Serratia marcescens
S aureus-Methicillin Sensitive
Gram Stain - Final
04/18/24 16:09 Blood Culture - Final
Blood/Venous No Growth - Final Report
04/18/24 09:40 Blood Culture - Final
Blood/Venous No Growth - Final Report
Therapeutic Drug Monitoring
Random Vancomycin 11.3 ug/ml 04/24/24 04:55
[2024-04-25 10:17] LABS: COVID-19 Antigen Negative (Negative)
[2024-04-25] MEDS: VANCOCIN 200 IV (10:22)
[2024-04-25] MEDS: MYCAMINE 105 MG IV (11:46)
[2024-04-25] MEDS: NOVOLOG FLEXPEN-LOW RESISTANCE 1 UNITS SC (11:48)
[2024-04-25 11:59] LABS: Glucose - Point of Care 153 mg/dl (70-99)
--- NOTE | 2024-04-25 12:05 | PTCARENOTE ---
weaning patient and will obtain gas at 12:30,
--- NOTE | 2024-04-25 12:22 | W.PN.CD ---
Today's Communication / Plan
-
RHC/Pipestem-Luis Felipe catheter today.
Discussed with patient's family. Consent obtained.
Impression / Plan
-
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 with bradycardia and anginal equivalent (AYON, diaphoresis) c/w NSTEMI leading to cardiac catheterization/PCI of the
dominant LCx with jailing of the OM due to unfavorable plaque shift subsequently complicated by acute stent thrombosis requiring repeat PCI with complete loss of the OM leading to cardiogenic shock, CHB requiring temporary pacemaker and hypoxic
respiratory failure requiring intubation/mechanical ventilation.
#CAD/NSTEMI
-Acute.
-Large NC with peak trop 340 with resultant cardiogenic shock.
-Initial presentation ACS - had dominant LCx PCI then returned to field laboratory operator 2 hrs later after near code and had distal cx dissection/acute stent thromosis, treated with long distally overlapping stent. Large OM2 originating from stented segment
occluded on return and not treatable.
-Cardiogenic shock improved initially; she was weaned from vent and extubated on 04/19/2024, but reintubated for worsening hypoxic respiratory failure on 04/20/2024.
-DAPT with aspirin and clopdidogrel.
-High dose, high potency statin.
#Ischemic cardiomyopathy/HFrEF/Shock
-Acute.
-LVEF EF 30-35%.
-Pressor requirement persists, limiting GDMT.
-CXR appears worse today. Weight is up in spite of furosemide 40 mg IV BID.
-Plan to place IJ Pipestem-Luis Felipe to determine source of shock (cardiogenic vs. septic).
-Like transition to bumetanide gtt.
#VDRF/PNA
-Acute, recurrent.
-Extubated 04/19/2024. Patient appeared well and morning on 04/20/2024 but in the evening had decompensation with progressive acidosis and had to be reintubated 04/20/2024.
-Remains intubated.
-Procalcitonin 1.33. ABX to cover pneumonia. 1 of 2 blood cxs drawn prior to ABX showed coag neg staph. ID consulted and added vancomycin to piperacillin/tazobactam.
-Optimization as directed by Pulmonary.
-ABG today = 7.49/41/79/31.
-RHC/Pipestem-Luis Felipe as above.
#Moderate to severe MR
-Progressive from earlier in hospitalization.
-Repeat echocardiogram after extubated.
-Primary driver/refuse collector of worsening CXR/shock?
-If so, we need to consider DEYSI.
#Hypothyroid
-New diagnosis.
-TSH = 23
-Medicine has started levothyroxine.
#PAOD
-New diagnosis.
-Angiography shows near occlusion of the distal aorta, severe disease in the left femoral system and ENAMEL DRIER of the RCIA.
-No role for urgent vascular intervention. Patient has been assessed by vascular surgery.
#Anemia
-Chronic, stable.
-PRBC given last 04/21/24 with improvement of Hbg to 10.
-With extent of coronary and vascular disease, would favor higher target hemoglobin.
#Heart block
-Resolved after return to field laboratory operator
-Pacer removed.
#PAF
-New diagnosis.
-Brief episode that occurred night patient went back to Manager Cardiac Cath and was in shock and on pressors. No recurrence.
-Patient had received amiodarone which is since been discontinued monitor for recurrence.
#ANUEL
-Acute.
-Nephrology following.
#Prior CVA + HORSE RACE STARTER Shunt
Critical Care Time = 60 minutes.
Subjective/Interval History:
Core Temperature now 38.1.
Patient hypotensive overnight. Norepinephrine requirement increasing.
CXR looks worse.
ID/ICU asking to clarify filling pressures, source of shock.
Weight (67.1 kg) is up 1.1 kg from yesterday, 3.5 kg from bruce (63.6 kg).
Remains intubated on FiO2 = 40%.
DATA:
CXR, 04/25/2024:
IMPRESSION:
Progressed findings suggesting moderate pulmonary edema.
Mild cardiomegaly. Stable.
TTE, 04/18/2024:
CONCLUSIONS
Moderately reduced left ventricular function with estimated ejection fraction
40%.
Lateral, inferolateral, inferior and apical wall motion abnormalities.
Normal right ventricular size with RV hypokinesis as noted distal RV
hypokinesis as noted in subcostal views.
Mild mitral regurgitation.
Mild tricuspid regurgitation.
Compared to the previous report from 04/17/2024 there has been a reduction in
left ventricular function and new wall motion abnormalities.
Physical Exam
Vital Signs/Labs
Vital Signs
Temp Pulse Resp BP Pulse Ox
36.9 C 71 13 97/66 100
04/25/24 12:02 04/25/24 11:00 04/25/24 11:00 04/25/24 11:00 04/25/24 11:53
04/24/24 04/25/24 04/26/24
11:59 11:59 11:59
Actual Weight 66 kg 67.1 kg
04/25/24 03:08
04/25/24 03:08
PT 15.6 Sec (11.4-14.6) H 04/17/24 19:23
INR 1.23 04/17/24 19:23
APTT > 200 Sec (23.4-35.0) H* 04/17/24 19:23
Magnesium 2.0 mg/dl (1.6-2.3) 04/24/24 18:22
Triglycerides 133 mg/dl (10-149) 04/23/24 03:52
LDL Cholesterol, Calc 126 mg/dl 04/17/24 09:09
VLDL Cholesterol, Calc 37 mg/dl (0-30) H 04/17/24 09:09
HDL Cholesterol 55 mg/dl 04/17/24 09:09
Free T4 1.08 ng/dl (0.78-2.19) 04/17/24 09:09
04/24/24
04:55
[id number] Pept 4780
Physical Exam
Constitutional: No acute distress and Comfortable
EENT: Anicteric, Moist mucous membranes and Other (ET tube in place.)
Cardiovascular: Rhythm & rate is regular, Pedal edema is absent and JVD pressure is normal
Respiratory: Other (Coarse breath sounds throughout.)
GI: Soft, Distention absent, Flat, Non tender and Normal bowel sounds
Neuro/Psych: Other (Intubated and sedated.)
Other: Cath Site (Bilateral radial/femoral access sites are C/D/I.)
Data Reviewed
-
Date of Service: April 25, 2024
Medical Decision Making: Reviewed Test Results, Test Interpretation and Review of Case with other Provider
EKG: Tracing Personally Visualized and interpreted and Report Reviewed by me
Echo: Tracing Personally Visualized and interpreted and Report Reviewed by me
X-Ray/CT/US/MRI/NUC/PET: Image Personally Visualized and interpreted and Report Reviewed by me
Medical Tests (PFT, Pathology etc): Image Personally Visualized and interpreted and Report Reviewed by me
Labs: Labs Reviewed by me
Old Records: Reviewed
[2024-04-25 12:39] LABS: NT-proBNP 6500 pg/ml
[2024-04-25 13:13] LABS: B.E. 7.2 mmol/L; HCO3 31.2 mmol/L (21-28); PCO2 41 mmHg (32-35); PO2 79 mmHg (83-108); pH 7.49 (7.35-7.45)
[2024-04-25 13:27] LABS: O2 Saturation % 96.5 % (94-98)
--- NOTE | 2024-04-25 13:48 | CM ---
Addendum entered by Cedric Oconnell 04/25/24 15:03:
CM met with pt's brother Jose and sister Jenelle. Per brother and sister, pt never been , has 3 children: daughter Darvin [phone] and 2 sons: one with intellectual disability lives with father and another son is in detention.
CM spoke to pt's daughter Darvin and she is aware she is next of kin and she is a person to make decision regarding pt's care and pt's daughter expressed her understanding. Pt's daughter stated she will communicate with her uncle Jose and aunt Jenelle.
CM met with pt's brother and sister and they are aware of pt's daughter request to be a decision maker.
Changes made on pt's contact list.
Original Note:
CM following re: discharge planning.
Reviewed pt's chart, met with pt. per Rounds meeting, pt admitted with Ventilator dependent respiratory failure. Intubated 04/17/2024. Extubated 04/19/2024. Reintubated 04/20/2024 for CHF, remains intubated, short term weaning trial today, continue
supportive care.
Per CM note, pt is a intermediate frame tender care resident at [facility], on 15 day Medicaid bed hold, ambulates with a walker at baseline.
D/C plan: return back to [facility] for a intermediate frame tender care. Pt might need a short term rehabilitation upon the discharge and at that point pt will need an auth for skilled services if indicated.
CM will follow with discharge plan updates as hospitalization progresses
[2024-04-25] MEDS: SUBLIMAZE 50 MCG IV (14:06)
[2024-04-25 14:24] LABS: Procalcitonin 0.57 ng/ml (0.0-0.25)
--- NOTE | 2024-04-25 14:41 | CONSULT.CT ---
Addendum entered and electronically signed by Glenn Rico MD 04/26/24 08:03:
I saw and examined the patient.
The PA's note was reviewed and I agree with the note.
Comment:
Pt. is NOT a candidate for surgical intervention given her prohibitive level of surgical risk.
Continue w/ medical management
Consideration evaluation for future MitraClip
Original Note:
Consultation
-
Date/Time Consultation Requested: 04/25/24 1331
Date/Time Consultation Performed: 04/25/24 1523
Requesting Provider: Elvis LANDIS
Performing Provider: Hardeep CASE for Dr. Rico
Reason for Consultation: MVR eval
Patient History
Physicians
Family Physician: Chris Siglaa
Outpatient Weigher Packing: Unable to obtain
Inpatient Weigher Packing: Hadley Dunlap MD
History of Present Illness
68-year-old female with hypertension, s/p BUSINESS DEVELOPMENT shunt, H/O CVA 2 months ago that presented to the hospital yesterday with symptomatic bradycardia. Possible ST elevations at facility, troponin bumped to 0.4 while here. Was taken to Mathematics Professor where LCx
PCI was performed. Subsequently developed recurrent bradycardia while in IVU and was emergently taken for a repeat catheterization which showed a nonocclusive dissection distal to ANALI and newly occluded OM 2 branch. Overnight, patient became
bradycardic and was taken back to the lab pack chemist for TVP placement. She also developed respiratory compromise that necessitated intubation. After intubation, patient became dependent on vasopressor and inotropic support which were weaned and she was
extubated on 04/20/2024, however, developed worsening respiratory distress with acidemia and was reintubated 04/20 in the afternoon. She now is still intubated, following commands, and tolerating SBTs. She will be taken for a RHC and DEYSI. CT surgery
was consulted for MVR evaluation.
Past Medical History
Past Medical History: HTN, Hypercholesterolemia and Other
BUSINESS DEVELOPMENT shunt
CVA
CAD
Past Surgical History
Past Surgical History: PCI/Stent
Unable to obtain from patient currently
Dental History
Unknown
Family History
Mother: N/A
Father: N/A
Family Medical History: Unable to Obtain
Social History
Alcohol: None
Drug: None
Tobacco: Smoker
Personal: Single
Living: Snf
Employment: Disabled
Allergies
Allergy/AdvReac Type Severity Reaction Status Date / Time
No Known Allergies Allergy Unverified 04/17/24 08:55
Home Medications
�Medication �Instructions �Recorded �Confirmed �Type
amlodipine 5 mg tablet 5 mg PO DAILY Blood Pressure 04/17/24 04/17/24 History
aspirin 81 mg chewable tablet 81 mg PO DAILY Blood Clot 04/17/24 04/17/24 History
Prevention/Tx
bisacodyl 10 mg rectal suppository 10 mg TN DAILYPRN PRN 04/17/24 04/17/24 History
(Dulcolax (bisacodyl)) constipation, mom ineffective
bismuth subsalicylate 262 mg/15 mL 524 mg PO Q4HPRN PRN indigestion 04/17/24 04/17/24 History
oral suspension (Pepto-Bismol)
clopidogrel 75 mg tablet (Plavix) 75 mg PO DAILY Blood Clot 04/17/24 04/17/24 History
Prevention/Tx
eucalyptus-menthol oral mucosal 1 milana mucous membrane Q4HPRN PRN 04/17/24 04/17/24 History
lozenge dry cough
ibuprofen 600 mg tablet 600 mg PO DAILY Pain 04/17/24 04/17/24 History
ibuprofen 600 mg tablet 600 mg PO Q8HPRN PRN mild pain 04/17/24 04/17/24 History
magnesium hydroxide 400 mg/5 mL 30 ml PO DAILYPRN PRN constipation 04/17/24 04/17/24 History
oral suspension (Milk of Magnesia)
melatonin 5 mg tablet 5 mg PO HS Sleep 04/17/24 04/17/24 History
sodium phosphates 19 gram-7 118 ml TN DAILYPRN PRN 04/17/24 04/17/24 History
gram/118 mL enema (Fleet Enema) constipaiton, if dulcolax
ineffective
tramadol 50 mg tablet 100 mg PO DAILY Pain 04/17/24 04/17/24 History
Review of Systems
-
Unable to obtain full review of systems at this time due to: Patient Intubation
Physical Exam
Vital Signs
Temp 98.4 F 04/25/24 12:02
Temp route: Core 04/25/24 12:02
Pulse 71 04/25/24 11:00
Rhythm: Normal sinus rhythm 04/25/24 07:59
With- Normal sinus rhythm 04/23/24 08:00
Telemetry QTc: 526 04/19/24 18:00
Resp Rate 13 04/25/24 11:00
Systolic BP: 120 04/24/24 10:01
Blood pressure 97/66 04/25/24 11:00
Blood pressure extremity used: Left forearm 04/21/24 15:00
Position: Lying 04/21/24 15:00
MAP (cuff-Radha Monitor) 77 04/25/24 11:00
MAP 95 04/20/24 15:43
SaO2 100 04/25/24 11:53
Nasal Cannula flow liters per minute 5 04/20/24 15:43
Oxygen Mode of Delivery Ventilator 04/25/24 07:59
Flow liters per minute # 8 04/20/24 16:44
% Oxygen delivered 40 04/25/24 07:59
Acceptable pain level during hospitalization? 5 04/17/24 08:56
Can the patient verbally communicate their pain? No 04/25/24 14:06
Arterial Systolic Pressure 110 04/24/24 05:15
Arterial Diastolic Pressure 100 04/24/24 05:15
MAP (M-Jiag-Uulkfzh Monitor) 106 04/24/24 05:15
MAP A-Line 81 04/20/24 15:43
Actual Weight 67.1 kg 04/25/24 05:49
Body Mass Index (BMI) 28.9 04/25/24 05:49
etC02 value 28 04/23/24 20:45
Labs
04/25/24 03:08
04/25/24 03:08
PT 15.6 Sec (11.4-14.6) H 04/17/24 19:23
APTT > 200 Sec (23.4-35.0) H* 04/17/24 19:23
Hemoglobin A1c 5.3 % (4.0-5.6) 04/17/24 09:09
Troponin I 258.000 ng/ml H* 04/18/24 22:07
Fwl-K-Ehkgfirclve Pept 6500 pg/ml 04/25/24 03:08
Arterial Blood Gases
pH 7.49 (7.35-7.45) H 04/25/24 13:07
pCO2 41 mmHg (32-35) H 04/25/24 13:07
pO2 79 mmHg (83-108) L 04/25/24 13:07
HCO3 31.2 mmol/L (21-28) H 04/25/24 13:07
Base Excess 7.2 mmol/L 04/25/24 13:07
ABG O2 Sat (Measured) 96.5 % (94-98) 04/25/24 13:07
Sodium 142 mMOL/L (136-145) 04/21/24 13:12
Potassium 2.5 mMOL/L (3.5-5.1) L* 04/21/24 13:12
O2 Delivery Level 04/25/24 13:07
Urinalysis
Urine Color Yellow 04/25/24 03:21
Urine Clarity Clear (Clear) 04/25/24 03:21
Urine pH 5.0 (5.0-9.0) 04/25/24 03:21
Ur Specific [place] 1.010 (<1.030) 04/25/24 03:21
Urine Ketones Trace (Negative) A 04/25/24 03:21
Urine Occult Blood 2+ (Negative) A 04/19/24 17:00
Ur Occult Blood Reflex 2+ (Negative) A 04/25/24 03:21
Urine Bilirubin Negative (Negative) 04/25/24 03:21
Ur Leukocyte Esterase Negative (Negative) 04/19/24 17:00
Leukocyte Esterase Rfl 2+ (Negative) A 04/25/24 03:21
Urine RBC 7-10 /HPF (0-2) A 04/25/24 03:21
Urine WBC 6-10 /HPF (0-5) A 04/19/24 17:00
Urine WBC (Reflex) 6-10 /HPF (0-5) 04/25/24 03:21
Ur Squamous Epith Cells 3-5 /LPF (Few) 04/25/24 03:21
Urine Bacteria (Reflex) Few (Negative) A 04/25/24 03:21
Urine Glucose Negative (Negative) 04/25/24 03:21
Urine Albumin Negative (Neg - Trace) 04/19/24 17:00
Urine Albumin (Reflex) Trace (Neg - Trace) 04/25/24 03:21
Exam
General: Intubated
HEENT: PERRLA
Neck: Trachea Midline
Respiratory: Crackles, Rhonchi and Accessory Muscle Use
Cardiac: S1/S2 and Murmur
GI: Normal Bowel Sounds
Rectal: Deferred by Provider
Skin: Warm and Dry
Neuro: Sedated
Lymph: No Lymphadenopathy
Psych: Other (sedated)
Assessment / Plan
-
68-year-old female with past medical history listed above presented initially with NSTEMI symptoms required a stent to the left circumflex and subsequently required TVP and reintubation. Currently she is being treated for possible sepsis and
prolonged intubation. CT surgery was consulted for mitral valve replacement evaluation.
#Severe mitral valve insufficiency
-Patient is not a surgical candidate, would recommend evaluation for mitral valve clip
-Would recommend getting a DEYSI and right heart cath with possible [place] Luis Felipe catheter placement
Data Reviewed
-
EKG: Tracing Personally Visualized and interpreted
Mathematics Professor: Report Reviewed by me
Echo: Report Reviewed by me
Radiology: Report Reviewed by me
Labs: Labs Reviewed by me
Critical Care Time (in minutes): 55
--- NOTE | 2024-04-25 14:54 | PN.CDI ---
CDI
- -
CDI:
Physician Documentation Request
Admit Date: 04/17/24 12:47
Dear Doctor Ashli,
Patient admitted for NSTEMI.
Laboratory Tests
04/19/24 04/21/24 04/23/24
16:14 15:28 03:52
Sodium 132 L 133 L 130 L
04/23/24 04/24/24 04/25/24
21:20 18:22 03:08
Sodium 133 L 133 L 134 L
Based on the above, could you clarify in the progress notes, the appropriate diagnosis, if significant, that supports the above abnormalities and additional evaluation, monitoring and/or treatment rendered:
Hyponatremia
Abnormal lab value insignificant
Other
Use of terms such as suspected, likely, concern for, or probable (associated with a specific diagnosis that is being evaluated, monitored, or treated as if it exists) are acceptable and can be coded in the inpatient setting, when documented at the
time of discharge.
Thank you,
Dagmar Bruno RN, BSN
CDI Specialist
Available via [employer] text
Please use your independent medical judgment in providing your response.
--- NOTE | 2024-04-25 15:10 | W.PN.HOSP.TC ---
Today's Communication/Plan
-
Attempt of SBT
IV Lasix monitor renal function and daily weights
Empiric antibiotics
Nutritional support
If not been improving over the next 24 to 48 hours, with persistent hypotension, would consider invasive monitoring/right heart cath for better determination of volume status and origin of shock (cardiogenic versus septic)
Total Critical Care Time___45__ minutes. I was immediately available to the patient and staff. I personally examined, reviewed labs, diagnostic images/reports, interpretations, treatment plans, discussed patient care with other providers and
family or caregivers (if patient is unable to make decisions), entered orders as appropriate and documented the medical record.
Assessment / Plan
Assessment / Plan
Impression:
CAD/acute coronary syndrome/non-STEMI
Symptomatic bradycardia
Ventilatory dependent respiratory failure in the settings of hemodynamic instability secondary to large OH and cardiogenic shock.
� Extubated 04/19.
� Reintubated on 04/21 in the event of progressive hemodynamic instability and acidosis
Cardiogenic shock
Acute CHF reduced EF
Ischemic cardiomyopathy.
Acute kidney injury
Metabolic/lactic acidosis.
Acute on chronic anemia secondary to dilution
Gram-positive bacteremia versus contamination
Elevated LFTs, mixed picture suspected secondary to shock liver
Conditions prior to admission:*
CVA 02/16
Status post STAFF PHARMACIST shunt
Essential hypertension
Anemia
PAD.
Tobacco use disorder/current smoker
Plan:
VDRF.
Spontaneous breathing trial on 04/24, 04/25
Remains on continuous sedation.
Chest x-ray 04/21 with pulmonary edema
Less likely aspiration pneumonia.
Continue IV diuresis to facilitate BMP
Wean off sedation as possible.
Acute coronary syndrome. Large OH
Original presentation with ACS with urgent catheterization and left circumflex stent, and to return to Admin Prog Coord after 2 hours with neuro: Situation after distal circumflex dissection propagated from distal age of the stent treated with long distally
overlapping stent. Large OM 2 originated from stented segment occluded on the return and not treatable.
Ischemic cardiomyopathy
Acute CHF reduced EF
Cardiogenic shock
Follow-up echocardiogram 04/22 with LVEF of 30 to 35%
Continue Plavix via tube.
Continue Lipitor.
Has been on beta-ira given hemodynamic instability.
Continue IV Lasix with attempt to wean off IV pressor/Levophed.
Shock likely cardiogenic less likely septic
Has been off IV fluids.
Gentle diuresis secondary to above with vasopressor support.
Blood culture with coag negative Staphylococcus, 1 out of 2 and likely contaminant.
Respiratory culture with gram-negative bacilli and staph auris.
Chest x-ray not consistent with focal infiltrates and improving with diuresis which leaning towards pulmonary edema rather than pneumonia.
Empiric antibiotics vancomycin/Zosyn monitoring temperature curve and hemodynamics.
Infectious disease input appreciated.
Acute kidney injury with creatinine trending down from 1.3-1.0
Metabolic acidosis improved.
Continue monitoring with diuresis.
Elevated LFTs, mixed picture suspected secondary to shock liver.
Trending down.
The above tube in place.
Tube feeding ongoing.
Continue PPI
Hypothyroidism
Noted elevated TSH on admission
Continue Levothyroid supplementation via feeding tube and later p.o.
Acute on chronic anemia.
Noted trending down hemoglobin and likely secondary to dilution.
Given unstable hemodynamics/continued shock, monitor and transfuse to keep hemoglobin above 8.
DVT prophylaxis: Lovenox
GI prophylaxis: IV PPI twice daily
Diet: Start Jevity 1.5 via NGT
CODE STATUS: Full code
Anticipated Discharge: > 48 hours
Subjective/Interval History
-
Date of Service: April 25, 2024
Objective Data
-
Labs:
Laboratory Results
04/25/24 04/25/24
03:08 13:07
WBC 16.5 H
Hgb 10.0 L
Hct 29.8 L
Plt Count 282 D
HCO3 31.2 H
Sodium 134 L
Potassium 4.1
Chloride 99
Carbon Dioxide 31 H
BUN 28 H
Creatinine 1.0
Glucose 164 H
Calcium 7.8 L
Total Bilirubin 1.4 H
AST 61 H
ALT 358 H
Alkaline Phosphatase 290 H
Vital Signs:
Vital Signs
Temp Pulse Resp BP Pulse Ox
99.2 F 71 13 97/66 100
04/25/24 15:03 04/25/24 11:00 04/25/24 11:00 04/25/24 11:00 04/25/24 15:02
I&O
04/24/24 04/25/24 04/26/24
06:59 06:59 06:59
Intake Total 2821.2 / 2925.0 3039.5 / 3158.3 1209.1 / 1209.1
Output Total 3665 / 3715 1680 / 1710 1330 / 1330
Balance -843.8 / -790.0 1359.5 / 1448.3 -120.9 / -120.9
Physical Exam
-
General: No Apparent Distress, Comfortable and Intubated
HEENT: Normocephalic, Atraumatic, Moist Mucous Membranes, Anicteric and Other (ET tube with clear secretions)
Respiratory: Clear to Auscultation, Non Labored Respirations and Other (No breath stacking; mechanical sounds); Negative Wheezes, Rales or Rhonchi
Cardiac: Regular Rhythm and S1/S2; Negative Murmur, Rub, JVD or Gallop
GI: Soft, Nontender, Nondistended and Normal Bowel Sounds
Musculoskeletal: No Clubbing, No Cyanosis and No Edema
Skin: Warm and Dry; Negative Rash or Jaundice
Neuro: Sedated
--- NOTE | 2024-04-25 16:18 | ITS.CL.CATH ---
Nougat Candy Maker Helper - Catheterization
Cardiac Catheterization
Procedure Report:
RIGHT HEART CATHETERIZATION
Date of Procedure: 04/25/2024
Referring: Stanley Leal M.D.
INDICATION: Persistent hypoxic respiratory failure, severe mitral valve regurgitation.
ACCESS:
8 [place] right internal jugular vein using a modified Seldinger technique with a micropuncture kit under ultrasound guidance.
CATHETERS:
7.5 [place]Luis Felipe thermodilution catheter.
PROCEDURE:
The patient was prepped and draped in standard sterile fashion. The area for right internal jugular access was anesthetized with 1% lidocaine. Under ultrasound guidance, the right internal jugular vein was identified and punctured using the
micropuncture needle. The micropuncture wire was advanced and the micropuncture sheath was advanced over this wire. A small incision was made at the base of the sheath. The inner dilator and wire was removed. The 0.035 J-wire was advanced into
the right atrium and the outer micropuncture sheath was removed. A 8 [place] sheath was inserted internal jugular vein and sutured in place. A 7.5 [place] thermodilution [place]Luis Felipe catheter was advanced through the sheath into the superior vena cava.
An SVC oxygen saturation was drawn. The balloon wedge catheter was advanced into the pulmonary artery and a pulmonary artery oxygen saturation was drawn. Arterial oxygen saturation was assumed from pulse oximetry. Cardiac output was calculated
using the Jose equation as well as thermodilution. The PA, wedge, RV and RA pressures were measured on insertion. The [place] Felipe catheter was locked in place using the cover.
Weight (kg): 66.7
PA (s/d/x mmHg): 60/40/47
PCWP (a/v/x mmHg): 43/47/39
RV (s/x mmHg): 60/25
RA (a/v/x mmHg): 30//
SVC SvO2 (%): 54.4
IVC SvO2 (%): Not obtained.
RA SvO2 (%): Not obtained.
RV SvO2 (%): Not obtained.
PA SvO2 (%): 47.3
SaO2 (%): 97.0 (assumed)
Hbg (g/dL): 10.3
Jose
CO (liters/minute): 2.27
CI (liters/minute/m2): 1.39
Thermodilution
CO (liters/minute): 2.60
CI (liters/minute/m2): 1.59
TPG (mmHg): 8
PVR (Fuller Units): 3.08
AVO2 Difference (Volume %): 6.96
Radiation (mGy): 16.86
DAP (cm2.Gy): 1.6372
Fluoroscopy time (minutes): 0.5
CONCLUSION:
1. Severely elevated filling pressures (PCWP = 39 mmHg at 66.7 kg).
2. Severely depressed cardiac index (1.59 L/min/m� by thermodilution, 1.39 L/min/m� by Jose equation) consistent with cardiogenic shock.
3. Severe, primarily postcapillary pulmonary hypertension (mean PA pressure = 47 mmHg, PCWP = 39 mmHg, PVR = 3.08 Wood units).
RECOMMENDATIONS:
1. Expectant management after right heart catheterization via right internal jugular approach.
2. Add inotropes to improve cardiac index and forward flow.
3. Begin significant diuretics to improve the position on the tamela Starling curve.
4. Consider DEYSI given severity of mitral valve regurgitation as a primary local company refrigerated truck driver of the cardiogenic shock.
5. The patient's severe peripheral arterial disease precludes the use of transfemoral support devices.
Copy to: Stanley Leal M.D., Hadley Dunlap M.D., Chris Sigala, D.O.
Matty Quiros D.O., [facility], FACP
[2024-04-25] MEDS: NSS 500 IV (16:49)
[2024-04-25] MEDS: LASIX IV (16:50)
--- NOTE | 2024-04-25 16:50 | PTCARENOTE ---
Patient received back from medical lab technician. Right IJ cordis hooked up to NSS at 3ml/hr. Hub Sutured and Tegaderm'ed at 49cm.. Wedge was measured at 39 and PA at 47.
[2024-04-25] MEDS: LOVENOX 40 MG SC (17:14)
--- NOTE | 2024-04-25 17:17 | W.PN.UPDATE ---
Update Note
Progress Note Update
notified the RHC consistent with cardiogenic shock
stopped micafungin
[2024-04-25] MEDS: SUBLIMAZE 100 IV (17:46)
[2024-04-25 18:08] LABS: Glucose - Point of Care 102 mg/dl (70-99)
[2024-04-25] MEDS: BUMEX 50 IV (18:19)
[2024-04-25] MEDS: DOBUTREX 250 MG IV (18:27)
[2024-04-25] MEDS: DOBUTREX 500 MG 250 IV (18:39)
[2024-04-25] MEDS: DOPamine 400 MG 250 IV (18:48)
--- NOTE | 2024-04-25 20:00 | PTCARENOTE ---
Assumed care of pt sedated and intubated, Rass -2, pupils 2 and sluggish, sinus tach with BBB and PVC, [place] in place, CO: 5.3, CI: 3.23, vent: 16, 450, 5, 40%, coarse throughout, ETT 7.5, 22cm @ the lip, DHT R nare 65cm, BS present x4, TF at goal
45/25, Escobar, Bumex 1mg/4ml output 175cc, +1 generalized anasarca, +2 pitting edema B/L UE, scattered ecchymosis, R DL PICC: LEVO 8mcg/30ml, Fent 25mcg/2.5ml, Prop 15mcg/5.9ml, Dobutamine 10mcg/20.1ml, Dopamine stopped for run of VT STUNT PERFORMER at bedside
and aware.
[2024-04-25] MEDS: MELATONIN 5 MG PO (21:59)
[2024-04-25 22:59] LABS: Ionized Calcium 0.94 mMOL/L (1.15-1.33)
[2024-04-25 23:26] LABS: Magnesium 1.8 mg/dl (1.6-2.3); Potassium 2.9 mmol/L (3.5-5.1)
[2024-04-26] VITALS (92 sets, daily range): BP systolic 60–128; BP diastolic 39–97; BMI 27.7
[2024-04-26] MEDS: KCL 100 IV ×2 (00:14→06:03)
[2024-04-26] MEDS: NOVOLOG FLEXPEN-LOW RESISTANCE SC (00:29)
[2024-04-26] MEDS: CALCIUM CHLORIDE 10% SYRINGE 60 MG IV ×2 (00:30→05:02)
[2024-04-26 00:32] LABS: Glucose - Point of Care 129 mg/dl (70-99)
[2024-04-26] MEDS: DIPRIVAN 100 IV (00:57)
[2024-04-26] MEDS: LEVOPHED 250 IV ×3 (00:57→11:41)
[2024-04-26] MEDS: MAGNESIUM SULFATE 102 GRAMS IV (01:20)
[2024-04-26] MEDS: ZOSYN 50 IV ×4 (01:43→17:29)
[2024-04-26] MEDS: BUMEX 50 IV (02:54)
--- NOTE | 2024-04-26 03:17 | PTCARENOTE ---
systems reviewed, pt tolerating vent, titrating drips per protocol, CO and CI completed per protocol, pt vitals stable, order placed per INSPECTOR FIBROUS WALLBOARD for L foot IV, Labs drawn, Mg, Ca, K repleted, output avg around 350 cc/hr otherwise see flowchart
[2024-04-26] MEDS: NSS 500 IV (03:30)
[2024-04-26 03:55] LABS: Ionized Calcium 1.08 mMOL/L (1.15-1.33)
[2024-04-26 04:06] LABS: % Basophils 0.3 % (0-2); % Eosinophils 0.5 % (0-6); % Immature Granulocytes 1.6 % (0-0.5); % Lymphocytes 8.2 % (20.5-51.1); % Monocytes 6.8 % (1.7-9.3); % Neutrophils 82.6 % (42.2-75.2); Absolute Eosinophils 0.1 10^3/uL (0-0.7); Absolute Immature Granulocytes 0.2 10^3/uL (0-0.05); Absolute Lymphocytes 1.2 10^3/uL (1.2-3.4); Absolute Neutrophils 12.5 10^3/uL (1.4-6.5); Hematocrit 29.9 % (37.0-47.0); Hemoglobin 9.9 g/dL (12.0-16.0); Mean Corp Hgb Conc. 33.1 g/dL (33.0-37.0); Mean Corpuscular Hgb 29.6 pg (27.0-31.0); Mean Corpuscular Volume 89.3 fL (81.0-99.0); Nucleated Red Blood Cells % 0.5 %; Platelet Count 322 10^3/uL (130-400); Red Blood Cell Count 3.35 10^6/uL (4.20-5.40); Red Cell Dist. Width 14.6 % (11.5-14.5); White Blood Cell Count 15.1 10^3/uL (4.8-10.8)
[2024-04-26] MEDS: VANCOCIN 200 IV (05:03)
[2024-04-26] MEDS: SUBLIMAZE 50 MCG IV ×2 (05:12→16:11)
[2024-04-26 05:24] LABS: Blood Urea Nitrogen 25 mg/dl (7-17); Calcium 8.7 mg/dl (8.4-10.2); Carbon Dioxide 32 mmol/L (22-30); Chloride 94 mmol/L (98-107); Estimated Creatinine Clearance 59 ml/min; Glucose 162 mg/dl (70-99); Magnesium 2.1 mg/dl (1.6-2.3); Potassium 3.4 mmol/L (3.5-5.1); Sodium 135 mmol/L (135-145); Triglycerides 156 mg/dl (10-149); eGFR > 60.00
[2024-04-26] MEDS: SYNTHROID 50 MCG TUBE (05:32)
[2024-04-26] MEDS: NOVOLOG FLEXPEN-LOW RESISTANCE 1 UNITS SC ×3 (06:02→18:05)
[2024-04-26 06:10] LABS: Glucose - Point of Care 177 mg/dl (70-99)
[2024-04-26] MEDS: PLAVIX 75 MG PO (07:33)
[2024-04-26] MEDS: ULTRAM 100 MG PO (07:33)
[2024-04-26] MEDS: LOW STRENGTH ASPIRIN 81 MG PO (07:33)
[2024-04-26] MEDS: PROTONIX IV 40 MG IV (07:34)
[2024-04-26] MEDS: NSS (PRESERVATIVE FREE) 10 ML IV (07:34)
[2024-04-26] MEDS: ROBITUSSIN 100 MG TUBE ×4 (07:34→22:33)
--- NOTE | 2024-04-26 07:59 | W.PN.CD ---
Today's Communication / Plan
-
Stop Bumex infusion
Begin bumex 2mg IV bid
aldactone 25 mg daily due to chronic hypokalemia
Check carotid USG to rule out reversal of flow in L vertebral
Impression / Plan
-
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
dominant LCx with jailing of the OM due to unfavorable plaque shift subsequently complicated by acute stent thrombosis requiring repeat PCI with complete loss of the OM leading to cardiogenic shock, CHB requiring temporary pacemaker and hypoxic
respiratory failure requiring intubation/mechanical ventilation.
#CAD/NSTEMI
-Acute.
-Large GA with peak trop 340 with resultant cardiogenic shock.
-Initial presentation ACS - had dominant LCx PCI then returned to physical laboratory assistant 2 hrs later after near code and had distal cx dissection/loss of large OM originating from stented segment- STENT placed 2 hours earlier patent, treated with long distally
overlapping stent. Large OM2 originating from stented segment occluded on return and not treatable.
-Cardiogenic shock improved initially; she was weaned from vent and extubated on 04/19/2024, but reintubated for worsening hypoxic respiratory failure on 04/20/2024.
-DAPT with aspirin and clopidogrel.
-High dose, high potency statin.
#Ischemic cardiomyopathy/HFrEF/Shock
-Acute.
-LVEF EF 30-35%.
-Pressor requirement persists, currently on dopamine 10/Levo6/dobut 5 with PA 24/20, CO 4 and CI 2.4. These much improved vs yesterday when PA line placed
-Will stop Bumex drip given more favorable HD and wt down 4 lbs as pressor requirements still high
- The fact that she has such good UO despite high pressor requirement makes me suspicious that her true central aortic pressure may be higher than what is being measured in LUE. Will check BP RUE and get carotid USG to make sure there is not
reversal of flow in vertebrals which would indicate subclavian artery stenosis
#VDRF/PNA
-Acute, recurrent.
-Extubated 04/19/2024. Patient appeared well and morning on 04/20/2024 but in the evening had decompensation with progressive acidosis and had to be reintubated 04/20/2024.
-Remains intubated.
-Procalcitonin 1.33. ABX to cover pneumonia. 1 of 2 blood cxs drawn prior to ABX showed coag neg staph. ID consulted and added vancomycin to piperacillin/tazobactam.
-Optimization as directed by Pulmonary.
-ABG today = 7.49/41/79/31.
-RHC/[place]-[facility] Felipe as above.
-Nutrition per IM
#Moderate to severe MR
-Progressive from earlier in hospitalization.
-No DEYSI today. Suspect that the increase in MR from moderate to moderate to severe was related to volume overload/CHF
- We can reassess MR with TTE tomorrow. If MR still appears mod-severe or severe then DEYSI. She is too ill to consider any mitral intervention at this time
#Hypothyroid
-New diagnosis.
-TSH = 23
-Medicine has started levothyroxine.
#PAOD
-New diagnosis.
-Angiography shows near occlusion of the distal aorta, severe disease in the left femoral system and WHEAT GROWER of the RCIA.
-No role for urgent vascular intervention. Patient has been assessed by vascular surgery.
#Anemia
-Chronic, stable.
-PRBC given last 04/21/24 with improvement of Hbg to 10.
-With extent of coronary and vascular disease, would favor higher target hemoglobin.
#Heart block
-Resolved after return to physical laboratory assistant
-Pacer removed.
#PAF
-New diagnosis.
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 No recurrence.
-Patient had received amiodarone which is since been discontinued monitor for recurrence.
#ANUEL
-Acute.
-Nephrology following.
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
Critical Care Time =38minutes.
Subjective/Interval History:
Intubated and fully saturated on FIO2 40%
Tm 99.4
DATA:
CXR, 04/25/2024:
IMPRESSION:
Progressed findings suggesting moderate pulmonary edema.
Mild cardiomegaly. Stable.
TTE, 04/18/2024:
CONCLUSIONS
Moderately reduced left ventricular function with estimated ejection fraction
40%.
Lateral, inferolateral, inferior and apical wall motion abnormalities.
Normal right ventricular size with RV hypokinesis as noted distal RV
hypokinesis as noted in subcostal views.
Mild mitral regurgitation.
Mild tricuspid regurgitation.
Compared to the previous report from 04/17/2024 there has been a reduction in
left ventricular function and new wall motion abnormalities.
Physical Exam
Vital Signs/Labs
Vital Signs
Temp Pulse Resp BP Pulse Ox
98.1 F 95 16 90/55 100
04/26/24 07:41 04/26/24 07:30 04/26/24 07:30 04/26/24 07:30 04/26/24 07:46
04/25/24 04/26/24 04/27/24
06:59 06:59 06:59
Actual Weight 147 lb 14.883 oz 141 lb 12.116 oz
04/26/24 03:43
PT 15.6 Sec (11.4-14.6) H 04/17/24 19:23
INR 1.23 04/17/24 19:23
APTT > 200 Sec (23.4-35.0) H* 04/17/24 19:23
Magnesium 2.1 mg/dl (1.6-2.3) 04/26/24 03:43
Triglycerides 156 mg/dl (10-149) H 04/26/24 03:43
LDL Cholesterol, Calc 126 mg/dl 04/17/24 09:09
VLDL Cholesterol, Calc 37 mg/dl (0-30) H 04/17/24 09:09
HDL Cholesterol 55 mg/dl 04/17/24 09:09
Free T4 1.08 ng/dl (0.78-2.19) 04/17/24 09:09
04/24/24 04/25/24
04:55 03:08
[id number] Pept [id number]
Data Reviewed
-
Date of Service: April 26, 2024
[2024-04-26] MEDS: MIRALAX 17 GRAMS TUBE (08:23)
[2024-04-26] MEDS: DOPamine 400 MG 250 IV (08:46)
[2024-04-26] MEDS: ALDACTONE 25 MG TUBE (08:50)
--- NOTE | 2024-04-26 08:55 | W.PN.INTV ---
Today's Communication / Plan
Recommendations
Continue with [place]-Luis Felipe with trending of cardiac index, PA diastolic pressure and PCWP to continue with Levophed for cardiogenic shock
Diuresis with Bumex -changed to intermittent doses from continuous given improvement in PCWP today
CT surgery consulted on 04/25 for evaluation of MitraClip
Replete electrolytes with K >4, mag >2
Antibiotics as per ID - now only on Zosyn
Trend BNP + procal
Trend creatinine
Daily weaning trials with SBT + SAT
DEYSI tomorrow with possible mitraclip in near future, need to have GOC discussion first and establish her baseline functional status
Assessment
-
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
separate occasions-with successful stenting of culprit 90% mid circumflex lesion, subsequent successful angioplasty and stenting of distal overlapping fashion occlusion of the large OM 2, and subsequent successful placement of transvenous pacer via
left femoral vein-collision mechanic consulted for ventilator/critical care management 04/18/2024.
Impression:
Ventilator dependent respiratory failure
Intubated 04/17/2024
Extubated 04/19/2024
Reintubated 04/20/2024 for CHF
Cardiogenic shock � in the setting of sepsis (sepsis is controlled with downtrending procal) -RHC performed on 04/25/2024 shows PCWP of 39, mPAP 47mmHg and CO/CI low at 2.6/1.39 with TPG of 8 (WHO Group II pHTN)
Symptomatic bradycardia, worsened with Precedex
Acute HFrEF with LVEF EF-30-35% and moderate-severe MR on TTE from 04/22/2024
CAD/non-STEMI
s/p cardiac catheterization 04/17/2024--successful stenting 90% mid circumflex lesion c/b nonocclusive dissection distal to stent causing total occlusion of large OM2
Recurrent multiple and hospital cardiac arrhythmias/codes
Status post cardiac catheterization 04/17/2024-successful angioplasty and stenting of distal overlapping fashion of large OM 2 lesion
Subsequent recurrent severe symptomatic bradycardia-status post third catheterization 04/17/2024-successful placement via left femoral vein transvenous pacer
Aspiration pneumonia with MDR Serratia marcescens + MSSA seen on respiratory culture from 04/20/2024
Leukocytosis
Anemia
Metabolic acidosis -resolved
Lactic acidosis � resolved as of 04/21/2024
Hyperglycemia -resolved
Left subclavian steal syndrome
Conditions present prior to admission:
CVA-01/2024
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
Hypertension.
Anemia
Current smoker.
PAD
Plan
Remains critically ill + intubated on vasopressors
Ventilator settings reviewed - lowered PEEP to 5 on 04/23 from 8
- On 04/24 she did well on PST 5/5, but failed SBT on PS of 5, PEEP of 0 (?recurrent flash edema)
- Daily SAT/SBT with goal PEEP of 0 to be more sensitive of continued pulmonary edema and to reduce risk of re-intubation; if she tolerates PST of 5/0 (PEEP:0) for 30 mins-2 hours, then obtain ABG and contact me, and if loosk appropriate then will
consider extubating to BiPAP
- Will need to address goals of care prior to extubation as if she fails and is reintubated then she will need tracheostomy for continued medical care
Adjust FiO2 + PEEP to maintain SpO2 >90 - 94%
Follow ABG
Will continuously adjust ventilator as needed
Maintain plateau pressure <30
Nebulizers as needed-currently not bronchospastic
Aspiration precautions
Chest x-ray 04/25/2024-prominent central vasculature now with worsening pulmonary edema compared to yesterday's CXR
Cardiology following-correspondence reviewed
Patient underwent right heart catheterization on 04/25/2024 showing severely elevated filling pressures with severely depressed cardiac index consistent with cardiogenic shock. Dopamine, dobutamine and Bumex drip started.
This morning the patient's PCWP had improved and is currently at 14 mmHg.
Bumex drip has been stopped and she is currently on Bumex 2 mg IV BID --> continue to maintain net negative fluid balance of at least 1-1.5 L/day
Replete electrolytes with K>4, Mg>2
She will obtain DEYSI tomorrow to further evaluate mitral valve, and may eventually need mitral clip however she still remains at high risk for procedures and prognosis still remains guarded considering she had been living in a skilled nursing prior to
this admission with a history of stroke, severe PVD and now at this current hospitalization with ACS complicated by cardiac arrest and prolonged mechanical ventilation with failed extubation X1
Continue levophed for cardiogenic shock and aim for CI of 2.2 or above
Troponin trended-peak of 340 on 04/18/2024
Echocardiogram reviewed and summarized below
Cardiac catheterization x 3 reviewed and summarized
Anticoagulation and antiplatelet therapy per cardiology
Antiarrhythmics including amiodarone per cardiology --> now DC'd
Maintain MAP>65
Cardiothoracic surgery consulted on 04/25 to eval for surgical intervention of moderate-severe mitral valve regurgitation
Monitor renal function, electrolytes, intake/output, lower extremity edema and weight
Replace electrolytes as needed
Transvenous pacer removed 04/19/2024
Hold metoprolol for now as she was bradycardic in 50s --> resume when clinically able to
Cultures reviewed
Respiratory culture collected on 04/20 grew MDR Serratia marcescens + MSSA--> ID on board, currently on zosyn (started 04/21) s/p IV vanco (given from: 04/20 - 04/26) + micafungin (x1 dose on 04/25)
Would treat for 10-14 days given her circulatory shock state with pneumonia
Blood culture 04/20/2024-09/27 positive with coagulase-negative Staphylococcus, likely contaminant
Monitor leukocytosis, temperature curve
Zosyn was initially started empirically due to persistent hypotension and leukocytosis
MRSA screen negative
Follow hemoglobin with goal >8g/dL, plt>20k
Transfuse if needed
Note: Vascular surgery evaluation ongoing-right femoral approach unable to advance wire due to occlusion of common iliac, subsequent attempt at left femoral access and sheath placement due to bulky distal aortic bifurcation plaque/stenosis unable to
advance wires and catheters therefore left radial approach was undertaken-no acute need for intervention, no acute limb ischemia, eventual DAYDAY/TBI's and outpatient vascular follow-up
Smoking cessation counseling will continue after extubation
DVT prophylaxis-on Lovenox
GI prophylaxis-on pantoprazole-latest Society of critical care medicine does not support PPI while on ventilator, however, when shock present, coagulopathy present, etc. then PPI/or H2 ira is indicated
Nutrition via nasogastric tube
Early mobilization/PT/OT
If patient survives hospitalization, recommend eventual outpatient rehab and then would recommend outpatient pulmonary evaluation-smoking cessation, PFTs, yearly low-dose lung cancer screening CT, etc.
Critical care statement: A total of 47 minutes of critical care time was provided for this patient today. This includes management of unstable vital signs, evaluation of the patient at bedside, reviewing the patient's pertinent medical records
including radiographs, ventilator management, pressor management, microbiology, laboratory evaluations, and discussion with primary team, consultants, pharmacy, nutrition, physical therapy, case management, charge nurse, critical care nursing, and
respiratory therapy.
Diagnostic data:
Chest x-ray 04/17/2024-NAD
Chest x-ray 04/18/2024-endotracheal tube tip terminates at the bj-should be retracted
Chest x-ray 04/18/2024-satisfactory position of endotracheal tube, interval decrease in bilateral airspace disease representing improved pulmonary edema
Chest x-ray 04/18/2024-right PICC terminates at the expected location, stable mild pulmonary edema
Chest x-ray 04/19/2024-improved pulmonary edema stable lines and tubes
Chest x-ray 04/20/2024-increased CHF
Chest x-ray 04/24/2024- The endotracheal tube is in satisfactory position; mild pulmonary edema, improved but incompletely resolved compared with the prior study
Chest x-ray 04/25/2024- Progressed findings suggesting moderate pulmonary edema; mild cardiomegaly
Chest x-ray 04/26/2024- Right IJ approach Wharton-Luis Felipe catheter tip terminates in either the interlobar artery or one of the segmental pulmonary arteries; low lung volumes. Stable perihilar airspace opacities favored to represent pulmonary edema.
Echocardiogram 04/18/2024-moderately reduced LV function-EF 40%, normal right ventricular size with RV hypokinesis and distal RV hypokinesis, mild mitral regurgitation
Right heart catheterization 04/25/2024:
1. Severely elevated filling pressures (PCWP = 39 mmHg at 66.7 kg).
2. Severely depressed cardiac index (1.59 L/min/m� by thermodilution, 1.39 L/min/m� by Jose equation) consistent with cardiogenic shock.
3. Severe, primarily postcapillary pulmonary hypertension (mean PA pressure = 47 mmHg, PCWP = 39 mmHg, PVR = 3.08 Wood units).
Subjective Dataa
Subjective Data
Date of Service:
Date of Service: April 26, 2024
Chief Complaint: Career Coordinator Follow Up, Pulmonary Follow Up and Vent Management Follow Up
Subjective:
Pt seen and evaluated this AM. Remains intubated and is on a wean as 5/5 on 40% FiO2. VTe 426mL and breathin at 14 b/min. She is off propofol for her SBT. She is on fentanyl gtt at 25mcg/hr. PCWP this AM was 14mmHg, PADP 19-22mmHg. She is
exquisitely weak, but following simple commands. barely able to lift her head off pillow. Left sided BP has been lower than the right - carotid ultrasound confirmed suspicion for left subclavian steal syndrome.
Review of Systems
General: Other (Unable to obtain as patient is intubated/sedated)
Objective Data
Data Reviewed
Vital Signs / I&O / Oxygen:
Vital Signs
Temp Pulse Resp BP Pulse Ox
98.1 F 101 14 103/61 100
04/26/24 07:41 04/26/24 09:48 04/26/24 09:48 04/26/24 09:45 04/26/24 09:48
Intake and Output
04/25/24 04/26/24 04/27/24
06:59 06:59 06:59
Intake Total 3039.5 / 3158.3 3625.6 / 3775.8 502.0 / 502.0
Output Total 1680 / 1710 5450 / 5450 1050 / 1050
Balance 1359.5 / 1448.3 -1824.4 / -1674.2 -548.0 / -548.0
SaO2 [SIMV] 10
SaO2 [CPAP] 100
SaO2 [A/C] 100
SaO2 100
Nasal Cannula flow liters per 5
minute
Physical Exam
General: Respiratory Distress (n), Comfortable and Chills (negative)
HEENT: Normocephalic, Anicteric and Other (ETT in place)
Cardiovascular: S1-S2 and Peripheral Edema (Negative)
Respiratory: Wheeze (n), Crackles (basilar), Rhonchi (n), Non-Labored Respirations, Accessory Resp Muscle Use (n), Stridor (Negative), ET Tube and Other (Mechanical breath sounds heard bilaterally; coarse BS heard bilaterally)
GI: Soft, Non Distended and Non Tender
Neurology: Tremors (negative) and Lethargic (Sedated on a ventilator, arousable to tactile + verbal simulation, following simple commands once sedation is off)
Skin: Warm, Dry, Cyanosis (n) and Jaundice (n)
Labs/Micro/Reports
Lab Data
04/26/24 03:43
Laboratory Results
04/25/24 04/25/24
13:07 18:41
pH 7.49 H Cancelled
pCO2 41 H Cancelled
pO2 79 L Cancelled
HCO3 31.2 H Cancelled
O2 Delivery Level Cancelled
Microbiology
04/25/24 03:21 Urine Urine Culture - Preliminary
04/25/24 03:08 Blood/Venous Blood Culture - Preliminary
No Growth in 24 hours- Final report to follow
04/25/24 03:21 Tracheal Aspirate Gram Stain - Preliminary
04/22/24 13:15 Blood/Venous Blood Culture - Preliminary
No Growth in 72 hours- Final report to follow
04/22/24 13:17 Blood/Venous Blood Culture - Preliminary
No Growth in 72 hours- Final report to follow
04/20/24 22:37 Blood/Venous Blood Culture - Final
Staphylococcus epidermidis
04/20/24 22:37 Blood/Venous Gram Stain - Final
04/20/24 22:55 Endotracheal Respiratory Culture - Final
Serratia marcescens
S aureus-Methicillin Sensitive
04/20/24 22:55 Endotracheal Gram Stain - Final
04/18/24 16:09 Blood/Venous Blood Culture - Final
No Growth - Final Report
04/18/24 09:40 Blood/Venous Blood Culture - Final
No Growth - Final Report
--- NOTE | 2024-04-26 09:00 | PTCARENOTE ---
Discussed with Dr. Coto BP access: L upper BP 100/69, L wrist 114/91, R wrist 119/81. Presently using R wrist for BP at MD request.
--- NOTE | 2024-04-26 09:10 | PTCARENOTE ---
recd pt 0715 handoff at bedside, gtts and settings reviewed. awakens to verbal stim, ETT to vent, tolerating current settings. restraints for ETT safety. denies pain, denies sensation of being too hot or cold, rests when undisturbed. seen by
Drs. Maya and Chica, updated, plan reviewed, bumex gtt dcd as ordered. TF restarted post synthroid dose, no DEYSI planned for today. multiple bruises noted, bilat arms and groins. BP checked L upper and bilat wrists, presently cuff left on RW
per MD recommendation. Titrating levophed. propofol paused for SBT, tolerating at present. Oral care done. Doppler pedal pulses. PA catheter, zero and dede, readings obtained without diff. filed in EMR. Waveforms recorded.
--- NOTE | 2024-04-26 09:15 | W.PN.ID1 ---
Date of Service
Date of Service: April 26, 2024
Today's Communication
continue zosyn, stopped vanc
Assessment / Plan
Cardiogenic Shock
Hospital Acquired Pneumonia
Resolved R wrist surgical site infection
Pseudobacteremia (contamination) with MSSE 04/20
Leukocytosis - possibly reactive
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
- shock determined to be cardiogenic via RHC
- follow blood cultures from 04/25; 04/22 blood cultures are no growth to date, single blood culture with MSSE 04/20 likely a contaminant
- 04/20 resp culture: moderate MSSA, moderate Serratia - sensitive to zosyn; zosyn does not typically induce ampC in serratia
- follow up 04/25 resp culture
- covid ag neg
- no evidence of BINDERY WORKER shunt infection on exam - neck supple no erythema, warmth, swelling or tenderness along the course
- erythema of the right wrist cath site persists, cellulitis, no cords; began after the contaminated blood culture was obtained
- stopped vancomycin
- continue zosyn day 7
- patient remains critically ill
Chief Complaint
-: Bacteremia and Other (shock)
Subjective / Review of Systems
remains afebrile
now on dobutamine and dopamine - post RHC consistent with cardiogenic shock last night
cardiology commented that severe MR may be flatbed driver of cardiogenic shock
not a surgical candidate per CT surgery
Vital Signs / Physical Exam
Vital Signs
Vital Signs
Temp Pulse Resp BP Pulse Ox
98.1 F 100 13 126/83 100
04/26/24 07:41 04/26/24 09:13 04/26/24 09:13 04/26/24 08:50 04/26/24 09:13
Physical Exam
Constitutional: Acutely Ill and Chronically Ill
Head: Other (BINDERY WORKER shunt - no erythema, warmth, tenderness or fluctuance; neck is supple)
Cardiovascular: Regular Rate and S1/S2; Negative Murmur or Rub
Pulmonary: Clear and Symmetric; Negative Wheezes or Rales
Gastrointestinal: Soft, Non Tender, Non Distended and Normal Bowel Sounds
Skin: Warm and Dry; Negative Rash or Jaundice
Wound: Other (R wrist cath site now nonblanching, no swelling/fluctuance or cords; bilateral groin sites bruised no erythema/warmth/swelling/drainage)
Neurological: Other (neck supple); Negative Meningeal Signs
Lines: Other (pulmonary arter cath in the RIJ - no erythema, warmth tenderness or drainage)
Objective Data
Lab Data
Lab Results
04/26/24 03:43
PT 15.6 Sec (11.4-14.6) H 04/17/24 19:23
INR 1.23 04/17/24 19:23
APTT > 200 Sec (23.4-35.0) H* 04/17/24 19:23
Estimated Creat Clear 59 ml/min 04/26/24 03:43
Lactic Acid 1.8 mmol/L (0.7-2.0) 04/25/24 03:08
Total Bilirubin 1.4 mg/dl (0.2-1.3) H 04/25/24 03:08
AST 61 U/L (14-36) H 04/25/24 03:08
ALT 358 U/L (0-35) H 04/25/24 03:08
Alkaline Phosphatase 290 U/L (38-126) H 04/25/24 03:08
Most recent labs reviewed.
Micro Results:
04/25/24 03:08 Blood Culture - Preliminary
Blood/Venous No Growth in 24 hours- Final report to follow
04/25/24 13:32 Blood Culture - Pending
Blood/Venous
04/25/24 03:21 Respiratory Culture - Pending
Tracheal Aspirate Gram Stain - Preliminary
04/22/24 13:15 Blood Culture - Preliminary
Blood/Venous No Growth in 72 hours- Final report to follow
04/22/24 13:17 Blood Culture - Preliminary
Blood/Venous No Growth in 72 hours- Final report to follow
04/25/24 03:21 Urine Culture - Pending
Urine
04/20/24 22:37 Blood Culture - Final
Blood/Venous Staphylococcus epidermidis
Gram Stain - Final
04/20/24 22:55 Respiratory Culture - Final
Endotracheal Serratia marcescens
S aureus-Methicillin Sensitive
Gram Stain - Final
04/18/24 16:09 Blood Culture - Final
Blood/Venous No Growth - Final Report
04/18/24 09:40 Blood Culture - Final
Blood/Venous No Growth - Final Report
04/17/24 19:23 MRSA Screen - Final
Nose No Methicillin Resistant Staphylococcus aureus isolated.
Care Review
Plan reviewed with: Nurse (lines)
[2024-04-26] MEDS: DOBUTREX 500 MG 250 IV (10:05)
--- NOTE | 2024-04-26 10:32 | CARDSERVDEF ---
Echocardiogram with Definity completed after protocol screening completed. Allergies verified.
Patent IV site: __srege [facility]___
IV site flushed with 0.9% NaCl pre and post administration.
Diluted bolus method utilized to enhance visualization of ventricular pulido.
Total volume given: __5.5__ mL in divided doses under direction echosonographer.
Patient tolerated all procedures well without complications.
--- NOTE | 2024-04-26 10:57 | PTCARENOTE ---
HR elevated during echo, remains in 110 range, diaphoretic. interactive. Dr. Leal bedside, will continue wean for now. Suctioned.
[2024-04-26] MEDS: TYLENOL 650 MG PO (11:36)
[2024-04-26 12:03] LABS: Glucose - Point of Care 172 mg/dl (70-99)
[2024-04-26 12:49] LABS: Ionized Calcium 1.06 mMOL/L (1.15-1.33)
[2024-04-26 13:11] LABS: Blood Urea Nitrogen 30 mg/dl (7-17); Calcium 8.5 mg/dl (8.4-10.2); Carbon Dioxide 34 mmol/L (22-30); Chloride 92 mmol/L (98-107); Estimated Creatinine Clearance 51 ml/min; Glucose 165 mg/dl (70-99); Magnesium 1.8 mg/dl (1.6-2.3); Potassium 3.4 mmol/L (3.5-5.1); Sodium 133 mmol/L (135-145); eGFR > 60.00
[2024-04-26 14:57] LABS: Phosphorus 3.5 mg/dl (2.5-4.5)
[2024-04-26] MEDS: KCL ELIXIR 40 MEQ TUBE (15:04)
[2024-04-26] MEDS: MAGNESIUM OXIDE 500 MG TUBE (15:04)
--- NOTE | 2024-04-26 16:19 | PTCARENOTE ---
incont BM, turned, cleaned, positioned for comfort. complete CHG bath. PA catheter readings obtained. grimaces with any care, notes pain 'everywhere'. Med with fentanyl bolus as ordered.
--- NOTE | 2024-04-26 16:46 | W.PN.HOSP.TC ---
Addendum entered and electronically signed by Kash Cornelius MD 04/30/24 17:34:
Hyponatremia secondary to volume overload.
Original Note:
Today's Communication/Plan
-
SBT.
IV diuresis with support of inotropes/vasopressors.
Empiric antibiotics.
Total Critical Care Time__45___ minutes. I was immediately available to the patient and staff. I personally examined, reviewed labs, diagnostic images/reports, interpretations, treatment plans, discussed patient care with other providers and
family or caregivers (if patient is unable to make decisions), entered orders as appropriate and documented the medical record.
Assessment / Plan
Assessment / Plan
Impression:
CAD/acute coronary syndrome/non-STEMI
Symptomatic bradycardia
Ventilatory dependent respiratory failure in the settings of hemodynamic instability secondary to large SD and cardiogenic shock.
� Extubated 04/19.
� Reintubated on 04/21 in the event of progressive hemodynamic instability and acidosis
Cardiogenic shock
Acute CHF reduced EF
Ischemic cardiomyopathy.
Moderate to severe MR
Acute kidney injury
Metabolic/lactic acidosis.
Acute on chronic anemia secondary to dilution
Gram-positive bacteremia versus contamination
Elevated LFTs, mixed picture suspected secondary to shock liver
Conditions prior to admission:*
CVA 02/16
Status post DIRECTOR NEWS shunt
Essential hypertension
Anemia
PAD.
Tobacco use disorder/current smoker
Plan:
VDRF.
Spontaneous breathing trial on 04/24, 04/25
Remains on continuous sedation.
Chest x-ray 04/21 with pulmonary edema
Less likely aspiration pneumonia.
Continue IV diuresis to facilitate BMP
Wean off sedation as possible.
Acute coronary syndrome. Large SD
Original presentation with ACS with urgent catheterization and left circumflex stent, and to return to [employer] after 2 hours with neuro: Situation after distal circumflex dissection propagated from distal age of the stent treated with long distally
overlapping stent. Large OM 2 originated from stented segment occluded on the return and not treatable.
Ischemic cardiomyopathy
Acute CHF reduced EF
Moderate to severe MR
Cardiogenic shock
Follow-up echocardiogram 04/22 with LVEF of 30 to 35%
RHC 04/25 confirming cardiogenic state with elevated filling pressure and depressed cardiac index.
Echocardiogram 04/26 with LVEF 30 to 35%, moderate to severe MR/modestly improved but still remains moderate to severe
Ongoing attempt of diuresis initially with Lasix intravenous Bumex drip down to Bumex twice daily with support of dobutamine and Levophed
Possibly eventually DEYSI to reassess degree of MR in response to diuresis and viability for MitraClip procedure
Continue Plavix via tube
Continue Lipitor.
Has been on beta-ira given hemodynamic instability.
Continue IV Lasix with attempt to wean off IV pressor/Levophed.
Shock likely cardiogenic less likely septic
Has been off IV fluids.
Gentle diuresis secondary to above with vasopressor support.
Blood culture with coag negative Staphylococcus, 1 out of 2 and likely contaminant.
Respiratory culture with gram-negative bacilli and staph auris.
Chest x-ray not consistent with focal infiltrates and improving with diuresis which leaning towards pulmonary edema rather than pneumonia.
Empiric antibiotics vancomycin/Zosyn narrowed to Zosyn alone to cover aspiration/nosocomial infection
Infectious disease input appreciated.
Acute kidney injury with creatinine trending down from 1.3-1.0
Metabolic acidosis improved.
Continue monitoring with diuresis.
Elevated LFTs, mixed picture suspected secondary to shock liver.
Trending down.
The above tube in place.
Tube feeding ongoing.
Continue PPI
Hypothyroidism
Noted elevated TSH on admission
Continue Levothyroid supplementation via feeding tube and later p.o.
Acute on chronic anemia.
Noted trending down hemoglobin and likely secondary to dilution.
Given unstable hemodynamics/continued shock, monitor and transfuse to keep hemoglobin above 8.
DVT prophylaxis: Lovenox
GI prophylaxis: IV PPI twice daily
Diet: Start Jevity 1.5 via NGT
CODE STATUS: Full code
Anticipated Discharge: > 48 hours
Subjective/Interval History
-
Date of Service: April 26, 2024
Objective Data
-
Labs:
Laboratory Results
04/26/24 04/26/24
03:43 12:40
Sodium 135 133 L
Potassium 3.4 L 3.4 L
Chloride 94 L 92 L
Carbon Dioxide 32 H 34 H
BUN 25 H 30 H
Creatinine 0.8 0.9
Glucose 162 H 165 H
Calcium 8.7 8.5
Vital Signs:
Vital Signs
Temp Pulse Resp BP Pulse Ox
97.5 F 103 20 125/75 100
04/26/24 15:20 04/26/24 16:45 04/26/24 16:45 04/26/24 16:45 04/26/24 16:45
I&O
04/25/24 04/26/24 04/27/24
06:59 06:59 06:59
Intake Total 3039.5 / 3158.3 3625.6 / 3775.8 1475.3 / 1475.3
Output Total 1680 / 1710 5450 / 5450 1885 / 1885
Balance 1359.5 / 1448.3 -1824.4 / -1674.2 -409.7 / -409.7
Physical Exam
-
General: Well Developed and No Apparent Distress
HEENT: Normocephalic, Atraumatic and Moist Mucous Membranes
Respiratory: Clear to Auscultation
Cardiac: Regular Rhythm and S1/S2; Negative Murmur, Rub or Gallop
GI: Soft, Nontender, Nondistended and Normal Bowel Sounds; Negative Organomegaly
Rectal: Deferred by Provider
Musculoskeletal: No Clubbing, No Cyanosis and No Edema
Skin: Negative Rash
Neuro: Sedated and Nonfocal/Grossly Intact
[2024-04-26] MEDS: LOVENOX 40 MG SC (17:29)
[2024-04-26 18:14] LABS: Glucose - Point of Care 152 mg/dl (70-99)
[2024-04-26] MEDS: BUMEX 2 MG IV (19:55)
--- NOTE | 2024-04-26 21:25 | PTCARENOTE ---
received patient from [facility]. pt awake able to nod head and follow commands. pupils 2 and reactive. generalized weakness. respiratory at bedside placed patient back on A/C for the night. minimal secretions from Ett. left nare avelino tf infusing
at goal rate. ST on the monitor. swan numbers recorded.
[2024-04-27] VITALS (39 sets, daily range): BP systolic 86–135; BP diastolic 23–92; PULSE 2–131; BMI 27.7
[2024-04-27] MEDS: ZOSYN 50 IV ×4 (00:49→17:43)
[2024-04-27] MEDS: NOVOLOG FLEXPEN-LOW RESISTANCE SC ×3 (01:31→11:45)
--- NOTE | 2024-04-27 03:02 | PTCARENOTE ---
pt reassessed and repositioned. incontinent of BM. swan numbers recorded. PAP line mostly reading flat, occasionally will get a little bit of a wave form then goes back to flat. trouble shooted with same results. CORPORATE STAFF ACCOUNTANT aware. titrated dobutamine per CORPORATE STAFF ACCOUNTANT.
[2024-04-27 04:10] LABS: Ionized Calcium 1.02 mMOL/L (1.15-1.33)
[2024-04-27 04:18] LABS: % Basophils 0.2 % (0-2); % Eosinophils 0.3 % (0-6); % Immature Granulocytes 1.3 % (0-0.5); % Lymphocytes 6.3 % (20.5-51.1); % Monocytes 5.3 % (1.7-9.3); % Neutrophils 86.6 % (42.2-75.2); Absolute Eosinophils 0.1 10^3/uL (0-0.7); Absolute Immature Granulocytes 0.2 10^3/uL (0-0.05); Absolute Lymphocytes 1.1 10^3/uL (1.2-3.4); Absolute Monocytes 0.9 10^3/uL (0.1-0.6); Hematocrit 24.2 % (37.0-47.0); Hemoglobin 8.3 g/dL (12.0-16.0); Mean Corp Hgb Conc. 34.3 g/dL (33.0-37.0); Mean Corpuscular Hgb 29.5 pg (27.0-31.0); Mean Corpuscular Volume 86.1 fL (81.0-99.0); Mean Platelet Volume 11.6 fL (7.4-10.4); Nucleated Red Blood Cells % 0.2 %; Platelet Count 361 10^3/uL (130-400); Red Blood Cell Count 2.81 10^6/uL (4.20-5.40); Red Cell Dist. Width 14.8 % (11.5-14.5); White Blood Cell Count 17.3 10^3/uL (4.8-10.8)
[2024-04-27 04:38] LABS: Blood Urea Nitrogen 32 mg/dl (7-17); Calcium 8.2 mg/dl (8.4-10.2); Carbon Dioxide 35 mmol/L (22-30); Chloride 96 mmol/L (98-107); Estimated Creatinine Clearance 46 ml/min; Glucose 108 mg/dl (70-99); Magnesium 2.2 mg/dl (1.6-2.3); Phosphorus 4.2 mg/dl (2.5-4.5); Potassium 3.9 mmol/L (3.5-5.1); Sodium 135 mmol/L (135-145); eGFR > 60.00
[2024-04-27 04:47] LABS: NT-proBNP 14100 pg/ml
[2024-04-27 04:56] LABS: Procalcitonin 1.13 ng/ml (0.0-0.25)
[2024-04-27] MEDS: DOBUTREX 500 MG 250 IV ×2 (05:50→08:21)
[2024-04-27] MEDS: SYNTHROID TUBE ×2 (05:51→06:37)
[2024-04-27] MEDS: KCL 50 IV (05:51)
[2024-04-27] MEDS: CALCIUM CHLORIDE 10% SYRINGE 60 MG IV (06:02)
--- NOTE | 2024-04-27 06:08 | PTCARENOTE ---
pt NPO since midnight for procedure
[2024-04-27] MEDS: ALDACTONE TUBE (07:31)
[2024-04-27] MEDS: ROBITUSSIN TUBE (07:32)
[2024-04-27] MEDS: PLAVIX PO (07:32)
[2024-04-27] MEDS: LOW STRENGTH ASPIRIN PO (07:32)
[2024-04-27] MEDS: MIRALAX TUBE (07:32)
[2024-04-27] MEDS: ULTRAM PO (07:33)
[2024-04-27] MEDS: PROTONIX IV 40 MG IV (07:42)
[2024-04-27] MEDS: BUMEX 2 MG IV ×2 (07:42→18:33)
[2024-04-27] MEDS: NSS (PRESERVATIVE FREE) 10 ML IV (07:42)
--- NOTE | 2024-04-27 08:21 | CON.NEURO4 ---
Addendum entered and electronically signed by Rosalio Ladd MD 04/27/24 11:29:
Addendum patient had carotid ultrasound less than 50% bilaterally.
Original Note:
Consultation - Neurology 4
-
CONSULTING PHYSICIAN: Ricardo Ladd
REFERRING PHYSICIAN: Cardiology
DICTATED BY: Ricardo Ladd
DATE/TIME OF REQUEST: 04/27/24
DATE/TIME OF CONSULTATION: 04/27/24
Reason for Consultation: Acute left arm weakness
History of Present Illness:
Patient is a 68 year old woman with history of hypertension, CLOTH BLEACHING RANGE BACK TENDER shunt, stroke in January 2024 who was admitted on 04/25 from acute rehabilitation with symptomatic bradycardia. She had troponin elevation and EKG changes consistent with AVS/NSTEMI
and had cardiac catheterization with left circumflex PCI performed, then developed recurrent bradycardia showing dissection distal to stent and newly occluded OM2 branch, and then with recurrent bradycardia underwent transvenous pacing. Was
extubated 04/19 and then reintubated 04/20. Underwent right heart catheterization with [place] Luis Felipe insertion. Was being treated for cardiogenic shock. She had evaluation from CT surgery for consideration for Mitraclip but is not felt to be surgical
candidate due to operative risk. She had brief episodes of paroxysmal atrial fibrillation and received amiodarone and has remained in sinus rhythm since.
This morning was noted by nursing and cardiology that patient had significant left arm weakness which was not present for breakfast cook. Unclear last known normal or onset of the left arm weakness but was not present yesterday or yesterday evening.
Patient is not able to indicate consistently if she had deficits from her recent stroke.
Prior to admission patient was on aspirin and clopidogrel due to ischemic stroke.
TTE 04/26 showed mildly dilated left ventricular chamber size with akinesis of inferior, inferolateral and later pulido and ejection fraction is 30-35%
Past Medical History: Hypertension, recent stroke, CLOTH BLEACHING RANGE BACK TENDER shunt, moderate/severe mitral regurgitation, peripheral arterial disease
Surgical History: CLOTH BLEACHING RANGE BACK TENDER shunt, cardiac catheterization
Family History: Non-contributory
Social History: Presented from acute rehab after recent stroke in January 2024, adult children, tobacco use 25 year pack history, no recreational drug use no alcohol
Allergies: No known drug allergies
Review of Symptoms:
Patient denies any fever, headache, chest pain, shortness of breath, GI or symptoms.
Physical Exam:
Middle aged woman, intubated, awake and alert and interactive no overt distress, heart rate regular, lung aceves no wheezing crackles in bases breath sounds present bilaterally, abdomen soft non tender, no lower extremity edema
Neurologic Examination:
MS: Wide awake and alert, attentive and interactive with examiner, able to obey simple commands consistently
CN: Pupils 3 mm equal round and reactive to light bilaterally, able to count digits in all visual quadrants not showing any visual field defects, resting gaze is midline with no gaze preference seen and horizontal EOM are full, face grossly
symmetric
Motor/sensory: Left arm has flaccid hemiplegia 0/5 movements, left leg has 3/5 strength able to make efforts against gravity with hip flexion though is clearly weaker than right leg, right arm 5/5 arm flexion and abduction, right leg appears full
strength at least 4/5 hip flexion effort is appreciated
Coordination: No ataxia on right arm, unable to evaluate for ataxia on left arm due to weakness
Gait: Unable to assess
Neuro Imaging:
CT head non contrast: Moderate ventriculomegaly, CLOTH BLEACHING RANGE BACK TENDER shunt catheter in left lateral ventricle, left frontal encephalomalacia from chronic infarct seen, no hemorrhage
CTA head neck: No intracranial occlusions seen, hypoplastic left vertebral artery, moderate carotid stenosis but motion limited, no aneurysms
Impressions
1. Likely new ischemic stroke producing severe left arm weakness with moderate left leg weakness. Not candidate for TNK with stroke within past 3 months as well as unclear last known normal, no occlusions in brain that are intervenable. Myriad
of potential stroke etiologies. Cardiac embolism given depressed ejection fraction and brief paroxysmal atrial fibrillation is possible. Small vessel disease and atheroembolic still possible given CAD, PAD, smoking history and hypertension.
2. Patient without clinical signs of hydrocephalus, seen to have ventriculomegaly on CT head
3. Cardiogenic shock
4. ACS/NSTEMI on admission with stent
5. Moderate severe mitral regurgitation
6. Brief paroxysmal atrial fibrillation now in sinus rhythm
7. Recent stroke January 2024 unclear if chronic deficits from this
8. Hypertension
9. About 25 pack year smoking history
Patient has the following risk factors for their symptoms: History of recent stroke, smoking history, hypertension, CAD, brief Atrial fibrillation, cardiomyopathy,
Recommendations:
1. From neurologic point of view is acceptable for permissive hypertension goal less than 180 for next 24 hours until 9 AM 04/28, although with cardiac dysfunction and shock unlikely to manifest hypertension
2. NIH and neurologic checks
3. Continue aspirin and clopidogrel and Atorvastatin
4. Continue cardiac telemetry
5. Would check carotid ultrasound given some motion artifact on carotids on CTA head/neck
6. Would pursue non-urgent brain MRI without contrast
7. Depending on carotid ultrasound and brain MRI, if workup highly suggestive of cardiac embolism of cause of stroke could consider anticoagulation, has depressed EF, brief atrial fibrillation
8. DEYSI cancelled for today given acute stroke, would still pursue DEYSI for the future
9. No interventions for asymptomatic ventriculomegaly seen on CT head as no clinical symptoms of hydrocephalus
Will follow
ICU time = 60 minutes
Discussed patient care with: Patient, nursing, cardiology, hospitalist, ICU teams
--- NOTE | 2024-04-27 08:40 | W.PN.ID1 ---
Date of Service
Date of Service: April 27, 2024
Today's Communication
See below.
Assessment / Plan
Cardiogenic Shock
Non-STEMI
Severe mitral regurgitation
- shock determined to be cardiogenic via RHC
- elevated procalcitonin due to cardiogenic shock
- On dobutamine
- For DEYSI today and possible Mitraclip
Hospital Acquired Pneumonia
- 04/20 resp culture: moderate MSSA, moderate Serratia - sensitive to zosyn
- follow up 04/25 resp culture - negative
- covid ag neg
- 04/27 CXR: resolving lung opacities
- Today is last day of Zosyn (d7)
Leukocytosis
- possibly reactive
- If diarrhea persists off bowel regimen x 48 hrs, check stool for C. diff.
Miralax last given 04/26/24.
Bacteruria
- 40,000CFU enterococcus recovered from hernandes catheter (of note pt already on day 5 of Zosyn at the time)
- UA without significant pyuria
- No need to treat colonization
R wrist surgical site infection
-Resolved
Pseudobacteremia (contamination) with MSSE 04/20
- follow blood cultures from 04/25; 04/22 blood cultures are no growth to date, single blood culture with MSSE 04/20 likely a contaminant
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
- no evidence of DIE CAST PATTERNMAKER shunt infection on exam - neck supple no erythema, warmth, swelling or tenderness along the course
Patient remains critically ill
Chief Complaint
-: Pneumonia and Other (shock)
Subjective / Review of Systems
Remains intubated. Awake.
Vital Signs / Physical Exam
Vital Signs
Vital Signs
Temp Pulse Resp BP Pulse Ox
99.3 F 102 16 102/58 100
04/27/24 07:00 04/27/24 06:00 04/27/24 06:00 04/27/24 06:00 04/27/24 08:00
Physical Exam
Constitutional: Acutely Ill
Head: Other (DIE CAST PATTERNMAKER shunt - no erythema, warmth, tenderness or fluctuance)
Eyes: Sclera Anicteric
Cardiovascular: Regular Rate and S1/S2
Pulmonary: Rhonchi
Gastrointestinal: Soft, Non Tender, Non Distended, Normal Bowel Sounds and Other (FMS liquid dark brown stool)
Genito-Urinary: Hernandes and Clear Urine
Extremities: Edema
Wound: Other (R wrist cath site now nonblanching, no swelling/fluctuance or cords; bilateral groin sites bruised no erythema/warmth/swelling/drainage)
Neurological: Other (neck supple); Negative Meningeal Signs
Lines: Other (pulmonary arter cath in the RIJ - no erythema, warmth tenderness or drainage)
Objective Data
Lab Data
Lab Results
04/27/24 04:02
04/27/24 04:02
PT 15.6 Sec (11.4-14.6) H 04/17/24 19:23
INR 1.23 04/17/24 19:23
APTT > 200 Sec (23.4-35.0) H* 04/17/24 19:23
Estimated Creat Clear 46 ml/min 04/27/24 04:02
Lactic Acid 1.8 mmol/L (0.7-2.0) 04/25/24 03:08
Total Bilirubin 1.4 mg/dl (0.2-1.3) H 04/25/24 03:08
AST 61 U/L (14-36) H 04/25/24 03:08
ALT 358 U/L (0-35) H 04/25/24 03:08
Alkaline Phosphatase 290 U/L (38-126) H 04/25/24 03:08
Most recent labs reviewed.
Micro Results:
04/25/24 03:21 Urine Culture - Preliminary
Urine
04/25/24 03:08 Blood Culture - Preliminary
Blood/Venous No Growth in 48 hours- Final report to follow
04/25/24 13:32 Blood Culture - Preliminary
Blood/Venous No Growth in 24 hours- Final report to follow
04/22/24 13:17 Blood Culture - Preliminary
Blood/Venous No Growth in 4 days- Final report to follow
04/22/24 13:15 Blood Culture - Preliminary
Blood/Venous No Growth in 4 days- Final report to follow
04/25/24 03:21 Respiratory Culture - Preliminary
Tracheal Aspirate NO GROWTH
Gram Stain - Preliminary
04/20/24 22:37 Blood Culture - Final
Blood/Venous Staphylococcus epidermidis
Gram Stain - Final
04/20/24 22:55 Respiratory Culture - Final
Endotracheal Serratia marcescens
S aureus-Methicillin Sensitive
Gram Stain - Final
04/18/24 16:09 Blood Culture - Final
Blood/Venous No Growth - Final Report
04/18/24 09:40 Blood Culture - Final
Blood/Venous No Growth - Final Report
04/17/24 19:23 MRSA Screen - Final
Nose No Methicillin Resistant Staphylococcus aureus isolated.
04/27/24 CXR: Hazy groundglass inflammatory airspace disease throughout both lungs improved but incompletely resolved when compared with the prior studies
Endotracheal tube is in satisfactory position. [place]-Luis Felipe catheter, right-sided PICC line and nasogastric tube are unchanged
--- NOTE | 2024-04-27 08:50 | W.PN.INTV ---
Today's Communication / Plan
Recommendations
Continue with dobutamine + IV diuresis
Plan to extubate today given she is tolerating pressure support trial on 01/28 with plans to extubate to BiPAP
Goals of care discussion to be obtained s/p extubation
Anxiolytics with low-dose Ativan
Continue with Newton-Luis Felipe with trending of cardiac index, PA diastolic pressure and PCWP to continue with dobutamine for cardiogenic shock
Patient is not a candidate for surgical intervention for mitral valve intervention per CT surgery
Replete electrolytes with K >4, mag >2
Antibiotics as per ID - now only on Zosyn
Trend BNP + procal
Trend creatinine
Daily weaning trials with SBT + SAT
Eventual DEYSI with possible mitraclip in near future, need to have GOC discussion first
Assessment
-
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
separate occasions-with successful stenting of culprit 90% mid circumflex lesion, subsequent successful angioplasty and stenting of distal overlapping fashion occlusion of the large OM 2, and subsequent successful placement of transvenous pacer via
left femoral vein-well drill operator consulted for ventilator/critical care management 04/18/2024.
Impression:
Ventilator dependent respiratory failure
Intubated 04/17/2024
Extubated 04/19/2024
Reintubated 04/20/2024 for CHF
Cardiogenic shock � in the setting of sepsis from multifocal PNA - RHC performed on 04/25/2024 shows PCWP of 39, mPAP 47mmHg and CO/CI low at 2.6/1.39 with TPG of 8 (WHO Group II pHTN)
Symptomatic bradycardia, worsened with Precedex
Acute HFrEF with LVEF EF-30-35% and moderate-severe MR on TTE from 04/22/2024
CAD/non-STEMI
s/p cardiac catheterization 04/17/2024--successful stenting 90% mid circumflex lesion c/b nonocclusive dissection distal to stent causing total occlusion of large OM2
Recurrent multiple and hospital cardiac arrhythmias/codes
Status post cardiac catheterization 04/17/2024-successful angioplasty and stenting of distal overlapping fashion of large OM 2 lesion
Subsequent recurrent severe symptomatic bradycardia-status post third catheterization 04/17/2024-successful placement via left femoral vein transvenous pacer
Aspiration pneumonia with MDR Serratia marcescens + MSSA seen on respiratory culture from 04/20/2024
Leukocytosis
Anemia
Metabolic acidosis -resolved
Lactic acidosis � resolved as of 04/21/2024
UTI with Enterococcus spp (40k CFU/mL) seen on UCx from 04/25/2024
Hyperglycemia -resolved
Left subclavian steal syndrome
Conditions present prior to admission:
CVA-01/2024
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
Hypertension.
Anemia
Current smoker.
PAD
Plan
Remains critically ill + intubated on dobutamine, however cardiac index is improved and CXR today is also improved
She is awake, alert and lethargy better throat with blood gas appropriate on per support trial of 01/28
She is anxious, however, and when I asked if she were to have the tube removed from the throat and she does not do well, which she wants the tube be placed into her throat/lungs A-fib meant to save her life and she responded with her head shaking
now. 2 sisters with at bedside to witness this as well as respiratory therapist, Warren, as well as bedside nurse, Jane.
Will plan to extubate today to BiPAP 08/30 and then have goals of care discussion afterwards
DEYSI unfortunately not done this morning due to sudden left upper extremity flaccidness with CTA head/neck obtained and neurology consulted
- CTA head/neck shows near 40% stenosis of bilateral carotid bifurcations with moderate ventricular dilatation, chronic 2.5 cm right frontal infarct and cortical atrophy with extensive nonspecific white matter changes with no acute intracranial
infarct
- Neurology recommendations appreciated
- Also evidence of extensive patchy groundglass opacities in bilateral upper lungs consistent with multifocal pneumonia
Ventilator settings reviewed - lowered PEEP to 5 on 04/23 from 8
- On 04/24 she did well on PST 5/5, but failed SBT on PS of 5, PEEP of 0 (?recurrent flash edema)
- Will need to address goals of care prior to extubation as if she fails and is reintubated then she will need tracheostomy for continued medical care
Adjust FiO2 + PEEP to maintain SpO2 >90 - 94%
Follow ABG
Will continuously adjust ventilator as needed
Maintain plateau pressure <30
Nebulizers as needed-currently not bronchospastic
Aspiration precautions
Chest x-ray 04/25/2024-prominent central vasculature now with worsening pulmonary edema compared to yesterday's CXR
Cardiology following-correspondence reviewed
Patient underwent right heart catheterization on 04/25/2024 showing severely elevated filling pressures with severely depressed cardiac index consistent with cardiogenic shock. Dopamine, dobutamine and Bumex drip started.
This morning the patient's PCWP had improved and is currently at 14 mmHg.
Bumex drip has been stopped and she is currently on Bumex 2 mg IV BID --> continue to maintain net negative fluid balance of at least 1-1.5 L/day
Replete electrolytes with K>4, Mg>2
She will eventually obtain DEYSI to further evaluate mitral valve, and may need mitral clip however she still remains at high risk for procedures and prognosis still remains guarded considering she had been living in a [facility] prior to this
admission with a history of stroke, severe PVD and now at this current hospitalization with ACS complicated by cardiac arrest and prolonged mechanical ventilation with failed extubation X1 with exquisite physical deconditioning/generalized weakness
Continue dobutamine for cardiogenic shock and aim for CI of 2.5 or above
Troponin trended-peak of 340 on 04/18/2024
Echocardiogram reviewed and summarized below
Cardiac catheterization x 3 reviewed and summarized
Anticoagulation and antiplatelet therapy per cardiology
Antiarrhythmics including amiodarone per cardiology --> now DC'd
Maintain MAP>65
Cardiothoracic surgery consulted on 04/25 to eval for surgical intervention of moderate-severe mitral valve regurgitation --> patient is not a surgical candidate
Monitor renal function, electrolytes, intake/output, lower extremity edema and weight
Replace electrolytes as needed
Transvenous pacer removed 04/19/2024
Hold metoprolol for now as she was bradycardic in 50s --> resume when clinically able to
Cultures reviewed
Respiratory culture collected on 04/20 grew MDR Serratia marcescens + MSSA--> ID on board, currently on zosyn (started 04/21) s/p IV vanco (given from: 04/20 - 04/26) + micafungin (x1 dose on 04/25)
Would treat for 10-14 days given her circulatory shock state with pneumonia
Blood culture 04/20/2024-09/27 positive with coagulase-negative Staphylococcus, likely contaminant
Monitor leukocytosis, temperature curve
Zosyn was initially started empirically due to persistent hypotension and leukocytosis
MRSA screen negative
Follow hemoglobin with goal >8g/dL, plt>20k
Transfuse if needed
Note: Vascular surgery evaluation ongoing-right femoral approach unable to advance wire due to occlusion of common iliac, subsequent attempt at left femoral access and sheath placement due to bulky distal aortic bifurcation plaque/stenosis unable to
advance wires and catheters therefore left radial approach was undertaken-no acute need for intervention, no acute limb ischemia, eventual DAYDAY/TBI's and outpatient vascular follow-up
Smoking cessation counseling will continue after extubation
DVT prophylaxis-on Lovenox
GI prophylaxis-on pantoprazole-latest Society of critical care medicine does not support PPI while on ventilator, however, when shock present, coagulopathy present, etc. then PPI/or H2 ira is indicated
Nutrition via nasogastric tube
Early mobilization/PT/OT
If patient survives hospitalization, recommend eventual outpatient rehab and then would recommend outpatient pulmonary evaluation-smoking cessation, PFTs, yearly low-dose lung cancer screening CT, etc.
Critical care statement: A total of 42 minutes of critical care time was provided for this patient today. This includes management of unstable vital signs, evaluation of the patient at bedside, reviewing the patient's pertinent medical records
including radiographs, ventilator management, pressor management, microbiology, laboratory evaluations, and discussion with primary team, consultants, pharmacy, nutrition, physical therapy, case management, charge nurse, critical care nursing, and
respiratory therapy.
Diagnostic data:
Chest x-ray 04/17/2024-NAD
Chest x-ray 04/18/2024-endotracheal tube tip terminates at the bj-should be retracted
Chest x-ray 04/18/2024-satisfactory position of endotracheal tube, interval decrease in bilateral airspace disease representing improved pulmonary edema
Chest x-ray 04/18/2024-right PICC terminates at the expected location, stable mild pulmonary edema
Chest x-ray 04/19/2024-improved pulmonary edema stable lines and tubes
Chest x-ray 04/20/2024-increased CHF
Chest x-ray 04/24/2024- The endotracheal tube is in satisfactory position; mild pulmonary edema, improved but incompletely resolved compared with the prior study
Chest x-ray 04/25/2024- Progressed findings suggesting moderate pulmonary edema; mild cardiomegaly
Chest x-ray 04/26/2024- Right IJ approach Newton-Luis Felipe catheter tip terminates in either the interlobar artery or one of the segmental pulmonary arteries; low lung volumes. Stable perihilar airspace opacities favored to represent pulmonary edema.
Chest x-ray 04/27/2024-Hazy groundglass inflammatory airspace disease throughout both lungs improved but incompletely resolved when compared with the prior studies; Endotracheal tube is in satisfactory position; Newton-Luis Felipe catheter, right-sided PICC
line and nasogastric tube are unchanged
Echocardiogram 04/18/2024-moderately reduced LV function-EF 40%, normal right ventricular size with RV hypokinesis and distal RV hypokinesis, mild mitral regurgitation
Right heart catheterization 04/25/2024:
1. Severely elevated filling pressures (PCWP = 39 mmHg at 66.7 kg).
2. Severely depressed cardiac index (1.59 L/min/m� by thermodilution, 1.39 L/min/m� by Jose equation) consistent with cardiogenic shock.
3. Severe, primarily postcapillary pulmonary hypertension (mean PA pressure = 47 mmHg, PCWP = 39 mmHg, PVR = 3.08 Wood units).
Subjective Dataa
Subjective Data
Date of Service:
Date of Service: April 27, 2024
Chief Complaint: Environmental Engineer Scientist Follow Up, Pulmonary Follow Up and Vent Management Follow Up
Subjective:
Patient seen and evaluated this morning. Left arm is flaccid this morning. CXR appears improved. She is following commands. NIHSS is 13 (as she intubated). Having increased oral secretions, moderate douglas secretions from ETT. On dobutamine drip
at 3mcg/min with CI of 2.87. Net positive 287 cc last 24 hours. Off Levophed yesterday afternoon. When I was evaluating her this morning, sisters at bedside, and patient was able to slightly move her left hand. She is very anxious. Wants the
tube out of her throat.
Review of Systems
General: Other (Unable to obtain due to patient being intubated)
Objective Data
Data Reviewed
Vital Signs / I&O / Oxygen:
Vital Signs
Temp Pulse Resp BP Pulse Ox
99.3 F 123 21 135/82 98
04/27/24 07:00 04/27/24 09:45 04/27/24 09:45 04/27/24 09:30 04/27/24 10:26
Intake and Output
04/26/24 04/27/24 04/28/24
06:59 06:59 06:59
Intake Total 3625.6 / 3775.8 3232.7 / 3273.3 78.7 / 78.7
Output Total 5450 / 5450 2945 / 3005 120 / 120
Balance -1824.4 / -1674.2 287.7 / 268.3 -41.3 / -41.3
SaO2 [CPAP/PSV] 100
SaO2 [SIMV] 100
SaO2 [CPAP] 100
SaO2 [A/C] 100
SaO2 98
Nasal Cannula flow liters per 5
minute
Physical Exam
General: Respiratory Distress (n), Comfortable and Chills (negative)
HEENT: Normocephalic, Anicteric and Other (ETT in place)
Cardiovascular: S1-S2 and Peripheral Edema (Negative)
Respiratory: Wheeze (n), Crackles (basilar), Rhonchi (n), Non-Labored Respirations, Accessory Resp Muscle Use (n), Stridor (Negative), ET Tube and Other (Mechanical breath sounds heard bilaterally; coarse BS heard bilaterally)
GI: Soft, Non Distended and Non Tender
Neurology: Awake, Alert, Tremors (negative), Other (Left upper extremity is flaccid with occasional movement of her distal LUE/hand) and Other (Following all commands; exquisitely weak, not able to lift head off the pillow)
Skin: Warm, Dry, Cyanosis (n) and Jaundice (n)
Labs/Micro/Reports
Lab Data
04/27/24 04:02
04/27/24 04:02
Microbiology
04/25/24 03:21 Tracheal Aspirate Respiratory Culture - Final
04/25/24 03:21 Tracheal Aspirate Gram Stain - Final
04/25/24 03:21 Urine Urine Culture - Preliminary
Enterococcus species
04/25/24 03:08 Blood/Venous Blood Culture - Preliminary
No Growth in 48 hours- Final report to follow
04/25/24 13:32 Blood/Venous Blood Culture - Preliminary
No Growth in 24 hours- Final report to follow
04/22/24 13:17 Blood/Venous Blood Culture - Preliminary
No Growth in 4 days- Final report to follow
04/22/24 13:15 Blood/Venous Blood Culture - Preliminary
No Growth in 4 days- Final report to follow
04/20/24 22:37 Blood/Venous Blood Culture - Final
Staphylococcus epidermidis
04/20/24 22:37 Blood/Venous Gram Stain - Final
04/20/24 22:55 Endotracheal Respiratory Culture - Final
Serratia marcescens
S aureus-Methicillin Sensitive
04/20/24 22:55 Endotracheal Gram Stain - Final
--- NOTE | 2024-04-27 09:00 | PTCARENOTE ---
Pt. noted to have profound L arm weakness; new assessment finding. Dr. Clark to bedside this AM, consulted Neurology. Neuro to bedside urgently, received further orders and pt. transported down to CT scan. Back to and CT reviewed by neuro; no
interventions @ this time. CXR reviewed by Dr. Clark this AM and confirmed swan salvatore catheter in correct placement; CO/CI completed per orders. Dobutamine gtt tapered per orders- see flow sheet. Pt. repositioned and safe environment maintained.
[2024-04-27] MEDS: SUBLIMAZE 50 MCG IV (09:02)
--- NOTE | 2024-04-27 09:25 | W.PN.CD ---
Today's Communication / Plan
-
stat neuro consult for stroke eval
cancel DEYSI
continue IV bumex and pressors/inotropes
Impression / Plan
-
Impression/Plan: 68 y/o female with hypertension, current smoker, prior CVA, and 'brain shunt' (CUTCH CLEANER?) admitted from [facility] with bradycardia and anginal equivalent (AYON, diaphoresis) c/w NSTEMI leading to cardiac catheterization/PCI of the
dominant LCx with jailing of the OM due to unfavorable plaque shift subsequently complicated by acute stent thrombosis requiring repeat PCI with complete loss of the OM leading to cardiogenic shock, CHB requiring temporary pacemaker and hypoxic
respiratory failure requiring intubation/mechanical ventilation.
# Acute left arm weakness
-stat neuro consult for stroke eval
-cancel DEYSI
#CAD/NSTEMI
-Large DE with peak trop 340 with resultant cardiogenic shock.
-Initial presentation ACS - had dominant LCx PCI then returned to [facility] 2 hrs later after near code and had distal cx dissection/loss of large OM originating from stented segment- STENT placed 2 hours earlier patent, treated with long distally
overlapping stent. Large OM2 originating from stented segment occluded on return and not treatable.
-Cardiogenic shock improved initially; she was weaned from vent and extubated on 04/19/2024, but reintubated for worsening hypoxic respiratory failure on 04/20/2024.
-DAPT with aspirin and clopidogrel.
-High dose, high potency statin.
#Ischemic cardiomyopathy/HFrEF/Shock
-LVEF EF 30-35%.
-Pressor requirement persists, currently on dopamine/dobutamine/levophed
-continue bumex 2mg IV bid
-previously on drip
- The fact that she has such good UO despite high pressor requirement makes me suspicious that her true central aortic pressure may be higher than what is being measured in LUE. Will check BP RUE and get carotid USG to make sure there is not
reversal of flow in vertebrals which would indicate subclavian artery stenosis
-vertebral artery flow is antegrade on right; and bidirectional on left
#VDRF/PNA
-Acute, recurrent.
-Extubated 04/19/2024. Patient appeared well and morning on 04/20/2024 but in the evening had decompensation with progressive acidosis and had to be reintubated 04/20/2024.
-Remains intubated.
-Optimization as directed by Pulmonary.
-RHC/Waime[place]-Luis Felipe
#Moderate to severe MR
-Progressive from earlier in hospitalization.
-may be candidate for MitraClip in future, but not currently stable
-plan for DEYSI before discharge when more stable
#PAOD
-New diagnosis.
-Angiography shows near occlusion of the distal aorta, severe disease in the left femoral system and BLOCK CLEANER of the RCIA.
-No role for urgent vascular intervention. Patient has been assessed by vascular surgery.
#Anemia
-Chronic, stable.
-PRBC given last 04/21/24 with improvement of Hbg to 10.
-With extent of coronary and vascular disease, would favor higher target hemoglobin.
#Heart block
-Resolved after return to [facility]
-Pacer removed.
#PAF
-New diagnosis.
-Brief episode that occurred night patient went back to Optical Systems Engineer and was in shock and on pressors. No recurrence.
-Patient had received amiodarone which is since been discontinued monitor for recurrence.
-will assess for OAC if recurs
#ANUEL: resolved
#Prior CVA + CUTCH CLEANER Shunt
Critical Care Time =35minutes.
Subjective/Interval History:
New left arm weakness.
DATA:
CXR, 04/25/2024:
IMPRESSION:
Progressed findings suggesting moderate pulmonary edema.
Mild cardiomegaly. Stable.
TTE, 04/18/2024:
CONCLUSIONS
Moderately reduced left ventricular function with estimated ejection fraction
40%.
Lateral, inferolateral, inferior and apical wall motion abnormalities.
Normal right ventricular size with RV hypokinesis as noted distal RV
hypokinesis as noted in subcostal views.
Mild mitral regurgitation.
Mild tricuspid regurgitation.
Compared to the previous report from 04/17/2024 there has been a reduction in
left ventricular function and new wall motion abnormalities.
Physical Exam
Vital Signs/Labs
Vital Signs
Temp Pulse Resp BP Pulse Ox
99.3 F 102 16 102/58 100
04/27/24 07:00 04/27/24 06:00 04/27/24 06:00 04/27/24 06:00 04/27/24 08:00
04/26/24 04/27/24 04/28/24
06:59 06:59 06:59
Actual Weight 64.3 kg 64.3 kg
04/27/24 04:02
04/27/24 04:02
PT 15.6 Sec (11.4-14.6) H 04/17/24 19:23
INR 1.23 04/17/24 19:23
APTT > 200 Sec (23.4-35.0) H* 04/17/24 19:23
Magnesium 2.2 mg/dl (1.6-2.3) 04/27/24 04:02
Triglycerides 156 mg/dl (10-149) H 04/26/24 03:43
LDL Cholesterol, Calc 126 mg/dl 04/17/24 09:09
VLDL Cholesterol, Calc 37 mg/dl (0-30) H 04/17/24 09:09
HDL Cholesterol 55 mg/dl 04/17/24 09:09
Free T4 1.08 ng/dl (0.78-2.19) 04/17/24 09:09
04/24/24 04/25/24 04/27/24
04:55 03:08 04:02
Foa-F-Jiltefqtzes Pept [id number]
Physical Exam
Constitutional: Other (intubated)
EENT: Moist mucous membranes
Cardiovascular: Rhythm & rate is regular, Pedal edema is absent, JVD present and Systolic murmur present
Respiratory: Other (mechanical ventilation)
GI: Non tender
Neuro/Psych: Alert and Other (unable to move left arm)
Data Reviewed
-
Date of Service: April 27, 2024
Labs: Labs Reviewed by me
[2024-04-27] MEDS: NSS (PRESERVATIVE FREE) 0.25 ML IV (11:40)
[2024-04-27] MEDS: ATIVAN 0.5 MG IV (11:40)
[2024-04-27 11:47] LABS: Glucose - Point of Care 127 mg/dl (70-99)
[2024-04-27 11:54] LABS: Venous Blood Gas HCO3 34.1 mmol/L (22-27); Venous Blood Gas O2 Sat % 95.1 %; Venous Blood Gas pCO2 49 mmHg (35-48); Venous Blood Gas pH 7.45 (7.32-7.43); Venous Blood Gas pO2 70 mmHg (30-50)
[2024-04-27] MEDS: ROBITUSSIN 100 MG TUBE ×3 (12:18→23:30)
--- NOTE | 2024-04-27 12:30 | PTCARENOTE ---
Pt. off sedation and calm/following commands @ 1000. Dr. Lai and RT made aware. CPAP vent wean initiated by RT @ 1030 on settings 01/28/.40. Prior to vent wean HR in 110's. HR elevated into 120's during vent wean. RR also increased into high
20/low 30's. Pt. nodded yes to feeling anxious and Dr. Leal made aware- further orders received- see NOV. VBG drawn and sent to lab. VBG and pt.'s clinical presentation reviewed by Dr. Leal and further orders received to extubate. Pt.
extubated by RT to BiPAP 08/30 10L; tolerating extubation. Family @ bedside, updated on plan of care.
--- NOTE | 2024-04-27 13:15 | CM ---
CM following re: discharge planning.
Reviewed pt's chart, met with pt. per Rounds meeting, pt admitted with Ventilator dependent respiratory failure. Intubated 04/17/2024. Extubated 04/19/2024. Reintubated 04/20/2024 for CHF, remains intubated, short term weaning trial today, continue
supportive care.
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 Pt has 3 children: daughter Darvin [phone] and 2 sons: one with intellectual disability lives with father and another son is
in shelter.
Pt's sister Jenelle and brother Jose visit periodically.
D/C plan: Uncertain at this time and will depend on pt's progress
CM will follow with discharge plan updates as hospitalization progresses
--- NOTE | 2024-04-27 13:17 | W.PN.HOSP.TC ---
Today's Communication/Plan
-
Monitor vital signs see plan
Continue with SBT
Wean sedation as tolerated
Continue with diuresis, pressors
Antibiotics
Assessment / Plan
Assessment / Plan
Impression:
CAD/acute coronary syndrome/non-STEMI
Symptomatic bradycardia
Ventilatory dependent respiratory failure in the settings of hemodynamic instability secondary to large AR and cardiogenic shock.
� Extubated 04/19.
� Reintubated on 04/21 in the event of progressive hemodynamic instability and acidosis
Cardiogenic shock
Acute CHF reduced EF
Ischemic cardiomyopathy.
Moderate to severe MR
Acute kidney injury
Metabolic/lactic acidosis.
Acute on chronic anemia secondary to dilution
Gram-positive bacteremia versus contamination
Elevated LFTs, mixed picture suspected secondary to shock liver
LUE weakness
Conditions prior to admission:*
CVA 02/16
Status post QUEBRACHO TANNER shunt
Essential hypertension
Anemia
PAD.
Tobacco use disorder/current smoker
Plan:
VDRF.
Spontaneous breathing trial daily
Remains on continuous sedation.
Chest x-ray 04/21 with pulmonary edema
Less likely aspiration pneumonia.
Continue IV diuresis to facilitate BMP
Wean off sedation as possible.
Acute coronary syndrome. Large AR
Original presentation with ACS with urgent catheterization and left circumflex stent, and to return to Cost Reduction Engineer after 2 hours with neuro: Situation after distal circumflex dissection propagated from distal age of the stent treated with long distally
overlapping stent. Large OM 2 originated from stented segment occluded on the return and not treatable.
Ischemic cardiomyopathy
Acute CHF reduced EF
Moderate to severe MR
Cardiogenic shock
Follow-up echocardiogram 04/22 with LVEF of 30 to 35%
RHC 04/25 confirming cardiogenic state with elevated filling pressure and depressed cardiac index.
Echocardiogram 04/26 with LVEF 30 to 35%, moderate to severe MR/modestly improved but still remains moderate to severe
Ongoing attempt of diuresis initially with Lasix intravenous Bumex drip down to Bumex twice daily with support of dobutamine and Levophed
Possibly eventually DEYSI to reassess degree of MR in response to diuresis and viability for MitraClip procedure. DEYSI canceled 04/27 due to left upper extremity weakness
Continue Plavix via tube
Continue Lipitor.
Has been on beta-ira given hemodynamic instability.
Continue IV Lasix with attempt to wean off IV pressor/Levophed.
LUE weakness which appears to be new. Seen by neurology 04/27/2024. CT negative
Shock likely cardiogenic less likely septic
Has been off IV fluids.
Gentle diuresis secondary to above with vasopressor support.
Blood culture with coag negative Staphylococcus, 1 out of 2 and likely contaminant.
Respiratory culture with gram-negative bacilli and staph auris.
Chest x-ray not consistent with focal infiltrates and improving with diuresis which leaning towards pulmonary edema rather than pneumonia.
Empiric antibiotics vancomycin/Zosyn narrowed to Zosyn alone to cover aspiration/nosocomial infection
Infectious disease input appreciated.
Acute kidney injury with creatinine trending down from 1.3-1.0
Metabolic acidosis improved.
Continue monitoring with diuresis.
Elevated LFTs, mixed picture suspected secondary to shock liver.
Trending down.
The above tube in place.
Tube feeding ongoing.
Continue PPI
Hypothyroidism
Noted elevated TSH on admission
Continue Levothyroxine supplementation via feeding tube and later p.o.
Acute on chronic anemia.
Noted trending down hemoglobin and likely secondary to dilution.
Given unstable hemodynamics/continued shock, monitor and transfuse to keep hemoglobin above 8.
DVT prophylaxis: Lovenox
GI prophylaxis: IV PPI twice daily
Diet: tube feed
CODE STATUS: Full code
Discussed with sister and sister in law at bedside.
Discussed with title clerk automobile. Goals of care would be important
General: Respiratory Distress, intubated
HEENT: Normocephalic, Anicteric and Other (ETT in place)
Cardiovascular: S1-S2,RRR
Respiratory: Mechanical breath sounds bilaterally
GI: Soft, Non Distended and Non Tender
Neurology: Awake, Left upper extremity is flaccid with occasional movement of her distal LUE/hand
I spent a total of 54 minutes with the patient or on the floor. More than 50% of this time involved counseling and coordination of care.
Anticipated Discharge: > 48 hours
Subjective/Interval History
-
Date of Service: April 27, 2024
intubated
Objective Data
-
Labs:
Laboratory Results
04/27/24
04:02
WBC 17.3 H
Hgb 8.3 L
Hct 24.2 L
Plt Count 361
Sodium 135
Potassium 3.9
Chloride 96 L
Carbon Dioxide 35 H
BUN 32 H
Creatinine 1.0
Glucose 108 H
Calcium 8.2 L
Vital Signs:
Vital Signs
Temp Pulse Resp BP Pulse Ox
98.4 F 121 35 135/82 93
04/27/24 11:02 04/27/24 11:00 04/27/24 11:00 04/27/24 09:30 04/27/24 11:00
I&O
04/26/24 04/27/24 04/28/24
06:59 06:59 06:59
Intake Total 3625.6 / 3775.8 3232.7 / 3273.3 150.7 / 150.7
Output Total 5450 / 5450 2945 / 3005 870 / 870
Balance -1824.4 / -1674.2 287.7 / 268.3 -719.3 / -719.3
[2024-04-27] MEDS: LOW STRENGTH ASPIRIN 81 MG PO (14:31)
[2024-04-27] MEDS: PLAVIX 75 MG PO (14:31)
[2024-04-27] MEDS: DUONEB 3 ML INH (15:53)
--- NOTE | 2024-04-27 16:18 | W.PN.UPDATE ---
Update Note
Progress Note Update
Discussion held after patient was extubated between the patient, patient's sister Jenelle Huang, and zhimis-cu-jbi, Noelle. We had also previously discussed patient's clinical status with patient's daughter, Jayant. Based on patient's clinical
status, with persistent cardiogenic shock, multifocal pneumonia, and exquisite physical deconditioning. Goals of care and code status discussed, and decision made to make pt DNR/DNI, and continue full medical management otherwise. If pt were to
deteriorate further, then we will transition to comfort care at that time. Bedside nurse, Jane, present during this conversation. National Accounts Recruiter to be called. All questions were answered and the family/patient are all in agreement with plan above
which was explained in layman's terms.
--- NOTE | 2024-04-27 17:20 | PTCARENOTE ---
Goals of care discussion completed by Dr. Elvis mckenzie patient, pt.'s sister, and pt.'s sister in law. Pt. decision to change code status and further orders received; pt. now DNR/DNI.
[2024-04-27] MEDS: LOVENOX 40 MG SC (17:43)
[2024-04-27] MEDS: NOVOLOG FLEXPEN-LOW RESISTANCE 1 UNITS SC (17:44)
[2024-04-27 17:50] LABS: Glucose - Point of Care 158 mg/dl (70-99)
[2024-04-27] MEDS: MORPHINE SULFATE 2 MG IV ×5 (17:58→23:30)
[2024-04-27] MEDS: ATIVAN 0.25 MG IV (18:33)
--- NOTE | 2024-04-27 18:44 | PTCARENOTE ---
pt. actively decompensating s/p 1800 medical legal investigator. Tachypnea into 40's. Tachycardiac into 130's. Diaphoretic. SpO2 dropping as low as 82% on 6LNC. Transitioned back to BiPAP 12/5, 10L by RT. Unresponsive @ this time. Pt.'s brother and daughter
notified of active decline. Based on previous goals of care discussion w patient/family, pt transitioned to comfort care. IV Morphine and IV Ativan admin per orders- see MAR Awaiting family to bedside.
[2024-04-27] MEDS: XOPENEX 1.25 MG INHALANT SOLUTION INH (19:36)
[2024-04-27] MEDS: ATROVENT NEBULES 0.5 MG INH (19:37)
--- NOTE | 2024-04-27 20:50 | PTCARENOTE ---
Assumed care of pt at 1900. Received pt on Bipap 08/30 10LPM, currently on Dobutamine drip, was on 3.5mcg/kg/min at start of shift, titrated up per protocol once C.I./C.O. obtained, see flowsheet for details. Pt tachypneic and labored with
retractions and accessory muscle use noted. Medicated with PRN Morphine per protocol, will start drip after next dose of IV push Morphine. Pt is DNR/DNI, was awaiting family to arrive to clarify if pt is full comfort measures. Daughter arrived at
around 2049 and after discussing with ICU SENIOR BENEFITS SPECIALIST, decision made to turn off Dobutamine. Physical assessment completed, see nursing shift assessment flowsheet for full details. ST 120s-130s on monitor, SpO2 has been 97-100% on current bipap settings
although RR in high 30s. Several family members at bedside.
[2024-04-27] MEDS: MORPHINE 100 IV (21:01)
[2024-04-28] VITALS: BP 104/70
[2024-04-28] MEDS: NOVOLOG FLEXPEN-LOW RESISTANCE SC ×2 (00:06→05:35)
[2024-04-28 03:38] VITALS: PULSE 106; PULSE 2
[2024-04-28 04:26] VITALS: BP 95/72
[2024-04-28] MEDS: SYNTHROID TUBE (06:15)
[2024-04-28] MEDS: MORPHINE SULFATE 2 MG IV ×7 (06:15→22:51)
[2024-04-28] MEDS: ATROVENT NEBULES INH (07:23)
--- NOTE | 2024-04-28 08:25 | W.PN.UPDATE ---
Update Note
Progress Note Update
Spoke with nurse.
Patient now comfort measures and on a morphine drip.
Nothing further to add from a Infectious Diseases standpoint.
Will sign off and see again at your request.
--- NOTE | 2024-04-28 08:53 | W.PN.UPDATE ---
Update Note
Progress Note Update
-Patient has been made comfort care; currently on a morphine drip.
-Can MIGUEL ANGEL Newman.
[2024-04-28] MEDS: MIRALAX TUBE (09:09)
--- NOTE | 2024-04-28 09:31 | PTCARENOTE ---
pt wakes to touch. stays awake for min amount of time. nods no to having pain. morphine gtt running as ordered. [id number] breath sounds diminished course ex wheeze. pt daughter at bedside. reviewed plan of care.
--- NOTE | 2024-04-28 10:59 | PTCARENOTE ---
Tyler-salvatore catheter and RIJ Cordis removed without difficulties per order.
--- NOTE | 2024-04-28 11:48 | W.PN.UPDATE ---
Update Note
Progress Note Update
Patient has been made comfort care overnight/early this morning. Patient will not be seen today. This is not a billable encounter. Emotional support was provided to the family. Nursing to remove cordis catheter.
--- NOTE | 2024-04-28 12:04 | W.PN.HOSP.TC ---
Today's Communication/Plan
-
Monitor vital signs
see plan
Comfort measures
Transfer out of ICU
DC Kurt
Discussed with daughter at bedside
Assessment / Plan
Assessment / Plan
Impression:
CAD/acute coronary syndrome/non-STEMI
Symptomatic bradycardia
Ventilatory dependent respiratory failure in the settings of hemodynamic instability secondary to large DE and cardiogenic shock.
� Extubated 04/19.
� Reintubated on 04/21 in the event of progressive hemodynamic instability and acidosis
Cardiogenic shock
Acute CHF reduced EF
Ischemic cardiomyopathy.
Moderate to severe MR
Acute kidney injury
Metabolic/lactic acidosis.
Acute on chronic anemia secondary to dilution
Gram-positive bacteremia versus contamination
Elevated LFTs, mixed picture suspected secondary to shock liver
LUE weakness
Conditions prior to admission:*
CVA 02/16
Status post VACCINES SOLUTIONS SPECIALIST shunt
Essential hypertension
Anemia
PAD.
Tobacco use disorder/current smoker
Plan:
extubated 04/27. Junior Web Developer and ARCHITECTURAL ENGINEER discussed with patient and family and they are agreeable for DNR. Later 04/27 patient breathing continue to get worse and family and patient opted for comfort measures. Patient is currently on morphine drip.
Comfort orders
Discontinue kurt
transfer to med surg
daughter updated at bedside
Chest x-ray 04/21 with pulmonary edema
Less likely aspiration pneumonia.
ativan
Acute coronary syndrome. Large DE
Original presentation with ACS with urgent catheterization and left circumflex stent, and to return to Compliance Engineer after 2 hours with neuro: Situation after distal circumflex dissection propagated from distal age of the stent treated with long distally
overlapping stent. Large OM 2 originated from stented segment occluded on the return and not treatable.
Ischemic cardiomyopathy
Acute CHF reduced EF
Moderate to severe MR
Cardiogenic shock
Follow-up echocardiogram 04/22 with LVEF of 30 to 35%
RHC 04/25 confirming cardiogenic state with elevated filling pressure and depressed cardiac index.
Echocardiogram 04/26 with LVEF 30 to 35%, moderate to severe MR/modestly improved but still remains moderate to severe
Ongoing attempt of diuresis initially with Lasix intravenous Bumex drip down to Bumex twice daily with support of dobutamine and Levophed
Possibly eventually DEYSI to reassess degree of MR in response to diuresis and viability for MitraClip procedure. DEYSI canceled 04/27 due to left upper extremity weakness
Off pressors since now on comfort
LUE weakness which appears to be new. Seen by neurology 04/27/2024. CT negative
MRI cancelled since now on comfort
Shock likely cardiogenic less likely septic
Blood culture with coag negative Staphylococcus, 1 out of 2 and likely contaminant.
Respiratory culture with gram-negative bacilli and staph auris.
Chest x-ray not consistent with focal infiltrates and improving with diuresis which leaning towards pulmonary edema rather than pneumonia.
Acute kidney injury with creatinine trending down from 1.3-1.0
Elevated LFTs, mixed picture suspected secondary to shock liver.
Trending down.
The above tube in place.
Tube feeding ongoing.
Continue PPI
Hypothyroidism
Noted elevated TSH on admission
Continue Levothyroxine supplementation via feeding tube and later p.o.
Acute on chronic anemia.
Noted trending down hemoglobin and likely secondary to dilution.
Given unstable hemodynamics/continued shock, monitor and transfuse to keep hemoglobin above 8.
DVT prophylaxis: Comfort
CODE STATUS: DNR
Discussed with daughter at bedside. Patient and family agreeable for comfort measures. Currently on morphine drip.
General: Respiratory Distress
HEENT: Normocephalic, Anicteric
Cardiovascular: S1-S2,RRR
Respiratory: + crackles
GI: Soft, Non Distended and Non Tender
Neurology: Awake, alert
Psych: calm
Anticipated Discharge: Within 24 hours
Subjective/Interval History
-
Date of Service: April 28, 2024
on nasal cannula
Objective Data
-
Labs:
Laboratory Results
04/28/24
06:00
WBC Cancelled
Hgb Cancelled
Hct Cancelled
Plt Count Cancelled
Sodium Cancelled
Potassium Cancelled
Chloride Cancelled
Carbon Dioxide Cancelled
BUN Cancelled
Creatinine Cancelled
Glucose Cancelled
Calcium Cancelled
Total Bilirubin Cancelled
AST Cancelled
ALT Cancelled
Alkaline Phosphatase Cancelled
Vital Signs:
Vital Signs
Temp Pulse Resp BP Pulse Ox
97.6 F 109 14 95/72 92
04/28/24 07:52 04/28/24 09:15 04/28/24 09:15 04/28/24 04:26 04/28/24 09:29
I&O
04/27/24 04/28/24 04/29/24
06:59 06:59 06:59
Intake Total 3232.7 / 3273.3 1005.8 / 1005.8
Output Total 2945 / 3005 1185 / 1185
Balance 287.7 / 268.3 -179.2 / -179.2
[2024-04-28 12:59] VITALS: BP 115/80
--- NOTE | 2024-04-28 14:19 | CHAP ---
Visited Ronaldo in ICU at 10am. She was resting, occasionally opening her eyes, non-verbal. Daughter, Jayant, was present with a friend. Jayant is sad and worried about the impending separation. Emotional and spiritual support provided, along with a
prayer blanket. Jayant has questions about how to manage the arrangements; I spoke later with CM Radha Sen, who indicated that Ronaldo will be followed by a different CM on .
[2024-04-28 19:14] VITALS: BP 122/78
[2024-04-28] MEDS: ATIVAN 0.25 MG IV (22:20)
[2024-04-28] MEDS: NSS (PRESERVATIVE FREE) 0.125 ML IV (22:21)
[2024-04-29] MEDS: MORPHINE SULFATE 4 MG IV ×5 (01:32→17:43)
[2024-04-29] MEDS: TYLENOL/FEVERALL 650 MG RECTAL (04:01)
[2024-04-29] MEDS: MORPHINE 100 IV (06:45)
[2024-04-29] MEDS: ROBINUL 0.2 MG IV ×3 (07:43→17:41)
[2024-04-29 07:48] VITALS: BP 95/65
--- NOTE | 2024-04-29 10:37 | W.PN.HOSP.TC ---
Today's Communication/Plan
-
monitor vitals
see plan
on morphine gtt
ativan as needed
cw comfort measures
family at bedside
Assessment / Plan
Assessment / Plan
Impression:
CAD/acute coronary syndrome/non-STEMI
Symptomatic bradycardia
Ventilatory dependent respiratory failure in the settings of hemodynamic instability secondary to large MS and cardiogenic shock.
� Extubated 04/19.
� Reintubated on 04/21 in the event of progressive hemodynamic instability and acidosis
Cardiogenic shock
Acute CHF reduced EF
Ischemic cardiomyopathy.
Moderate to severe MR
Acute kidney injury
Metabolic/lactic acidosis.
Acute on chronic anemia secondary to dilution
Gram-positive bacteremia versus contamination
Elevated LFTs, mixed picture suspected secondary to shock liver
LUE weakness
Conditions prior to admission:*
CVA 02/16
Status post BOTTLE TESTER shunt
Essential hypertension
Anemia
PAD.
Tobacco use disorder/current smoker
Plan:
extubated 04/27. Billet Straightener and CROSSBOW MAKER discussed with patient and family and they are agreeable for DNR. Later 04/27 patient breathing continue to get worse and family and patient opted for comfort measures. Patient is currently on morphine drip.
Comfort orders
Discontinue braulio
transfer to med surg
daughter updated at bedside
Chest x-ray 04/21 with pulmonary edema
Less likely aspiration pneumonia.
ativan
Acute coronary syndrome. Large MS
Original presentation with ACS with urgent catheterization and left circumflex stent, and to return to Body Engineer after 2 hours with neuro: Situation after distal circumflex dissection propagated from distal age of the stent treated with long distally
overlapping stent. Large OM 2 originated from stented segment occluded on the return and not treatable.
Ischemic cardiomyopathy
Acute CHF reduced EF
Moderate to severe MR
Cardiogenic shock
Follow-up echocardiogram 04/22 with LVEF of 30 to 35%
RHC 04/25 confirming cardiogenic state with elevated filling pressure and depressed cardiac index.
Echocardiogram 04/26 with LVEF 30 to 35%, moderate to severe MR/modestly improved but still remains moderate to severe
Ongoing attempt of diuresis initially with Lasix intravenous Bumex drip down to Bumex twice daily with support of dobutamine and Levophed
Possibly eventually DEYSI to reassess degree of MR in response to diuresis and viability for MitraClip procedure. DEYSI canceled 04/27 due to left upper extremity weakness
Off pressors since now on comfort
LUE weakness which appears to be new. Seen by neurology 04/27/2024. CT negative
MRI cancelled since now on comfort
Shock likely cardiogenic less likely septic
Blood culture with coag negative Staphylococcus, 1 out of 2 and likely contaminant.
Respiratory culture with gram-negative bacilli and staph auris.
Chest x-ray not consistent with focal infiltrates and improving with diuresis which leaning towards pulmonary edema rather than pneumonia.
Acute kidney injury with creatinine trending down from 1.3-1.0
Elevated LFTs, mixed picture suspected secondary to shock liver.
Trending down.
The above tube in place.
Tube feeding ongoing.
Continue PPI
Hypothyroidism
Noted elevated TSH on admission
Continue Levothyroxine supplementation via feeding tube and later p.o.
Acute on chronic anemia.
Noted trending down hemoglobin and likely secondary to dilution.
Given unstable hemodynamics/continued shock, monitor and transfuse to keep hemoglobin above 8.
DVT prophylaxis: Comfort
CODE STATUS: DNR
Discussed with daughter at bedside. Patient and family agreeable for comfort measures. Currently on morphine drip.
General:no Respiratory Distress
HEENT: Normocephalic, Anicteric
Cardiovascular: S1-S2,RRR
Psych: calm
Anticipated Discharge: Today
Subjective/Interval History
-
Date of Service: April 29, 2024
comfortable
Objective Data
-
Vital Signs:
Vital Signs
Temp Pulse Resp BP Pulse Ox
99.6 F 109 18 95/65 91
04/29/24 07:48 04/29/24 07:48 04/29/24 07:48 04/29/24 07:48 04/29/24 08:15
I&O
04/28/24 04/29/24 04/30/24
06:59 06:59 06:59
Intake Total 1005.8 / 1005.8 0 / 0
Output Total 1185 / 1185 300 / 300
Balance -179.2 / -179.2 -300 / -300
--- NOTE | 2024-04-29 15:50 | CHAP ---
Checked in on Ronaldo at 9am, and later spoke with daughter Jayant. Provided information Jayant requested, and discussed the possibility of [place] being involved in arrangements. Emotional support provided.
[2024-04-29] MEDS: NSS (PRESERVATIVE FREE) 0.25 ML IV (17:40)
[2024-04-29] MEDS: ATIVAN 0.25 MG IV (17:40)
[2024-04-29 19:06] VITALS: BP 84/61
[2024-04-30] MEDS: MORPHINE SULFATE 4 MG IV (00:27)
--- NOTE | 2024-04-30 03:44 | W.PN.DEATH ---
Pronouncement of
-
Called to see patient to pronounce.
No spontaneous heart tones or respirations noted.
Patient not responsive to verbal stimuli.
Patient is pronounced .
Time of : 03:33
Date of : 04/30/24
Cause of : cardiogenic shock, myocardial infarction acs, cad
Family Notified: Yes (daughter at beside)
== END 2024-04-30 03:33 | disposition expired | DRG 321 ==
LOC: 2 NORTH 12:47
PROVIDERS: Clinical Nurse Specialist Acute Care; Internal Medicine; Internal Medicine Cardiovascular Disease; Internal Medicine Critical Care Medicine; Nurse Practitioner; Nurse Practitioner Family; Nurse Practitioner Primary Care; Physician Assistant Medical; ADMITTING PHYSICIAN Internal Medicine; ATTENDING PHYSICIAN Internal Medicine; CONSULT PHYSICIAN Internal Medicine Cardiovascular Disease; CONSULT PHYSICIAN Internal Medicine Critical Care Medicine; CONSULT PHYSICIAN Student in an Organized Health Care Education/Training Program; CONSULT PHYSICIAN Thoracic Surgery (Cardiothoracic Vascular Surgery); EMERGENCY PHYSICIAN Student in an Organized Health Care Education/Training Program; FAMILY PHYSICIAN Internal Medicine; OTHER PHYSICIAN Surgery Vascular Surgery
PROC: B2151ZZ Fluoroscopy of Left Heart using Low Osmolar Contrast (ICD-10-PCS; 2024-04-17)
PROC: 4A023N7 Measurement of Cardiac Sampling and Pressure, Left Heart, Percutaneous Approach (ICD-10-PCS; 2024-04-17)
PROC: B2111ZZ Fluoroscopy of Multiple Coronary Arteries using Low Osmolar Contrast (ICD-10-PCS; 2024-04-17)
PROC: 5A1223Z Performance of Cardiac Pacing, Continuous (ICD-10-PCS; 2024-04-17)
PROC: 5A2204Z Restoration of Cardiac Rhythm, Single (ICD-10-PCS; 2024-04-17)
PROC: 027034Z Dilation of Coronary Artery, One Artery with Drug-eluting Intraluminal Device, Percutaneous Approach (ICD-10-PCS; 2024-04-17)
PROC: 0BH17EZ Insertion of Endotracheal Airway into Trachea, Via Natural or Artificial Opening (ICD-10-PCS; 2024-04-18)
PROC: 02HV33Z Insertion of Infusion Device into Superior Vena Cava, Percutaneous Approach (ICD-10-PCS; 2024-04-18)
PROC: 5A1945Z Respiratory Ventilation, 24-96 Consecutive Hours (ICD-10-PCS; 2024-04-18)
PROC: 03HY32Z Insertion of Monitoring Device into Upper Artery, Percutaneous Approach (ICD-10-PCS; 2024-04-18)
PROC: 30233N1 Transfusion of Nonautologous Red Blood Cells into Peripheral Vein, Percutaneous Approach (ICD-10-PCS; 2024-04-19)
PROC: 5A09357 Assistance with Respiratory Ventilation, Less than 24 Consecutive Hours, Continuous Positive Airway Pressure (ICD-10-PCS; 2024-04-20)
PROC: 5A1955Z Respiratory Ventilation, Greater than 96 Consecutive Hours (ICD-10-PCS; 2024-04-20)
PROC: 4A023N6 Measurement of Cardiac Sampling and Pressure, Right Heart, Percutaneous Approach (ICD-10-PCS; 2024-04-25)
PROC: 02HP32Z Insertion of Monitoring Device into Pulmonary Trunk, Percutaneous Approach (ICD-10-PCS; 2024-04-25)
DX: I21.4 Non-ST elevation (NSTEMI) myocardial infarction (principal); I25.42 Coronary artery dissection; I63.89 Other cerebral infarction; I49.02 Ventricular flutter; K72.00 Acute and subacute hepatic failure without coma; I50.21 Acute systolic (congestive) heart failure; J96.01 Acute respiratory failure with hypoxia; Z99.11 Dependence on respirator [ventilator] status; E87.20 Acidosis, unspecified; N17.9 Acute kidney failure, unspecified; G81.94 Hemiplegia, unspecified affecting left nondominant side; I70.92 Chronic total occlusion of artery of the extremities; E87.1 Hypo-osmolality and hyponatremia; Z66 Do not resuscitate; Z51.5 Encounter for palliative care; I10 Essential (primary) hypertension; R00.1 Bradycardia, unspecified; I25.10 Atherosclerotic heart disease of native coronary artery without angina pectoris; D64.9 Anemia, unspecified; I46.2 Cardiac arrest due to underlying cardiac condition; I45.9 Conduction disorder, unspecified; E78.00 Pure hypercholesterolemia, unspecified; R57.0 Cardiogenic shock; I48.0 Paroxysmal atrial fibrillation; I34.0 Nonrheumatic mitral (valve) insufficiency; F17.210 Nicotine dependence, cigarettes, uncomplicated; I27.29 Other secondary pulmonary hypertension; I70.203 Unspecified atherosclerosis of native arteries of extremities, bilateral legs; E03.9 Hypothyroidism, unspecified; I25.5 Ischemic cardiomyopathy; E87.6 Hypokalemia; R73.9 Hyperglycemia, unspecified; Z11.52 Encounter for screening for COVID-19; Z79.02 Long term (current) use of antithrombotics/antiplatelets; Z79.82 Long term (current) use of aspirin; Z79.899 Other long term (current) drug therapy; Z82.49 Family history of ischemic heart disease and other diseases of the circulatory system; Z86.73 Personal history of transient ischemic attack (TIA), and cerebral infarction without residual deficits; Z98.2 Presence of cerebrospinal fluid drainage device
CPT/HCPCS: 93308; 33210; 36600; 70496; 70498; 71045; 74018; 80048; 80051; 80053; 80061; 80069; 80076; 80202; 81003; 81015; 82043; 82330; 82570; 82607; 82728; 82746; 82805; 82962; 83036; 83540; 83550; 83605; 83735; 83880; 84100; 84132; 84145; 84156; 84302; 84439; 84443; 84478; 84484; 85014; 85018; 85025; 85027; 85347; 85610; 85730; 86850; 86900; 86901; 86920; 87040; 87070; 87077; 87086; 87147; 87150; 87186; 87205; 87811; 92610; 93005; 93306; 93321; 93325; 93451; 93458; 93880; 93922; 93925; 94002; 94003; 94640; 94660; 99285; 99406; C1725; C1769; C1874; C1894; C9600; J1327; P9016; P9047; Q9957; Q9967